=== PATIENT | male | born 1990 | race American Indian/Alaskan Native ===

== ENCOUNTER 2017-03-10 07:12 | Emergency (ER) | payer SELFPAY ==
[2017-03-10 08:11] LABS: Basophils % (Auto) 0.1 % (0.0-1.8); Eosinophils % (Auto) 0.8 % (0.0-4.3); Hematocrit 48.2 % (35.5-45.6); Mean Corpuscular HGB Conc 33 % (32-34); Mean Corpuscular Hemoglobin 30 pg (28-32); Mean Corpuscular Volume 89 fl (84-94); Platelet Count 253 K/mm3 (140-440); Red Cell Distribution Width 13.4 % (13.2-15.2); White Blood Count 12.9 K/mm3 (4.5-11.0)
[2017-03-10 08:24] LABS: Bacteria,Urine 1+ /HPF (Negative); Bilirubin,Urine NEG (Negative); Blood,Urine NEG (Negative); Ketones,Urine NEG (Negative); Leukocyte Esterase,Urine NEG (Negative); Mucus,Urine FEW /HPF; Nitrite,Urine NEG (Negative); Protein,Urine <15 mg/dL mg/dL (Negative); Urobilinogen,Urine < 2.0 mg/dL (<2.0); WBC,Urine < 1.0 /HPF (0.0-6.0)
[2017-03-10 08:24] LABS: Anion Gap 18 mmol/L; Blood Urea Nitrogen 11 mg/dL (9-20); Calcium 9.4 mg/dL (8.4-10.2); Carbon Dioxide 28 mmol/L (22-30); Chloride 99.5 mmol/L (98-107); Glucose 139 mg/dL (75-100); Potassium 4.2 mmol/L (3.6-5.0); Sodium 141 mmol/L (137-145)
[2017-03-10 15:07] VITALS: BP 125/97
--- NOTE | 2017-03-10 15:34 | Emergency Department Report ---
ED N/V/D HPI - General Chief complaint: Nausea/Vomiting/Diarrhea Stated complaint: VOMITING/STOMACH PAIN/HEADACHE/POSS FOOD POISON Time Seen by Provider: 03/10/17 15:03 Source: patient Mode of arrival: Ambulatory Limitations: No Limitations - History of Present Illness MD complaint: nausea, vomiting, diarrhea -: Gradual Description of Vomiting: watery Description of Diarrhea: water, mucous Location: diffuse Radiation: none Severity: mild Pain Scale: 1 Quality: cramping Consistency: intermittent Improves with: none Context: possible food poisoning Associated Symptoms: nausea/vomiting. denies: myalgias, chest pain, cough, headaches, loss of appetite, malaise, shortness of breath, syncope, weakness - Related Data Previous Rx's Medication Instructions Recorded Last Taken Type Ondansetron [Zofran Odt] 4 mg PO QID #12 tab.rapdis 03/10/17 Unknown Rx Allergies Allergy/AdvReac Type Severity Reaction Status Date / Time No Known Allergies Allergy Unverified 03/10/17 07:27 ED Review of Systems ROS: Stated complaint: VOMITING/STOMACH PAIN/HEADACHE/POSS FOOD POISON Other details as noted in HPI Comment: All other systems reviewed and negative ED Past Medical Hx - Past Medical History Previous Medical History?: No - Surgical History Past Surgical History?: No - Social History Smoking Status: Never Smoker Substance Use Type: None - Medications Home Medications: Home Medications Medication Instructions Recorded Confirmed Last Taken Type Ondansetron [Zofran Odt] 4 mg PO QID #12 tab.rapdis 03/10/17 Unknown Rx ED Physical Exam - General Limitations: No Limitations General appearance: alert, in no apparent distress - Head Head exam: Present: atraumatic, normocephalic - Eye Eye exam: Present: normal appearance, PERRL - ENT ENT exam: Present: normal exam, mucous membranes moist - Neck Neck exam: Present: normal inspection - Respiratory Respiratory exam: Present: normal lung sounds bilaterally. Absent: respiratory distress - Cardiovascular Cardiovascular Exam: Present: regular rate, normal rhythm. Absent: systolic murmur, diastolic murmur, rubs, gallop - GI/Abdominal GI/Abdominal exam: Present: soft, normal bowel sounds - Rectal Rectal exam: Present: deferred - Extremities Exam Extremities exam: Present: normal inspection - Back Exam Back exam: Present: normal inspection - Neurological Exam Neurological exam: Present: alert, oriented X3 - Psychiatric Psychiatric exam: Present: normal affect, normal mood - Skin Skin exam: Present: warm, dry, intact, normal color. Absent: rash ED Course Vital Signs 03/10/17 03/10/17 03/10/17 07:21 07:23 15:03 Temperature 98.3 F 98.3 F Pulse Rate 98 H 98 H 94 H Respiratory 16 16 16 Rate Blood Pressure 127/82 Blood Pressure 127/82 125/97 [Left] O2 Sat by Pulse 97 97 97 Oximetry ED Medical Decision Making - Lab Data Result diagrams: 03/10/17 07:55 03/10/17 07:55 - EKG Data When compared to previous EKG there are: no significant change Interpretation: no acute changes - Medical Decision Making patient doing well, tolerating po here in the ER, doing well. labs negative. Critical care attestation.: If time is entered above; I have spent that time in minutes in the direct care of this critically ill patient, excluding procedure time. ED Disposition Clinical Impression: Vomiting, Food poisoning Disposition: DC-01 TO HOME OR SELFCARE Is pt being admited?: No Does the pt Need Aspirin: No Condition: Good Instructions: Acute Nausea and Vomiting (ED) Prescriptions: Ondansetron [Zofran Odt] 4 mg PO QID #12 tab.rapdis Referrals: PRIMARY CARE, [Primary Care Provider] - 3-5 Days Time of Disposition: 15:58
[2017-03-10] MEDS ORDERED: ZOFRAN ONE (16:02)
[2017-03-10] MEDS ORDERED: NACL 0.9% 1000 ML 1,000 ML ONE (16:03)
[2017-03-10] MEDS ORDERED: NACL 0.9% 1000 ML 1,000 ML IV ONE (16:07)
[2017-03-10] MEDS ORDERED: ZOFRAN IV ONE (16:07)
== END 2017-03-10 17:47 | disposition home or self-care (01) ==
LOC: ED 07:12
DX: T62.8X1A Toxic effect of other specified noxious substances eaten as food, accidental (unintentional), initial encounter (principal); R11.2 Nausea with vomiting, unspecified; Y92.89 Other specified places as the place of occurrence of the external cause
CPT/HCPCS: 36415; 80048; 81001; 82962; 85025; 96361; 96374; 99283; J2405; J7030

== ENCOUNTER 2020-06-21 07:13 | Emergency (ER) | payer SELFPAY ==
[2020-06-21 07:41] VITALS: BP 130/89
[2020-06-21 09:11] LABS: Alanine Aminotransferase 29 units/L (7-56); Albumin 4.5 g/dL (3.9-5); BUN/Creatinine Ratio 15; Blood Urea Nitrogen 19 mg/dL (9-20); Calcium 9.5 mg/dL (8.4-10.2); Hemolysis Index 29
[2020-06-21 09:26] LABS: Basophils % (Auto) 0.6 % (0.0-1.8); Eosinophils # (Auto) 0.2 K/mm3 (0.0-0.4); Hemoglobin 17.1 gm/dl (11.8-15.2); Lymphocytes # (Auto) 2.2 K/mm3 (1.2-5.4); Mean Corpuscular HGB Conc 34 % (32-34); Mean Corpuscular Volume 88 fl (84-94); Monocytes # (Auto) 0.7 K/mm3 (0.0-0.8); Monocytes % (Auto) 9.7 % (0.0-7.3); Platelet Count 251 K/mm3 (140-440); Red Blood Count 5.81 M/mm3 (3.65-5.03); Red Cell Distribution Width 13.1 % (13.2-15.2)
[2020-06-21 09:28] LABS: Bacteria,Urine 1+ /HPF (Negative); Bilirubin,Urine NEG (Negative); Blood,Urine NEG (Negative); Color,Urine Colorless (Yellow); Mucus,Urine FEW /HPF; Protein,Urine <15 mg/dL mg/dL (Negative); Urobilinogen,Urine < 2.0 mg/dL (<2.0); WBC,Urine < 1.0 /HPF (0.0-6.0)
[2020-06-21 10:02] LABS: Bilirubin,Direct < 0.2 mg/dL (0-0.2)
[2020-06-21] MEDS ORDERED: INSULIN REGULAR, HUMAN 100 UNIT/ML 3ML VIAL IV ONE ×3 (10:16→12:47)
[2020-06-21] MEDS ORDERED: SODIUM CHLORIDE 0.9% 1000 ML 1,000 ML IV ONE ×2 (10:16→11:41)
--- NOTE | 2020-06-21 10:19 | Emergency Department Report ---
ED General Adult HPI - General Chief complaint: Medical Clearance Stated complaint: DEHYDRATION Time Seen by Provider: 06/21/20 07:45 Source: patient Mode of arrival: Ambulatory Limitations: No Limitations - History of Present Illness Initial comments: Patient is 30 years old male with no significant past medical history. Patient presented to the ER stating that he has frequent urination that bothering him. He stated that he woke up in the middle of the night several times to go to the bathroom. He also noticed that he has been very thirsty. He denied any loss of weight. Patient also denied any chest pain, shortness of breath, abdominal pain, nausea or vomiting. No fever or chills. - Related Data Previous Rx's Medication Instructions Recorded Last Taken Type Ondansetron [Zofran Odt] 4 mg PO QID #12 tab.rapdis 03/10/17 Unknown Rx Allergies Allergy/AdvReac Type Severity Reaction Status Date / Time No Known Allergies Allergy Unverified 03/10/17 07:27 ED Review of Systems ROS: Stated complaint: DEHYDRATION Other details as noted in HPI Comment: All other systems reviewed and negative Constitutional: denies: chills, fever Respiratory: denies: cough, shortness of breath, SOB with exertion Cardiovascular: denies: chest pain, palpitations Endocrine: increased hunger, increased thirst, increased urine Gastrointestinal: denies: abdominal pain, nausea, vomiting Genitourinary: urgency, frequency Neurological: denies: headache, weakness, numbness, paresthesias, confusion, abnormal gait ED Past Medical Hx - Past Medical History Previous Medical History?: No - Surgical History Past Surgical History?: No - Social History Smoking Status: Never Smoker Substance Use Type: None - Medications Home Medications: Home Medications Medication Instructions Recorded Confirmed Last Taken Type Ondansetron [Zofran Odt] 4 mg PO QID #12 tab.rapdis 03/10/17 Unknown Rx ED Physical Exam - General Limitations: No Limitations General appearance: alert, in no apparent distress - Head Head exam: Present: atraumatic, normocephalic, normal inspection - ENT ENT exam: Present: mucous membranes dry - Neck Neck exam: Present: normal inspection, full ROM. Absent: tenderness, meningismus - Respiratory Respiratory exam: Present: normal lung sounds bilaterally - Cardiovascular Cardiovascular Exam: Present: regular rate, normal rhythm, normal heart sounds - GI/Abdominal GI/Abdominal exam: Present: soft, normal bowel sounds. Absent: distended, tenderness, guarding, rebound, rigid, organomegaly, mass, bruit, pulsatile mass, hernia - Extremities Exam Extremities exam: Present: normal inspection, full ROM, normal capillary refill. Absent: tenderness, pedal edema, calf tenderness - Back Exam Back exam: Present: normal inspection, full ROM. Absent: CVA tenderness (R), CVA tenderness (L) - Neurological Exam Neurological exam: Present: alert, oriented X3, CN II-XII intact, normal gait, reflexes normal. Absent: motor sensory deficit - Psychiatric Psychiatric exam: Present: normal mood - Skin Skin exam: Present: warm, intact, normal color ED Course Vital Signs 06/21/20 07:32 Temperature 98.0 F Pulse Rate 86 Respiratory 20 Rate Blood Pressure 130/89 O2 Sat by Pulse 96 Oximetry ED Medical Decision Making - Lab Data Result diagrams: 06/21/20 08:08 06/21/20 08:08 - Radiology Data Radiology results: report reviewed - Medical Decision Making Patient is 30 years old male with no significant past medical history. Patient presented to the ER stating that he has frequent urination that bothering him. He stated that he woke up in the middle of the night several times to go to the bathroom. He also noticed that he has been very thirsty. He denied any loss of weight. Patient also denied any chest pain, shortness of breath, abdominal pain, nausea or vomiting. No fever or chills. Labs reviewed and showed elevated blood glucose. Patient received 2 L of normal saline and 15units of insulin IV. No evidence of DKA. Patient responded very well to insulin and fluids. Patient will be started on Glucophage and glipizide and given [facility] to follow-up in the next 2 to 3 days. Patient also advised to return to the ER if he develop any new symptoms. Critical care attestation.: If time is entered above; I have spent that time in minutes in the direct care of this critically ill patient, excluding procedure time. ED Disposition Clinical Impression: Acute hyperglycemia, New onset type 2 diabetes mellitus Disposition: -01 TO HOME OR SELFCARE Is pt being admited?: No Condition: Stable Instructions: Diabetes Mellitus Type 2 in Adults (ED) Referrals: [facility] [Provider Group] - 3-5 Days
== END 2020-06-21 14:38 | disposition home or self-care (01) ==
LOC: ED 07:13
DX: E11.65 Type 2 diabetes mellitus with hyperglycemia (principal)
CPT/HCPCS: 36415; 80048; 80076; 81001; 82962; 83036; 85025; 96361; 96374; 96376; 99283; J7030; J1815

== ENCOUNTER 2020-07-20 00:22 | Emergency (ER) | payer SELFPAY ==
[2020-07-20] MEDS ORDERED: SODIUM CHLORIDE 0.9% 1000 ML 1,000 ML ONE (01:08)
[2020-07-20] MEDS ORDERED: SODIUM CHLORIDE 0.9% 1000 ML 1,000 ML IV ONE ×3 (01:15→04:10)
--- NOTE | 2020-07-20 01:20 | Emergency Department Report ---
HPI - General Chief Complaint: Hyperglycemia Time Seen by Provider: 07/20/20 01:00 - [facility] HPI: Room 25 The patient is a 30-year-old male present with a chief complaint of blurred vision and urinary frequency. Patient states for the past 1.5 hours he has been urinating frequently. Patient denies dysuria or hematuria. Patient states he has been compliant with his Metformin. ED Past Medical Hx - Past Medical History Previous Medical History?: Yes Hx Diabetes: Yes (Type II) - Surgical History Past Surgical History?: No - Family History Family history: no significant - Social History Smoking Status: Current Every Day Smoker (1/5 pack/day) Substance Use Type: None (Denies illicit drug use) - Medications Home Medications: Home Medications Medication Instructions Recorded Confirmed Last Taken Type Ondansetron [Zofran Odt] 4 mg PO QID #12 tab.rapdis 03/10/17 Unknown Rx glipiZIDE [Glucotrol] 5 mg PO BID #60 tablet 06/21/20 Unknown Rx metFORMIN [Glucophage] 500 mg PO BID #60 tablet 06/21/20 Unknown Rx ED Review of Systems ROS: Stated complaint: BLURRED VISION Other details as noted in HPI Constitutional: no symptoms reported Eyes: vision change ENT: denies: throat pain Respiratory: no symptoms reported Cardiovascular: denies: chest pain Endocrine: increased urine Gastrointestinal: denies: abdominal pain Genitourinary: frequency. denies: dysuria Musculoskeletal: denies: back pain Neurological: denies: headache Physical Exam - Physical Exam Vital Signs: Vital Signs 07/20/20 00:28 Temperature 97.9 F Pulse Rate 81 Respiratory 18 Rate Blood Pressure 119/77 O2 Sat by Pulse 96 Oximetry Physical Exam: GENERAL: The patient is well-developed well-nourished male lying on stretcher not appearing to be in acute distress. [] HEENT: Normocephalic. Atraumatic. Extraocular motions are intact. Patient has moist mucous membranes. NECK: Supple. Trachea midline CHEST/LUNGS: Clear to auscultation. There is no respiratory distress noted. HEART/CARDIOVASCULAR: Regular. There is no tachycardia. There is no gallop rub or murmur. ABDOMEN: Abdomen is soft, nontender. Patient has normal bowel sounds. There is no abdominal distention. SKIN: There is no rash. There is no edema. There is no diaphoresis. NEURO: The patient is awake, alert, and oriented. The patient is cooperative. The patient has no focal neurologic deficits. The patient has normal speech. Cranial nerves II through XII grossly intact MUSCULOSKELETAL: There is no evidence of acute injury. ED Course Vital Signs 07/20/20 00:28 Temperature 97.9 F Pulse Rate 81 Respiratory 18 Rate Blood Pressure 119/77 O2 Sat by Pulse 96 Oximetry ED Medical Decision Making - Lab Data Result diagrams: 07/20/20 01:11 07/20/20 00:54 Laboratory Tests 07/20/20 07/20/20 07/20/20 00:54 00:59 01:11 WBC 8.4 RBC 5.53 H Hgb 16.3 H Hct 49.0 H MCV 89 MCH 29 MCHC 33 RDW 13.3 Plt Count 246 Lymph % (Auto) 35.4 H [place] % (Auto) 8.7 H Eos % (Auto) 1.1 Baso % (Auto) 0.4 Lymph # (Auto) 3.0 [place] # (Auto) 0.7 Eos # (Auto) 0.1 Baso # (Auto) 0.0 Seg Neutrophils % 54.4 Seg Neutrophils # 4.6 VBG pH Sodium 129 L Potassium 4.3 Chloride 92.9 L Carbon Dioxide 22 Anion Gap 18 BUN 15 Creatinine 1.2 Estimated GFR > 60 BUN/Creatinine Ratio 13 Glucose 597 H* POC Glucose Calcium 9.8 Total Bilirubin 0.70 AST 10 ALT 17 Alkaline Phosphatase 117 Total Protein 8.1 Albumin 4.7 Albumin/Globulin Ratio 1.4 Urine Color Colorless Urine Turbidity Clear Urine pH 6.0 Ur Specific [place] 1.027 Urine Protein <15 mg/dl Urine Glucose (UA) >=500 Urine Ketones Tr Urine Blood Neg Urine Nitrite Neg Urine Bilirubin Neg Urine Urobilinogen < 2.0 Ur Leukocyte Esterase Neg Urine WBC (Auto) < 1.0 Urine RBC (Auto) < 1.0 U Epithel Cells (Auto) < 1.0 07/20/20 07/20/20 01:11 02:16 WBC RBC Hgb Hct MCV MCH MCHC RDW Plt Count Lymph % (Auto) [place] % (Auto) Eos % (Auto) Baso % (Auto) Lymph # (Auto) [place] # (Auto) Eos # (Auto) Baso # (Auto) Seg Neutrophils % Seg Neutrophils # VBG pH 7.333 Sodium Potassium Chloride Carbon Dioxide Anion Gap BUN Creatinine Estimated GFR BUN/Creatinine Ratio Glucose POC Glucose > 500 H Calcium Total Bilirubin AST ALT Alkaline Phosphatase Total Protein Albumin Albumin/Globulin Ratio Urine Color Urine Turbidity Urine pH Ur Specific [place] Urine Protein Urine Glucose (UA) Urine Ketones Urine Blood Urine Nitrite Urine Bilirubin Urine Urobilinogen Ur Leukocyte Esterase Urine WBC (Auto) Urine RBC (Auto) U Epithel Cells (Auto) - Differential Diagnosis Hyperglycemia, DKA, UTI Critical care attestation.: If time is entered above; I have spent that time in minutes in the direct care of this critically ill patient, excluding procedure time. ED Disposition Clinical Impression: Hyperglycemia Disposition: DC-01 TO HOME OR SELFCARE Is pt being admited?: No Does the pt Need Aspirin: No Condition: Stable Instructions: Type 2 Diabetes Mellitus, Diagnosis, Adult, Living With Diabetes, Diabetes Basics, Carbohydrate Counting for Diabetes Mellitus, Adult, Diabetes Mellitus and Nutrition, Adult Additional Instructions: Return to the emergency department should you develop worsening symptoms, inability to tolerate food or liquids, high fever or any other concerns Referrals: LOYD ELISE MD [Primary Care Provider] - 3-5 Days Time of Disposition: 04:53
[2020-07-20 01:43] LABS: Alanine Aminotransferase 17 units/L (7-56); Albumin 4.7 g/dL (3.9-5); BUN/Creatinine Ratio 13; Blood Urea Nitrogen 15 mg/dL (9-20); Calcium 9.8 mg/dL (8.4-10.2); Hemolysis Index 6
[2020-07-20 01:46] LABS: Basophils % (Auto) 0.4 % (0.0-1.8); Eosinophils # (Auto) 0.1 K/mm3 (0.0-0.4); Eosinophils % (Auto) 1.1 % (0.0-4.3); Hemoglobin 16.3 gm/dl (11.8-15.2); Lymphocytes % (Auto) 35.4 % (13.4-35.0); Mean Corpuscular HGB Conc 33 % (32-34); Mean Corpuscular Volume 89 fl (84-94); Monocytes # (Auto) 0.7 K/mm3 (0.0-0.8); Monocytes % (Auto) 8.7 % (0.0-7.3); Platelet Count 246 K/mm3 (140-440); Red Blood Count 5.53 M/mm3 (3.65-5.03); Red Cell Distribution Width 13.3 % (13.2-15.2)
[2020-07-20] MEDS ORDERED: INSULIN REGULAR, HUMAN 100 UNIT/ML 3ML VIAL IV ONE ×3 (01:57→04:10)
[2020-07-20] MEDS ORDERED: INSULIN REGULAR, HUMAN 100 UNITS/1 ML ONE ×3 (02:00)
[2020-07-20 02:28] LABS: Bilirubin,Urine NEG (Negative); Blood,Urine NEG (Negative); Color,Urine Colorless (Yellow); Protein,Urine <15 mg/dL mg/dL (Negative); RBC,Urine < 1.0 /HPF (0.0-6.0); Urobilinogen,Urine < 2.0 mg/dL (<2.0); WBC,Urine < 1.0 /HPF (0.0-6.0)
[2020-07-20 05:09] VITALS: BP 118/54
== END 2020-07-20 05:12 | disposition home or self-care (01) ==
LOC: ED 00:22
DX: E11.65 Type 2 diabetes mellitus with hyperglycemia (principal); F17.200 Nicotine dependence, unspecified, uncomplicated; Z79.899 Other long term (current) drug therapy
CPT/HCPCS: 36415; 80053; 81001; 82805; 82962; 85025; 96361; 96374; 96375; 99283; J7030; J1815

== ENCOUNTER 2020-09-06 14:37 | Inpatient (IN) | payer SELFPAY ==
--- NOTE | 2020-09-06 15:41 | Event Note ---
ED Screening Note Date of service: 09/06/20 Time: 15:40 ED Screening Note: States fatigue, shortness of breath, and weakness x2 days History of diabetes POC glucose = 529 This initial assessment/diagnostic orders/clinical plan/treatment(s) is/are subject to change based on patients health status, clinical progression and re- assessment by fellow clinical providers in the ED. Further treatment and workup at subsequent clinical providers discretion. Patient/guardian urged not to elope from the ED as their condition may be serious if not clinically assessed and managed. Initial orders include: Labs
[2020-09-06] MEDS ORDERED: SODIUM CHLORIDE 0.9% 1000 ML 1,000 ML ONE (15:43)
[2020-09-06 16:15] LABS: Mean Corpuscular HGB Conc 31 % (32-34); Mean Corpuscular Volume 96 fl (84-94); Platelet Count 300 K/mm3 (140-440); Red Blood Count 5.49 M/mm3 (3.65-5.03)
[2020-09-06 16:16] LABS: Hematocrit 52.8 % (35.5-45.6); Hemoglobin 16.4 gm/dl (11.8-15.2)
[2020-09-06 16:28] LABS: Albumin 4.6 g/dL (3.9-5); Calcium 8.8 mg/dL (8.4-10.2)
--- NOTE | 2020-09-06 16:37 | Emergency Department Report ---
HPI - General Chief Complaint: Dyspnea/Respdistress Time Seen by Provider: 09/06/20 15:40 - HPI HPI: This is a 30-year-old -[place] male who presents to the emergency department with a 2-day history of generalized fatigue and weakness, shortness o f breath, nausea with vomiting. The patient has a history of [id number] diabetes that was diagnosed about 3 months ago. He says he has been compliant with his diabetes medications and presents through triage with an Accu-Chek of greater than 500. He denies any other past medical histor y. He has not taken anything for his symptoms prior to presentation. He denies any chest pain, fever, diarrhea, diaphoresis. No recent travel or sick contacts at home. No known exposure to anyone with COVID-19. ED Past Medical Hx - Past Medical History Previous Medical History?: Yes Hx Diabetes: Yes (Type II) - Social History Smoking Status: Current Every Day Smoker (1/5 pack/day) Substance Use Type: None (Denies illicit drug use) - Medications Home Medications: Home Medications Medication Instructions Recorded Confirmed Last Taken Type Ondansetron [Zofran Odt] 4 mg PO QID #12 tab.rapdis 03/10/17 Unknown Rx glipiZIDE [Glucotrol] 5 mg PO BID #60 tablet 07/20/20 Unknown Rx metFORMIN [Glucophage] 500 mg PO BID #60 tablet 07/20/20 Unknown Rx ED Review of Systems ROS: Stated complaint: DIFFICULTY BREATHING Other details as noted in HPI Comment: All other systems reviewed and negative Constitutional: weakness. denies: fever Eyes: denies: eye pain, vision change Respiratory: shortness of breath. denies: cough Cardiovascular: denies: chest pain, palpitations Gastrointestinal: nausea, vomiting Genitourinary: denies: dysuria, discharge Musculoskeletal: denies: back pain, arthralgia Skin: denies: rash, lesions Neurological: denies: headache, numbness Physical Exam - Physical Exam Vital Signs: Vital Signs 09/06/20 15:35 Temperature 97.5 F L Pulse Rate 116 H Respiratory 26 H Rate Blood Pressure 157/95 [Right] O2 Sat by Pulse 100 Oximetry Physical Exam: GENERAL: Patient is ill-appearing. HENT: Normocephalic. Atraumatic. Patient has moist mucous membranes. EYES: Extraocular motions are intact. NECK: Supple. Trachea is midline. CHEST/LUNGS: Clear to auscultation. There is some mild tachypnea. Kussmaul breathing. HEART/CARDIOVASCULAR: Regular. There is no tachycardia. There is no murmur. ABDOMEN: Abdomen is soft, nontender. Patient has normal bowel sounds. SKIN: Skin is warm and dry. NEURO: Patient is sleepy but otherwise is alert and oriented, AAO x3. The patient has no focal neurologic deficits. Normal speech. Cranial nerves II through XII grossly intact. MUSCULOSKELETAL: There is no tenderness or deformity. There is no limitation range of motion. ED Course Vital Signs 09/06/20 15:35 Temperature 97.5 F L Pulse Rate 116 H Respiratory 26 H Rate Blood Pressure 157/95 [Right] O2 Sat by Pulse 100 Oximetry ED Medical Decision Making - Lab Data Result diagrams: 09/06/20 15:52 09/06/20 18:28 Lab Results 09/06/20 09/06/20 09/06/20 Range/Units 15:39 15:52 15:52 WBC 21.9 H (4.5-11.0) K/mm3 RBC 5.49 H (3.65-5.03) M/mm3 Hgb 16.4 H (11.8-15.2) gm/dl Hct 52.8 H (35.5-45.6) % MCV 96 H (84-94) fl MCH 30 (28-32) pg MCHC 31 L (32-34) % RDW 15.0 (13.2-15.2) % Plt Count 300 (140-440) K/mm3 Add Manual Diff Complete Total Counted 100 Seg Neuts % (Manual) 96.0 H (40.0-70.0) % Lymphocytes % (Manual) 3.0 L (13.4-35.0) % Monocytes % (Manual) 1.0 (0.0-7.3) % Nucleated RBC % Not Reportable Seg Neutrophils # Man 21.0 H (1.8-7.7) K/mm3 Band Neutrophils # 0.0 K/mm3 Lymphocytes # (Manual) 0.7 L (1.2-5.4) K/mm3 Abs React Lymphs (Man) 0.0 K/mm3 Monocytes # (Manual) 0.2 (0.0-0.8) K/mm3 Eosinophils # (Manual) 0.0 (0.0-0.4) K/mm3 Basophils # (Manual) 0.0 (0.0-0.1) K/mm3 Metamyelocytes # 0.0 K/mm3 Myelocytes # 0.0 K/mm3 Promyelocytes # 0.0 K/mm3 Blast Cells # 0.0 K/mm3 WBC Morphology Not Reportable Hypersegmented Neuts Not Reportable Hyposegmented Neuts Not Reportable Hypogranular Neuts Not Reportable Smudge Cells Not Reportable Toxic Granulation Not Reportable Toxic Vacuolation Not Reportable Dohle Bodies Not Reportable Pelger-Huet Anomaly Not Reportable Janessa Rods Not Reportable Platelet Estimate Consistent w auto Clumped Platelets Not Reportable Plt Clumps, EDTA Not Reportable Large Platelets Few Giant Platelets Rare Platelet Satelliting Not Reportable Plt Morphology Comment Not Reportable RBC Morphology Normal Dimorphic RBCs Not Reportable Polychromasia Not Reportable Hypochromasia Not Reportable Poikilocytosis Not Reportable Anisocytosis Not Reportable Microcytosis Not Reportable Macrocytosis Not Reportable Spherocytes Not Reportable Pappenheimer Bodies Not Reportable Sickle Cells Not Reportable Target Cells Not Reportable Tear Drop Cells Not Reportable Ovalocytes Not Reportable Helmet Cells Not Reportable [place] Bodies Not Reportable [place] Rings Not Reportable Masha Cells Not Reportable Bite Cells Not Reportable Crenated Cell Not Reportable Elliptocytes Not Reportable Acanthocytes (Spur) Not Reportable Rouleaux Not Reportable Hemoglobin C Crystals Not Reportable Schistocytes Not Reportable Malaria parasites Not Reportable Sunil Bodies Not Reportable Hem Pathologist Commnt No VBG pH (7.320-7.420) Sodium 123 L (137-145) mmol/L Potassium 5.6 H (3.6-5.0) mmol/L Chloride 88.6 L (98-107) mmol/L Carbon Dioxide 6 L* (22-30) mmol/L Anion Gap 34 mmol/L BUN 18 (9-20) mg/dL Creatinine 1.8 H (0.8-1.3) mg/dL Estimated GFR 54 ml/min BUN/Creatinine Ratio 10 % Glucose 595 H* (75-100) mg/dL POC Glucose 524 H (70-105) mg/dL Calcium 8.8 (8.4-10.2) mg/dL Phosphorus (2.5-4.5) mg/dL Magnesium (1.7-2.3) mg/dL Total Bilirubin 0.60 (0.1-1.2) mg/dL AST 12 (5-40) units/L ALT 19 (7-56) units/L Alkaline Phosphatase 131 H (35-129) units/L Total Protein 9.6 H (6.3-8.2) g/dL Albumin 4.6 (3.9-5) g/dL Albumin/Globulin Ratio 0.9 % 09/06/20 09/06/20 09/06/20 Range/Units 15:52 16:44 16:44 WBC (4.5-11.0) K/mm3 RBC (3.65-5.03) M/mm3 Hgb (11.8-15.2) gm/dl Hct (35.5-45.6) % MCV (84-94) fl MCH (28-32) pg MCHC (32-34) % RDW (13.2-15.2) % Plt Count (140-440) K/mm3 Add Manual Diff Total Counted Seg Neuts % (Manual) (40.0-70.0) % Lymphocytes % (Manual) (13.4-35.0) % Monocytes % (Manual) (0.0-7.3) % Nucleated RBC % Seg Neutrophils # Man (1.8-7.7) K/mm3 Band Neutrophils # K/mm3 Lymphocytes # (Manual) (1.2-5.4) K/mm3 Abs React Lymphs (Man) K/mm3 Monocytes # (Manual) (0.0-0.8) K/mm3 Eosinophils # (Manual) (0.0-0.4) K/mm3 Basophils # (Manual) (0.0-0.1) K/mm3 Metamyelocytes # K/mm3 Myelocytes # K/mm3 Promyelocytes # K/mm3 Blast Cells # K/mm3 WBC Morphology Hypersegmented Neuts Hyposegmented Neuts Hypogranular Neuts Smudge Cells Toxic Granulation Toxic Vacuolation Dohle Bodies Pelger-Huet Anomaly Janessa Rods Platelet Estimate Clumped Platelets Plt Clumps, EDTA Large Platelets Giant Platelets Platelet Satelliting Plt Morphology Comment RBC Morphology Dimorphic RBCs Polychromasia Hypochromasia Poikilocytosis Anisocytosis Microcytosis Macrocytosis Spherocytes Pappenheimer Bodies Sickle Cells Target Cells Tear Drop Cells Ovalocytes Helmet Cells [place] Bodies [place] Rings Masha Cells Bite Cells Crenated Cell Elliptocytes Acanthocytes (Spur) Rouleaux Hemoglobin C Crystals Schistocytes Malaria parasites Sunil Bodies Hem Pathologist Commnt VBG pH 6.979 L* (7.320-7.420) Sodium 122 L (137-145) mmol/L Potassium 5.0 (3.6-5.0) mmol/L Chloride 90.1 L (98-107) mmol/L Carbon Dioxide 4 L* (22-30) mmol/L Anion Gap 33 mmol/L BUN 18 (9-20) mg/dL Creatinine 1.6 H (0.8-1.3) mg/dL Estimated GFR > 60 ml/min BUN/Creatinine Ratio 11 % Glucose 572 H* (75-100) mg/dL POC Glucose (70-105) mg/dL Calcium 8.5 (8.4-10.2) mg/dL Phosphorus 4.40 (2.5-4.5) mg/dL Magnesium 2.40 H (1.7-2.3) mg/dL Total Bilirubin (0.1-1.2) mg/dL AST (5-40) units/L ALT (7-56) units/L Alkaline Phosphatase (35-129) units/L Total Protein (6.3-8.2) g/dL Albumin (3.9-5) g/dL Albumin/Globulin Ratio % - Radiology Data Radiology results: image reviewed interpreted by me: Chest x-ray does not show any acute process. There are no pleural effusions, obvious pneumonia and there is no pneumothorax. No significant cardiomegaly. - Medical Decision Making This patient presents to the emergency department with a 2-day history of some generalized weakness and fatigue, shortness of breath. Patient appears to be in diabetic ketoacidosis with a serum blood sugar of almost 600, and anion gap of 34, and a venous acidosis of 6.9. The patient has been started on IV fluid and an insulin drip. Patient will be admitted to the ICU and has been accepted for admission by the hospitalist, Dr. Chew. Critical Care Time: Yes Critical care time in (mins) excluding proc time.: 35 Critical care attestation.: If time is entered above; I have spent that time in minutes in the direct care of this critically ill patient, excluding procedure time. Critical care time was spent on this patient in doing his initial evaluation, multiple re evaluations, ordering and interpretation of labs and imaging, IV fluid resuscitation and insulin drip for treatment of his diabetic ketoacidosis. Critical Care Time: 35 minutes ED Disposition Clinical Impression: Mild renal insufficiency, Hyperkalemia, High anion gap metabolic acidosis Diabetic ketoacidosis Qualifiers: Diabetes mellitus type: type 2 Diabetes mellitus complication detail: without coma Qualified Code(s): E11.10 - Type 2 diabetes mellitus with ketoacidosis without coma Disposition: DC-09 OP ADMIT IP TO THIS HOSP Is pt being admited?: Yes Condition: Serious Instructions: Diabetic Ketoacidosis (ED) Time of Disposition: 20:28
[2020-09-06] MEDS ORDERED: SODIUM CHLORIDE 0.9% 1000 ML 1,000 ML IV ONE (16:38)
[2020-09-06] MEDS ORDERED: INSULIN REGULAR, HUMAN 100 UNITS in SODIUM CHLORIDE 0.9% 99 ML IV SCH ×2 (17:00→23:00)
[2020-09-06 17:13] LABS: Giant Platelets Rare; Large Platelets Few; Platelet Estimate Consistent w Auto; RBC Morphology Normal; Total Cells Counted 100
[2020-09-06 17:13] LABS: BUN/Creatinine Ratio 11; Blood Urea Nitrogen 18 mg/dL (9-20); Calcium 8.5 mg/dL (8.4-10.2); Hemolysis Index 27
[2020-09-06 17:33] LABS: Bilirubin,Urine NEG (Negative); Blood,Urine SM (Negative); Color,Urine Straw (Yellow); Mucus,Urine FEW /HPF; Urobilinogen,Urine < 2.0 mg/dL (<2.0); WBC,Urine < 1.0 /HPF (0.0-6.0)
--- NOTE | 2020-09-06 18:12 | XRay Report ---
CHEST 1 VIEW INDICATION: SOB COMPARISON: None FINDINGS: Support devices: None Heart: Normal Lungs/Pleura: No acute pulmonary or pleural findings. IMPRESSION: 1. No acute disease. Signer Name: Yrn Pinzon MD Signed: 09/06/2020 6:08 PM Workstation Name: [id number]
[2020-09-06 19:07] LABS: BUN/Creatinine Ratio 11; Blood Urea Nitrogen 18 mg/dL (9-20); Calcium 8.2 mg/dL (8.4-10.2); Hemolysis Index 21
[2020-09-06 21:51] LABS: BUN/Creatinine Ratio 11; Blood Urea Nitrogen 17 mg/dL (9-20); Calcium 8.4 mg/dL (8.4-10.2); Hemolysis Index 28
[2020-09-06] MEDS ORDERED: DEXTROSE 50% IN WATER (25GM) 50 ML SYRINGE IV PRN (22:59)
[2020-09-06] MEDS ORDERED: D5W/0.45% NACL/KCL 20 MEQ 20 MEQ/1,000 ML BAG IV SCH (23:00)
--- NOTE | 2020-09-06 23:12 | History and Physical Report ---
History of Present Illness Date of examination: 09/06/20 Date of admission: 09/06/20 Chief complaint: Nausea vomiting for 2 days Generalized weakness for 2 days History of present illness: This is a 30-year-old -[place] male who presents to the emergency depart [facility] with a 2-day history of generalized fatigue and weakness, shortness of breath, nausea with vomiting. The patient has a history of ceo-sccmbdr-[id number] diabetes that was diagnosed about 3 months ago. He says he has been compliant with his diabetes medications and presents through triage with an Accu-Chek of greater than 500. He denies any other past medical history. He has not taken anything for his symptoms prior to presentation. He denies any chest pain, fever, diarrhea, diaphoresis. No recent travel or sick contacts at home. No known exposure to anyone with COVID-19. - Past Medical History Previous Medical History?: Yes Hx Diabetes: Yes (Type II) - Social History Smoking Status: Current Every Day Smoker (1/5 pack/day) Substance Use Type: None (Denies illicit drug use) - Medications Home Medications: Home Medications Medication Instructions Recorded Confirmed Last Taken Type Ondansetron [Zofran Odt] 4 mg PO QID #12 tab.rapdis 03/10/17 Unknown Rx glipiZIDE [Glucotrol] 5 mg PO BID #60 tablet 07/20/20 Unknown Rx metFORMIN [Glucophage] 500 mg PO BID #60 tablet 07/20/20 Unknown Rx Review of Systems ROS: Stated complaint: DIFFICULTY BREATHING Other details as noted in HPI Comment: All other systems reviewed and negative Constitutional: weakness. denies: fever Eyes: denies: eye pain, vision change Respiratory: shortness of breath. denies: cough Cardiovascular: denies: chest pain, palpitations Gastrointestinal: nausea, vomiting Genitourinary: denies: dysuria, discharge Musculoskeletal: denies: back pain, arthralgia Skin: denies: rash, lesions Neurological: denies: headache, numbness Medications and Allergies Allergies Allergy/AdvReac Type Severity Reaction Status Date / Time No Known Allergies Allergy Unverified 03/10/17 07:27 Home Medications Medication Instructions Recorded Confirmed Last Taken Type Ondansetron [Zofran Odt] 4 mg PO QID #12 tab.rapdis 03/10/17 Unknown Rx glipiZIDE [Glucotrol] 5 mg PO BID #60 tablet 07/20/20 Unknown Rx metFORMIN [Glucophage] 500 mg PO BID #60 tablet 07/20/20 Unknown Rx Active Meds: Active Medications Insulin Human Regular 100 (units/ Sodium Chloride) 100 mls @ 1 mls/hr IV TITR CESIA; Protocol Last Admin: 09/06/20 17:02 Dose: 8 units/hr, 8 mls/hr Documented by: Exam - Constitutional Vitals: Temp Pulse Resp BP Pulse Ox 97.4 F L 110 H 19 143/79 98 09/06/20 15:37 09/06/20 18:07 09/06/20 18:07 09/06/20 18:07 09/06/20 19:46 General appearance: Present: no acute distress, well-nourished - EENT Eyes: Present: PERRL ENT: hearing intact, clear oral mucosa - Neck Neck: Present: supple, normal ROM - Respiratory Respiratory effort: normal Respiratory: bilateral: CTA - Cardiovascular Heart Sounds: Present: S1 & S2. Absent: rub, click - Extremities Extremities: pulses symmetrical, No edema Peripheral Pulses: within normal limits - Abdominal General gastrointestinal: Present: soft, non-tender, non-distended, normal bowel sounds Male genitourinary: Present: normal - Integumentary Integumentary: Present: clear, warm, dry - Musculoskeletal Musculoskeletal: gait normal, strength equal bilaterally - Psychiatric Psychiatric: appropriate mood/affect, intact judgment & insight - Neurologic Neurologic: CNII-XII intact, moves all extremities Results - Labs CBC & Chem 7: 09/06/20 15:52 09/07/20 16:41 Labs: Laboratory Last Values WBC 21.9 K/mm3 (4.5-11.0) H 09/06/20 15:52 RBC 5.49 M/mm3 (3.65-5.03) H 09/06/20 15:52 Hgb 16.4 gm/dl (11.8-15.2) H 09/06/20 15:52 Hct 52.8 % (35.5-45.6) H 09/06/20 15:52 MCV 96 fl (84-94) H 09/06/20 15:52 MCH 30 pg (28-32) 09/06/20 15:52 MCHC 31 % (32-34) L 09/06/20 15:52 RDW 15.0 % (13.2-15.2) 09/06/20 15:52 Plt Count 300 K/mm3 (140-440) 09/06/20 15:52 Add Manual Diff Complete 09/06/20 15:52 Total Counted 100 09/06/20 15:52 Seg Neuts % (Manual) 96.0 % (40.0-70.0) H 09/06/20 15:52 Lymphocytes % (Manual) 3.0 % (13.4-35.0) L 09/06/20 15:52 Monocytes % (Manual) 1.0 % (0.0-7.3) 09/06/20 15:52 Nucleated RBC % Not Reportable 09/06/20 15:52 Seg Neutrophils # Man 21.0 K/mm3 (1.8-7.7) H 09/06/20 15:52 Band Neutrophils # 0.0 K/mm3 09/06/20 15:52 Lymphocytes # (Manual) 0.7 K/mm3 (1.2-5.4) L 09/06/20 15:52 Abs React Lymphs (Man) 0.0 K/mm3 09/06/20 15:52 Monocytes # (Manual) 0.2 K/mm3 (0.0-0.8) 09/06/20 15:52 Eosinophils # (Manual) 0.0 K/mm3 (0.0-0.4) 09/06/20 15:52 Basophils # (Manual) 0.0 K/mm3 (0.0-0.1) 09/06/20 15:52 Metamyelocytes # 0.0 K/mm3 09/06/20 15:52 Myelocytes # 0.0 K/mm3 09/06/20 15:52 Promyelocytes # 0.0 K/mm3 09/06/20 15:52 Blast Cells # 0.0 K/mm3 09/06/20 15:52 WBC Morphology Not Reportable 09/06/20 15:52 Hypersegmented Neuts Not Reportable 09/06/20 15:52 Hyposegmented Neuts Not Reportable 09/06/20 15:52 Hypogranular Neuts Not Reportable 09/06/20 15:52 Smudge Cells Not Reportable 09/06/20 15:52 Toxic Granulation Not Reportable 09/06/20 15:52 Toxic Vacuolation Not Reportable 09/06/20 15:52 Dohle Bodies Not Reportable 09/06/20 15:52 Pelger-Huet Anomaly Not Reportable 09/06/20 15:52 Janessa Rods Not Reportable 09/06/20 15:52 Platelet Estimate Consistent w auto 09/06/20 15:52 Clumped Platelets Not Reportable 09/06/20 15:52 Plt Clumps, EDTA Not Reportable 09/06/20 15:52 Large Platelets Few 09/06/20 15:52 Giant Platelets Rare 09/06/20 15:52 Platelet Satelliting Not Reportable 09/06/20 15:52 Plt Morphology Comment Not Reportable 09/06/20 15:52 RBC Morphology Normal 09/06/20 15:52 Dimorphic RBCs Not Reportable 09/06/20 15:52 Polychromasia Not Reportable 09/06/20 15:52 Hypochromasia Not Reportable 09/06/20 15:52 Poikilocytosis Not Reportable 09/06/20 15:52 Anisocytosis Not Reportable 09/06/20 15:52 Microcytosis Not Reportable 09/06/20 15:52 Macrocytosis Not Reportable 09/06/20 15:52 Spherocytes Not Reportable 09/06/20 15:52 Pappenheimer Bodies Not Reportable 09/06/20 15:52 Sickle Cells Not Reportable 09/06/20 15:52 Target Cells Not Reportable 09/06/20 15:52 Tear Drop Cells Not Reportable 09/06/20 15:52 Ovalocytes Not Reportable 09/06/20 15:52 Helmet Cells Not Reportable 09/06/20 15:52 Costello-[place] Bodies Not Reportable 09/06/20 15:52 [place] Rings Not Reportable 09/06/20 15:52 [place] Cells Not Reportable 09/06/20 15:52 Bite Cells Not Reportable 09/06/20 15:52 Crenated Cell Not Reportable 09/06/20 15:52 Elliptocytes Not Reportable 09/06/20 15:52 Acanthocytes (Spur) Not Reportable 09/06/20 15:52 Rouleaux Not Reportable 09/06/20 15:52 Hemoglobin C Crystals Not Reportable 09/06/20 15:52 Schistocytes Not Reportable 09/06/20 15:52 Malaria parasites Not Reportable 09/06/20 15:52 Sunil Bodies Not Reportable 09/06/20 15:52 Hem Pathologist Commnt No 09/06/20 15:52 VBG pH 6.979 (7.320-7.420) L* 09/06/20 15:52 Sodium 130 mmol/L (137-145) L 09/06/20 21:09 Potassium 4.3 mmol/L (3.6-5.0) 09/06/20 21:09 Chloride 100.0 mmol/L (98-107) 09/06/20 21:09 Carbon Dioxide 4 mmol/L (22-30) L* 09/06/20 21:09 Anion Gap 30 mmol/L 09/06/20 21:09 BUN 17 mg/dL (9-20) 09/06/20 21:09 Creatinine 1.5 mg/dL (0.8-1.3) H 09/06/20 21:09 Estimated GFR > 60 ml/min 09/06/20 21:09 BUN/Creatinine Ratio 11 % 09/06/20 21:09 Glucose 327 mg/dL (75-100) H 09/06/20 21:09 POC Glucose 452 mg/dL (70-105) H 09/06/20 19:17 Calcium 8.4 mg/dL (8.4-10.2) 09/06/20 21:09 Phosphorus 4.40 mg/dL (2.5-4.5) 09/06/20 16:44 Magnesium 2.40 mg/dL (1.7-2.3) H 09/06/20 16:44 Total Bilirubin 0.60 mg/dL (0.1-1.2) 09/06/20 15:52 AST 12 units/L (5-40) 09/06/20 15:52 ALT 19 units/L (7-56) 09/06/20 15:52 Alkaline Phosphatase 131 units/L (35-129) H 09/06/20 15:52 Total Protein 9.6 g/dL (6.3-8.2) H 09/06/20 15:52 Albumin 4.6 g/dL (3.9-5) 09/06/20 15:52 Albumin/Globulin Ratio 0.9 % 09/06/20 15:52 Urine Color Straw (Yellow) 09/06/20 17:09 Urine Turbidity Clear (Clear) 09/06/20 17:09 Urine pH 5.0 (5.0-7.0) 09/06/20 17:09 Ur Specific [place] 1.021 (1.003-1.030) 09/06/20 17:09 Urine Protein 100 mg/dl mg/dL (Negative) 09/06/20 17:09 Urine Glucose (UA) >=500 mg/dL (Negative) 09/06/20 17:09 Urine Ketones 80 mg/dL (Negative) 09/06/20 17:09 Urine Blood Sm (Negative) 09/06/20 17:09 Urine Nitrite Neg (Negative) 09/06/20 17:09 Urine Bilirubin Neg (Negative) 09/06/20 17:09 Urine Urobilinogen < 2.0 mg/dL (<2.0) 09/06/20 17:09 Ur Leukocyte Esterase Neg (Negative) 09/06/20 17:09 Urine WBC (Auto) < 1.0 /HPF (0.0-6.0) 09/06/20 17:09 Urine RBC (Auto) 1.0 /HPF (0.0-6.0) 09/06/20 17:09 U Epithel Cells (Auto) 1.0 /HPF (0-13.0) 09/06/20 17:09 Urine Mucus Few /HPF 09/06/20 17:09 Baer/IV: IV Catheter Type [Right INT / Saline Lock Antecubital] Assessment and Plan Assessment and plan: The high probability OF a clinically significant sudden or life-threatening deterioration of the cardiorespiratory system and endocrine system required my full and direct attention, intervention and postoperative management. The aggregate critical l care time was 40 minutes. The time is in addition to time spent performing reported procedures but includes the followin: Data review and interpretation 2: Patient assessment and monitoring of vital signs 3: Documentation 4:: Medication orders and management Advance Directives: Yes (Full code) VTE prophylaxis?: Chemical Plan of care discussed with patient/family: Yes - Patient Problems (1) Diabetic ketoacidosis Current Visit: Yes Status: Acute Qualifiers: Diabetes mellitus type: type 2 Diabetes mellitus complication detail: without coma Qualified Code(s): E11.10 - Type 2 diabetes mellitus with ketoacidosis without coma Plan to address problem: DKA protocol IV Insulin IV Fluids Check Elctroytes (2) High anion gap metabolic acidosis Current Visit: Yes Status: Acute Plan to address problem: Correct BG levrls (3) Hyperkalemia Current Visit: Yes Status: Acute Plan to address problem: IV Insulin for now (4) Hyponatremia Current Visit: Yes Status: Acute Plan to address problem: Correction of BG levels should correct Sodium levels (5) Leukocytosis (leucocytosis) Current Visit: Yes Status: Acute Qualifiers: Leukocytosis type: unspecified Qualified Code(s): D72.829 - Elevated white blood cell count, unspecified Plan to address problem: Probable demargination IV Rocephin for now (6) DVT prophylaxis Current Visit: Yes Status: Acute Plan to address problem: Heparin Sq
[2020-09-07 00:15] LABS: Calcium 8.4 mg/dL (8.4-10.2); Hemolysis Index 24
[2020-09-07] MEDS: POTASSIUM CHLORIDE 10 MEQ 10 MEQ/100 ML BAG IV SCH ×2 (00:21→17:25)
[2020-09-07 00:42] LABS: BUN/Creatinine Ratio 1; Blood Urea Nitrogen 1 mg/dL (9-20)
[2020-09-07 01:18] LABS: Calcium 8.7 mg/dL (8.4-10.2); Hemolysis Index 13
[2020-09-07 01:48] LABS: BUN/Creatinine Ratio 1; Blood Urea Nitrogen 1 mg/dL (9-20)
[2020-09-07] MEDS ORDERED: SODIUM CHLORIDE 0.9% 1000 ML 1,000 ML ONE ×3 (02:44→11:38)
[2020-09-07 04:05] LABS: Calcium 8.1 mg/dL (8.4-10.2); Hemolysis Index 8
[2020-09-07 04:16] LABS: BUN/Creatinine Ratio 1; Blood Urea Nitrogen 1 mg/dL (9-20)
[2020-09-07 06:44] LABS: Hemolysis Index 9
[2020-09-07 06:55] LABS: BUN/Creatinine Ratio 1; Blood Urea Nitrogen 1 mg/dL (9-20)
[2020-09-07 07:35] LABS: BUN/Creatinine Ratio 10; Blood Urea Nitrogen 14 mg/dL (9-20); Calcium 8.3 mg/dL (8.4-10.2); Hemolysis Index 33
--- NOTE | 2020-09-07 07:55 | Progress Note ---
Assessment and Plan Assessment and plan: --Diabetic ketoacidosis; DKA pathway, on insulin drip Blood sugars are reasonable level Anion gap closed Metabolic acidosis slightly improved We will start ADA diet If patient is tolerating transition to long-acting insulin --Severe metabolic acidosis; present on admission Mild improvement, continue current management Rigorous IV hydration --Hyponatremia/pseudohyponatremia due to hyperglycemia Gradually improved from 123-to 125-to 133 Closely monitor electrolytes IV hydration with normal saline --Acute kidney injury; vasomotor nephropathy Severe dehydration, rigorous IV hydration Monitor renal function, avoid nephrotoxins --History of type 1 diabetes mellitus; Patient on oral hypoglycemics, HbA1c is 10.8 [06/2020] Diabetic education, nutrition education Possible home health nurse for disease monitoring at discharge --Hyperkalemia; present on admission Corrected, normal potassium levels this morning Closely monitor electrolytes --Leukocytosis; Probably secondary to severe dehydration and hemoconcentration Patient is afebrile, no evidence of sepsis Chest x-ray no acute abnormality, urine analysis no evidence of infection We will closely monitor --Ongoing tobacco use; smoking cessation counseling done Nicotine patch as needed, counseled the risks and consequences of Tobacco use, verbalized understanding --DVT prophylaxis; Lovenox We will closely monitor the patient and adjust the management as needed Plan of care reviewed with the patient and his nurse The high probability of a clinically significant, sudden or life threatening deterioration of the [Endocrine, metabolic, renal and infectious diseases ] system(s) required my full and direct attention, intervention and personal management. The aggregate critical care time was [45] minutes without overlap. Time includes spent on [x] Data Review and interpretation [x] Patient assessment and monitoring of vital signs [x] Documentation [x] Medication orders and management Plan of care reviewed with the patient and his nurse History Interval history: I have seen and examined the patient at the bedside this morning Patient's chart and medications reviewed Patient was admitted with diabetic ketoacidosis on DKA pathway Was on insulin drip per protocol Patient's blood sugars reasonable level A gap closed, acidosis mild improvement Patient feels better no new complaints Vital signs noted Hospitalist Physical - Constitutional Vitals: Temp Pulse Resp BP Pulse Ox 97.4 F L 110 H 19 114/73 96 09/06/20 15:37 09/06/20 18:07 09/06/20 18:07 09/07/20 07:16 09/07/20 07:16 General appearance: Present: no acute distress, well-nourished - EENT Eyes: Present: PERRL, EOM intact - Neck Neck: Present: supple, normal ROM - Respiratory Respiratory effort: normal Respiratory: bilateral: diminished, negative: rales, rhonchi, wheezing - Cardiovascular Rhythm: regular Heart Sounds: Present: S1 & S2 - Extremities Extremities: no ischemia, pulses intact - Abdominal General gastrointestinal: soft, non-tender, non-distended, normal bowel sounds - Integumentary Integumentary: Present: clear, warm - Psychiatric Psychiatric: appropriate mood/affect, cooperative - Neurologic Neurologic: CNII-XII intact, moves all extremities Results - Labs CBC & Chem 7: 09/06/20 15:52 09/07/20 16:41 Labs: Laboratory Last Values WBC 21.9 K/mm3 (4.5-11.0) H 09/06/20 15:52 RBC 5.49 M/mm3 (3.65-5.03) H 09/06/20 15:52 Hgb 16.4 gm/dl (11.8-15.2) H 09/06/20 15:52 Hct 52.8 % (35.5-45.6) H 09/06/20 15:52 MCV 96 fl (84-94) H 09/06/20 15:52 MCH 30 pg (28-32) 09/06/20 15:52 MCHC 31 % (32-34) L 09/06/20 15:52 RDW 15.0 % (13.2-15.2) 09/06/20 15:52 Plt Count 300 K/mm3 (140-440) 09/06/20 15:52 Add Manual Diff Complete 09/06/20 15:52 Total Counted 100 09/06/20 15:52 Seg Neuts % (Manual) 96.0 % (40.0-70.0) H 09/06/20 15:52 Lymphocytes % (Manual) 3.0 % (13.4-35.0) L 09/06/20 15:52 Monocytes % (Manual) 1.0 % (0.0-7.3) 09/06/20 15:52 Nucleated RBC % Not Reportable 09/06/20 15:52 Seg Neutrophils # Man 21.0 K/mm3 (1.8-7.7) H 09/06/20 15:52 Band Neutrophils # 0.0 K/mm3 09/06/20 15:52 Lymphocytes # (Manual) 0.7 K/mm3 (1.2-5.4) L 09/06/20 15:52 Abs React Lymphs (Man) 0.0 K/mm3 09/06/20 15:52 Monocytes # (Manual) 0.2 K/mm3 (0.0-0.8) 09/06/20 15:52 Eosinophils # (Manual) 0.0 K/mm3 (0.0-0.4) 09/06/20 15:52 Basophils # (Manual) 0.0 K/mm3 (0.0-0.1) 09/06/20 15:52 Metamyelocytes # 0.0 K/mm3 09/06/20 15:52 Myelocytes # 0.0 K/mm3 09/06/20 15:52 Promyelocytes # 0.0 K/mm3 09/06/20 15:52 Blast Cells # 0.0 K/mm3 09/06/20 15:52 WBC Morphology Not Reportable 09/06/20 15:52 Hypersegmented Neuts Not Reportable 09/06/20 15:52 Hyposegmented Neuts Not Reportable 09/06/20 15:52 Hypogranular Neuts Not Reportable 09/06/20 15:52 Smudge Cells Not Reportable 09/06/20 15:52 Toxic Granulation Not Reportable 09/06/20 15:52 Toxic Vacuolation Not Reportable 09/06/20 15:52 Dohle Bodies Not Reportable 09/06/20 15:52 Pelger-Huet Anomaly Not Reportable 09/06/20 15:52 Janessa Rods Not Reportable 09/06/20 15:52 Platelet Estimate Consistent w auto 09/06/20 15:52 Clumped Platelets Not Reportable 09/06/20 15:52 Plt Clumps, EDTA Not Reportable 09/06/20 15:52 Large Platelets Few 09/06/20 15:52 Giant Platelets Rare 09/06/20 15:52 Platelet Satelliting Not Reportable 09/06/20 15:52 Plt Morphology Comment Not Reportable 09/06/20 15:52 RBC Morphology Normal 09/06/20 15:52 Dimorphic RBCs Not Reportable 09/06/20 15:52 Polychromasia Not Reportable 09/06/20 15:52 Hypochromasia Not Reportable 09/06/20 15:52 Poikilocytosis Not Reportable 09/06/20 15:52 Anisocytosis Not Reportable 09/06/20 15:52 Microcytosis Not Reportable 09/06/20 15:52 Macrocytosis Not Reportable 09/06/20 15:52 Spherocytes Not Reportable 09/06/20 15:52 Pappenheimer Bodies Not Reportable 09/06/20 15:52 Sickle Cells Not Reportable 09/06/20 15:52 Target Cells Not Reportable 09/06/20 15:52 Tear Drop Cells Not Reportable 09/06/20 15:52 Ovalocytes Not Reportable 09/06/20 15:52 Helmet Cells Not Reportable 09/06/20 15:52 [place] Bodies Not Reportable 09/06/20 15:52 [place] Rings Not Reportable 09/06/20 15:52 [place] Cells Not Reportable 09/06/20 15:52 Bite Cells Not Reportable 09/06/20 15:52 Crenated Cell Not Reportable 09/06/20 15:52 Elliptocytes Not Reportable 09/06/20 15:52 Acanthocytes (Spur) Not Reportable 09/06/20 15:52 Rouleaux Not Reportable 09/06/20 15:52 Hemoglobin C Crystals Not Reportable 09/06/20 15:52 Schistocytes Not Reportable 09/06/20 15:52 Malaria parasites Not Reportable 09/06/20 15:52 Sunil Bodies Not Reportable 09/06/20 15:52 Hem Pathologist Commnt No 09/06/20 15:52 VBG pH 6.979 (7.320-7.420) L* 09/06/20 15:52 Sodium 133 mmol/L (137-145) L 09/07/20 06:53 Potassium 3.9 mmol/L (3.6-5.0) 09/07/20 06:53 Chloride 105.6 mmol/L (98-107) 09/07/20 06:53 Carbon Dioxide 14 mmol/L (22-30) L 09/07/20 06:53 Anion Gap 17 mmol/L 09/07/20 06:53 BUN 14 mg/dL (9-20) 09/07/20 06:53 Creatinine 1.4 mg/dL (0.8-1.3) H 09/07/20 06:53 Estimated GFR > 60 ml/min 09/07/20 06:53 BUN/Creatinine Ratio 10 % 09/07/20 06:53 Glucose 218 mg/dL (75-100) H 09/07/20 06:53 POC Glucose 203 mg/dL (70-105) H 09/07/20 06:38 Calcium 8.3 mg/dL (8.4-10.2) L 09/07/20 06:53 Phosphorus 2.40 mg/dL (2.5-4.5) L D 09/06/20 23:16 Magnesium 2.20 mg/dL (1.7-2.3) 09/06/20 23:16 Total Bilirubin 0.60 mg/dL (0.1-1.2) 09/06/20 15:52 AST 12 units/L (5-40) 09/06/20 15:52 ALT 19 units/L (7-56) 09/06/20 15:52 Alkaline Phosphatase 131 units/L (35-129) H 09/06/20 15:52 Total Protein 9.6 g/dL (6.3-8.2) H 09/06/20 15:52 Albumin 4.6 g/dL (3.9-5) 09/06/20 15:52 Albumin/Globulin Ratio 0.9 % 09/06/20 15:52 Urine Color Straw (Yellow) 09/06/20 17:09 Urine Turbidity Clear (Clear) 09/06/20 17:09 Urine pH 5.0 (5.0-7.0) 09/06/20 17:09 Ur Specific [place] 1.021 (1.003-1.030) 09/06/20 17:09 Urine Protein 100 mg/dl mg/dL (Negative) 09/06/20 17:09 Urine Glucose (UA) >=500 mg/dL (Negative) 09/06/20 17:09 Urine Ketones 80 mg/dL (Negative) 09/06/20 17:09 Urine Blood Sm (Negative) 09/06/20 17:09 Urine Nitrite Neg (Negative) 09/06/20 17:09 Urine Bilirubin Neg (Negative) 09/06/20 17:09 Urine Urobilinogen < 2.0 mg/dL (<2.0) 09/06/20 17:09 Ur Leukocyte Esterase Neg (Negative) 09/06/20 17:09 Urine WBC (Auto) < 1.0 /HPF (0.0-6.0) 09/06/20 17:09 Urine RBC (Auto) 1.0 /HPF (0.0-6.0) 09/06/20 17:09 U Epithel Cells (Auto) 1.0 /HPF (0-13.0) 09/06/20 17:09 Urine Mucus Few /HPF 09/06/20 17:09 Baer/IV: IV Catheter Type [Right INT / Saline Lock Antecubital] Active Medications - Current Medications Current Medications: Generic Name Dose Route Start Last Admin Trade Name Freq PRN Reason Stop Dose Admin Dextrose 0 ml 09/06/20 22:59 Dextrose 50% In Water (25gm) 50 Ml Syringe IV Q30MIN PRN Hypoglycemia Protocol Insulin Human Regular 100 100 mls @ 1 mls/hr 09/06/20 23:00 09/07/20 05:37 units/ Sodium Chloride IV 4 units/hr TITR CESIA 4 mls/hr Titration Protocol 1 UNITS/HR Potassium Chloride/Dextrose/Sod Cl 20 meq in 1,000 mls @ 125 mls/hr 09/06/20 23:00 09/07/20 05:49 D5w/0.45% Nacl/Kcl 20 Meq IV 125 mls/hr DIRECT CESIA Administration Insulin Human Isoph/Insulin Regular 15 unit 09/07/20 08:00 Insulin Nph/Regular 70/30 Inj SUB-Q BIDDIAB CESIA
[2020-09-07] MEDS ORDERED: INSULIN NPH/REGULAR 70/30 INJ SUB-Q SCH ×2 (08:00→17:00)
[2020-09-07] MEDS ORDERED: SODIUM CHLORIDE 0.9% 1000 ML 1,000 ML IV ONE (08:30)
[2020-09-07] MEDS ORDERED: INSULIN NPH/REGULAR 70/30 INJ SUB-Q ONE ×2 (09:00→15:30)
[2020-09-07 09:07] LABS: BUN/Creatinine Ratio 9; Blood Urea Nitrogen 13 mg/dL (9-20); Calcium 8.3 mg/dL (8.4-10.2); Hemolysis Index 15
[2020-09-07] MEDS: glipiZIDE 5 MG TAB PO SCH ×2 (11:48→17:52)
[2020-09-07 14:08] LABS: BUN/Creatinine Ratio 11; Blood Urea Nitrogen 14 mg/dL (9-20); Calcium 7.8 mg/dL (8.4-10.2); Hemolysis Index 17
[2020-09-07 17:05] LABS: BUN/Creatinine Ratio 13; Blood Urea Nitrogen 14 mg/dL (9-20); Calcium 8.1 mg/dL (8.4-10.2); Hemolysis Index 23
[2020-09-07] MEDS ORDERED: SODIUM CHLORIDE 0.9% 1000 ML 1,000 ML IV SCH (17:30)
[2020-09-07] MEDS: INSULIN NPH/REGULAR 70/30 INJ SUB-Q SCH (17:52)
[2020-09-07] MEDS: INSULIN LISPRO 100 UNIT/ML VIAL 3 mL SUB-Q SCH (22:44)
[2020-09-08 06:25] LABS: BUN/Creatinine Ratio 11; Blood Urea Nitrogen 11 mg/dL (9-20); Calcium 8.6 mg/dL (8.4-10.2); Hemolysis Index 10
[2020-09-08 06:43] VITALS: BP 141/86
[2020-09-08] MEDS: INSULIN LISPRO 100 UNIT/ML VIAL 3 mL SUB-Q SCH (08:17)
[2020-09-08] MEDS ORDERED: METOCLOPRAMIDE 10 MG TAB PO PRN (09:00)
[2020-09-08] MEDS ORDERED: ACETAMINOPHEN 325 MG TAB PO PRN (09:00)
[2020-09-08] MEDS ORDERED: oxyCODONE /ACETAMINOPHEN 5-325MG TAB PO PRN (09:00)
[2020-09-08] MEDS ORDERED: DEXTROSE 50% IN WATER (25GM) 50 ML SYRINGE IV PRN (09:00)
[2020-09-08] MEDS ORDERED: MAGNESIUM HYDROXIDE (MOM) ORAL LIQD UDC PO PRN (09:00)
[2020-09-08] MEDS ORDERED: ALUM-MAG HYDROXIDE-SIMETHICONE 200-200-20MG/5ML ORAL LIQD 30 ML PO PRN (09:00)
[2020-09-08] MEDS: glipiZIDE 5 MG TAB PO SCH (09:14)
--- NOTE | 2020-09-08 09:19 | Progress Note ---
Assessment and Plan - Patient Problems (1) Diabetic ketoacidosis Current Visit: Yes Status: Acute Qualifiers: Diabetes mellitus type: type 2 Diabetes mellitus complication detail: without coma Qualified Code(s): E11.10 - Type 2 diabetes mellitus with ketoacidosis without coma Plan to address problem: -DKA pathway initiated -s/p insulin gtt -On subq insulin as well as home glipizide, titrate as needed -Presented with High anion gap metabolic acidosis which is now closed -CC diet -Accucheck ACHS -SSI (2) High anion gap metabolic acidosis Current Visit: Yes Status: Acute Plan to address problem: -Presented with AG of 33, CO2 2 -Acidosis has improved -AG has closed -on MIVF -s/p insulin gtt -Trend BMP (3) Hyponatremia Current Visit: Yes Status: Acute Plan to address problem: -Pseudohyponatremia in setting of hyperglycemia -Presented with a Na of 123 -Gradually improving -Trend BMP -IVF (4) Hypophosphatasia Current Visit: Yes Status: Acute Plan to address problem: -1/2 phosphorus 2.4, / phosphorus 1.3 -Replete with K-Phos -Trend phosphorus (5) Hypokalemia Current Visit: Yes Status: Acute Plan to address problem: -/ Potassium 3.2 -Repleted with K-Phos -Trend BMP -Replete as necessary (6) Leukocytosis (leucocytosis) Current Visit: Yes Status: Acute Qualifiers: Leukocytosis type: unspecified Qualified Code(s): D72.829 - Elevated white blood cell count, unspecified Plan to address problem: -1/2 WBC 21.9 -Trend CBC -Probably secondary to severe dehydration and hemoconcentration -1/2 CXR shows no acute process -/2 UA (-) -No evidence of sepsis (7) Acute kidney injury Current Visit: Yes Status: Acute Plan to address problem: -Presented witha BUN/Cr of 09/05.3 -Trend BMP -MIVF Consider renal consult if not improving Avoid nephrotoxic medications Strict urine output Daily weights -Secondary to vasomotor nephropathy in setting of severe dehydration (8) Diabetes mellitus Current Visit: Yes Status: Chronic Plan to address problem: -Patient on oral hypoglycemics, and subq insulin -06/2020 HbA1c is 10.8 -Nutrition consult for diet counseling -Possible home health orders for disease monitoring at discharge -Subcu insulin in addition to oral hypoglycemics -Accu-Cheks AC at bedtime -CC diet (9) Tobacco abuse Current Visit: Yes Status: Chronic Plan to address problem: -Nicotine patch as needed -Counseled the risks and consequences of Tobacco use, verbalized understanding -Continue NicoDerm transdermal outpatient for tobacco cessation (10) DVT prophylaxis Current Visit: Yes Status: Acute Plan to address problem: -SCDs to bilateral tremors while in bed -Subcu Lovenox History Interval history: This is a 30-year-old -[place] male with type 2 diabetes and current t obacco abuse (smokes half a pack per day) who presented to emergency department on 09/06 with a 2-day history of generalized fatigue and weakness, shortness of breath, nausea and vomiting. CCM was consulted and he was placed on insulin drip and DKA protocol was initiated. This morning patient has persistent but improving pseudohyponatremia, hypokalemia, improving metabolic acidosis, and hypophosphatemia. Patient states that he would like to discharge because he has "things to do" and "cannot miss many days of work or they will fire me". No acute events reported overnight. RN requesting a downgrade since improvement of symptoms. 09/07: Patient's blood sugars reasonable level, Anion gap closed, acidosis mild improvement, Patient feels better no new complaints, CC diet and subq insulin [facility] Hospitalist Physical - Constitutional Vitals: Temp Pulse Resp BP Pulse Ox 98.6 F 110 H 19 141/86 97 09/07/20 23:00 09/06/20 18:07 09/07/20 19:56 09/08/20 06:30 09/08/20 02:30 General appearance: Present: no acute distress, well-nourished - EENT Eyes: Present: PERRL, EOM intact ENT: hearing intact, clear oral mucosa, dentition normal - Neck Neck: Present: normal ROM - Respiratory Respiratory effort: normal Respiratory: bilateral: CTA - Cardiovascular Rhythm: regular Heart Sounds: Present: S1 & S2. Absent: systolic murmur, diastolic murmur - Extremities Extremities: no ischemia, pulses intact, pulses symmetrical, No edema, normal temperature, normal color, Full ROM Peripheral Pulses: within normal limits - Abdominal General gastrointestinal: soft, non-tender, non-distended, normal bowel sounds - Integumentary Integumentary: Present: clear, warm, dry - Psychiatric Psychiatric: cooperative - Neurologic Neurologic: CNII-XII intact, no focal deficits, moves all extremities Results - Labs CBC & Chem 7: 09/06/20 15:52 09/08/20 05:42 Labs: Laboratory Last Values WBC 21.9 K/mm3 (4.5-11.0) H 09/06/20 15:52 RBC 5.49 M/mm3 (3.65-5.03) H 09/06/20 15:52 Hgb 16.4 gm/dl (11.8-15.2) H 09/06/20 15:52 Hct 52.8 % (35.5-45.6) H 09/06/20 15:52 MCV 96 fl (84-94) H 09/06/20 15:52 MCH 30 pg (28-32) 09/06/20 15:52 MCHC 31 % (32-34) L 09/06/20 15:52 RDW 15.0 % (13.2-15.2) 09/06/20 15:52 Plt Count 300 K/mm3 (140-440) 09/06/20 15:52 Add Manual Diff Complete 09/06/20 15:52 Total Counted 100 09/06/20 15:52 Seg Neuts % (Manual) 96.0 % (40.0-70.0) H 09/06/20 15:52 Lymphocytes % (Manual) 3.0 % (13.4-35.0) L 09/06/20 15:52 Monocytes % (Manual) 1.0 % (0.0-7.3) 09/06/20 15:52 Nucleated RBC % Not Reportable 09/06/20 15:52 Seg Neutrophils # Man 21.0 K/mm3 (1.8-7.7) H 09/06/20 15:52 Band Neutrophils # 0.0 K/mm3 09/06/20 15:52 Lymphocytes # (Manual) 0.7 K/mm3 (1.2-5.4) L 09/06/20 15:52 Abs React Lymphs (Man) 0.0 K/mm3 09/06/20 15:52 Monocytes # (Manual) 0.2 K/mm3 (0.0-0.8) 09/06/20 15:52 Eosinophils # (Manual) 0.0 K/mm3 (0.0-0.4) 09/06/20 15:52 Basophils # (Manual) 0.0 K/mm3 (0.0-0.1) 09/06/20 15:52 Metamyelocytes # 0.0 K/mm3 09/06/20 15:52 Myelocytes # 0.0 K/mm3 09/06/20 15:52 Promyelocytes # 0.0 K/mm3 09/06/20 15:52 Blast Cells # 0.0 K/mm3 09/06/20 15:52 WBC Morphology Not Reportable 09/06/20 15:52 Hypersegmented Neuts Not Reportable 09/06/20 15:52 Hyposegmented Neuts Not Reportable 09/06/20 15:52 Hypogranular Neuts Not Reportable 09/06/20 15:52 Smudge Cells Not Reportable 09/06/20 15:52 Toxic Granulation Not Reportable 09/06/20 15:52 Toxic Vacuolation Not Reportable 09/06/20 15:52 Dohle Bodies Not Reportable 09/06/20 15:52 Pelger-Huet Anomaly Not Reportable 09/06/20 15:52 Janessa Rods Not Reportable 09/06/20 15:52 Platelet Estimate Consistent w auto 09/06/20 15:52 Clumped Platelets Not Reportable 09/06/20 15:52 Plt Clumps, EDTA Not Reportable 09/06/20 15:52 Large Platelets Few 09/06/20 15:52 Giant Platelets Rare 09/06/20 15:52 Platelet Satelliting Not Reportable 09/06/20 15:52 Plt Morphology Comment Not Reportable 09/06/20 15:52 RBC Morphology Normal 09/06/20 15:52 Dimorphic RBCs Not Reportable 09/06/20 15:52 Polychromasia Not Reportable 09/06/20 15:52 Hypochromasia Not Reportable 09/06/20 15:52 Poikilocytosis Not Reportable 09/06/20 15:52 Anisocytosis Not Reportable 09/06/20 15:52 Microcytosis Not Reportable 09/06/20 15:52 Macrocytosis Not Reportable 09/06/20 15:52 Spherocytes Not Reportable 09/06/20 15:52 Pappenheimer Bodies Not Reportable 09/06/20 15:52 Sickle Cells Not Reportable 09/06/20 15:52 Target Cells Not Reportable 09/06/20 15:52 Tear Drop Cells Not Reportable 09/06/20 15:52 Ovalocytes Not Reportable 09/06/20 15:52 Helmet Cells Not Reportable 09/06/20 15:52 [place] Bodies Not Reportable 09/06/20 15:52 Peel Rings Not Reportable 09/06/20 15:52 Masha Cells Not Reportable 09/06/20 15:52 Bite Cells Not Reportable 09/06/20 15:52 Crenated Cell Not Reportable 09/06/20 15:52 Elliptocytes Not Reportable 09/06/20 15:52 Acanthocytes (Spur) Not Reportable 09/06/20 15:52 Rouleaux Not Reportable 09/06/20 15:52 Hemoglobin C Crystals Not Reportable 09/06/20 15:52 Schistocytes Not Reportable 09/06/20 15:52 Malaria parasites Not Reportable 09/06/20 15:52 Sunil Bodies Not Reportable 09/06/20 15:52 Hem Pathologist Commnt No 09/06/20 15:52 VBG pH 6.979 (7.320-7.420) L* 09/06/20 15:52 Sodium 130 mmol/L (137-145) L 09/08/20 05:42 Potassium 3.2 mmol/L (3.6-5.0) L 09/08/20 05:42 Chloride 100.5 mmol/L (98-107) 09/08/20 05:42 Carbon Dioxide 16 mmol/L (22-30) L 09/08/20 05:42 Anion Gap 17 mmol/L 09/08/20 05:42 BUN 11 mg/dL (9-20) 09/08/20 05:42 Creatinine 1.0 mg/dL (0.8-1.3) 09/08/20 05:42 Estimated GFR > 60 ml/min 09/08/20 05:42 BUN/Creatinine Ratio 11 % 09/08/20 05:42 Glucose 249 mg/dL (75-100) H 09/08/20 05:42 POC Glucose 256 mg/dL (70-105) H 09/08/20 07:42 Calcium 8.6 mg/dL (8.4-10.2) 09/08/20 05:42 Phosphorus 1.30 mg/dL (2.5-4.5) L D 09/08/20 05:42 Magnesium 2.10 mg/dL (1.7-2.3) 09/08/20 05:42 Total Bilirubin 0.60 mg/dL (0.1-1.2) 09/06/20 15:52 AST 12 units/L (5-40) 09/06/20 15:52 ALT 19 units/L (7-56) 09/06/20 15:52 Alkaline Phosphatase 131 units/L (35-129) H 09/06/20 15:52 Total Protein 9.6 g/dL (6.3-8.2) H 09/06/20 15:52 Albumin 4.6 g/dL (3.9-5) 09/06/20 15:52 Albumin/Globulin Ratio 0.9 % 09/06/20 15:52 Urine Color Straw (Yellow) 09/06/20 17:09 Urine Turbidity Clear (Clear) 09/06/20 17:09 Urine pH 5.0 (5.0-7.0) 09/06/20 17:09 Ur Specific [place] 1.021 (1.003-1.030) 09/06/20 17:09 Urine Protein 100 mg/dl mg/dL (Negative) 09/06/20 17:09 Urine Glucose (UA) >=500 mg/dL (Negative) 09/06/20 17:09 Urine Ketones 80 mg/dL (Negative) 09/06/20 17:09 Urine Blood Sm (Negative) 09/06/20 17:09 Urine Nitrite Neg (Negative) 09/06/20 17:09 Urine Bilirubin Neg (Negative) 09/06/20 17:09 Urine Urobilinogen < 2.0 mg/dL (<2.0) 09/06/20 17:09 Ur Leukocyte Esterase Neg (Negative) 09/06/20 17:09 Urine WBC (Auto) < 1.0 /HPF (0.0-6.0) 09/06/20 17:09 Urine RBC (Auto) 1.0 /HPF (0.0-6.0) 09/06/20 17:09 U Epithel Cells (Auto) 1.0 /HPF (0-13.0) 09/06/20 17:09 Urine Mucus Few /HPF 09/06/20 17:09 Baer/IV: IV Catheter Type [Right INT / Saline Lock Antecubital] Active Medications - Current Medications Current Medications: Generic Name Dose Route Start Last Admin Trade Name Freq PRN Reason Stop Dose Admin Acetaminophen 650 mg 09/08/20 09:00 Acetaminophen 325 Mg Tab PO Q6H PRN Pain MILD(1-3)/Fever >100.5/BECKWITH Al Hydrox/Mg Hydrox/Simethicone 30 ml 09/08/20 09:00 Alum-Mag Hydroxide-Simethicone [id number]/5ml Oral Liqd 30 Ml PO Q4H PRN Indigestion Dextrose 0 ml 09/06/20 22:59 Dextrose 50% In Water (25gm) 50 Ml Syringe IV Q30MIN PRN Hypoglycemia Protocol Dextrose 50 ml 09/08/20 09:00 Dextrose 50% In Water (25gm) 50 Ml Syringe IV Q30MIN PRN Hypoglycemia Protocol Glipizide 5 mg 09/07/20 10:00 09/08/20 09:14 Glipizide 5 Mg Tab PO 5 mg BIDDIAB CESIA Administration Sodium Chloride 1,000 mls @ 125 mls/hr 09/07/20 17:30 Nacl 0.9% 1000 Ml IV DIRECT CESIA Potassium Phosphate 30 mmol/ 510 mls @ 83 mls/hr 09/08/20 09:30 Sodium Chloride IV 09/08/20 15:38 ONCE ONE Insulin Human Isoph/Insulin Regular 22 unit 09/07/20 18:00 09/07/20 17:52 Insulin Nph/Regular 70/30 Inj SUB-Q 22 unit BIDDIAB CESIA Administration Insulin Human Lispro 0 unit 09/07/20 22:00 09/08/20 08:17 Insulin Lispro 100 Unit/Ml Vial 3 Ml SUB-Q 6 unit ACHS CESIA Administration Protocol Magnesium Hydroxide 30 ml 09/08/20 09:00 Magnesium Hydroxide (Mom) Oral Liqd Udc PO Q4H PRN Constipation Metoclopramide HCl 10 mg 09/08/20 09:00 Metoclopramide 10 Mg Tab PO Q6H PRN Nausea And Vomiting Oxycodone/Acetaminophen 1 tab 09/08/20 09:00 Oxycodone /Acetaminophen 5-325mg Tab PO Q6H PRN Pain, Moderate (4-6) Senna 8.6 mg 09/08/20 10:00 Sennosides 8.6 Mg Tab PO BID CESIA Sodium Chloride 10 ml 09/08/20 10:00 Sodium Chloride 0.9% 10 Ml Flush Syringe IV BID CESIA Sodium Chloride 10 ml 09/08/20 09:00 Sodium Chloride 0.9% 10 Ml Flush Syringe IV PRN PRN LINE FLUSH Nutrition/Malnutrition Assess - Dietary Evaluation Nutrition/Malnutrition Findings: Nutrition Notes Start: 09/07/20 08:41 Freq: Status: Active Protocol: Document 09/07/20 08:41 LM (Rec: 09/07/20 08:42 LM [id number]) Nutrition Notes Need for Assessment generated from: MD Order Initial or Follow up Brief Note Subjective/Other Information MD consult for diet education. Pt is in the ED. Nutrition Intervention Follow-Up By: 09/09/20 Additional Comments F/U for diet education
[2020-09-08] MEDS ORDERED: POTASSIUM PHOSPHATE 30 MMOL in SODIUM CHLORIDE 0.9% 500 ML 500 ML IV ONE (09:30)
[2020-09-08] MEDS: INSULIN NPH/REGULAR 70/30 INJ SUB-Q SCH (09:36)
[2020-09-08] MEDS ORDERED: SENNOSIDES 8.6 MG TAB PO SCH (10:00)
[2020-09-08] MEDS ORDERED: SODIUM CHLORIDE 0.9% 1000 ML 1,000 ML IV SCH (10:00)
--- NOTE | 2020-09-08 10:15 | Discharge Summary ---
Providers - Providers Date of Admission: 09/07/20 08:05 Attending physician: CHELSEY JIMÉNEZ 09/06/20 17:23 Consult to Physician [CONS] Routine Comment: Consulting Provider: RAMILA CHAUHAN Physician Instructions: Reason For Exam: DKA, ICU Management 09/06/20 22:59 Consult to Dietitian/Nutrition [CONS] Routine Physician Instructions: Reason For Exam: DKA Reason for Consult: Nutrition Recommendations Reason for Consult: Diet education Primary care physician: GRAINER MACHINE Hospitalization Condition: Stable Hospital course: This is a 30-year-old -[place] male with type 2 diabetes and current tobacco abuse (smokes half a pack per day) who presented to emergency department on 09/06 with a 2-day history of generalized fatigue and weakness, shortness of breath, nausea and vomiting. CCM was consulted and he was placed on insulin drip and DKA protocol was initiated. This morning patient has persistent but improving pseudohyponatremia, hypokalemia, improving metabolic acidosis, and hypophosphatemia. On 09/07 the patients blood blood sugars were reasonable level, anion gap closed, acidosis with mild improvement, CC diet and subq insulin star xiomara. At the time of my examination, the patient stated that he would like to discharge because he has "things to do" and "cannot miss many days of work or they will fire me". He was downgaded to med/surg. The patient ultimately left AMA. - Patient Problems (1) Diabetic ketoacidosis Current Visit: Yes Status: Acute Qualifiers: Diabetes mellitus type: type 2 Diabetes mellitus complication detail: without coma Qualified Code(s): E11.10 - Type 2 diabetes mellitus with ketoacidosis without coma Plan to address problem: -DKA pathway initiated -s/p insulin gtt -On subq insulin as well as home glipizide, titrate as needed -Presented with High anion gap metabolic acidosis which is now closed -CC diet -Accucheck ACHS -SSI (2) High anion gap metabolic acidosis Current Visit: Yes Status: Acute Plan to address problem: -Presented with AG of 33, CO2 2 -Acidosis has improved -AG has closed -on MIVF -s/p insulin gtt -Trend BMP (3) Hyponatremia Current Visit: Yes Status: Acute Plan to address problem: -Pseudohyponatremia in setting of hyperglycemia -Presented with a Na of 123 -Gradually improving -Trend BMP -IVF (4) Hypophosphatasia Current Visit: Yes Status: Acute Plan to address problem: -1/2 phosphorus 2.4, 1/4 phosphorus 1.3 -Replete with K-Phos -Trend phosphorus (5) Hypokalemia Current Visit: Yes Status: Acute Plan to address problem: -1/4 Potassium 3.2 -Repleted with K-Phos -Trend BMP -Replete as necessary (6) Leukocytosis (leucocytosis) Current Visit: Yes Status: Acute Qualifiers: Leukocytosis type: unspecified Qualified Code(s): D72.829 - Elevated white blood cell count, unspecified Plan to address problem: -/ WBC 21.9 -Trend CBC -Probably secondary to severe dehydration and hemoconcentration -09/06 CXR shows no acute process -09/06 UA (-) -No evidence of sepsis (7) Acute kidney injury Current Visit: Yes Status: Acute Plan to address problem: -Presented witha BUN/Cr of 09/05.3 -Trend BMP -MIVF Consider renal consult if not improving Avoid nephrotoxic medications Strict urine output Daily weights -Secondary to vasomotor nephropathy in setting of severe dehydration (8) Diabetes mellitus Current Visit: Yes Status: Chronic Plan to address problem: -Patient on oral hypoglycemics, and subq insulin -06/2020 HbA1c is 10.8 -Nutrition consult for diet counseling -Possible home health orders for disease monitoring at discharge -Subcu insulin in addition to oral hypoglycemics -Accu-Cheks AC at bedtime -CC diet (9) Tobacco abuse Current Visit: Yes Status: Chronic Plan to address problem: -Nicotine patch as needed -Counseled the risks and consequences of Tobacco use, verbalized understanding -Continue NicoDerm transdermal outpatient for tobacco cessation (10) DVT prophylaxis Current Visit: Yes Status: Acute Plan to address problem: -SCDs to bilateral tremors while in bed -Subcu Lovenox Disposition: DC-07 LEFT AGAINST MED ADVICE Time spent for discharge: 35 Core Measure Documentation - Palliative Care Palliative Care/ Comfort Measures: Not Applicable - Core Measures Any of the following diagnoses?: none Exam - Constitutional Vitals: Temp Pulse Resp BP Pulse Ox 98.6 F 110 H 19 141/86 97 09/07/20 23:00 09/06/20 18:07 09/07/20 19:56 09/08/20 06:30 09/08/20 02:30 General appearance: Present: no acute distress - EENT Eyes: Present: PERRL, EOM intact ENT: hearing intact, clear oral mucosa, dentition normal - Neck Neck: Present: normal ROM - Respiratory Respiratory effort: normal Respiratory: bilateral: CTA - Cardiovascular Rhythm: regular Heart Sounds: Present: S1 & S2. Absent: systolic murmur, diastolic murmur - Extremities Extremities: no ischemia, pulses intact, pulses symmetrical, No edema, normal temperature, normal color, Full ROM Peripheral Pulses: within normal limits - Abdominal General gastrointestinal: Present: soft, non-tender, non-distended, normal bowel sounds - Integumentary Integumentary: Present: clear, warm, dry - Musculoskeletal Musculoskeletal: strength equal bilaterally - Psychiatric Psychiatric: appropriate mood/affect, cooperative - Neurologic Neurologic: CNII-XII intact, no focal deficits, moves all extremities Plan Activity: advance as tolerated Diet: diabetic, per dietitian instruction Special Instructions: record daily BP diary, record blood sugar diary, smoking cessation Additional Instructions: Report to nearest emergency department or contact primary care physician for experience worsening symptoms. Follow up with: PRIMARY CAREMD [Primary Care Provider] - 7 Days Forms: AMA Form
== END 2020-09-08 11:12 | disposition left against medical advice (07) | DRG 637 ==
LOC: ED 14:37 → CC1 09-07 08:05 → 3A 09-08 10:16
PROVIDERS: ADMIT Internal Medicine; ATTEND Internal Medicine
DX: E11.10 Type 2 diabetes mellitus with ketoacidosis without coma (principal); N17.0 Acute kidney failure with tubular necrosis; E87.1 Hypo-osmolality and hyponatremia; E87.6 Hypokalemia; E87.5 Hyperkalemia; E83.39 Other disorders of phosphorus metabolism; E86.0 Dehydration; Z53.29 Procedure and treatment not carried out because of patient's decision for other reasons; Z71.6 Tobacco abuse counseling; Z79.899 Other long term (current) drug therapy
CPT/HCPCS: 36415; 71045; 80048; 80053; 81001; 82805; 82962; 83735; 84100; 85007; 85025; G0378; J1815; J7030

== ENCOUNTER 2020-12-05 05:58 | Inpatient (IN) | payer OTHER ==
[2020-12-05] MEDS ORDERED: SODIUM CHLORIDE 0.9% 1000 ML 1,000 ML IV ONE ×3 (07:16→08:03)
[2020-12-05 07:18] LABS: Mean Corpuscular HGB Conc 30 % (32-34); Mean Corpuscular Volume 105 fl (84-94); Platelet Count 309 K/mm3 (140-440); Red Blood Count 5.53 M/mm3 (3.65-5.03); Red Cell Distribution Width 14.8 % (13.2-15.2)
[2020-12-05] MEDS ORDERED: ONDANSETRON 4 MG/2 ML INJ IV ONE (07:22)
--- NOTE | 2020-12-05 07:22 | Emergency Department Report ---
ED General Adult HPI - General Chief complaint: Weakness Stated complaint: SOB Time Seen by Provider: 12/05/20 07:16 Source: patient Mode of arrival: Wheelchair Limitations: No Limitations - History of Present Illness Initial comments: The patient presents to the emergency department the chief complaint of not feeling well for the last 3 days. Patient has had complaints of shortness of breath with nausea and vomiting as well. Patient states he has a history of insulin-dependent diabetes and believes he is in DKA. Patient denies chest pain, abdominal pain, or headache. -: Gradual, days(s) (3) Severity scale (0 -10): 0 Consistency: constant Improves with: none Worsens with: none Associated Symptoms: denies other symptoms Treatments Prior to Arrival: none - Related Data Previous Rx's Medication Instructions Recorded Last Taken Type Ondansetron [Zofran Odt] 4 mg PO QID #12 tab.rapdis 03/10/17 Unknown Rx glipiZIDE [Glucotrol] 5 mg PO BID #60 tablet 07/20/20 Unknown Rx metFORMIN [Glucophage] 500 mg PO BID #60 tablet 07/20/20 Unknown Rx Allergies Allergy/AdvReac Type Severity Reaction Status Date / Time No Known Allergies Allergy Unverified 03/10/17 07:27 ED Review of Systems ROS: Stated complaint: SOB Other details as noted in HPI Constitutional: denies: chills, fever Eyes: denies: eye pain, eye discharge, vision change ENT: denies: ear pain, throat pain Respiratory: denies: cough, shortness of breath, wheezing Cardiovascular: denies: chest pain, palpitations Endocrine: no symptoms reported Gastrointestinal: nausea, vomiting. denies: abdominal pain, diarrhea Genitourinary: denies: urgency, dysuria Musculoskeletal: denies: back pain, joint swelling, arthralgia Skin: denies: rash, lesions Neurological: denies: headache, weakness, paresthesias Psychiatric: denies: anxiety, depression Hematological/Lymphatic: denies: easy bleeding, easy bruising ED Past Medical Hx - Past Medical History Previous Medical History?: Yes Hx Diabetes: Yes (Type II) - Surgical History Past Surgical History?: No - Social History Smoking Status: Never Smoker Substance Use Type: Marijuana - Medications Home Medications: Home Medications Medication Instructions Recorded Confirmed Last Taken Type Ondansetron [Zofran Odt] 4 mg PO QID #12 tab.rapdis 03/10/17 Unknown Rx glipiZIDE [Glucotrol] 5 mg PO BID #60 tablet 07/20/20 Unknown Rx metFORMIN [Glucophage] 500 mg PO BID #60 tablet 07/20/20 Unknown Rx ED Physical Exam - General Limitations: No Limitations General appearance: alert, other (appears ill) - Head Head exam: Present: atraumatic, normocephalic - Eye Eye exam: Present: normal appearance - ENT ENT exam: Present: mucous membranes dry - Neck Neck exam: Present: normal inspection - Respiratory Respiratory exam: Present: normal lung sounds bilaterally, other (Kussmaul respiration) - Cardiovascular Cardiovascular Exam: Present: normal rhythm, tachycardia. Absent: systolic murmur, diastolic murmur, rubs, gallop - GI/Abdominal GI/Abdominal exam: Present: soft, normal bowel sounds. Absent: distended, tenderness - Rectal Rectal exam: Present: deferred - Extremities Exam Extremities exam: Present: normal inspection - Back Exam Back exam: Present: normal inspection - Neurological Exam Neurological exam: Present: alert, oriented X3, CN II-XII intact. Absent: motor sensory deficit - Psychiatric Psychiatric exam: Present: normal affect, normal mood - Skin Skin exam: Present: warm, dry, intact, normal color. Absent: rash ED Course Vital Signs 12/05/20 12/05/20 06:08 06:13 Pulse Rate 90 Respiratory 20 40 H Rate Blood Pressure 171/98 O2 Sat by Pulse 99 99 Oximetry ED Medical Decision Making - Lab Data Result diagrams: 12/05/20 06:46 12/05/20 06:46 Lab Results 12/05/20 12/05/20 12/05/20 Range/Units 06:30 06:46 06:46 WBC 19.2 H (4.5-11.0) K/mm3 RBC 5.53 H (3.65-5.03) M/mm3 Hgb 17.2 H (11.8-15.2) gm/dl Hct 57.8 H (35.5-45.6) % MCV 105 H (84-94) fl MCH 31 (28-32) pg MCHC 30 L (32-34) % RDW 14.8 (13.2-15.2) % Plt Count 309 (140-440) K/mm3 PT (12.2-14.9) Sec. INR (0.87-1.13) APTT (24.2-36.6) Sec. VBG pH (7.320-7.420) Sodium 124 L (137-145) mmol/L Potassium 5.7 H (3.6-5.0) mmol/L Chloride 83.0 L (98-107) mmol/L Carbon Dioxide 5 L* (22-30) mmol/L Anion Gap 42 mmol/L BUN 25 H (9-20) mg/dL Creatinine 2.1 H (0.8-1.3) mg/dL Estimated GFR 45 ml/min BUN/Creatinine Ratio 12 % Glucose 677 H* (75-100) mg/dL POC Glucose > 600 H (70-105) mg/dL Lactic Acid (0.7-2.0) mmol/L Calcium 9.0 (8.4-10.2) mg/dL Phosphorus (2.5-4.5) mg/dL Magnesium (1.7-2.3) mg/dL Total Bilirubin 0.40 (0.1-1.2) mg/dL AST 51 H (5-40) units/L ALT 33 (7-56) units/L Alkaline Phosphatase 250 H (35-129) units/L Ammonia (25-60) umol/L Total Protein 8.9 H (6.3-8.2) g/dL Albumin 4.5 (3.9-5) g/dL Albumin/Globulin Ratio 1.0 % Urine Bilirubin (Negative) Urine RBC (Auto) (0.0-6.0) /HPF Urine Opiates Screen Ur Barbiturates Screen Ur Phencyclidine Scrn Ur Amphetamines Screen U Benzodiazepines Scrn Urine Cocaine Screen Plasma/Serum Alcohol (0-0.07) % 12/05/20 12/05/20 12/05/20 Range/Units 06:46 06:46 06:46 WBC (4.5-11.0) K/mm3 RBC (3.65-5.03) M/mm3 Hgb (11.8-15.2) gm/dl Hct (35.5-45.6) % MCV (84-94) fl MCH (28-32) pg MCHC (32-34) % RDW (13.2-15.2) % Plt Count (140-440) K/mm3 PT 15.6 H (12.2-14.9) Sec. INR 1.24 H (0.87-1.13) APTT 30.7 (24.2-36.6) Sec. VBG pH 6.814 L* (7.320-7.420) Sodium (137-145) mmol/L Potassium (3.6-5.0) mmol/L Chloride (98-107) mmol/L Carbon Dioxide (22-30) mmol/L Anion Gap mmol/L BUN (9-20) mg/dL Creatinine (0.8-1.3) mg/dL Estimated GFR ml/min BUN/Creatinine Ratio % Glucose (75-100) mg/dL POC Glucose (70-105) mg/dL Lactic Acid (0.7-2.0) mmol/L Calcium (8.4-10.2) mg/dL Phosphorus 7.10 H (2.5-4.5) mg/dL Magnesium 2.70 H (1.7-2.3) mg/dL Total Bilirubin (0.1-1.2) mg/dL AST (5-40) units/L ALT (7-56) units/L Alkaline Phosphatase (35-129) units/L Ammonia (25-60) umol/L Total Protein (6.3-8.2) g/dL Albumin (3.9-5) g/dL Albumin/Globulin Ratio % Urine Bilirubin (Negative) Urine RBC (Auto) (0.0-6.0) /HPF Urine Opiates Screen Ur Barbiturates Screen Ur Phencyclidine Scrn Ur Amphetamines Screen U Benzodiazepines Scrn Urine Cocaine Screen Plasma/Serum Alcohol (0-0.07) % 12/05/20 12/05/20 12/05/20 Range/Units 06:46 06:46 06:46 WBC (4.5-11.0) K/mm3 RBC (3.65-5.03) M/mm3 Hgb (11.8-15.2) gm/dl Hct (35.5-45.6) % MCV (84-94) fl MCH (28-32) pg MCHC (32-34) % RDW (13.2-15.2) % Plt Count (140-440) K/mm3 PT (12.2-14.9) Sec. INR (0.87-1.13) APTT (24.2-36.6) Sec. VBG pH (7.320-7.420) Sodium (137-145) mmol/L Potassium (3.6-5.0) mmol/L Chloride (98-107) mmol/L Carbon Dioxide (22-30) mmol/L Anion Gap mmol/L BUN (9-20) mg/dL Creatinine (0.8-1.3) mg/dL Estimated GFR ml/min BUN/Creatinine Ratio % Glucose 690 H* (75-100) mg/dL POC Glucose (70-105) mg/dL Lactic Acid (0.7-2.0) mmol/L Calcium (8.4-10.2) mg/dL Phosphorus (2.5-4.5) mg/dL Magnesium (1.7-2.3) mg/dL Total Bilirubin (0.1-1.2) mg/dL AST (5-40) units/L ALT (7-56) units/L Alkaline Phosphatase (35-129) units/L Ammonia 94.0 H (25-60) umol/L Total Protein (6.3-8.2) g/dL Albumin (3.9-5) g/dL Albumin/Globulin Ratio % Urine Bilirubin (Negative) Urine RBC (Auto) (0.0-6.0) /HPF Urine Opiates Screen Ur Barbiturates Screen Ur Phencyclidine Scrn Ur Amphetamines Screen U Benzodiazepines Scrn Urine Cocaine Screen Plasma/Serum Alcohol < 0.01 (0-0.07) % 12/05/20 12/05/20 12/05/20 Range/Units 07:53 Unknown Unknown WBC (4.5-11.0) K/mm3 RBC (3.65-5.03) M/mm3 Hgb (11.8-15.2) gm/dl Hct (35.5-45.6) % MCV (84-94) fl MCH (28-32) pg MCHC (32-34) % RDW (13.2-15.2) % Plt Count (140-440) K/mm3 PT (12.2-14.9) Sec. INR (0.87-1.13) APTT (24.2-36.6) Sec. VBG pH (7.320-7.420) Sodium (137-145) mmol/L Potassium (3.6-5.0) mmol/L Chloride (98-107) mmol/L Carbon Dioxide (22-30) mmol/L Anion Gap mmol/L BUN (9-20) mg/dL Creatinine (0.8-1.3) mg/dL Estimated GFR ml/min BUN/Creatinine Ratio % Glucose (75-100) mg/dL POC Glucose (70-105) mg/dL Lactic Acid 4.80 H* (0.7-2.0) mmol/L Calcium (8.4-10.2) mg/dL Phosphorus (2.5-4.5) mg/dL Magnesium (1.7-2.3) mg/dL Total Bilirubin (0.1-1.2) mg/dL AST (5-40) units/L ALT (7-56) units/L Alkaline Phosphatase (35-129) units/L Ammonia (25-60) umol/L Total Protein (6.3-8.2) g/dL Albumin (3.9-5) g/dL Albumin/Globulin Ratio % Urine Bilirubin Neg (Negative) Urine RBC (Auto) 1.0 (0.0-6.0) /HPF Urine Opiates Screen Negative Ur Barbiturates Screen Negative Ur Phencyclidine Scrn Negative Ur Amphetamines Screen Negative U Benzodiazepines Scrn Negative Urine Cocaine Screen Negative Plasma/Serum Alcohol (0-0.07) % - EKG Data -: EKG Interpreted by Me EKG shows normal: sinus rhythm Rate: normal - EKG Data Interpretation: other (Nonspecific ST wave abnormality) - Radiology Data Radiology results: pending - Medical Decision Making Patient given IV fluids Insulin drip initiated Critical Care Time: Yes Critical care time in (mins) excluding proc time.: 35 Critical care attestation.: If time is entered above; I have spent that time in minutes in the direct care of this critically ill patient, excluding procedure time. ED Disposition Clinical Impression: Diabetic ketoacidosis Disposition: OP ADMIT IP TO THIS HOSP Is pt being admited?: Yes Does the pt Need Aspirin: No Condition: Fair Instructions: Diabetic Ketoacidosis (ED) Referrals: PRIMARY CARE, [Primary Care Provider] - 3-5 Days
[2020-12-05 07:25] LABS: Hematocrit 57.8 % (35.5-45.6); Hemoglobin 17.2 gm/dl (11.8-15.2)
[2020-12-05] MEDS ORDERED: CEFEPIME/NS 1 GM/100 ML 1 GM/100 ML BAG IV ONE (07:26)
[2020-12-05 07:30] LABS: INR 1.24 (0.87-1.13)
[2020-12-05 07:31] LABS: Partial Thromboplastin Time 30.7 Sec. (24.2-36.6)
[2020-12-05 07:35] LABS: Albumin 4.5 g/dL (3.9-5)
[2020-12-05] MEDS ORDERED: DEXTROSE 50% IN WATER (25GM) 50 ML SYRINGE IV PRN (08:03)
[2020-12-05 08:24] LABS: Amphetamine Screen,Urine Negative; Benzodiazepines Screen,Urine Negative; Cocaine Screen,Urine Negative; Opiate Screen,Urine Negative
[2020-12-05 08:40] LABS: Bacteria,Urine 1+ /HPF (Negative); Bilirubin,Urine NEG (Negative); Blood,Urine SM (Negative); Color,Urine Straw (Yellow); Mucus,Urine FEW /HPF; Urobilinogen,Urine < 2.0 mg/dL (<2.0); WBC,Urine < 1.0 /HPF (0.0-6.0)
[2020-12-05] MEDS ORDERED: POTASSIUM CHLORIDE 10 MEQ 10 MEQ/100 ML BAG IV SCH ×2 (09:00→10:00)
[2020-12-05] MEDS ORDERED: POTASSIUM CHLORIDE 20 MEQ 20 MEQ/100 ML BAG IV SCH (09:00)
[2020-12-05] MEDS ORDERED: INSULIN REGULAR, HUMAN 100 UNITS in SODIUM CHLORIDE 0.9% 99 ML IV SCH ×2 (09:00→10:00)
[2020-12-05 09:34] LABS: Cannabinoid Screen,Urine PRESUMPTIVE NEGATIVE; Methadone Screen,Urine PRESUMPTIVE NEGATIVE
[2020-12-05] MEDS: INSULIN REGULAR, HUMAN 100 UNITS in SODIUM CHLORIDE 0.9% 99 ML IV SCH ×2 (09:40→21:12)
--- NOTE | 2020-12-05 09:53 | History and Physical Report ---
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 Initial work-up in the emergency department revealed leukocytosis, hyponatremia, hyperkalemia, hypochloremia, high anion gap metabolic acidosis, acute kidney injury, transaminitis, hyperphosphatemia, hypermagnesemia, hyperammonemia, lactic acidosis hyperglycemia with a blood glucose of 690. The emergency department patient received 1 dose of cefepime and 3 L of normal saline bolus and was started on a insulin drip. Patient will be admitted to the hospital service and [facility] was consulted for DKA. SIRs COVID 19 PUI DKA Severe Metabolic Acidosis High anion gap metabolic acidosis Leukocytosis Acute kidney injury Leukocytosis Hyponatremia Hyperkalemia Hypochloremia Transaminitis Hyperphosphatemia Hypermagnesemia Hyperammonemia Lactic acidosis Hyperglycemia DM Past History Past Medical History: diabetes. denies: hypertension, hyperlipidemia, pulmonary embolism Past Surgical History: No surgical history Social history: single, Lives alone, full code. denies: smoking, alcohol abuse, prescription drug abuse, IV drug use Family history: no significant family history Medications and Allergies Allergies Allergy/AdvReac Type Severity Reaction Status Date / Time No Known Allergies Allergy Unverified 03/10/17 07:27 Home Medications Medication Instructions Recorded Confirmed Last Taken Type Ondansetron [Zofran Odt] 4 mg PO QID #12 tab.rapdis 03/10/17 Unknown Rx glipiZIDE [Glucotrol] 5 mg PO BID #60 tablet 07/20/20 Unknown Rx metFORMIN [Glucophage] 500 mg PO BID #60 tablet 07/20/20 Unknown Rx Active Meds: Active Medications Acetaminophen (Acetaminophen 325 Mg Tab) 650 mg PO Q6H PRN PRN Reason: Pain MILD(1-3)/Fever >100.5/BECKWITH Dextrose (Dextrose 50% In Water (25gm) 50 Ml Syringe) 0 ml IV Q30MIN PRN; Protocol PRN Reason: Hypoglycemia Famotidine (Famotidine 20 Mg/2 Ml Inj) 20 mg IV BID [facility] Hydromorphone HCl (Hydromorphone 1 Mg/1 Ml Inj) 0.5 mg IV Q6HR PRN PRN Reason: Pain , Severe (7-10) Insulin Human Regular 100 (units/ Sodium Chloride) 100 mls @ 1 mls/hr IV TITR [facility]; Protocol Last Admin: 12/05/20 09:40 Dose: 8 units/hr, 8 mls/hr Documented by: Morphine Sulfate (Morphine 2 Mg/1 Ml Inj) 2 mg IV Q4H PRN PRN Reason: Pain, Moderate (4-6) Naloxone HCl (Naloxone 0.4 Mg/1 Ml Inj) 0.1 mg IV Q2MIN PRN PRN Reason: Res Rate </= 8 or 02 SAT < 92% Ondansetron HCl (Ondansetron 4 Mg/2 Ml Inj) 4 mg IV Q8H PRN PRN Reason: Nausea And Vomiting Sodium Chloride (Sodium Chloride 0.9% 10 Ml Flush Syringe) 10 ml IV BID [facility] Sodium Chloride (Sodium Chloride 0.9% 10 Ml Flush Syringe) 10 ml IV PRN PRN PRN Reason: LINE FLUSH Review of Systems Constitutional: fever, weakness, no weight loss, no weight gain, no chills, no sweats, no night sweats, no anorexia, no fatigue, no malaise, no chronic headaches, no poor appetite Ears, nose, mouth and throat: no ear pain, no ear discharge, no tinnitis, no decreased hearing, no nose pain, no nasal congestion, no nasal discharge, no sinus pressure, no sinus pain, no epistaxis, no post-nasal drip Cardiovascular: shortness of breath, no chest pain, no orthopnea, no palpitations, no rapid/irregular heart beat, no edema, no syncope, no lightheadedness, no dyspnea on exertion, no paroxysmal nocturnal dyspnea, no high blood pressure, no leg edema Respiratory: shortness of breath, no cough, no cough with sputum, no excessive sputum, no hemoptysis, no dyspnea on exertion, no pain on inspiration, no sleep apnea Gastrointestinal: nausea, vomiting, no abdominal pain, no diarrhea, no constipation, no BRBPR, no melena, no hematochezia, no loss of appetite, no heartburn, no indigestion Genitourinary Male: urinary frequency, no dysuria, no hematuria, no flank pain, no discharge, no urinary hesitancy, no nocturia Rectal: no pain, no incontinence, no bleeding Musculoskeletal: muscle weakness, no neck stiffness, no neck pain, no shooting arm pain, no arm numbness/tingling, no low back pain, no shooting leg pain, no leg numbness/tingling, no frequent falls Integumentary: no rash, no pruritis, no redness, no dryness, no color changes Neurological: weakness, no head injury, no transient paralysis, no paralysis, no parathesias, no numbness, no tingling, no seizures, no syncope, no tremors, no headaches, no convulsions, no change in speech, no changes in smell/taste, no sensory deficit Psychiatric: no anxiety, no memory loss, no change in sleep habits, no sleep disturbances, no insomnia, no hypersomnia, no change in appetite Endocrine: polyphagia, excessive thirst, polydipsia, polyuria, no cold intolerance, no heat intolerance, no nocturia, no excessive sweating, no weight change, no increase in ring/shoe/hat size, no high blood sugars Hematologic/Lymphatic: no easy bruising, no easy bleeding, no lymphadenopathy Allergic/Immunologic: no urticaria, no allergic rhinitis Exam - Constitutional Vitals: Temp Pulse Resp BP Pulse Ox 90 40 H 171/98 99 12/05/20 06:08 12/05/20 06:13 12/05/20 06:08 12/05/20 06:13 General appearance: Present: no acute distress - EENT Eyes: Present: PERRL ENT: hearing intact, clear oral mucosa - Neck Neck: Present: normal ROM - Respiratory Respiratory effort: normal Respiratory: bilateral: CTA - Extremities Extremities: no ischemia, pulses intact, pulses symmetrical, No edema, normal temperature, normal color, Full ROM Peripheral Pulses: within normal limits - Abdominal General gastrointestinal: Present: soft, non-tender, non-distended, normal bowel sounds - Integumentary Integumentary: Present: warm, dry - Musculoskeletal Musculoskeletal: strength equal bilaterally - Psychiatric Psychiatric: appropriate mood/affect, cooperative - Neurologic Neurologic: CNII-XII intact, no focal deficits, moves all extremities - Allied Health Allied health notes reviewed: nursing Results - Labs CBC & Chem 7: 12/05/20 06:46 12/05/20 10:24 Labs: Abnormal lab results 12/05/20 12/05/20 12/05/20 Range/Units 06:30 06:46 06:46 WBC 19.2 H (4.5-11.0) K/mm3 RBC 5.53 H (3.65-5.03) M/mm3 Hgb 17.2 H (11.8-15.2) gm/dl Hct 57.8 H (35.5-45.6) % MCV 105 H (84-94) fl MCHC 30 L (32-34) % PT (12.2-14.9) Sec. INR (0.87-1.13) VBG pH (7.320-7.420) Sodium 124 L (137-145) mmol/L Potassium 5.7 H (3.6-5.0) mmol/L Chloride 83.0 L (98-107) mmol/L Carbon Dioxide 5 L* (22-30) mmol/L BUN 25 H (9-20) mg/dL Creatinine 2.1 H (0.8-1.3) mg/dL Glucose 677 H* (75-100) mg/dL POC Glucose > 600 H (70-105) mg/dL Lactic Acid (0.7-2.0) mmol/L Phosphorus (2.5-4.5) mg/dL Magnesium (1.7-2.3) mg/dL AST 51 H (5-40) units/L Alkaline Phosphatase 250 H (35-129) units/L Ammonia (25-60) umol/L Total Protein 8.9 H (6.3-8.2) g/dL 12/05/20 12/05/20 12/05/20 Range/Units 06:46 06:46 06:46 WBC (4.5-11.0) K/mm3 RBC (3.65-5.03) M/mm3 Hgb (11.8-15.2) gm/dl Hct (35.5-45.6) % MCV (84-94) fl MCHC (32-34) % PT 15.6 H (12.2-14.9) Sec. INR 1.24 H (0.87-1.13) VBG pH 6.814 L* (7.320-7.420) Sodium (137-145) mmol/L Potassium (3.6-5.0) mmol/L Chloride (98-107) mmol/L Carbon Dioxide (22-30) mmol/L BUN (9-20) mg/dL Creatinine (0.8-1.3) mg/dL Glucose (75-100) mg/dL POC Glucose (70-105) mg/dL Lactic Acid (0.7-2.0) mmol/L Phosphorus 7.10 H (2.5-4.5) mg/dL Magnesium 2.70 H (1.7-2.3) mg/dL AST (5-40) units/L Alkaline Phosphatase (35-129) units/L Ammonia (25-60) umol/L Total Protein (6.3-8.2) g/dL 12/05/20 12/05/20 12/05/20 Range/Units 06:46 06:46 07:53 WBC (4.5-11.0) K/mm3 RBC (3.65-5.03) M/mm3 Hgb (11.8-15.2) gm/dl Hct (35.5-45.6) % MCV (84-94) fl MCHC (32-34) % PT (12.2-14.9) Sec. INR (0.87-1.13) VBG pH (7.320-7.420) Sodium (137-145) mmol/L Potassium (3.6-5.0) mmol/L Chloride (98-107) mmol/L Carbon Dioxide (22-30) mmol/L BUN (9-20) mg/dL Creatinine (0.8-1.3) mg/dL Glucose 690 H* (75-100) mg/dL POC Glucose (70-105) mg/dL Lactic Acid 4.80 H* (0.7-2.0) mmol/L Phosphorus (2.5-4.5) mg/dL Magnesium (1.7-2.3) mg/dL AST (5-40) units/L Alkaline Phosphatase (35-129) units/L Ammonia 94.0 H (25-60) umol/L Total Protein (6.3-8.2) g/dL Assessment and Plan -Presented with leukocytosis and tachypnea, KENDRA -CCM consulted, appreciate recommendations -DKA protocol -Insulin gtt -BCx2 -UA, CXR re SOB -COVID 19 PCR pending -Daily weights -Trend BMP, Mg, Phos, CBC -Strict I&O -Droplet/Contact isolation -Consider nephrology consult if Cr/BUN is not improving -Urine lytes pending -IVF -NaHCO3 gtt -LR bolus DVT/GI prophylaxis: PPI, SCDs to BLE while in bed, heparin subq Dispo: ICU The high probability of a clinically significant, sudden or life threatening deterioration of the [endo] system(s) required my full and direct attention, intervention and personal management. The aggregate critical care time was [40] minutes. This time is in addition to time spent performing reported procedures but includes the following: [x] Data Review and interpretation [x] Patient assessment and monitoring of vital signs [x] Documentation [x] Medication orders and management <JAMILA MALLOY - Last Filed: 12/05/20 18:21> History of Present Illness Date of admission: 12/05/20 08:52 Medications and Allergies Active Meds: Active Medications Acetaminophen (Acetaminophen 325 Mg Tab) 650 mg PO Q6H PRN PRN Reason: Pain MILD(1-3)/Fever >100.5/BECKWITH Dextrose (Dextrose 50% In Water (25gm) 50 Ml Syringe) 0 ml IV Q30MIN PRN; Protocol PRN Reason: Hypoglycemia Famotidine (Famotidine 20 Mg/2 Ml Inj) 10 mg IV BID [facility] Heparin Sodium (Porcine) (Heparin 5,000 Unit/1 Ml Vial) 5,000 unit SUB-Q Q12HR [facility] Hydromorphone HCl (Hydromorphone 1 Mg/1 Ml Inj) 0.5 mg IV Q6H PRN PRN Reason: Pain , Severe (7-10) Insulin Human Regular 100 (units/ Sodium Chloride) 100 mls @ 1 mls/hr IV TITR [facility]; Protocol Last Titration: 12/05/20 17:49 Dose: 8 units/hr, 8 mls/hr Documented by: Sodium Bicarbonate 150 meq/ (Sterile Water) 1,150 mls @ 150 mls/hr IV ONCE ONE Stop: 12/05/20 21:39 Last Admin: 12/05/20 15:13 Dose: 150 mls/hr Documented by: Ceftriaxone Sodium (Rocephin/Ns 2 Gm/100 Ml) 2 gm in 100 mls @ 200 mls/hr IV Q24H [facility]; Protocol Azithromycin (Zithromax/Ns) 500 mg in 250 mls @ 250 mls/hr IV Q24H [facility] Morphine Sulfate (Morphine 2 Mg/1 Ml Inj) 2 mg IV Q4H PRN PRN Reason: Pain, Moderate (4-6) Naloxone HCl (Naloxone 0.4 Mg/1 Ml Inj) 0.1 mg IV Q2MIN PRN PRN Reason: Res Rate </= 8 or 02 SAT < 92% Ondansetron HCl (Ondansetron 4 Mg/2 Ml Inj) 4 mg IV Q8H PRN PRN Reason: Nausea And Vomiting Sodium Chloride (Sodium Chloride 0.9% 10 Ml Flush Syringe) 10 ml IV BID [facility] Last Admin: 12/05/20 11:54 Dose: 10 ml Documented by: Sodium Chloride (Sodium Chloride 0.9% 10 Ml Flush Syringe) 10 ml IV PRN PRN PRN Reason: LINE FLUSH Exam - Constitutional Vitals: Temp Pulse Resp BP Pulse Ox 91 H 29 H 138/89 97 12/05/20 14:15 12/05/20 14:15 12/05/20 14:15 12/05/20 14:15 Results - Labs CBC & Chem 7: 12/05/20 06:46 12/05/20 16:03 Labs: Abnormal lab results 12/05/20 12/05/20 12/05/20 Range/Units 06:30 06:46 06:46 WBC 19.2 H (4.5-11.0) K/mm3 RBC 5.53 H (3.65-5.03) M/mm3 Hgb 17.2 H (11.8-15.2) gm/dl Hct 57.8 H (35.5-45.6) % MCV 105 H (84-94) fl MCHC 30 L (32-34) % PT (12.2-14.9) Sec. INR (0.87-1.13) D-Dimer (0-234) ng/mlDDU VBG pH (7.320-7.420) Sodium 124 L (137-145) mmol/L Potassium 5.7 H (3.6-5.0) mmol/L Chloride 83.0 L (98-107) mmol/L Carbon Dioxide 5 L* (22-30) mmol/L BUN 25 H (9-20) mg/dL Creatinine 2.1 H (0.8-1.3) mg/dL Glucose 677 H* (75-100) mg/dL POC Glucose > 600 H (70-105) mg/dL Hemoglobin A1c (4-6) % Lactic Acid (0.7-2.0) mmol/L Phosphorus (2.5-4.5) mg/dL Magnesium (1.7-2.3) mg/dL AST 51 H (5-40) units/L Alkaline Phosphatase 250 H (35-129) units/L Ammonia (25-60) umol/L Lactate Dehydrogenase (91-180) units/L C-Reactive Protein (0.00-1.30) mg/dL Total Protein 8.9 H (6.3-8.2) g/dL Triglycerides (2-149) mg/dL Coronavirus (PCR) (Negative) 12/05/20 12/05/20 12/05/20 Range/Units 06:46 06:46 06:46 WBC (4.5-11.0) K/mm3 RBC (3.65-5.03) M/mm3 Hgb (11.8-15.2) gm/dl Hct (35.5-45.6) % MCV (84-94) fl MCHC (32-34) % PT 15.6 H (12.2-14.9) Sec. INR 1.24 H (0.87-1.13) D-Dimer (0-234) ng/mlDDU VBG pH 6.814 L* (7.320-7.420) Sodium (137-145) mmol/L Potassium (3.6-5.0) mmol/L Chloride (98-107) mmol/L Carbon Dioxide (22-30) mmol/L BUN (9-20) mg/dL Creatinine (0.8-1.3) mg/dL Glucose (75-100) mg/dL POC Glucose (70-105) mg/dL Hemoglobin A1c (4-6) % Lactic Acid (0.7-2.0) mmol/L Phosphorus 7.10 H (2.5-4.5) mg/dL Magnesium 2.70 H (1.7-2.3) mg/dL AST (5-40) units/L Alkaline Phosphatase (35-129) units/L Ammonia (25-60) umol/L Lactate Dehydrogenase (91-180) units/L C-Reactive Protein (0.00-1.30) mg/dL Total Protein (6.3-8.2) g/dL Triglycerides (2-149) mg/dL Coronavirus (PCR) (Negative) 12/05/20 12/05/20 12/05/20 Range/Units 06:46 06:46 07:53 WBC (4.5-11.0) K/mm3 RBC (3.65-5.03) M/mm3 Hgb (11.8-15.2) gm/dl Hct (35.5-45.6) % MCV (84-94) fl MCHC (32-34) % PT (12.2-14.9) Sec. INR (0.87-1.13) D-Dimer (0-234) ng/mlDDU VBG pH (7.320-7.420) Sodium (137-145) mmol/L Potassium (3.6-5.0) mmol/L Chloride (98-107) mmol/L Carbon Dioxide (22-30) mmol/L BUN (9-20) mg/dL Creatinine (0.8-1.3) mg/dL Glucose 690 H* (75-100) mg/dL POC Glucose (70-105) mg/dL Hemoglobin A1c (4-6) % Lactic Acid 4.80 H* (0.7-2.0) mmol/L Phosphorus (2.5-4.5) mg/dL Magnesium (1.7-2.3) mg/dL AST (5-40) units/L Alkaline Phosphatase (35-129) units/L Ammonia 94.0 H (25-60) umol/L Lactate Dehydrogenase (91-180) units/L C-Reactive Protein (0.00-1.30) mg/dL Total Protein (6.3-8.2) g/dL Triglycerides (2-149) mg/dL Coronavirus (PCR) (Negative) 12/05/20 12/05/20 12/05/20 Range/Units 10:24 10:24 10:24 WBC (4.5-11.0) K/mm3 RBC (3.65-5.03) M/mm3 Hgb (11.8-15.2) gm/dl Hct (35.5-45.6) % MCV (84-94) fl MCHC (32-34) % PT (12.2-14.9) Sec. INR (0.87-1.13) D-Dimer (0-234) ng/mlDDU VBG pH (7.320-7.420) Sodium 122 L (137-145) mmol/L Potassium 5.6 H (3.6-5.0) mmol/L Chloride 90.5 L (98-107) mmol/L Carbon Dioxide 2 L* (22-30) mmol/L BUN 28 H (9-20) mg/dL Creatinine 1.7 H (0.8-1.3) mg/dL Glucose 602 H* (75-100) mg/dL POC Glucose (70-105) mg/dL Hemoglobin A1c 17.8 H (4-6) % Lactic Acid (0.7-2.0) mmol/L Phosphorus 7.60 H (2.5-4.5) mg/dL Magnesium 2.70 H (1.7-2.3) mg/dL AST (5-40) units/L Alkaline Phosphatase (35-129) units/L Ammonia (25-60) umol/L Lactate Dehydrogenase (91-180) units/L C-Reactive Protein (0.00-1.30) mg/dL Total Protein (6.3-8.2) g/dL Triglycerides 368 H (2-149) mg/dL Coronavirus (PCR) (Negative) 12/05/20 12/05/20 12/05/20 Range/Units 10:28 12:36 16:03 WBC (4.5-11.0) K/mm3 RBC (3.65-5.03) M/mm3 Hgb (11.8-15.2) gm/dl Hct (35.5-45.6) % MCV (84-94) fl MCHC (32-34) % PT (12.2-14.9) Sec. INR (0.87-1.13) D-Dimer (0-234) ng/mlDDU VBG pH (7.320-7.420) Sodium 130 L D (137-145) mmol/L Potassium 6.6 H* (3.6-5.0) mmol/L Chloride 95.5 L (98-107) mmol/L Carbon Dioxide 5 L* (22-30) mmol/L BUN 28 H (9-20) mg/dL Creatinine 1.9 H (0.8-1.3) mg/dL Glucose 437 H (75-100) mg/dL POC Glucose 584 H (70-105) mg/dL Hemoglobin A1c (4-6) % Lactic Acid (0.7-2.0) mmol/L Phosphorus (2.5-4.5) mg/dL Magnesium (1.7-2.3) mg/dL AST (5-40) units/L Alkaline Phosphatase (35-129) units/L Ammonia (25-60) umol/L Lactate Dehydrogenase (91-180) units/L C-Reactive Protein (0.00-1.30) mg/dL Total Protein (6.3-8.2) g/dL Triglycerides (2-149) mg/dL Coronavirus (PCR) Positive A (Negative) 12/05/20 12/05/20 12/05/20 Range/Units 16:03 16:03 16:03 WBC (4.5-11.0) K/mm3 RBC (3.65-5.03) M/mm3 Hgb (11.8-15.2) gm/dl Hct (35.5-45.6) % MCV (84-94) fl MCHC (32-34) % PT (12.2-14.9) Sec. INR (0.87-1.13) D-Dimer 4712.93 H (0-234) ng/mlDDU VBG pH (7.320-7.420) Sodium (137-145) mmol/L Potassium (3.6-5.0) mmol/L Chloride (98-107) mmol/L Carbon Dioxide (22-30) mmol/L BUN (9-20) mg/dL Creatinine (0.8-1.3) mg/dL Glucose 449 H (75-100) mg/dL POC Glucose (70-105) mg/dL Hemoglobin A1c (4-6) % Lactic Acid 4.80 H* (0.7-2.0) mmol/L Phosphorus (2.5-4.5) mg/dL Magnesium (1.7-2.3) mg/dL AST (5-40) units/L Alkaline Phosphatase (35-129) units/L Ammonia (25-60) umol/L Lactate Dehydrogenase 576 H (91-180) units/L C-Reactive Protein 7.10 H (0.00-1.30) mg/dL Total Protein (6.3-8.2) g/dL Triglycerides (2-149) mg/dL Coronavirus (PCR) (Negative) Assessment and Plan I saw and evaluated the patient. I agree with the findings and the plan of care as documented in the Nurse Practitioner's~note,
[2020-12-05] MEDS ORDERED: NALOXONE 0.4 MG/1 ML INJ IV PRN (10:00)
[2020-12-05] MEDS ORDERED: ONDANSETRON 4 MG/2 ML INJ IV PRN (10:00)
[2020-12-05] MEDS ORDERED: ACETAMINOPHEN 325 MG TAB PO PRN (10:00)
[2020-12-05] MEDS ORDERED: HYDROmorphone 1 MG/1 ML INJ IV PRN (10:00)
[2020-12-05] MEDS ORDERED: FAMOTIDINE 20 MG/2 ML INJ IV SCH (10:00)
[2020-12-05] MEDS ORDERED: SODIUM CHLORIDE 0.9% 1000 ML 1,000 ML IV SCH (10:45)
[2020-12-05 10:53] LABS: Calcium 8.4 mg/dL (8.4-10.2)
--- NOTE | 2020-12-05 12:16 | XRay Report ---
XR chest 1V ap INDICATION / CLINICAL INFORMATION: SOB. COMPARISON: 09/06/2020 FINDINGS: SUPPORT DEVICES: None. HEART /PULMONARY VASCULATURE: No significant abnormality. LUNGS / PLEURA: Is focal airspace consolidations are present within both lung bases. No pleural effus ion or pneumothorax. ADDITIONAL FINDINGS: No significant additional findings. IMPRESSION: Bibasilar airspace opacities, concerning for pneumonia. Signer Name: Danny Chao MD Signed: 12/05/2020 12:11 PM Workstation Name: [email or web address]
[2020-12-05] MEDS ORDERED: LACTATED RINGERS 1,000 ML IV ONE (13:22)
[2020-12-05] MEDS ORDERED: SODIUM BICARB 8.4% 50 MEQ/50 ML SYRINGE IV ONE (13:27)
[2020-12-05] MEDS ORDERED: SODIUM BICARBONATE 150 MEQ in WATER FOR INJECTION (PF) 1,000 ML IV ONE (14:00)
--- NOTE | 2020-12-05 14:46 | Electrocardiograph Report ---
[facility] Test Date: 2020-12-05 Test Time: 06:28:21 Pat Name: СЕРГЕЙ RUDOLPH Department: Room: A251 Gender: M Geriatric Nurse Assistant: IAN : 1990 Requested By: GEORGE MARTINEZ Order Number: [id number] Reading MD: Delia Velez Measurements Intervals [place] Rate: 81 P: 77 VA: 145 QRS: 73 QRSD: 96 T: 28 QT: 416 QTc: 484 Interpretive Statements Sinus rhythm Probable left atrial enlargement No previous ECG available for comparison Electronically Signed On 12-05-2020 14:45:47 EDT by Delia Velez
[2020-12-05 15:06] LABS: Chol/HDL Ratio 3.12 %
[2020-12-05 16:42] LABS: Calcium 8.6 mg/dL (8.4-10.2)
[2020-12-05 16:44] LABS: C-Reactive Protein 7.1 mg/dL (0.00-1.30)
[2020-12-05] MEDS: cefTRIAXone/NS 2 GM/100 ML 2 GM/100 ML BAG IV SCH (19:06)
[2020-12-05] MEDS: AZITHROMYCIN/NS 500 MG/250 ML 500 MG/250 ML BAG IV SCH (19:06)
[2020-12-05 19:47] LABS: Calcium 8.8 mg/dL (8.4-10.2)
[2020-12-05] MEDS: HEPARIN 5,000 UNIT/1 ML VIAL SUB-Q SCH (21:13)
[2020-12-05] MEDS: FAMOTIDINE 20 MG/2 ML INJ IV SCH (21:13)
[2020-12-06 00:59] LABS: BUN/Creatinine Ratio 22; Blood Urea Nitrogen 29 mg/dL (9-20); Calcium 8.6 mg/dL (8.4-10.2); Hemolysis Index 41
[2020-12-06] MEDS ORDERED: SODIUM BICARBONATE 100 MEQ in WATER FOR INJECTION (PF) 1,000 ML IV SCH (02:00)
[2020-12-06] MEDS: HEPARIN 5,000 UNIT/1 ML VIAL SUB-Q SCH ×2 (09:26→21:44)
[2020-12-06] MEDS: FAMOTIDINE 20 MG/2 ML INJ IV SCH ×2 (09:43→21:45)
[2020-12-06 10:21] LABS: BUN/Creatinine Ratio 19; Blood Urea Nitrogen 23 mg/dL (9-20); Calcium 9.3 mg/dL (8.4-10.2); Hemolysis Index 161
--- NOTE | 2020-12-06 12:09 | Progress Note ---
Assessment and Plan This is a 30-year-old male who was recently diagnosed with diabetes mellitus type 2 on oral hypoglycemics presented to the hospital with DKA/severe metabolic acidosis, bilateral pneumonia, positive COVID-19, KENDRA and electrolyte imbalance. Severe sepsis, POA -Likely due to underlying pneumonia and COVID-19 -Continue IV antibiotics, follow culture Positive COVID-19, patient is not hypoxic -Continue to follow, consulted ID -We will follow inflammatory markers -Anticoagulation with heparin for now Bilateral pneumonia -Likely due to COVID-19 infection with possible bacterial pneumonia -Patient has elevated procalcitonin, Rocephin and Zithromax for now -Wait for culture and ID consult DKA Severe Metabolic Acidosis - We'll continue insulin drip and monitor blood glucose every hour - We will continue IV fluid hydration with normal saline - Will change to D5 normal saline once blood glucose reaches below 250 - We'll repeat BMP every 6 hours till anion gap closes - We will replace potassium and magnesium as needed - We'll keep the patient nothing by mouth for now, will place on ADA diet when anion gap closes Acute kidney injury, likely vasomotor nephropathy -Continue aggressive IV fluid, follow BMP -Nephrology consult if creatinine continues to worsen -Currently creatinine responding to the fluid Hyponatremia, likely due to hyperglycemia, continue IV fluid for now follow BMP Hyperkalemia -Likely due to severe DKA and KENDRA -Patient started on bicarbonate drip, follow BMP. Transaminitis, monitor LFTs Hyperammonemia, will repeat level, follow with supportive care leukocytosis. Elevated D-dimer, likely due to COVID-19 fraction, anticoagulation per protocol Diabetes mellitus type 2, uncontrolled with hyperglycemia and DKA -A1c 17.8, continue insulin drip now will transition to subcu insulin once DKA resolves - We'll provide GI and DVT prophylaxis The high probability of a clinically significant, sudden or life threatening deterioration of the [metabolic, respiratory, CVS, neuro sepsis] system(s) required my full and direct attention, intervention and personal management. The aggregate critical care time was [34] minutes. This time is in addition to time spent performing reported procedures but includes the following: [x] Data Review and interpretation [x] Patient assessment and monitoring of vital signs [x] Documentation [x] Medication orders and management Daily clinical course: 12/06: Continue bicarbonate drip for now patient still with metabolic acidosis with high anion gap. Patient is not symptomatic with Covid. We will continue to monitor. Will follow ID recommendation. Critical care has been consulted/will follow recommendation Subjective Date of service: 12/06/20 Interval history: Patient seen and examined He states that he is feeling much better today No nausea or vomiting Wants to drink water Remains on bicarbonate drip, serum CO2 this morning was still 8 Remains on insulin drip Vitals stable On COVID-19 protocol Objective - Exam Narrative Exam: Limited physical exam due to COVID-19 pandemic to minimize transmission of the disease and to preserve PPE. Vital reviewed and stable. GENERAL: well-developed well-nourished -[place] male lying on bed appeared to be in no discomfort. HEENT: Normocephalic. Atraumatic. NECK: Supple. CHEST/LUNGS: breathing nonlabored. HEART/CARDIOVASCULAR: Heart rate stable on telemetry ABDOMEN: Visibly not distended SKIN: There is no rash NEURO: No focal motor deficit. Follows command. MUSCULOSKELETAL: No joint effusion EXTRIMITY: No swelling, no cyanosis or clubbing. PSYCH: Cooperative. - Constitutional Vitals: Vital Signs - 12hr 12/06/20 12/06/20 12/06/20 00:30 01:00 01:30 Temperature Pulse Rate 104 H 110 H 108 H Pulse Rate [ From Monitor] Respiratory 32 H 29 H 33 H Rate Blood Pressure 100/59 123/78 122/74 O2 Sat by Pulse 96 95 95 Oximetry 12/06/20 12/06/20 12/06/20 02:00 02:31 03:00 Temperature Pulse Rate 111 H 107 H Pulse Rate [ From Monitor] Respiratory 22 27 H Rate Blood Pressure 109/77 98/62 105/63 O2 Sat by Pulse 95 96 97 Oximetry 12/06/20 12/06/20 12/06/20 03:30 04:00 04:30 Temperature 97.2 F L Pulse Rate 107 H 116 H 105 H Pulse Rate [ 116 H From Monitor] Respiratory 30 H 25 H 28 H Rate Blood Pressure 116/77 101/71 92/63 O2 Sat by Pulse 95 94 95 Oximetry 12/06/20 12/06/20 12/06/20 05:01 05:30 06:00 Temperature Pulse Rate 107 H 108 H Pulse Rate [ From Monitor] Respiratory 22 20 Rate Blood Pressure 103/70 101/65 111/73 O2 Sat by Pulse 96 97 Oximetry 12/06/20 12/06/20 12/06/20 06:30 07:00 07:30 Temperature Pulse Rate 113 H 109 H 104 H Pulse Rate [ From Monitor] Respiratory 18 26 H 26 H Rate Blood Pressure 116/82 102/71 102/68 O2 Sat by Pulse 94 96 98 Oximetry 12/06/20 12/06/20 12/06/20 08:00 08:30 09:00 Temperature 97.9 F Pulse Rate 108 H 120 H 110 H Pulse Rate [ From Monitor] Respiratory 28 H 20 22 Rate Blood Pressure 98/61 113/80 113/77 O2 Sat by Pulse 87 97 Oximetry 12/06/20 12/06/20 12/06/20 09:30 10:00 10:30 Temperature Pulse Rate 118 H 116 H 114 H Pulse Rate [ From Monitor] Respiratory 20 28 H 27 H Rate Blood Pressure 120/80 114/76 107/74 O2 Sat by Pulse 93 97 Oximetry 12/06/20 11:00 Temperature 98.0 F Pulse Rate 120 H Pulse Rate [ From Monitor] Respiratory 20 Rate Blood Pressure 104/74 O2 Sat by Pulse 97 Oximetry - Labs CBC & Chem 7: 12/07/20 03:25 12/07/20 03:25 Labs: Abnormal lab results 12/05/20 12/05/20 12/05/20 Range/Units 10:24 10:24 10:28 D-Dimer (0-234) ng/mlDDU Sodium (137-145) mmol/L Potassium (3.6-5.0) mmol/L Chloride (98-107) mmol/L Carbon Dioxide (22-30) mmol/L BUN (9-20) mg/dL Creatinine (0.8-1.3) mg/dL Glucose (75-100) mg/dL POC Glucose (70-105) mg/dL Hemoglobin A1c 17.8 H (4-6) % Lactic Acid (0.7-2.0) mmol/L Phosphorus 7.60 H (2.5-4.5) mg/dL Magnesium 2.70 H (1.7-2.3) mg/dL Ferritin (30.0-300.0) ng/mL Lactate Dehydrogenase (91-180) units/L C-Reactive Protein (0.00-1.30) mg/dL Triglycerides 368 H (2-149) mg/dL Coronavirus (PCR) Positive A (Negative) 12/05/20 12/05/20 12/05/20 Range/Units 12:36 14:55 16:03 D-Dimer (0-234) ng/mlDDU Sodium 130 L D (137-145) mmol/L Potassium 6.6 H* (3.6-5.0) mmol/L Chloride 95.5 L (98-107) mmol/L Carbon Dioxide 5 L* (22-30) mmol/L BUN 28 H (9-20) mg/dL Creatinine 1.9 H (0.8-1.3) mg/dL Glucose 437 H (75-100) mg/dL POC Glucose 584 H 449 H (70-105) mg/dL Hemoglobin A1c (4-6) % Lactic Acid (0.7-2.0) mmol/L Phosphorus (2.5-4.5) mg/dL Magnesium (1.7-2.3) mg/dL Ferritin (30.0-300.0) ng/mL Lactate Dehydrogenase (91-180) units/L C-Reactive Protein (0.00-1.30) mg/dL Triglycerides (2-149) mg/dL Coronavirus (PCR) (Negative) 12/05/20 12/05/20 12/05/20 Range/Units 16:03 16:03 16:03 D-Dimer 4712.93 H (0-234) ng/mlDDU Sodium (137-145) mmol/L Potassium (3.6-5.0) mmol/L Chloride (98-107) mmol/L Carbon Dioxide (22-30) mmol/L BUN (9-20) mg/dL Creatinine (0.8-1.3) mg/dL Glucose 449 H (75-100) mg/dL POC Glucose (70-105) mg/dL Hemoglobin A1c (4-6) % Lactic Acid 4.80 H* (0.7-2.0) mmol/L Phosphorus (2.5-4.5) mg/dL Magnesium (1.7-2.3) mg/dL Ferritin (30.0-300.0) ng/mL Lactate Dehydrogenase 576 H (91-180) units/L C-Reactive Protein 7.10 H (0.00-1.30) mg/dL Triglycerides (2-149) mg/dL Coronavirus (PCR) (Negative) 12/05/20 12/05/20 12/05/20 Range/Units 16:03 16:57 17:47 D-Dimer (0-234) ng/mlDDU Sodium (137-145) mmol/L Potassium (3.6-5.0) mmol/L Chloride (98-107) mmol/L Carbon Dioxide (22-30) mmol/L BUN (9-20) mg/dL Creatinine (0.8-1.3) mg/dL Glucose (75-100) mg/dL POC Glucose 446 H 425 H (70-105) mg/dL Hemoglobin A1c (4-6) % Lactic Acid (0.7-2.0) mmol/L Phosphorus (2.5-4.5) mg/dL Magnesium (1.7-2.3) mg/dL Ferritin > 2000.0 H (30.0-300.0) ng/mL Lactate Dehydrogenase (91-180) units/L C-Reactive Protein (0.00-1.30) mg/dL Triglycerides (2-149) mg/dL Coronavirus (PCR) (Negative) 12/05/20 12/05/20 12/05/20 Range/Units 18:46 19:11 19:11 D-Dimer (0-234) ng/mlDDU Sodium 136 L (137-145) mmol/L Potassium 5.1 H D (3.6-5.0) mmol/L Chloride 97.2 L (98-107) mmol/L Carbon Dioxide 10 L (22-30) mmol/L BUN 31 H (9-20) mg/dL Creatinine 1.7 H (0.8-1.3) mg/dL Glucose 341 H (75-100) mg/dL POC Glucose 343 H (70-105) mg/dL Hemoglobin A1c (4-6) % Lactic Acid 4.30 H* (0.7-2.0) mmol/L Phosphorus (2.5-4.5) mg/dL Magnesium (1.7-2.3) mg/dL Ferritin (30.0-300.0) ng/mL Lactate Dehydrogenase (91-180) units/L C-Reactive Protein (0.00-1.30) mg/dL Triglycerides (2-149) mg/dL Coronavirus (PCR) (Negative) 12/05/20 12/05/20 12/05/20 Range/Units 20:09 20:59 21:57 D-Dimer (0-234) ng/mlDDU Sodium (137-145) mmol/L Potassium (3.6-5.0) mmol/L Chloride (98-107) mmol/L Carbon Dioxide (22-30) mmol/L BUN (9-20) mg/dL Creatinine (0.8-1.3) mg/dL Glucose (75-100) mg/dL POC Glucose 345 H 304 H 259 H (70-105) mg/dL Hemoglobin A1c (4-6) % Lactic Acid (0.7-2.0) mmol/L Phosphorus (2.5-4.5) mg/dL Magnesium (1.7-2.3) mg/dL Ferritin (30.0-300.0) ng/mL Lactate Dehydrogenase (91-180) units/L C-Reactive Protein (0.00-1.30) mg/dL Triglycerides (2-149) mg/dL Coronavirus (PCR) (Negative) 12/05/20 12/06/20 12/06/20 Range/Units 23:01 00:01 00:24 D-Dimer (0-234) ng/mlDDU Sodium 134 L (137-145) mmol/L Potassium (3.6-5.0) mmol/L Chloride (98-107) mmol/L Carbon Dioxide 8 L* (22-30) mmol/L BUN 29 H (9-20) mg/dL Creatinine (0.8-1.3) mg/dL Glucose 298 H (75-100) mg/dL POC Glucose 325 H 297 H (70-105) mg/dL Hemoglobin A1c (4-6) % Lactic Acid (0.7-2.0) mmol/L Phosphorus (2.5-4.5) mg/dL Magnesium (1.7-2.3) mg/dL Ferritin (30.0-300.0) ng/mL Lactate Dehydrogenase (91-180) units/L C-Reactive Protein (0.00-1.30) mg/dL Triglycerides (2-149) mg/dL Coronavirus (PCR) (Negative) 12/06/20 12/06/20 12/06/20 Range/Units 01:01 01:56 03:01 D-Dimer (0-234) ng/mlDDU Sodium (137-145) mmol/L Potassium (3.6-5.0) mmol/L Chloride (98-107) mmol/L Carbon Dioxide (22-30) mmol/L BUN (9-20) mg/dL Creatinine (0.8-1.3) mg/dL Glucose (75-100) mg/dL POC Glucose 270 H 225 H 231 H (70-105) mg/dL Hemoglobin A1c (4-6) % Lactic Acid (0.7-2.0) mmol/L Phosphorus (2.5-4.5) mg/dL Magnesium (1.7-2.3) mg/dL Ferritin (30.0-300.0) ng/mL Lactate Dehydrogenase (91-180) units/L C-Reactive Protein (0.00-1.30) mg/dL Triglycerides (2-149) mg/dL Coronavirus (PCR) (Negative) 12/06/20 12/06/20 12/06/20 Range/Units 03:59 04:55 05:58 D-Dimer (0-234) ng/mlDDU Sodium (137-145) mmol/L Potassium (3.6-5.0) mmol/L Chloride (98-107) mmol/L Carbon Dioxide (22-30) mmol/L BUN (9-20) mg/dL Creatinine (0.8-1.3) mg/dL Glucose (75-100) mg/dL POC Glucose 168 H 137 H 149 H (70-105) mg/dL Hemoglobin A1c (4-6) % Lactic Acid (0.7-2.0) mmol/L Phosphorus (2.5-4.5) mg/dL Magnesium (1.7-2.3) mg/dL Ferritin (30.0-300.0) ng/mL Lactate Dehydrogenase (91-180) units/L C-Reactive Protein (0.00-1.30) mg/dL Triglycerides (2-149) mg/dL Coronavirus (PCR) (Negative) 12/06/20 12/06/20 12/06/20 Range/Units 06:56 07:44 08:16 D-Dimer (0-234) ng/mlDDU Sodium (137-145) mmol/L Potassium (3.6-5.0) mmol/L Chloride (98-107) mmol/L Carbon Dioxide 14 L (22-30) mmol/L BUN 23 H (9-20) mg/dL Creatinine (0.8-1.3) mg/dL Glucose 136 H (75-100) mg/dL POC Glucose 205 H 150 H (70-105) mg/dL Hemoglobin A1c (4-6) % Lactic Acid (0.7-2.0) mmol/L Phosphorus (2.5-4.5) mg/dL Magnesium (1.7-2.3) mg/dL Ferritin (30.0-300.0) ng/mL Lactate Dehydrogenase (91-180) units/L C-Reactive Protein (0.00-1.30) mg/dL Triglycerides (2-149) mg/dL Coronavirus (PCR) (Negative) 12/06/20 12/06/20 12/06/20 Range/Units 09:03 10:11 11:14 D-Dimer (0-234) ng/mlDDU Sodium (137-145) mmol/L Potassium (3.6-5.0) mmol/L Chloride (98-107) mmol/L Carbon Dioxide (22-30) mmol/L BUN (9-20) mg/dL Creatinine (0.8-1.3) mg/dL Glucose (75-100) mg/dL POC Glucose 132 H 137 H 127 H (70-105) mg/dL Hemoglobin A1c (4-6) % Lactic Acid (0.7-2.0) mmol/L Phosphorus (2.5-4.5) mg/dL Magnesium (1.7-2.3) mg/dL Ferritin (30.0-300.0) ng/mL Lactate Dehydrogenase (91-180) units/L C-Reactive Protein (0.00-1.30) mg/dL Triglycerides (2-149) mg/dL Coronavirus (PCR) (Negative)
[2020-12-06] MEDS: SODIUM BICARBONATE 100 MEQ in DEXTROSE 5% IN WATER 1,000 ML IV SCH (12:53)
[2020-12-06 14:18] LABS: Creatinine,Urine 101.5 mg/dL (0.1-20.0)
[2020-12-06 14:23] LABS: Microalbumin/Creatinine Ratio 365.3 ug/mg
--- NOTE | 2020-12-06 14:33 | Consultation ---
History of Present Illness Consult date: 12/06/20 Requesting physician: GEORGE MARTINEZ Reason for consult: other (DKA) History of present illness: PULMONARY/CCM CONSULT NOTE (Full note dictated) Please see dictated notes for full details Past History Past Medical History: diabetes. denies: hypertension, hyperlipidemia, pulmonary embolism Past Surgical History: No surgical history Social history: single, Lives alone, full code. denies: smoking, alcohol abuse, prescription drug abuse, IV drug use Family history: no significant family history Medications and Allergies Allergies Allergy/AdvReac Type Severity Reaction Status Date / Time No Known Allergies Allergy Unverified 03/10/17 07:27 Home Medications Medication Instructions Recorded Confirmed Last Taken Type Ondansetron [Zofran Odt] 4 mg PO QID #12 tab.rapdis 03/10/17 12/06/20 Unknown Rx glipiZIDE [Glucotrol] 5 mg PO BID #60 tablet 07/20/20 12/06/20 12/04/20 17:00 Rx metFORMIN [Glucophage] 500 mg PO BID #60 tablet 07/20/20 12/06/20 12/04/20 17:00 Rx Active Meds: Active Medications Acetaminophen (Acetaminophen 325 Mg Tab) 650 mg PO Q6H PRN PRN Reason: Pain MILD(1-3)/Fever >100.5/BECKWITH Dextrose (Dextrose 50% In Water (25gm) 50 Ml Syringe) 0 ml IV Q30MIN PRN; Protocol PRN Reason: Hypoglycemia Famotidine (Famotidine 20 Mg/2 Ml Inj) 10 mg IV BID [facility] Last Admin: 12/06/20 09:43 Dose: 10 mg Documented by: Heparin Sodium (Porcine) (Heparin 5,000 Unit/1 Ml Vial) 5,000 unit SUB-Q Q12HR [facility] Last Admin: 12/06/20 09:26 Dose: 5,000 unit Documented by: Hydromorphone HCl (Hydromorphone 1 Mg/1 Ml Inj) 0.5 mg IV Q6H PRN PRN Reason: Pain , Severe (7-10) Insulin Human Regular 100 (units/ Sodium Chloride) 100 mls @ 1 mls/hr IV TITR [facility]; Protocol Last Titration: 12/06/20 12:07 Dose: 7 units/hr, 7 mls/hr Documented by: Ceftriaxone Sodium (Rocephin/Ns 2 Gm/100 Ml) 2 gm in 100 mls @ 200 mls/hr IV Q24H [facility]; Protocol Last Admin: 12/05/20 19:06 Dose: Not Given Documented by: Azithromycin (Zithromax/Ns) 500 mg in 250 mls @ 250 mls/hr IV Q24H [facility] Last Admin: 12/05/20 19:06 Dose: Not Given Documented by: Sodium Bicarbonate 100 meq/ (Dextrose) 1,100 mls @ 100 mls/hr IV DIRECT [facility] Last Admin: 12/06/20 12:53 Dose: 100 mls/hr Documented by: Morphine Sulfate (Morphine 2 Mg/1 Ml Inj) 2 mg IV Q4H PRN PRN Reason: Pain, Moderate (4-6) Naloxone HCl (Naloxone 0.4 Mg/1 Ml Inj) 0.1 mg IV Q2MIN PRN PRN Reason: Res Rate </= 8 or 02 SAT < 92% Ondansetron HCl (Ondansetron 4 Mg/2 Ml Inj) 4 mg IV Q8H PRN PRN Reason: Nausea And Vomiting Sodium Chloride (Sodium Chloride 0.9% 10 Ml Flush Syringe) 10 ml IV BID [facility] Last Admin: 12/06/20 09:43 Dose: 10 ml Documented by: Sodium Chloride (Sodium Chloride 0.9% 10 Ml Flush Syringe) 10 ml IV PRN PRN PRN Reason: LINE FLUSH Physical Examination Vital signs: Vital Signs Pulse Resp BP Pulse Ox 90 20 171/98 99 12/05/20 06:08 12/05/20 06:08 12/05/20 06:08 12/05/20 06:08 Results - Laboratory Findings CBC and BMP: 12/05/20 06:46 12/06/20 08:16 PT/INR, D-dimer PT 15.6 Sec. (12.2-14.9) H 12/05/20 06:46 INR 1.24 (0.87-1.13) H 12/05/20 06:46 D-Dimer 4712.93 ng/mlDDU (0-234) H 12/05/20 16:03 Abnormal lab findings: Abnormal Labs 12/05/20 12/05/20 12/05/20 06:30 06:46 06:46 WBC 19.2 H RBC 5.53 H Hgb 17.2 H Hct 57.8 H MCV 105 H MCHC 30 L PT INR D-Dimer VBG pH Sodium 124 L Potassium 5.7 H Chloride 83.0 L Carbon Dioxide 5 L* BUN 25 H Creatinine 2.1 H Glucose 677 H* POC Glucose > 600 H Hemoglobin A1c Lactic Acid Phosphorus Magnesium Ferritin AST 51 H Alkaline Phosphatase 250 H Ammonia Lactate Dehydrogenase C-Reactive Protein Total Protein 8.9 H Triglycerides Urine Creatinine Urine Microalbumin Coronavirus (PCR) 12/05/20 12/05/20 12/05/20 06:46 06:46 06:46 WBC RBC Hgb Hct MCV MCHC PT 15.6 H INR 1.24 H D-Dimer VBG pH 6.814 L* Sodium Potassium Chloride Carbon Dioxide BUN Creatinine Glucose POC Glucose Hemoglobin A1c Lactic Acid Phosphorus 7.10 H Magnesium 2.70 H Ferritin AST Alkaline Phosphatase Ammonia Lactate Dehydrogenase C-Reactive Protein Total Protein Triglycerides Urine Creatinine Urine Microalbumin Coronavirus (PCR) 12/05/20 12/05/20 12/05/20 06:46 06:46 07:53 WBC RBC Hgb Hct MCV MCHC PT INR D-Dimer VBG pH Sodium Potassium Chloride Carbon Dioxide BUN Creatinine Glucose 690 H* POC Glucose Hemoglobin A1c Lactic Acid 4.80 H* Phosphorus Magnesium Ferritin AST Alkaline Phosphatase Ammonia 94.0 H Lactate Dehydrogenase C-Reactive Protein Total Protein Triglycerides Urine Creatinine Urine Microalbumin Coronavirus (PCR) 12/05/20 12/05/20 12/05/20 10:24 10:24 10:24 WBC RBC Hgb Hct MCV MCHC PT INR D-Dimer VBG pH Sodium 122 L Potassium 5.6 H Chloride 90.5 L Carbon Dioxide 2 L* BUN 28 H Creatinine 1.7 H Glucose 602 H* POC Glucose Hemoglobin A1c 17.8 H Lactic Acid Phosphorus 7.60 H Magnesium 2.70 H Ferritin AST Alkaline Phosphatase Ammonia Lactate Dehydrogenase C-Reactive Protein Total Protein Triglycerides 368 H Urine Creatinine Urine Microalbumin Coronavirus (PCR) 12/05/20 12/05/20 12/05/20 10:28 12:36 14:55 WBC RBC Hgb Hct MCV MCHC PT INR D-Dimer VBG pH Sodium Potassium Chloride Carbon Dioxide BUN Creatinine Glucose POC Glucose 584 H 449 H Hemoglobin A1c Lactic Acid Phosphorus Magnesium Ferritin AST Alkaline Phosphatase Ammonia Lactate Dehydrogenase C-Reactive Protein Total Protein Triglycerides Urine Creatinine Urine Microalbumin Coronavirus (PCR) Positive A 12/05/20 12/05/20 12/05/20 16:03 16:03 16:03 WBC RBC Hgb Hct MCV MCHC PT INR D-Dimer 4712.93 H VBG pH Sodium 130 L D Potassium 6.6 H* Chloride 95.5 L Carbon Dioxide 5 L* BUN 28 H Creatinine 1.9 H Glucose 437 H POC Glucose Hemoglobin A1c Lactic Acid 4.80 H* Phosphorus Magnesium Ferritin AST Alkaline Phosphatase Ammonia Lactate Dehydrogenase C-Reactive Protein Total Protein Triglycerides Urine Creatinine Urine Microalbumin Coronavirus (PCR) 12/05/20 12/05/20 12/05/20 16:03 16:03 16:57 WBC RBC Hgb Hct MCV MCHC PT INR D-Dimer VBG pH Sodium Potassium Chloride Carbon Dioxide BUN Creatinine Glucose 449 H POC Glucose 446 H Hemoglobin A1c Lactic Acid Phosphorus Magnesium Ferritin > 2000.0 H AST Alkaline Phosphatase Ammonia Lactate Dehydrogenase 576 H C-Reactive Protein 7.10 H Total Protein Triglycerides Urine Creatinine Urine Microalbumin Coronavirus (PCR) 12/05/20 12/05/20 12/05/20 17:47 18:46 19:11 WBC RBC Hgb Hct MCV MCHC PT INR D-Dimer VBG pH Sodium 136 L Potassium 5.1 H D Chloride 97.2 L Carbon Dioxide 10 L BUN 31 H Creatinine 1.7 H Glucose 341 H POC Glucose 425 H 343 H Hemoglobin A1c Lactic Acid Phosphorus Magnesium Ferritin AST Alkaline Phosphatase Ammonia Lactate Dehydrogenase C-Reactive Protein Total Protein Triglycerides Urine Creatinine Urine Microalbumin Coronavirus (PCR) 12/05/20 12/05/20 12/05/20 19:11 20:09 20:59 WBC RBC Hgb Hct MCV MCHC PT INR D-Dimer VBG pH Sodium Potassium Chloride Carbon Dioxide BUN Creatinine Glucose POC Glucose 345 H 304 H Hemoglobin A1c Lactic Acid 4.30 H* Phosphorus Magnesium Ferritin AST Alkaline Phosphatase Ammonia Lactate Dehydrogenase C-Reactive Protein Total Protein Triglycerides Urine Creatinine Urine Microalbumin Coronavirus (PCR) 12/05/20 12/05/20 12/06/20 21:57 23:01 00:01 WBC RBC Hgb Hct MCV MCHC PT INR D-Dimer VBG pH Sodium Potassium Chloride Carbon Dioxide BUN Creatinine Glucose POC Glucose 259 H 325 H 297 H Hemoglobin A1c Lactic Acid Phosphorus Magnesium Ferritin AST Alkaline Phosphatase Ammonia Lactate Dehydrogenase C-Reactive Protein Total Protein Triglycerides Urine Creatinine Urine Microalbumin Coronavirus (PCR) 12/06/20 12/06/20 12/06/20 00:24 01:01 01:56 WBC RBC Hgb Hct MCV MCHC PT INR D-Dimer VBG pH Sodium 134 L Potassium Chloride Carbon Dioxide 8 L* BUN 29 H Creatinine Glucose 298 H POC Glucose 270 H 225 H Hemoglobin A1c Lactic Acid Phosphorus Magnesium Ferritin AST Alkaline Phosphatase Ammonia Lactate Dehydrogenase C-Reactive Protein Total Protein Triglycerides Urine Creatinine Urine Microalbumin Coronavirus (PCR) 12/06/20 12/06/20 12/06/20 03:01 03:59 04:55 WBC RBC Hgb Hct MCV MCHC PT INR D-Dimer VBG pH Sodium Potassium Chloride Carbon Dioxide BUN Creatinine Glucose POC Glucose 231 H 168 H 137 H Hemoglobin A1c Lactic Acid Phosphorus Magnesium Ferritin AST Alkaline Phosphatase Ammonia Lactate Dehydrogenase C-Reactive Protein Total Protein Triglycerides Urine Creatinine Urine Microalbumin Coronavirus (PCR) 12/06/20 12/06/20 12/06/20 05:58 06:56 07:44 WBC RBC Hgb Hct MCV MCHC PT INR D-Dimer VBG pH Sodium Potassium Chloride Carbon Dioxide BUN Creatinine Glucose POC Glucose 149 H 205 H 150 H Hemoglobin A1c Lactic Acid Phosphorus Magnesium Ferritin AST Alkaline Phosphatase Ammonia Lactate Dehydrogenase C-Reactive Protein Total Protein Triglycerides Urine Creatinine Urine Microalbumin Coronavirus (PCR) 12/06/20 12/06/20 12/06/20 08:16 09:03 09:53 WBC RBC Hgb Hct MCV MCHC PT INR D-Dimer VBG pH Sodium Potassium Chloride Carbon Dioxide 14 L BUN 23 H Creatinine Glucose 136 H POC Glucose 132 H Hemoglobin A1c Lactic Acid Phosphorus Magnesium Ferritin AST Alkaline Phosphatase Ammonia Lactate Dehydrogenase C-Reactive Protein Total Protein Triglycerides Urine Creatinine 101.5 H Urine Microalbumin Coronavirus (PCR) 12/06/20 12/06/20 12/06/20 10:11 10:36 11:14 WBC RBC Hgb Hct MCV MCHC PT INR D-Dimer VBG pH Sodium Potassium Chloride Carbon Dioxide BUN Creatinine Glucose POC Glucose 137 H 127 H Hemoglobin A1c Lactic Acid Phosphorus Magnesium Ferritin AST Alkaline Phosphatase Ammonia Lactate Dehydrogenase C-Reactive Protein Total Protein Triglycerides Urine Creatinine 101.0 H Urine Microalbumin 36.9 H Coronavirus (PCR) 12/06/20 12/06/20 12:01 13:12 WBC RBC Hgb Hct MCV MCHC PT INR D-Dimer VBG pH Sodium Potassium Chloride Carbon Dioxide BUN Creatinine Glucose POC Glucose 136 H 139 H Hemoglobin A1c Lactic Acid Phosphorus Magnesium Ferritin AST Alkaline Phosphatase Ammonia Lactate Dehydrogenase C-Reactive Protein Total Protein Triglycerides Urine Creatinine Urine Microalbumin Coronavirus (PCR)
[2020-12-06] MEDS: INSULIN REGULAR, HUMAN 100 UNITS in SODIUM CHLORIDE 0.9% 99 ML IV SCH (15:45)
[2020-12-06] MEDS: AZITHROMYCIN/NS 500 MG/250 ML 500 MG/250 ML BAG IV SCH (15:54)
[2020-12-06] MEDS: cefTRIAXone/NS 2 GM/100 ML 2 GM/100 ML BAG IV SCH (15:54)
--- NOTE | 2020-12-06 20:01 | Consultation ---
PULMONARY CRITICAL CARE CONSULT NOTE CONSULTING PHYSICIANS: Dr. Barnes and Dr. Cain. REASON FOR CONSULTATION: Diabetic ketoacidosis, COVID-19 infection. CHIEF COMPLAINT AND HISTORY OF PRESENT ILLNESS: The patient is a 30-year-old male with a past medical history significant for insulin-dependent diabetes, who presented to the Emergency Room complaining of not feeling well, generalized malaise going on for about 3 days. He also mentioned shortness of breath and dyspnea on exertion. He denied fevers. He denied nausea or vomiting. He denied chest pain. He denied cough or hemoptysis. He denied palpitations. In the Emergency Room, he was found to essentially be with diabetic ketoacidosis. He also had an acute kidney injury. He was found with transaminitis and hyperalbuminemia and lactic acidosis. He was admitted on IV insulin drip and we are asked to assist with management of diabetic ketoacidosis. Of note, further testing revealed that he was coronavirus-19 positive. When I stopped by to see him, he was resting in bed. He had been a little bit confused most of the day. He had been pulling off his leads. He is stressed according to his nurse. He denied a history of tobacco use or abuse when I was in the room. Of note, he also denied new onset leg pain or swelling either unilaterally or bilaterally or any suggestion of deep venous thrombosis. When asked about tobacco use or abuse, he denies tobacco use or abuse. This is as much of the history of presentation as I have. PAST MEDICAL HISTORY: Diabetes. PAST SURGICAL HISTORY: Denies. MEDICATIONS: He was on at the time I stopped by to see him, according to medication administration record included the following: Tylenol 650 mg p.o. q. 6 hours p.r.n. mild pain or fevers, azithromycin 500 mg IV daily, Rocephin 2 g IV daily, Pepcid 10 mg IV b.i.d., heparin 5000 units subQ q. 12 hours, Dilaudid 0.5 mg IV q. 6 hours p.r.n. severe pain, insulin drip I believe at 2 units per hour, morphine 2 mg IV q. 4 hours p.r.n. moderate pain, Zofran 4 mg IV q. 8 hours p.r.n. nausea and vomiting. A bicarbonate drip had been started, sodium bicarbonate 100 mEq per liter of dextrose at 100 mL per hour. ALLERGIES: No known drug allergies. DIET: Well-built gentleman. Denies acute weight loss or gain preceding few weeks to months. FAMILY AND SOCIAL HISTORY: Lives in the community. Denies alcohol, tobacco, or illicit drug use or abuse. Family history is otherwise nonsignificant. He is single, lives alone. REVIEW OF SYSTEMS: No loss of consciousness. No new onset seizures. He has been dizzy. Denies gross hematochezia or melena. Denies gross hematuria or dysuria. Denies polydipsia or polyuria. Denies heat or cold intolerance. Complete 13-system review of systems obtained. Pertinent positives and/or negatives as in body of history above, otherwise is noncontributory. PHYSICAL EXAMINATION: VITAL SIGNS: On examination at presentation and since he has been afebrile, first temperature I have is 97.6 degrees Fahrenheit. His pulse was 90, respiratory rate was as high as 40 in the Emergency Room. Blood pressure 171/92, O2 sats were 99%, inspired oxygen concentration at that time was not recorded. When I stopped by to see him, O2 sats were 96% on room air. Again, 95% on room air. GENERAL: He is a young male, normocephalic, atraumatic, talking to me in mostly full sentences with mildly increased respiratory effort at rest. HEAD, EYES, EARS, NOSE AND THROAT: Anicteric. No conjunctival erythema. Oropharynx was dry. No gross jugular venous distention, no thyromegaly. NECK: Grossly, there were no palpable lymph nodes in supraclavicular or submandibular lymph node chains. LUNGS: Auscultation of both lung rodriguez unremarkable. Lungs are clear with good bilateral air movement. HEART: Heart sounds 1 and 2 are heard. Regular tachycardia at the time of my evaluation without overt rubs or murmurs. ABDOMEN: Soft, flat. Bowel sounds are positive, nontender, no palpable hepatosplenomegaly. EXTREMITIES: Without overt digital clubbing, no cyanosis, no pedal edema. Pedal pulses are 2+ bilaterally. NEUROLOGIC: Pupils are equal, round, about 4 mm, reactive to light. Extraocular muscle movements are intact. He moves all 4 extremities spontaneously. SKIN: Normal turgor without overt cellulitis or rash. Please see the wound care nurse's notes for full description of his skin. PSYCHIATRIC: Mood was normal. Affect was appropriate. He had somewhat fleeting judgment and insight perhaps mild delirium. LABORATORY DATA: From my review are as follows: Admission white cell count 19,200 with a hemoglobin of 17.2, hematocrit of 57.8 and platelet count of 309. D-dimer was 4712. Venous blood gas at presentation showed a pH of 6.8. Serum sodium was 124, potassium 5.7, chloride 83, bicarbonate 5, BUN 25, creatinine 2.1, glucose was 690. Lactic acid level was 4.8, now within normal limits. Phosphorus was 7.1, magnesium 2.7, AST was up at 51. Ammonia level was 94. LDH was up at 576. CRP was up at 7.1. Procalcitonin was up at 7.18. Urinalysis was negative for nitrites and leukocyte esterase. He was spilling glucose. Urine drug screen was negative. Coronavirus PCR was positive. Blood alcohol level was nondetectable at presentation. Two sets of blood cultures are no growth to date. Chest x-ray has been revealed essentially faint infiltrate, particularly in the right lower lobe mid to lateral zones and really in the left lower lobe that with hydration, probably will be more prominent, otherwise cardiovascular silhouette within normal limits. No gross pneumothorax, no gross bony fracture. ASSESSMENT: 1. Severe sepsis. 2. Diabetic ketoacidosis. 3. COVID-19 infection. 4. Bilateral pneumonia. 5. Severe metabolic acidosis. 6. Acute kidney injury. 7. Leukocytosis at presentation. 8. Hyperalbuminemia. 9. Hemoconcentration. 10. Elevated serum D-dimer. 11. Pseudohyponatremia. 12. Hyperkalemia at presentation. 13. Lactic acidosis. 14. Elevated serum inflammatory markers to include ferritin greater than 2000 and D-dimers as well as elevated lactate dehydrogenase. 15. Acute toxic metabolic encephalopathy. PLAN: He will be continued on the DKA protocol. Electrolytes will be followed and corrected as necessary. His most recent serum bicarbonate is up to 14 and we should soon be stopping the IV bicarbonate drip. His BUN and creatinine is much improved right now 23 BUN, creatinine 1.2. He is on room air. Again, we will keep a close eye on his oxygenation as he is rehydrated. There is very possible chance that his pneumonia may become more evident and he may initially become more short of breath. Ammonia level is back down within normal limits. Continued tobacco abstinence has been counseled, especially with a positive COVID-19 infection and the current x-ray picture. He will be continued on community-acquired pneumonia therapy empirically for a target of 5 days of therapy. I will go ahead and place him in airborne and contact isolation. I will begin zinc and vitamin C supplementation. I will defer to Infectious Disease physician in this particular case with regards to institution of remdesivir therapy. He is appropriately on deep venous thrombosis prophylaxis as well as gastrointestinal prophylaxis. Flu and pneumonia vaccination will be addressed per protocol. Thank you very much for the consult. We will follow along and make further recommendations as picture progresses/becomes clearer. He is critically ill on life-sustaining interventions including the IV insulin therapy and at high risk of from cardiopulmonary and endocrine system decompensation. At this time, I spent about 35 minutes of critical care time without overlap and excluding any procedural time that may be necessary. JOB# [id number] GIULIANA/SHAUN ALEMAN
[2020-12-06] MEDS: ASCORBIC ACID 500 MG TAB PO SCH (21:45)
[2020-12-06] MEDS: ZINC SULFATE 220 MG CAP PO SCH (21:45)
[2020-12-07] MEDS: SODIUM BICARBONATE 100 MEQ in DEXTROSE 5% IN WATER 1,000 ML IV SCH (01:22)
[2020-12-07 04:01] LABS: Basophils % (Auto) 0.2 % (0.0-1.8); Hematocrit 47.9 % (35.5-45.6); Hemoglobin 16.2 gm/dl (11.8-15.2); Lymphocytes % (Auto) 6.1 % (13.4-35.0); Mean Corpuscular HGB Conc 34 % (32-34); Mean Corpuscular Volume 92 fl (84-94); Monocytes # (Auto) 0.8 K/mm3 (0.0-0.8); Monocytes % (Auto) 5.2 % (0.0-7.3); Platelet Count 214 K/mm3 (140-440); Red Blood Count 5.21 M/mm3 (3.65-5.03)
[2020-12-07 04:20] LABS: Alanine Aminotransferase 24 units/L (7-56); Albumin 3.6 g/dL (3.9-5); BUN/Creatinine Ratio 13; Bilirubin,Direct 0.5 mg/dL (0-0.2); Blood Urea Nitrogen 13 mg/dL (9-20); Calcium 8.9 mg/dL (8.4-10.2); Hemolysis Index 20
--- NOTE | 2020-12-07 08:50 | Progress Note ---
Assessment and Plan This is a 30-year-old male who was recently diagnosed with diabetes mellitus type 2 on oral hypoglycemics presented to the hospital with DKA/severe metabolic acidosis, bilateral pneumonia, positive COVID-19, KENDRA and electrolyte imbalance. Severe sepsis, POA -Likely due to underlying pneumonia and COVID-19 -Continue IV antibiotics, follow culture Positive COVID-19, patient is becoming hypoxic now -We will follow inflammatory markers -Anticoagulation with Eliquis twice daily for now -We will start on remdesivir, will hold onto dexamethasone as patient with uncontrolled hyperglycemia -Continue to follow, consulted ID- pending consult- Bilateral pneumonia -Likely due to COVID-19 infection with possible bacterial pneumonia -Patient has elevated procalcitonin, Rocephin and Zithromax for now -Wait for culture and ID consult Acute hypoxic respiratory failure -Developed from last night, likely due to underlying pneumonia -Continue scheduled breathing treatment and supplemental O2 as needed DKA Severe Metabolic Acidosis -Patient admitted with DKA protocol: Insulin drip, aggressive IV fluid with sodium bicarbonate drip for severe acidosis -Anion gap has closed now, will discontinue insulin drip and bicarbonate drip -Placed on consistent carb diet, NPH 7030 and sliding scale -Monitor blood glucose QACHS, adjust insulin dose for better glycemic control Acute kidney injury, likely vasomotor nephropathy -Continue aggressive IV fluid, follow BMP -Nephrology consult if creatinine continues to worsen -Currently creatinine responding to the fluid Hypokalemia and hypophosphatemia: Will replete and monitor Hyponatremia, likely due to hyperglycemia, continue IV fluid for now follow BMP Hyperkalemia, resolved -Likely due to severe DKA and KENDRA -Status post bicarbonate drip Transaminitis, likely due to acute hepatic failure from severe sepsis, monitor LFTs Hyperammonemia, likely due to severe dehydration and severe sepsis causing transient hepatic failure, continue to monitor Elevated D-dimer, likely due to COVID-19 fraction, anticoagulation per protocol Diabetes mellitus type 2, uncontrolled with hyperglycemia and DKA -A1c 17.8, start on long-acting and sliding scale insulin, consistent carb diet, Accu-Chek QA CHS, hypoglycemia protocol - We'll provide GI and DVT prophylaxis -Full CODE STATUS -If clinically stable will transfer to IMCU/tele unit Daily clinical course: 12/06: Continue bicarbonate drip for now patient still with metabolic acidosis with high anion gap. Patient is not symptomatic with Covid. We will continue to monitor. Will follow ID recommendation. Critical care has been consulted/will follow recommendation 12/07: Anion gap has resolved, CO2 level 26 today. Blood glucose has been stabilized. Vitals stable. Will start on consistent carb diet NPH 7030 and s liding scale insulin. Accu-Chek QA CHS. If clinically stable transfer out from ICU-today. Continue Covid protocol, continue empiric antibiotics for pneumonia. Patient became hypoxic overnight, now on 3 L nasal cannula. Will repeat chest x-ray, start on remdesivir. Will hold onto dexamethasone as because patient has uncontrolled hyperglycemia. Subjective Date of service: 12/07/20 Interval history: Patient seen and examined Patient placed on 3 L nasal cannula overnight No nausea or vomiting And unresolved, will stop insulin drip and bicarbonate. Vitals stable On COVID-19 protocol Objective - Exam Narrative Exam: Limited physical exam due to COVID-19 pandemic to minimize transmission of the disease and to preserve PPE. Vital reviewed and stable. GENERAL: well-developed well-nourished -[place] male lying on bed appeared to be in no discomfort. HEENT: Normocephalic. Atraumatic. NECK: Supple. CHEST/LUNGS: Patient on 3L N/c HEART/CARDIOVASCULAR: Heart rate stable on telemetry ABDOMEN: Visibly not distended SKIN: There is no rash NEURO: No focal motor deficit. Follows command. MUSCULOSKELETAL: No joint effusion EXTRIMITY: No swelling, no cyanosis or clubbing. PSYCH: Cooperative. - Constitutional Vitals: Vital Signs - 12hr 12/06/20 12/06/20 12/06/20 21:00 21:30 22:00 Pulse Rate 134 H 133 H 130 H Respiratory 30 H 25 H 24 Rate Blood Pressure 123/75 125/73 136/76 O2 Sat by Pulse 86 90 93 Oximetry 12/06/20 12/06/20 12/06/20 22:30 23:00 23:30 Pulse Rate 130 H 128 H 130 H Respiratory 21 30 H 22 Rate Blood Pressure 129/85 122/76 118/81 O2 Sat by Pulse 90 91 91 Oximetry 12/07/20 12/07/20 12/07/20 00:00 00:30 01:00 Pulse Rate 127 H 123 H 129 H Respiratory 25 H 35 H 27 H Rate Blood Pressure 109/76 104/63 108/70 O2 Sat by Pulse 92 91 90 Oximetry 12/07/20 12/07/20 12/07/20 01:30 02:00 02:30 Pulse Rate 126 H 129 H 127 H Respiratory 32 H 23 14 Rate Blood Pressure 106/65 103/73 125/80 O2 Sat by Pulse 90 93 91 Oximetry 12/07/20 12/07/20 12/07/20 03:00 03:30 03:42 Pulse Rate 117 H 129 H 121 H Respiratory 39 H 18 Rate Blood Pressure 116/78 113/70 O2 Sat by Pulse 92 90 Oximetry 12/07/20 12/07/20 12/07/20 04:00 04:30 05:00 Pulse Rate 121 H 122 H 126 H Respiratory 39 H 25 H 31 H Rate Blood Pressure 102/67 109/67 120/66 O2 Sat by Pulse 93 91 89 Oximetry 12/07/20 12/07/20 12/07/20 05:30 06:00 06:30 Pulse Rate 126 H 123 H 117 H Respiratory 32 H 38 H 38 H Rate Blood Pressure 120/72 117/67 102/72 O2 Sat by Pulse 89 89 Oximetry 12/07/20 12/07/20 07:00 07:30 Pulse Rate 121 H 118 H Respiratory 39 H 28 H Rate Blood Pressure 101/67 101/67 O2 Sat by Pulse 87 92 Oximetry - Labs CBC & Chem 7: 12/08/20 09:06 12/08/20 09:06 Labs: Abnormal lab results 12/06/20 12/06/20 12/06/20 Range/Units 07:44 08:16 09:03 WBC (4.5-11.0) K/mm3 RBC (3.65-5.03) M/mm3 Hgb (11.8-15.2) gm/dl Hct (35.5-45.6) % Lymph % (Auto) (13.4-35.0) % Lymph # (Auto) (1.2-5.4) K/mm3 Seg Neutrophils % (40.0-70.0) % Seg Neutrophils # (1.8-7.7) K/mm3 D-Dimer (0-234) ng/mlDDU Potassium (3.6-5.0) mmol/L Carbon Dioxide 14 L (22-30) mmol/L BUN 23 H (9-20) mg/dL Glucose 136 H (75-100) mg/dL POC Glucose 150 H 132 H (70-105) mg/dL Phosphorus (2.5-4.5) mg/dL Ferritin (30.0-300.0) ng/mL Total Bilirubin (0.1-1.2) mg/dL Direct Bilirubin (0-0.2) mg/dL AST (5-40) units/L Alkaline Phosphatase (35-129) units/L Lactate Dehydrogenase (91-180) units/L C-Reactive Protein (0.00-1.30) mg/dL Albumin (3.9-5) g/dL Urine Creatinine (0.1-20.0) mg/dL Urine Microalbumin (0.1-34.0) mg/dL 12/06/20 12/06/20 12/06/20 Range/Units 09:53 10:11 10:36 WBC (4.5-11.0) K/mm3 RBC (3.65-5.03) M/mm3 Hgb (11.8-15.2) gm/dl Hct (35.5-45.6) % Lymph % (Auto) (13.4-35.0) % Lymph # (Auto) (1.2-5.4) K/mm3 Seg Neutrophils % (40.0-70.0) % Seg Neutrophils # (1.8-7.7) K/mm3 D-Dimer (0-234) ng/mlDDU Potassium (3.6-5.0) mmol/L Carbon Dioxide (22-30) mmol/L BUN (9-20) mg/dL Glucose (75-100) mg/dL POC Glucose 137 H (70-105) mg/dL Phosphorus (2.5-4.5) mg/dL Ferritin (30.0-300.0) ng/mL Total Bilirubin (0.1-1.2) mg/dL Direct Bilirubin (0-0.2) mg/dL AST (5-40) units/L Alkaline Phosphatase (35-129) units/L Lactate Dehydrogenase (91-180) units/L C-Reactive Protein (0.00-1.30) mg/dL Albumin (3.9-5) g/dL Urine Creatinine 101.5 H 101.0 H (0.1-20.0) mg/dL Urine Microalbumin 36.9 H (0.1-34.0) mg/dL 12/06/20 12/06/20 12/06/20 Range/Units 11:14 12:01 13:12 WBC (4.5-11.0) K/mm3 RBC (3.65-5.03) M/mm3 Hgb (11.8-15.2) gm/dl Hct (35.5-45.6) % Lymph % (Auto) (13.4-35.0) % Lymph # (Auto) (1.2-5.4) K/mm3 Seg Neutrophils % (40.0-70.0) % Seg Neutrophils # (1.8-7.7) K/mm3 D-Dimer (0-234) ng/mlDDU Potassium (3.6-5.0) mmol/L Carbon Dioxide (22-30) mmol/L BUN (9-20) mg/dL Glucose (75-100) mg/dL POC Glucose 127 H 136 H 139 H (70-105) mg/dL Phosphorus (2.5-4.5) mg/dL Ferritin (30.0-300.0) ng/mL Total Bilirubin (0.1-1.2) mg/dL Direct Bilirubin (0-0.2) mg/dL AST (5-40) units/L Alkaline Phosphatase (35-129) units/L Lactate Dehydrogenase (91-180) units/L C-Reactive Protein (0.00-1.30) mg/dL Albumin (3.9-5) g/dL Urine Creatinine (0.1-20.0) mg/dL Urine Microalbumin (0.1-34.0) mg/dL 12/06/20 12/06/20 12/06/20 Range/Units 14:02 15:50 17:12 WBC (4.5-11.0) K/mm3 RBC (3.65-5.03) M/mm3 Hgb (11.8-15.2) gm/dl Hct (35.5-45.6) % Lymph % (Auto) (13.4-35.0) % Lymph # (Auto) (1.2-5.4) K/mm3 Seg Neutrophils % (40.0-70.0) % Seg Neutrophils # (1.8-7.7) K/mm3 D-Dimer (0-234) ng/mlDDU Potassium (3.6-5.0) mmol/L Carbon Dioxide (22-30) mmol/L BUN (9-20) mg/dL Glucose (75-100) mg/dL POC Glucose 132 H 133 H 130 H (70-105) mg/dL Phosphorus (2.5-4.5) mg/dL Ferritin (30.0-300.0) ng/mL Total Bilirubin (0.1-1.2) mg/dL Direct Bilirubin (0-0.2) mg/dL AST (5-40) units/L Alkaline Phosphatase (35-129) units/L Lactate Dehydrogenase (91-180) units/L C-Reactive Protein (0.00-1.30) mg/dL Albumin (3.9-5) g/dL Urine Creatinine (0.1-20.0) mg/dL Urine Microalbumin (0.1-34.0) mg/dL 12/06/20 12/06/20 12/06/20 Range/Units 18:10 21:08 22:06 WBC (4.5-11.0) K/mm3 RBC (3.65-5.03) M/mm3 Hgb (11.8-15.2) gm/dl Hct (35.5-45.6) % Lymph % (Auto) (13.4-35.0) % Lymph # (Auto) (1.2-5.4) K/mm3 Seg Neutrophils % (40.0-70.0) % Seg Neutrophils # (1.8-7.7) K/mm3 D-Dimer (0-234) ng/mlDDU Potassium (3.6-5.0) mmol/L Carbon Dioxide (22-30) mmol/L BUN (9-20) mg/dL Glucose (75-100) mg/dL POC Glucose 114 H 127 H 148 H (70-105) mg/dL Phosphorus (2.5-4.5) mg/dL Ferritin (30.0-300.0) ng/mL Total Bilirubin (0.1-1.2) mg/dL Direct Bilirubin (0-0.2) mg/dL AST (5-40) units/L Alkaline Phosphatase (35-129) units/L Lactate Dehydrogenase (91-180) units/L C-Reactive Protein (0.00-1.30) mg/dL Albumin (3.9-5) g/dL Urine Creatinine (0.1-20.0) mg/dL Urine Microalbumin (0.1-34.0) mg/dL 12/06/20 12/07/20 12/07/20 Range/Units 23:19 00:08 01:04 WBC (4.5-11.0) K/mm3 RBC (3.65-5.03) M/mm3 Hgb (11.8-15.2) gm/dl Hct (35.5-45.6) % Lymph % (Auto) (13.4-35.0) % Lymph # (Auto) (1.2-5.4) K/mm3 Seg Neutrophils % (40.0-70.0) % Seg Neutrophils # (1.8-7.7) K/mm3 D-Dimer (0-234) ng/mlDDU Potassium (3.6-5.0) mmol/L Carbon Dioxide (22-30) mmol/L BUN (9-20) mg/dL Glucose (75-100) mg/dL POC Glucose 144 H 157 H 118 H (70-105) mg/dL Phosphorus (2.5-4.5) mg/dL Ferritin (30.0-300.0) ng/mL Total Bilirubin (0.1-1.2) mg/dL Direct Bilirubin (0-0.2) mg/dL AST (5-40) units/L Alkaline Phosphatase (35-129) units/L Lactate Dehydrogenase (91-180) units/L C-Reactive Protein (0.00-1.30) mg/dL Albumin (3.9-5) g/dL Urine Creatinine (0.1-20.0) mg/dL Urine Microalbumin (0.1-34.0) mg/dL 12/07/20 12/07/20 12/07/20 Range/Units 02:05 03:03 03:25 WBC (4.5-11.0) K/mm3 RBC (3.65-5.03) M/mm3 Hgb (11.8-15.2) gm/dl Hct (35.5-45.6) % Lymph % (Auto) (13.4-35.0) % Lymph # (Auto) (1.2-5.4) K/mm3 Seg Neutrophils % (40.0-70.0) % Seg Neutrophils # (1.8-7.7) K/mm3 D-Dimer 1950.73 H (0-234) ng/mlDDU Potassium (3.6-5.0) mmol/L Carbon Dioxide (22-30) mmol/L BUN (9-20) mg/dL Glucose (75-100) mg/dL POC Glucose 143 H 119 H (70-105) mg/dL Phosphorus (2.5-4.5) mg/dL Ferritin (30.0-300.0) ng/mL Total Bilirubin (0.1-1.2) mg/dL Direct Bilirubin (0-0.2) mg/dL AST (5-40) units/L Alkaline Phosphatase (35-129) units/L Lactate Dehydrogenase (91-180) units/L C-Reactive Protein (0.00-1.30) mg/dL Albumin (3.9-5) g/dL Urine Creatinine (0.1-20.0) mg/dL Urine Microalbumin (0.1-34.0) mg/dL 12/07/20 12/07/20 12/07/20 Range/Units 03:25 03:25 03:25 WBC 15.8 H (4.5-11.0) K/mm3 RBC 5.21 H (3.65-5.03) M/mm3 Hgb 16.2 H (11.8-15.2) gm/dl Hct 47.9 H D (35.5-45.6) % Lymph % (Auto) 6.1 L (13.4-35.0) % Lymph # (Auto) 1.0 L (1.2-5.4) K/mm3 Seg Neutrophils % 88.5 H (40.0-70.0) % Seg Neutrophils # 14.0 H (1.8-7.7) K/mm3 D-Dimer (0-234) ng/mlDDU Potassium 3.0 L D (3.6-5.0) mmol/L Carbon Dioxide (22-30) mmol/L BUN (9-20) mg/dL Glucose 108 H (75-100) mg/dL POC Glucose (70-105) mg/dL Phosphorus 0.70 L* D (2.5-4.5) mg/dL Ferritin 7009.0 H (30.0-300.0) ng/mL Total Bilirubin 1.70 H (0.1-1.2) mg/dL Direct Bilirubin 0.5 H (0-0.2) mg/dL AST 52 H (5-40) units/L Alkaline Phosphatase 131 H (35-129) units/L Lactate Dehydrogenase 821 H (91-180) units/L C-Reactive Protein 13.80 H (0.00-1.30) mg/dL Albumin 3.6 L (3.9-5) g/dL Urine Creatinine (0.1-20.0) mg/dL Urine Microalbumin (0.1-34.0) mg/dL 12/07/20 Range/Units 04:09 WBC (4.5-11.0) K/mm3 RBC (3.65-5.03) M/mm3 Hgb (11.8-15.2) gm/dl Hct (35.5-45.6) % Lymph % (Auto) (13.4-35.0) % Lymph # (Auto) (1.2-5.4) K/mm3 Seg Neutrophils % (40.0-70.0) % Seg Neutrophils # (1.8-7.7) K/mm3 D-Dimer (0-234) ng/mlDDU Potassium (3.6-5.0) mmol/L Carbon Dioxide (22-30) mmol/L BUN (9-20) mg/dL Glucose (75-100) mg/dL POC Glucose 155 H (70-105) mg/dL Phosphorus (2.5-4.5) mg/dL Ferritin (30.0-300.0) ng/mL Total Bilirubin (0.1-1.2) mg/dL Direct Bilirubin (0-0.2) mg/dL AST (5-40) units/L Alkaline Phosphatase (35-129) units/L Lactate Dehydrogenase (91-180) units/L C-Reactive Protein (0.00-1.30) mg/dL Albumin (3.9-5) g/dL Urine Creatinine (0.1-20.0) mg/dL Urine Microalbumin (0.1-34.0) mg/dL
[2020-12-07] MEDS ORDERED: POTASSIUM PHOSPHATE 30 MMOL in SODIUM CHLORIDE 0.9% 500 ML 500 ML IV ONE (09:00)
[2020-12-07] MEDS: APIXABAN 2.5 MG TAB PO SCH ×2 (10:32→22:00)
[2020-12-07] MEDS: ASCORBIC ACID 500 MG TAB PO SCH ×2 (10:33→22:00)
[2020-12-07] MEDS: INSULIN NPH, HUMAN 100 UNIT/1 ML SUB-Q SCH (10:33)
[2020-12-07] MEDS: CHOLECALCIFEROL (VIT D3) 5,000 UNIT TAB PO SCH (10:33)
[2020-12-07] MEDS: FAMOTIDINE 20 MG/2 ML INJ IV SCH ×2 (10:33→22:00)
[2020-12-07] MEDS: POTASSIUM CHLORIDE ER 20 MEQ TAB PO SCH (10:33)
[2020-12-07] MEDS: ZINC SULFATE 220 MG CAP PO SCH ×2 (10:34→21:59)
[2020-12-07] MEDS ORDERED: REMDESIVIR 200 MG in SODIUM CHLORIDE 0.9% 250ML 250 ML IV ONE (11:48)
--- NOTE | 2020-12-07 12:47 | XRay Report ---
CHEST 1 VIEW 12/07/2020 11:32 AM INDICATION / CLINICAL INFORMATION: sob. COMPARISON: 12/05/2020 FINDINGS: SUPPORT DEVICES: None. HEART / MEDIASTINUM: No significant abnormality. LUNGS / PLEURA: Bilateral pulmonary parenchymal opacities in the lung bases appear slightly increased . Signer Name: Ethan Hines MD Signed: 12/07/2020 12:42 PM Workstation Name: [id number]
[2020-12-07] MEDS: INSULIN REGULAR, HUMAN 100 UNITS/1 ML SUB-Q SCH (13:02)
--- NOTE | 2020-12-07 14:37 | Progress Note ---
Assessment and Plan Severe sepsis. Diabetic ketoacidosis. COVID-19 infection. Bilateral pneumonia. Severe metabolic acidosis. Acute kidney injury. Leukocytosis at presentation. Hyperalbuminemia. Hemoconcentration. Elevated serum D-dimer. Pseudohyponatremia. Hyperkalemia at presentation. Lactic acidosis. Elevated serum inflammatory markers to include ferritin greater than 2000 and D- dimers as well as elevated lactate dehydrogenase. Acute toxic metabolic encephalopathy. - weasn off IV insulin per protocol - prn supplemental oxygen for target O2 sat's > 90% acutely - aspiration precautions - prn bronchodilators with pulmonary hygiene per RT - avoid nephrotoxins, renally dose all medications - AB's per ID rec's - prn analgesia per pain score - Maintenance of sleep-wake cycle, avoid delirium - G.I. & VTE prophylaxis - PT/OT/ROM exercises - mobility protocols for pressure ulcer prophylaxis - Monitor hemodynamics closely - continue other care per attending / other consultants - discharge planning ongoing concurrently .... Re-evaluate in am & prn I have spent ( >35 ) minutes with the patient w/ >50% of the time spent counseling and/or coordinating care for this patient. Counseling topics and/or how time was spent coordinating patient's care is outlined in the impression and plan above. Subjective Date of service: 12/07/20 Interval history: Patient is seen today for: Severe sepsis; DKA; COVID-19 infection; Bilateral pne umonia; KENDRA; Acute toxic metabolic encephalopathy. Seen and examined at bedside; 24hour events reviewed; nursing and respiratory care staff consulted; no adverse overnight events reported to me; resting peacefully in bed; feels better; denies acute chest pains or SOB; weaning o0ff IV insulin per protocol Objective Vital Signs - 12hr 12/07/20 12/07/20 12/07/20 03:00 03:30 03:42 Temperature Pulse Rate 117 H 129 H 121 H Respiratory 39 H 18 Rate Blood Pressure 116/78 113/70 O2 Sat by Pulse 92 90 Oximetry 12/07/20 12/07/20 12/07/20 04:00 04:30 05:00 Temperature Pulse Rate 121 H 122 H 126 H Respiratory 39 H 25 H 31 H Rate Blood Pressure 102/67 109/67 120/66 O2 Sat by Pulse 93 91 89 Oximetry 12/07/20 12/07/20 12/07/20 05:30 06:00 06:30 Temperature Pulse Rate 126 H 123 H 117 H Respiratory 32 H 38 H 38 H Rate Blood Pressure 120/72 117/67 102/72 O2 Sat by Pulse 89 89 Oximetry 12/07/20 12/07/20 12/07/20 07:00 07:30 08:00 Temperature 98.2 F Pulse Rate 121 H 118 H 120 H Respiratory 39 H 28 H 34 H Rate Blood Pressure 101/67 101/67 103/70 O2 Sat by Pulse 87 92 88 Oximetry 12/07/20 12/07/20 12/07/20 08:30 09:00 09:30 Temperature Pulse Rate 123 H 120 H 121 H Respiratory 21 35 H 35 H Rate Blood Pressure 108/72 121/76 117/77 O2 Sat by Pulse 91 85 88 Oximetry 12/07/20 12/07/20 12/07/20 10:00 10:30 11:00 Temperature Pulse Rate 124 H 114 H 111 H Respiratory 42 H 35 H 34 H Rate Blood Pressure 117/67 125/71 116/76 O2 Sat by Pulse 90 90 Oximetry 12/07/20 12/07/20 12/07/20 11:30 12:00 12:30 Temperature 99 F Pulse Rate 114 H 104 H 115 H Respiratory 33 H 38 H 27 H Rate Blood Pressure 124/75 120/81 130/82 O2 Sat by Pulse 91 Oximetry 12/07/20 12/07/20 12/07/20 13:00 13:30 14:00 Temperature Pulse Rate 101 H 109 H 110 H Respiratory 38 H 31 H 22 Rate Blood Pressure 118/71 113/70 114/72 O2 Sat by Pulse 93 93 87 Oximetry Constitutional: no acute distress Eyes: non-icteric ENT: oropharynx moist Neck: supple, no lymphadenopathy, no JVD Effort: normal Ascultation: Bilateral: clear Percussion: Bilateral: not dull Cardiovascular: regular rate and rhythm Gastrointestinal: normoactive bowel sounds, soft, non-tender, non-distended Integumentary: normal Extremities: no cyanosis, no edema, pulses normal, no ischemia or petechiae Neurologic: normal mental status, non-focal exam, pupils equal and round, other (weak) Psychiatric: mood appropriate, affect normal CBC and BMP: 12/11/20 03:59 12/11/20 03:59 ABG, PT/INR, D-dimer: PT/INR, D-dimer PT 15.6 Sec. (12.2-14.9) H 12/05/20 06:46 INR 1.24 (0.87-1.13) H 12/05/20 06:46 D-Dimer 1950.73 ng/mlDDU (0-234) H 12/07/20 03:25 Abnormal lab findings: Abnormal Labs 12/05/20 12/05/20 12/05/20 06:30 06:46 06:46 WBC 19.2 H RBC 5.53 H Hgb 17.2 H Hct 57.8 H MCV 105 H MCHC 30 L Lymph % (Auto) Lymph # (Auto) Seg Neutrophils % Seg Neutrophils # PT INR D-Dimer VBG pH Sodium 124 L Potassium 5.7 H Chloride 83.0 L Carbon Dioxide 5 L* BUN 25 H Creatinine 2.1 H Glucose 677 H* POC Glucose > 600 H Hemoglobin A1c Lactic Acid Phosphorus Magnesium Ferritin Total Bilirubin Direct Bilirubin AST 51 H Alkaline Phosphatase 250 H Ammonia Lactate Dehydrogenase C-Reactive Protein Total Protein 8.9 H Albumin Triglycerides Urine Creatinine Urine Microalbumin Coronavirus (PCR) 12/05/20 12/05/20 12/05/20 06:46 06:46 06:46 WBC RBC Hgb Hct MCV MCHC Lymph % (Auto) Lymph # (Auto) Seg Neutrophils % Seg Neutrophils # PT 15.6 H INR 1.24 H D-Dimer VBG pH 6.814 L* Sodium Potassium Chloride Carbon Dioxide BUN Creatinine Glucose POC Glucose Hemoglobin A1c Lactic Acid Phosphorus 7.10 H Magnesium 2.70 H Ferritin Total Bilirubin Direct Bilirubin AST Alkaline Phosphatase Ammonia Lactate Dehydrogenase C-Reactive Protein Total Protein Albumin Triglycerides Urine Creatinine Urine Microalbumin Coronavirus (PCR) 12/05/20 12/05/20 12/05/20 06:46 06:46 07:53 WBC RBC Hgb Hct MCV MCHC Lymph % (Auto) Lymph # (Auto) Seg Neutrophils % Seg Neutrophils # PT INR D-Dimer VBG pH Sodium Potassium Chloride Carbon Dioxide BUN Creatinine Glucose 690 H* POC Glucose Hemoglobin A1c Lactic Acid 4.80 H* Phosphorus Magnesium Ferritin Total Bilirubin Direct Bilirubin AST Alkaline Phosphatase Ammonia 94.0 H Lactate Dehydrogenase C-Reactive Protein Total Protein Albumin Triglycerides Urine Creatinine Urine Microalbumin Coronavirus (PCR) 12/05/20 12/05/20 12/05/20 10:24 10:24 10:24 WBC RBC Hgb Hct MCV MCHC Lymph % (Auto) Lymph # (Auto) Seg Neutrophils % Seg Neutrophils # PT INR D-Dimer VBG pH Sodium 122 L Potassium 5.6 H Chloride 90.5 L Carbon Dioxide 2 L* BUN 28 H Creatinine 1.7 H Glucose 602 H* POC Glucose Hemoglobin A1c 17.8 H Lactic Acid Phosphorus 7.60 H Magnesium 2.70 H Ferritin Total Bilirubin Direct Bilirubin AST Alkaline Phosphatase Ammonia Lactate Dehydrogenase C-Reactive Protein Total Protein Albumin Triglycerides 368 H Urine Creatinine Urine Microalbumin Coronavirus (PCR) 12/05/20 12/05/20 12/05/20 10:28 12:36 14:55 WBC RBC Hgb Hct MCV MCHC Lymph % (Auto) Lymph # (Auto) Seg Neutrophils % Seg Neutrophils # PT INR D-Dimer VBG pH Sodium Potassium Chloride Carbon Dioxide BUN Creatinine Glucose POC Glucose 584 H 449 H Hemoglobin A1c Lactic Acid Phosphorus Magnesium Ferritin Total Bilirubin Direct Bilirubin AST Alkaline Phosphatase Ammonia Lactate Dehydrogenase C-Reactive Protein Total Protein Albumin Triglycerides Urine Creatinine Urine Microalbumin Coronavirus (PCR) Positive A 12/05/20 12/05/20 12/05/20 16:03 16:03 16:03 WBC RBC Hgb Hct MCV MCHC Lymph % (Auto) Lymph # (Auto) Seg Neutrophils % Seg Neutrophils # PT INR D-Dimer 4712.93 H VBG pH Sodium 130 L D Potassium 6.6 H* Chloride 95.5 L Carbon Dioxide 5 L* BUN 28 H Creatinine 1.9 H Glucose 437 H POC Glucose Hemoglobin A1c Lactic Acid 4.80 H* Phosphorus Magnesium Ferritin Total Bilirubin Direct Bilirubin AST Alkaline Phosphatase Ammonia Lactate Dehydrogenase C-Reactive Protein Total Protein Albumin Triglycerides Urine Creatinine Urine Microalbumin Coronavirus (PCR) 12/05/20 12/05/20 12/05/20 16:03 16:03 16:57 WBC RBC Hgb Hct MCV MCHC Lymph % (Auto) Lymph # (Auto) Seg Neutrophils % Seg Neutrophils # PT INR D-Dimer VBG pH Sodium Potassium Chloride Carbon Dioxide BUN Creatinine Glucose 449 H POC Glucose 446 H Hemoglobin A1c Lactic Acid Phosphorus Magnesium Ferritin > 2000.0 H Total Bilirubin Direct Bilirubin AST Alkaline Phosphatase Ammonia Lactate Dehydrogenase 576 H C-Reactive Protein 7.10 H Total Protein Albumin Triglycerides Urine Creatinine Urine Microalbumin Coronavirus (PCR) 12/05/20 12/05/20 12/05/20 17:47 18:46 19:11 WBC RBC Hgb Hct MCV MCHC Lymph % (Auto) Lymph # (Auto) Seg Neutrophils % Seg Neutrophils # PT INR D-Dimer VBG pH Sodium 136 L Potassium 5.1 H D Chloride 97.2 L Carbon Dioxide 10 L BUN 31 H Creatinine 1.7 H Glucose 341 H POC Glucose 425 H 343 H Hemoglobin A1c Lactic Acid Phosphorus Magnesium Ferritin Total Bilirubin Direct Bilirubin AST Alkaline Phosphatase Ammonia Lactate Dehydrogenase C-Reactive Protein Total Protein Albumin Triglycerides Urine Creatinine Urine Microalbumin Coronavirus (PCR) 12/05/20 12/05/20 12/05/20 19:11 20:09 20:59 WBC RBC Hgb Hct MCV MCHC Lymph % (Auto) Lymph # (Auto) Seg Neutrophils % Seg Neutrophils # PT INR D-Dimer VBG pH Sodium Potassium Chloride Carbon Dioxide BUN Creatinine Glucose POC Glucose 345 H 304 H Hemoglobin A1c Lactic Acid 4.30 H* Phosphorus Magnesium Ferritin Total Bilirubin Direct Bilirubin AST Alkaline Phosphatase Ammonia Lactate Dehydrogenase C-Reactive Protein Total Protein Albumin Triglycerides Urine Creatinine Urine Microalbumin Coronavirus (PCR) 12/05/20 12/05/20 12/06/20 21:57 23:01 00:01 WBC RBC Hgb Hct MCV MCHC Lymph % (Auto) Lymph # (Auto) Seg Neutrophils % Seg Neutrophils # PT INR D-Dimer VBG pH Sodium Potassium Chloride Carbon Dioxide BUN Creatinine Glucose POC Glucose 259 H 325 H 297 H Hemoglobin A1c Lactic Acid Phosphorus Magnesium Ferritin Total Bilirubin Direct Bilirubin AST Alkaline Phosphatase Ammonia Lactate Dehydrogenase C-Reactive Protein Total Protein Albumin Triglycerides Urine Creatinine Urine Microalbumin Coronavirus (PCR) 12/06/20 12/06/20 12/06/20 00:24 01:01 01:56 WBC RBC Hgb Hct MCV MCHC Lymph % (Auto) Lymph # (Auto) Seg Neutrophils % Seg Neutrophils # PT INR D-Dimer VBG pH Sodium 134 L Potassium Chloride Carbon Dioxide 8 L* BUN 29 H Creatinine Glucose 298 H POC Glucose 270 H 225 H Hemoglobin A1c Lactic Acid Phosphorus Magnesium Ferritin Total Bilirubin Direct Bilirubin AST Alkaline Phosphatase Ammonia Lactate Dehydrogenase C-Reactive Protein Total Protein Albumin Triglycerides Urine Creatinine Urine Microalbumin Coronavirus (PCR) 12/06/20 12/06/20 12/06/20 03:01 03:59 04:55 WBC RBC Hgb Hct MCV MCHC Lymph % (Auto) Lymph # (Auto) Seg Neutrophils % Seg Neutrophils # PT INR D-Dimer VBG pH Sodium Potassium Chloride Carbon Dioxide BUN Creatinine Glucose POC Glucose 231 H 168 H 137 H Hemoglobin A1c Lactic Acid Phosphorus Magnesium Ferritin Total Bilirubin Direct Bilirubin AST Alkaline Phosphatase Ammonia Lactate Dehydrogenase C-Reactive Protein Total Protein Albumin Triglycerides Urine Creatinine Urine Microalbumin Coronavirus (PCR) 12/06/20 12/06/20 12/06/20 05:58 06:56 07:44 WBC RBC Hgb Hct MCV MCHC Lymph % (Auto) Lymph # (Auto) Seg Neutrophils % Seg Neutrophils # PT INR D-Dimer VBG pH Sodium Potassium Chloride Carbon Dioxide BUN Creatinine Glucose POC Glucose 149 H 205 H 150 H Hemoglobin A1c Lactic Acid Phosphorus Magnesium Ferritin Total Bilirubin Direct Bilirubin AST Alkaline Phosphatase Ammonia Lactate Dehydrogenase C-Reactive Protein Total Protein Albumin Triglycerides Urine Creatinine Urine Microalbumin Coronavirus (PCR) 12/06/20 12/06/20 12/06/20 08:16 09:03 09:53 WBC RBC Hgb Hct MCV MCHC Lymph % (Auto) Lymph # (Auto) Seg Neutrophils % Seg Neutrophils # PT INR D-Dimer VBG pH Sodium Potassium Chloride Carbon Dioxide 14 L BUN 23 H Creatinine Glucose 136 H POC Glucose 132 H Hemoglobin A1c Lactic Acid Phosphorus Magnesium Ferritin Total Bilirubin Direct Bilirubin AST Alkaline Phosphatase Ammonia Lactate Dehydrogenase C-Reactive Protein Total Protein Albumin Triglycerides Urine Creatinine 101.5 H Urine Microalbumin Coronavirus (PCR) 12/06/20 12/06/20 12/06/20 10:11 10:36 11:14 WBC RBC Hgb Hct MCV MCHC Lymph % (Auto) Lymph # (Auto) Seg Neutrophils % Seg Neutrophils # PT INR D-Dimer VBG pH Sodium Potassium Chloride Carbon Dioxide BUN Creatinine Glucose POC Glucose 137 H 127 H Hemoglobin A1c Lactic Acid Phosphorus Magnesium Ferritin Total Bilirubin Direct Bilirubin AST Alkaline Phosphatase Ammonia Lactate Dehydrogenase C-Reactive Protein Total Protein Albumin Triglycerides Urine Creatinine 101.0 H Urine Microalbumin 36.9 H Coronavirus (PCR) 12/06/20 12/06/20 12/06/20 12:01 13:12 14:02 WBC RBC Hgb Hct MCV MCHC Lymph % (Auto) Lymph # (Auto) Seg Neutrophils % Seg Neutrophils # PT INR D-Dimer VBG pH Sodium Potassium Chloride Carbon Dioxide BUN Creatinine Glucose POC Glucose 136 H 139 H 132 H Hemoglobin A1c Lactic Acid Phosphorus Magnesium Ferritin Total Bilirubin Direct Bilirubin AST Alkaline Phosphatase Ammonia Lactate Dehydrogenase C-Reactive Protein Total Protein Albumin Triglycerides Urine Creatinine Urine Microalbumin Coronavirus (PCR) 12/06/20 12/06/20 12/06/20 15:50 17:12 18:10 WBC RBC Hgb Hct MCV MCHC Lymph % (Auto) Lymph # (Auto) Seg Neutrophils % Seg Neutrophils # PT INR D-Dimer VBG pH Sodium Potassium Chloride Carbon Dioxide BUN Creatinine Glucose POC Glucose 133 H 130 H 114 H Hemoglobin A1c Lactic Acid Phosphorus Magnesium Ferritin Total Bilirubin Direct Bilirubin AST Alkaline Phosphatase Ammonia Lactate Dehydrogenase C-Reactive Protein Total Protein Albumin Triglycerides Urine Creatinine Urine Microalbumin Coronavirus (PCR) 12/06/20 12/06/20 12/06/20 21:08 22:06 23:19 WBC RBC Hgb Hct MCV MCHC Lymph % (Auto) Lymph # (Auto) Seg Neutrophils % Seg Neutrophils # PT INR D-Dimer VBG pH Sodium Potassium Chloride Carbon Dioxide BUN Creatinine Glucose POC Glucose 127 H 148 H 144 H Hemoglobin A1c Lactic Acid Phosphorus Magnesium Ferritin Total Bilirubin Direct Bilirubin AST Alkaline Phosphatase Ammonia Lactate Dehydrogenase C-Reactive Protein Total Protein Albumin Triglycerides Urine Creatinine Urine Microalbumin Coronavirus (PCR) 12/07/20 12/07/20 12/07/20 00:08 01:04 02:05 WBC RBC Hgb Hct MCV MCHC Lymph % (Auto) Lymph # (Auto) Seg Neutrophils % Seg Neutrophils # PT INR D-Dimer VBG pH Sodium Potassium Chloride Carbon Dioxide BUN Creatinine Glucose POC Glucose 157 H 118 H 143 H Hemoglobin A1c Lactic Acid Phosphorus Magnesium Ferritin Total Bilirubin Direct Bilirubin AST Alkaline Phosphatase Ammonia Lactate Dehydrogenase C-Reactive Protein Total Protein Albumin Triglycerides Urine Creatinine Urine Microalbumin Coronavirus (PCR) 12/07/20 12/07/20 12/07/20 03:03 03:25 03:25 WBC RBC Hgb Hct MCV MCHC Lymph % (Auto) Lymph # (Auto) Seg Neutrophils % Seg Neutrophils # PT INR D-Dimer 1950.73 H VBG pH Sodium Potassium Chloride Carbon Dioxide BUN Creatinine Glucose POC Glucose 119 H Hemoglobin A1c Lactic Acid Phosphorus Magnesium Ferritin 7009.0 H Total Bilirubin Direct Bilirubin AST Alkaline Phosphatase Ammonia Lactate Dehydrogenase C-Reactive Protein Total Protein Albumin Triglycerides Urine Creatinine Urine Microalbumin Coronavirus (PCR) 12/07/20 12/07/20 12/07/20 03:25 03:25 04:09 WBC 15.8 H RBC 5.21 H Hgb 16.2 H Hct 47.9 H D MCV MCHC Lymph % (Auto) 6.1 L Lymph # (Auto) 1.0 L Seg Neutrophils % 88.5 H Seg Neutrophils # 14.0 H PT INR D-Dimer VBG pH Sodium Potassium 3.0 L D Chloride Carbon Dioxide BUN Creatinine Glucose 108 H POC Glucose 155 H Hemoglobin A1c Lactic Acid Phosphorus 0.70 L* D Magnesium Ferritin Total Bilirubin 1.70 H Direct Bilirubin 0.5 H AST 52 H Alkaline Phosphatase 131 H Ammonia Lactate Dehydrogenase 821 H C-Reactive Protein 13.80 H Total Protein Albumin 3.6 L Triglycerides Urine Creatinine Urine Microalbumin Coronavirus (PCR) Allied health notes reviewed: nursing
[2020-12-07] MEDS: SODIUM CHLORIDE 0.9% 1000 ML 1,000 ML IV SCH (15:41)
[2020-12-07 16:58] LABS: Alanine Aminotransferase 24 units/L (7-56); BUN/Creatinine Ratio 13; Blood Urea Nitrogen 12 mg/dL (9-20); Calcium 8.8 mg/dL (8.4-10.2); Hemolysis Index 45
[2020-12-07] MEDS: AZITHROMYCIN/NS 500 MG/250 ML 500 MG/250 ML BAG IV SCH (16:59)
[2020-12-07 17:32] LABS: Hepatitis B Surface Antigen Non-Reactive (Negative); Hepatitis C Virus Antibody Non-Reactive (NonReactive)
--- NOTE | 2020-12-07 18:34 | Consultation ---
History of Present Illness - Reason for Consult Consult date: 12/07/20 - History of Present Illness 30-year-old male past medical history insulin-dependent diabetes presented to hospital complaining of 3 days of malaise, shortness of breath, fevers, nausea, vomiting. He was admitted for DKA as well as Covid. He is not hypoxic at present time. Afebrile since admission with a white count of 15.8. Renal function has improved to normal. Procalcitonin was 7.18 during KENDRA. Blood cultures no growth so far. Covid positive. Currently on ceftriaxone azithromycin. Not hypoxic, currently on room air. Imaging personally reviewed: Chest x-ray: Bilateral pulmonary opacities Review of systems: Deferred due to PPE conservation strategy. Past History Past Medical History: diabetes. denies: hypertension, hyperlipidemia, pulmonary embolism Past Surgical History: No surgical history Social history: single, Lives alone, full code. denies: smoking, alcohol abuse, prescription drug abuse, IV drug use Family history: no significant family history Medications and Allergies Allergies Allergy/AdvReac Type Severity Reaction Status Date / Time No Known Allergies Allergy Unverified 03/10/17 07:27 Home Medications Medication Instructions Recorded Confirmed Last Taken Type Ondansetron [Zofran Odt] 4 mg PO QID #12 tab.rapdis 03/10/17 12/06/20 Unknown Rx glipiZIDE [Glucotrol] 5 mg PO BID #60 tablet 07/20/20 12/06/20 12/04/20 17:00 Rx metFORMIN [Glucophage] 500 mg PO BID #60 tablet 07/20/20 12/06/20 12/04/20 17:00 Rx Active Meds: Active Medications Acetaminophen (Acetaminophen 325 Mg Tab) 650 mg PO Q6H PRN PRN Reason: Pain MILD(1-3)/Fever >100.5/BECKWITH Apixaban (Apixaban 2.5 Mg Tab) 2.5 mg PO Q12HR [facility]; Protocol Last Admin: 12/07/20 10:32 Dose: 2.5 mg Documented by: Ascorbic Acid (Ascorbic Acid 500 Mg Tab) 500 mg PO BID [facility] Last Admin: 12/07/20 10:33 Dose: 500 mg Documented by: Cholecalciferol (Cholecalciferol (Vit D3) 5,000 Unit Tab) 5,000 unit PO DAILY [facility] Last Admin: 12/07/20 10:33 Dose: 5,000 unit Documented by: Dextrose (Dextrose 50% In Water (25gm) 50 Ml Syringe) 0 ml IV Q30MIN PRN; Protocol PRN Reason: Hypoglycemia Famotidine (Famotidine 20 Mg/2 Ml Inj) 10 mg IV BID [facility] Last Admin: 12/07/20 10:33 Dose: 10 mg Documented by: Ceftriaxone Sodium (Rocephin/Ns 2 Gm/100 Ml) 2 gm in 100 mls @ 200 mls/hr IV Q24H [facility]; Protocol Last Admin: 12/06/20 15:54 Dose: 200 mls/hr Documented by: Azithromycin (Zithromax/Ns) 500 mg in 250 mls @ 250 mls/hr IV Q24H [facility] Last Admin: 12/07/20 16:59 Dose: 250 mls/hr Documented by: Sodium Chloride (Nacl 0.9% 1000 Ml) 1,000 mls @ 75 mls/hr IV DIRECT [facility] Last Admin: 12/07/20 15:41 Dose: 75 mls/hr Documented by: REMDESIVIR 200 mg/ Sodium (Chloride) 250 mls @ 500 mls/hr IV ONCE ONE Stop: 12/07/20 12:17 REMDESIVIR 100 mg/ Sodium (Chloride) 250 mls @ 500 mls/hr IV Q24HR@2100 [facility] Stop: 12/11/20 21:29 Insulin Human NPH (Insulin Nph, Human 100 Unit/1 Ml) 25 unit SUB-Q BIDDIAB [facility] Last Admin: 12/07/20 10:33 Dose: 25 unit Documented by: Insulin Human Regular (Insulin Regular, Human 100 Units/1 Ml) 0 units SUB-Q ACHS [facility]; Protocol Last Admin: 12/07/20 13:02 Dose: 4 units Documented by: Morphine Sulfate (Morphine 2 Mg/1 Ml Inj) 2 mg IV Q4H PRN PRN Reason: Pain, Moderate (4-6) Naloxone HCl (Naloxone 0.4 Mg/1 Ml Inj) 0.1 mg IV Q2MIN PRN PRN Reason: Res Rate </= 8 or 02 SAT < 92% Ondansetron HCl (Ondansetron 4 Mg/2 Ml Inj) 4 mg IV Q8H PRN PRN Reason: Nausea And Vomiting Potassium Chloride (Potassium Chloride Er 20 Meq Tab) 20 meq PO QDAY [facility] Last Admin: 12/07/20 10:33 Dose: 20 meq Documented by: Sodium Chloride (Sodium Chloride 0.9% 10 Ml Flush Syringe) 10 ml IV BID [facility] Last Admin: 12/07/20 10:33 Dose: 10 ml Documented by: Sodium Chloride (Sodium Chloride 0.9% 10 Ml Flush Syringe) 10 ml IV PRN PRN PRN Reason: LINE FLUSH Sodium Chloride (Sodium Chloride 0.9% 50 Ml Ivpb) 50 ml IV Q24HR@2100 [facility] Stop: 12/11/20 21:01 Zinc Sulfate (Zinc Sulfate 220 Mg Cap) 220 mg PO BID [facility] Last Admin: 12/07/20 10:34 Dose: 220 mg Documented by: Physical Examination - Physical Exam Narrative exam: Physical exam deferred due to PPE conservation strategy. Please refer to primary team's note. - Constitutional Vitals: Vital Signs Temp Pulse Resp BP Pulse Ox 98.8 F 118 H 23 120/81 90 12/07/20 16:00 12/07/20 16:00 12/07/20 16:00 12/07/20 16:00 12/07/20 16:00 Temperature -Last 24 Hours Temperature 98.8 F Temperature 99 F Temperature 98.2 F Temperature 99.2 F Results - Labs CBC & Chem 7: 12/07/20 03:25 12/07/20 16:07 Labs: Abnormal lab results 12/06/20 12/06/20 12/06/20 Range/Units 18:10 21:08 22:06 WBC (4.5-11.0) K/mm3 RBC (3.65-5.03) M/mm3 Hgb (11.8-15.2) gm/dl Hct (35.5-45.6) % Lymph % (Auto) (13.4-35.0) % Lymph # (Auto) (1.2-5.4) K/mm3 Seg Neutrophils % (40.0-70.0) % Seg Neutrophils # (1.8-7.7) K/mm3 D-Dimer (0-234) ng/mlDDU Sodium (137-145) mmol/L Potassium (3.6-5.0) mmol/L Glucose (75-100) mg/dL POC Glucose 114 H 127 H 148 H (70-105) mg/dL Phosphorus (2.5-4.5) mg/dL Ferritin (30.0-300.0) ng/mL Total Bilirubin (0.1-1.2) mg/dL Direct Bilirubin (0-0.2) mg/dL AST (5-40) units/L Alkaline Phosphatase (35-129) units/L Lactate Dehydrogenase (91-180) units/L C-Reactive Protein (0.00-1.30) mg/dL Albumin (3.9-5) g/dL 12/06/20 12/07/20 12/07/20 Range/Units 23:19 00:08 01:04 WBC (4.5-11.0) K/mm3 RBC (3.65-5.03) M/mm3 Hgb (11.8-15.2) gm/dl Hct (35.5-45.6) % Lymph % (Auto) (13.4-35.0) % Lymph # (Auto) (1.2-5.4) K/mm3 Seg Neutrophils % (40.0-70.0) % Seg Neutrophils # (1.8-7.7) K/mm3 D-Dimer (0-234) ng/mlDDU Sodium (137-145) mmol/L Potassium (3.6-5.0) mmol/L Glucose (75-100) mg/dL POC Glucose 144 H 157 H 118 H (70-105) mg/dL Phosphorus (2.5-4.5) mg/dL Ferritin (30.0-300.0) ng/mL Total Bilirubin (0.1-1.2) mg/dL Direct Bilirubin (0-0.2) mg/dL AST (5-40) units/L Alkaline Phosphatase (35-129) units/L Lactate Dehydrogenase (91-180) units/L C-Reactive Protein (0.00-1.30) mg/dL Albumin (3.9-5) g/dL 12/07/20 12/07/20 12/07/20 Range/Units 02:05 03:03 03:25 WBC (4.5-11.0) K/mm3 RBC (3.65-5.03) M/mm3 Hgb (11.8-15.2) gm/dl Hct (35.5-45.6) % Lymph % (Auto) (13.4-35.0) % Lymph # (Auto) (1.2-5.4) K/mm3 Seg Neutrophils % (40.0-70.0) % Seg Neutrophils # (1.8-7.7) K/mm3 D-Dimer 1950.73 H (0-234) ng/mlDDU Sodium (137-145) mmol/L Potassium (3.6-5.0) mmol/L Glucose (75-100) mg/dL POC Glucose 143 H 119 H (70-105) mg/dL Phosphorus (2.5-4.5) mg/dL Ferritin (30.0-300.0) ng/mL Total Bilirubin (0.1-1.2) mg/dL Direct Bilirubin (0-0.2) mg/dL AST (5-40) units/L Alkaline Phosphatase (35-129) units/L Lactate Dehydrogenase (91-180) units/L C-Reactive Protein (0.00-1.30) mg/dL Albumin (3.9-5) g/dL 12/07/20 12/07/20 12/07/20 Range/Units 03:25 03:25 03:25 WBC 15.8 H (4.5-11.0) K/mm3 RBC 5.21 H (3.65-5.03) M/mm3 Hgb 16.2 H (11.8-15.2) gm/dl Hct 47.9 H D (35.5-45.6) % Lymph % (Auto) 6.1 L (13.4-35.0) % Lymph # (Auto) 1.0 L (1.2-5.4) K/mm3 Seg Neutrophils % 88.5 H (40.0-70.0) % Seg Neutrophils # 14.0 H (1.8-7.7) K/mm3 D-Dimer (0-234) ng/mlDDU Sodium (137-145) mmol/L Potassium 3.0 L D (3.6-5.0) mmol/L Glucose 108 H (75-100) mg/dL POC Glucose (70-105) mg/dL Phosphorus 0.70 L* D (2.5-4.5) mg/dL Ferritin 7009.0 H (30.0-300.0) ng/mL Total Bilirubin 1.70 H (0.1-1.2) mg/dL Direct Bilirubin 0.5 H (0-0.2) mg/dL AST 52 H (5-40) units/L Alkaline Phosphatase 131 H (35-129) units/L Lactate Dehydrogenase 821 H (91-180) units/L C-Reactive Protein 13.80 H (0.00-1.30) mg/dL Albumin 3.6 L (3.9-5) g/dL 12/07/20 12/07/20 12/07/20 Range/Units 04:09 06:09 08:34 WBC (4.5-11.0) K/mm3 RBC (3.65-5.03) M/mm3 Hgb (11.8-15.2) gm/dl Hct (35.5-45.6) % Lymph % (Auto) (13.4-35.0) % Lymph # (Auto) (1.2-5.4) K/mm3 Seg Neutrophils % (40.0-70.0) % Seg Neutrophils # (1.8-7.7) K/mm3 D-Dimer (0-234) ng/mlDDU Sodium (137-145) mmol/L Potassium (3.6-5.0) mmol/L Glucose (75-100) mg/dL POC Glucose 155 H 127 H 178 H (70-105) mg/dL Phosphorus (2.5-4.5) mg/dL Ferritin (30.0-300.0) ng/mL Total Bilirubin (0.1-1.2) mg/dL Direct Bilirubin (0-0.2) mg/dL AST (5-40) units/L Alkaline Phosphatase (35-129) units/L Lactate Dehydrogenase (91-180) units/L C-Reactive Protein (0.00-1.30) mg/dL Albumin (3.9-5) g/dL 12/07/20 12/07/20 12/07/20 Range/Units 12:19 16:07 16:07 WBC (4.5-11.0) K/mm3 RBC (3.65-5.03) M/mm3 Hgb (11.8-15.2) gm/dl Hct (35.5-45.6) % Lymph % (Auto) (13.4-35.0) % Lymph # (Auto) (1.2-5.4) K/mm3 Seg Neutrophils % (40.0-70.0) % Seg Neutrophils # (1.8-7.7) K/mm3 D-Dimer (0-234) ng/mlDDU Sodium 136 L (137-145) mmol/L Potassium 3.2 L (3.6-5.0) mmol/L Glucose 158 H 160 H (75-100) mg/dL POC Glucose 239 H (70-105) mg/dL Phosphorus (2.5-4.5) mg/dL Ferritin (30.0-300.0) ng/mL Total Bilirubin 2.10 H (0.1-1.2) mg/dL Direct Bilirubin (0-0.2) mg/dL AST 73 H (5-40) units/L Alkaline Phosphatase 139 H (35-129) units/L Lactate Dehydrogenase (91-180) units/L C-Reactive Protein (0.00-1.30) mg/dL Albumin 3.0 L (3.9-5) g/dL Assessment and Plan Cultures: Blood culture 12/05/2020: No growth so far A/P: 30-year-old man past medical history insulin-dependent diabetes admitted with DKA, Covid #COVID-19: Not presently hypoxic, no need for acute treatment. #DKA: May be at least partially secondary to COVID-19 infection. Management per primary. #Bilateral pneumonia: Elevated procalcitonin, though that was at the time of KENDRA. Given his acidosis will treat with antibiotics for now. Repeat procalcitonin. #KENDRA: Resolved Recs: -Continue empiric ceftriaxone for 5 days and azithromycin for 3 days. -Repeat procalcitonin in morning -No need for steroids or remdesivir as patient is not hypoxic at the present time. -Anticoagulation per hospital protocol -DKA management per primary. Thank you for the consult, we will continue to follow. Dr. Hallman taking over rachel tavares. Leon Tse MD [facility] O: [phone] F: [phone]
[2020-12-07] MEDS ORDERED: SODIUM CHLORIDE 0.9% 50 ML IVPB IV SCH (21:00)
--- NOTE | 2020-12-07 21:12 | Vascular Lab Report ---
DUPLEX DOPPLER LOWER EXTREMITY VEINS, BILATERAL INDICATION / CLINICAL INFORMATION: Elevated d-dimer. TECHNIQUE: Duplex doppler imaging was performed through the veins of both lower extremities using igor ous compression and other maneuvers. COMPARISON: None. FINDINGS: Right Common Femoral vein: Negative. Right Femoral vein: Negative. Right Popliteal vein: Negative. Right Calf veins: Negative. Left Common Femoral vein: Negative. Left Femoral vein: Negative. Left Popliteal vein: Negative. Left Calf veins: Negative. Additional findings: None. IMPRESSION: 1. No sonographic evidence for DVT in either lower extremity. Signer Name: Ksenia Peñaloza MD Signed: 12/07/2020 9:07 PM Workstation Name: [id number]
[2020-12-08] MEDS: INSULIN REGULAR, HUMAN 100 UNITS/1 ML SUB-Q SCH ×6 (00:57→22:41)
[2020-12-08] MEDS: guaiFENesin DM 200/20 MG ORAL LIQD 10 ML PO PRN ×3 (02:05→23:05)
[2020-12-08] MEDS: SODIUM CHLORIDE 0.9% 1000 ML 1,000 ML IV SCH ×2 (08:40→23:11)
[2020-12-08] MEDS: INSULIN NPH, HUMAN 100 UNIT/1 ML SUB-Q SCH ×2 (08:42→16:50)
[2020-12-08] MEDS: CHOLECALCIFEROL (VIT D3) 5,000 UNIT TAB PO SCH (09:05)
[2020-12-08] MEDS: POTASSIUM CHLORIDE ER 20 MEQ TAB PO SCH (09:05)
[2020-12-08] MEDS: ZINC SULFATE 220 MG CAP PO SCH ×2 (09:05→22:40)
[2020-12-08] MEDS: ASCORBIC ACID 500 MG TAB PO SCH ×2 (09:05→22:40)
[2020-12-08] MEDS: APIXABAN 2.5 MG TAB PO SCH (09:05)
[2020-12-08] MEDS: FAMOTIDINE 20 MG TAB PO SCH ×2 (09:07→22:40)
[2020-12-08] MEDS ORDERED: INSULIN NPH, HUMAN 100 UNIT/1 ML SUB-Q NR (09:30)
[2020-12-08 10:13] LABS: Basophils % (Auto) 0.2 % (0.0-1.8); Hematocrit 39.7 % (35.5-45.6); Hemoglobin 13.1 gm/dl (11.8-15.2); Lymphocytes # (Auto) 1.2 K/mm3 (1.2-5.4); Lymphocytes % (Auto) 8.1 % (13.4-35.0); Mean Corpuscular HGB Conc 33 % (32-34); Mean Corpuscular Volume 95 fl (84-94); Monocytes % (Auto) 6.9 % (0.0-7.3); Platelet Count 190 K/mm3 (140-440); Red Blood Count 4.19 M/mm3 (3.65-5.03); Red Cell Distribution Width 14.4 % (13.2-15.2)
[2020-12-08 11:20] LABS: Alanine Aminotransferase 26 units/L (7-56); Albumin 2.8 g/dL (3.9-5); BUN/Creatinine Ratio 16; Blood Urea Nitrogen 13 mg/dL (9-20); Calcium 8.6 mg/dL (8.4-10.2); Hemolysis Index 48
--- NOTE | 2020-12-08 13:17 | Progress Note ---
Assessment and Plan Patient alert, awake.Patient is on 5 litres O2. O2 saturation 94%. Complaining cough and chest pain. Patient denies smoking, alcohol or drug abuse. Works as salesperson driver. No Known drug allergies. Patient pierce virus PCR is Positive. Patient admitted for DKA Patient afebrile and has leukocytosis. Chest xray done 12/07/20 reported Bilateral pulmonary parenchymal opacities in the lung bases appear slightly increased. Inflammatory markings pending. Patient is on REMDESIVIR, Ceftriaxone and Famotidine. - Patient Problems (1) Coronavirus infection Current Visit: Yes Status: Acute Plan to address problem: Patient is on REMDESIVIR, Ceftriaxone and Famotidine. Management as per infectious diseases. (2) Pneumonia due to COVID-19 virus Current Visit: Yes Status: Acute Plan to address problem: Patient is on ceftriaxone. Antibiotics as per infectious diseases. (3) Diabetic ketoacidosis Current Visit: Yes Status: Acute Plan to address problem: Patients anion gap 15 Management as per primary care. (4) High anion gap metabolic acidosis Current Visit: No Status: Acute Plan to address problem: Improving. Todays anion gap is 15. (5) Hyponatremia Current Visit: No Status: Acute Plan to address problem: Patients to days Na+ 133 (6) Hypokalemia Current Visit: No Status: Acute Plan to address problem: K+ 3.3. recommend K+ supplementation. (7) Tobacco abuse Current Visit: No Status: Chronic Plan to address problem: Counseled to stop smoking. Subjective Date of service: 12/08/20 Interval history: Patient alert, awake.Patient is on 5 litres O2. O2 saturation 94%. Complaining cough and chest pain. Patient denies smoking, alcohol or drug abuse. Works as salesperson driver. No Known drug allergies. Patient pierce virus PCR is Positive.Patient admitted for DKA. Patient afebrile and has leukocytosis. Chest xray done 12/07/20 reported Bilateral pulmonary parenchymal opacities in the lung bases appear slightly increased. Patients inflammatory markings pending. Patient is on REMDESIVIR, Ceftriaxone and Famotidine. Objective Vital Signs - 12hr 12/08/20 12/08/20 12/08/20 04:00 06:05 10:00 Temperature 97.9 F Pulse Rate 102 H 100 H Pulse Rate [ 100 H Apical] Pulse Rate [ 100 H Left Dorsalis Pedis] Pulse Rate [ 100 H Left Radial] Pulse Rate [ 100 H Right Dorsalis Pedis] Pulse Rate [ 100 H Right Radial] Respiratory 22 23 Rate Blood Pressure 116/77 O2 Sat by Pulse 92 Oximetry 12/08/20 12/08/20 11:03 11:15 Temperature 98.4 F Pulse Rate 106 H Pulse Rate [ Apical] Pulse Rate [ Left Dorsalis Pedis] Pulse Rate [ Left Radial] Pulse Rate [ Right Dorsalis Pedis] Pulse Rate [ Right Radial] Respiratory 20 Rate Blood Pressure 110/75 O2 Sat by Pulse 95 Oximetry Constitutional: no acute distress, alert Eyes: non-icteric ENT: oropharynx moist Neck: supple, no lymphadenopathy Effort: mildly labored Ascultation: Bilateral: rhonchi Cardiovascular: regular rate and rhythm Gastrointestinal: normoactive bowel sounds, soft, non-tender Integumentary: normal Extremities: no cyanosis, no edema Neurologic: normal mental status, pupils equal and round Psychiatric: anxious CBC and BMP: 12/09/20 09:39 12/09/20 05:00 ABG, PT/INR, D-dimer: PT/INR, D-dimer PT 15.6 Sec. (12.2-14.9) H 12/05/20 06:46 INR 1.24 (0.87-1.13) H 12/05/20 06:46 D-Dimer 1950.73 ng/mlDDU (0-234) H 12/07/20 03:25 Abnormal lab findings: Abnormal Labs 12/05/20 12/05/20 12/05/20 06:30 06:46 06:46 WBC 19.2 H RBC 5.53 H Hgb 17.2 H Hct 57.8 H MCV 105 H MCHC 30 L Lymph % (Auto) Lymph # (Auto) [place] # (Auto) Seg Neutrophils % Seg Neutrophils # PT INR D-Dimer VBG pH Sodium 124 L Potassium 5.7 H Chloride 83.0 L Carbon Dioxide 5 L* BUN 25 H Creatinine 2.1 H Glucose 677 H* POC Glucose > 600 H Hemoglobin A1c Lactic Acid Phosphorus Magnesium Ferritin Total Bilirubin Direct Bilirubin AST 51 H Alkaline Phosphatase 250 H Ammonia Lactate Dehydrogenase C-Reactive Protein Total Protein 8.9 H Albumin Triglycerides Urine Creatinine Urine Microalbumin Coronavirus (PCR) 12/05/20 12/05/20 12/05/20 06:46 06:46 06:46 WBC RBC Hgb Hct MCV MCHC Lymph % (Auto) Lymph # (Auto) [place] # (Auto) Seg Neutrophils % Seg Neutrophils # PT 15.6 H INR 1.24 H D-Dimer VBG pH 6.814 L* Sodium Potassium Chloride Carbon Dioxide BUN Creatinine Glucose POC Glucose Hemoglobin A1c Lactic Acid Phosphorus 7.10 H Magnesium 2.70 H Ferritin Total Bilirubin Direct Bilirubin AST Alkaline Phosphatase Ammonia Lactate Dehydrogenase C-Reactive Protein Total Protein Albumin Triglycerides Urine Creatinine Urine Microalbumin Coronavirus (PCR) 12/05/20 12/05/20 12/05/20 06:46 06:46 07:53 WBC RBC Hgb Hct MCV MCHC Lymph % (Auto) Lymph # (Auto) [place] # (Auto) Seg Neutrophils % Seg Neutrophils # PT INR D-Dimer VBG pH Sodium Potassium Chloride Carbon Dioxide BUN Creatinine Glucose 690 H* POC Glucose Hemoglobin A1c Lactic Acid 4.80 H* Phosphorus Magnesium Ferritin Total Bilirubin Direct Bilirubin AST Alkaline Phosphatase Ammonia 94.0 H Lactate Dehydrogenase C-Reactive Protein Total Protein Albumin Triglycerides Urine Creatinine Urine Microalbumin Coronavirus (PCR) 12/05/20 12/05/20 12/05/20 10:24 10:24 10:24 WBC RBC Hgb Hct MCV MCHC Lymph % (Auto) Lymph # (Auto) [place] # (Auto) Seg Neutrophils % Seg Neutrophils # PT INR D-Dimer VBG pH Sodium 122 L Potassium 5.6 H Chloride 90.5 L Carbon Dioxide 2 L* BUN 28 H Creatinine 1.7 H Glucose 602 H* POC Glucose Hemoglobin A1c 17.8 H Lactic Acid Phosphorus 7.60 H Magnesium 2.70 H Ferritin Total Bilirubin Direct Bilirubin AST Alkaline Phosphatase Ammonia Lactate Dehydrogenase C-Reactive Protein Total Protein Albumin Triglycerides 368 H Urine Creatinine Urine Microalbumin Coronavirus (PCR) 12/05/20 12/05/20 12/05/20 10:28 12:36 14:55 WBC RBC Hgb Hct MCV MCHC Lymph % (Auto) Lymph # (Auto) [place] # (Auto) Seg Neutrophils % Seg Neutrophils # PT INR D-Dimer VBG pH Sodium Potassium Chloride Carbon Dioxide BUN Creatinine Glucose POC Glucose 584 H 449 H Hemoglobin A1c Lactic Acid Phosphorus Magnesium Ferritin Total Bilirubin Direct Bilirubin AST Alkaline Phosphatase Ammonia Lactate Dehydrogenase C-Reactive Protein Total Protein Albumin Triglycerides Urine Creatinine Urine Microalbumin Coronavirus (PCR) Positive A 12/05/20 12/05/20 12/05/20 16:03 16:03 16:03 WBC RBC Hgb Hct MCV MCHC Lymph % (Auto) Lymph # (Auto) [place] # (Auto) Seg Neutrophils % Seg Neutrophils # PT INR D-Dimer 4712.93 H VBG pH Sodium 130 L D Potassium 6.6 H* Chloride 95.5 L Carbon Dioxide 5 L* BUN 28 H Creatinine 1.9 H Glucose 437 H POC Glucose Hemoglobin A1c Lactic Acid 4.80 H* Phosphorus Magnesium Ferritin Total Bilirubin Direct Bilirubin AST Alkaline Phosphatase Ammonia Lactate Dehydrogenase C-Reactive Protein Total Protein Albumin Triglycerides Urine Creatinine Urine Microalbumin Coronavirus (PCR) 12/05/20 12/05/20 12/05/20 16:03 16:03 16:57 WBC RBC Hgb Hct MCV MCHC Lymph % (Auto) Lymph # (Auto) [place] # (Auto) Seg Neutrophils % Seg Neutrophils # PT INR D-Dimer VBG pH Sodium Potassium Chloride Carbon Dioxide BUN Creatinine Glucose 449 H POC Glucose 446 H Hemoglobin A1c Lactic Acid Phosphorus Magnesium Ferritin > 2000.0 H Total Bilirubin Direct Bilirubin AST Alkaline Phosphatase Ammonia Lactate Dehydrogenase 576 H C-Reactive Protein 7.10 H Total Protein Albumin Triglycerides Urine Creatinine Urine Microalbumin Coronavirus (PCR) 12/05/20 12/05/20 12/05/20 17:47 18:46 19:11 WBC RBC Hgb Hct MCV MCHC Lymph % (Auto) Lymph # (Auto) [place] # (Auto) Seg Neutrophils % Seg Neutrophils # PT INR D-Dimer VBG pH Sodium 136 L Potassium 5.1 H D Chloride 97.2 L Carbon Dioxide 10 L BUN 31 H Creatinine 1.7 H Glucose 341 H POC Glucose 425 H 343 H Hemoglobin A1c Lactic Acid Phosphorus Magnesium Ferritin Total Bilirubin Direct Bilirubin AST Alkaline Phosphatase Ammonia Lactate Dehydrogenase C-Reactive Protein Total Protein Albumin Triglycerides Urine Creatinine Urine Microalbumin Coronavirus (PCR) 12/05/20 12/05/20 12/05/20 19:11 20:09 20:59 WBC RBC Hgb Hct MCV MCHC Lymph % (Auto) Lymph # (Auto) [place] # (Auto) Seg Neutrophils % Seg Neutrophils # PT INR D-Dimer VBG pH Sodium Potassium Chloride Carbon Dioxide BUN Creatinine Glucose POC Glucose 345 H 304 H Hemoglobin A1c Lactic Acid 4.30 H* Phosphorus Magnesium Ferritin Total Bilirubin Direct Bilirubin AST Alkaline Phosphatase Ammonia Lactate Dehydrogenase C-Reactive Protein Total Protein Albumin Triglycerides Urine Creatinine Urine Microalbumin Coronavirus (PCR) 12/05/20 12/05/20 12/06/20 21:57 23:01 00:01 WBC RBC Hgb Hct MCV MCHC Lymph % (Auto) Lymph # (Auto) [place] # (Auto) Seg Neutrophils % Seg Neutrophils # PT INR D-Dimer VBG pH Sodium Potassium Chloride Carbon Dioxide BUN Creatinine Glucose POC Glucose 259 H 325 H 297 H Hemoglobin A1c Lactic Acid Phosphorus Magnesium Ferritin Total Bilirubin Direct Bilirubin AST Alkaline Phosphatase Ammonia Lactate Dehydrogenase C-Reactive Protein Total Protein Albumin Triglycerides Urine Creatinine Urine Microalbumin Coronavirus (PCR) 12/06/20 12/06/20 12/06/20 00:24 01:01 01:56 WBC RBC Hgb Hct MCV MCHC Lymph % (Auto) Lymph # (Auto) [place] # (Auto) Seg Neutrophils % Seg Neutrophils # PT INR D-Dimer VBG pH Sodium 134 L Potassium Chloride Carbon Dioxide 8 L* BUN 29 H Creatinine Glucose 298 H POC Glucose 270 H 225 H Hemoglobin A1c Lactic Acid Phosphorus Magnesium Ferritin Total Bilirubin Direct Bilirubin AST Alkaline Phosphatase Ammonia Lactate Dehydrogenase C-Reactive Protein Total Protein Albumin Triglycerides Urine Creatinine Urine Microalbumin Coronavirus (PCR) 12/06/20 12/06/20 12/06/20 03:01 03:59 04:55 WBC RBC Hgb Hct MCV MCHC Lymph % (Auto) Lymph # (Auto) [place] # (Auto) Seg Neutrophils % Seg Neutrophils # PT INR D-Dimer VBG pH Sodium Potassium Chloride Carbon Dioxide BUN Creatinine Glucose POC Glucose 231 H 168 H 137 H Hemoglobin A1c Lactic Acid Phosphorus Magnesium Ferritin Total Bilirubin Direct Bilirubin AST Alkaline Phosphatase Ammonia Lactate Dehydrogenase C-Reactive Protein Total Protein Albumin Triglycerides Urine Creatinine Urine Microalbumin Coronavirus (PCR) 12/06/20 12/06/20 12/06/20 05:58 06:56 07:44 WBC RBC Hgb Hct MCV MCHC Lymph % (Auto) Lymph # (Auto) [place] # (Auto) Seg Neutrophils % Seg Neutrophils # PT INR D-Dimer VBG pH Sodium Potassium Chloride Carbon Dioxide BUN Creatinine Glucose POC Glucose 149 H 205 H 150 H Hemoglobin A1c Lactic Acid Phosphorus Magnesium Ferritin Total Bilirubin Direct Bilirubin AST Alkaline Phosphatase Ammonia Lactate Dehydrogenase C-Reactive Protein Total Protein Albumin Triglycerides Urine Creatinine Urine Microalbumin Coronavirus (PCR) 12/06/20 12/06/20 12/06/20 08:16 09:03 09:53 WBC RBC Hgb Hct MCV MCHC Lymph % (Auto) Lymph # (Auto) [place] # (Auto) Seg Neutrophils % Seg Neutrophils # PT INR D-Dimer VBG pH Sodium Potassium Chloride Carbon Dioxide 14 L BUN 23 H Creatinine Glucose 136 H POC Glucose 132 H Hemoglobin A1c Lactic Acid Phosphorus Magnesium Ferritin Total Bilirubin Direct Bilirubin AST Alkaline Phosphatase Ammonia Lactate Dehydrogenase C-Reactive Protein Total Protein Albumin Triglycerides Urine Creatinine 101.5 H Urine Microalbumin Coronavirus (PCR) 12/06/20 12/06/20 12/06/20 10:11 10:36 11:14 WBC RBC Hgb Hct MCV MCHC Lymph % (Auto) Lymph # (Auto) [place] # (Auto) Seg Neutrophils % Seg Neutrophils # PT INR D-Dimer VBG pH Sodium Potassium Chloride Carbon Dioxide BUN Creatinine Glucose POC Glucose 137 H 127 H Hemoglobin A1c Lactic Acid Phosphorus Magnesium Ferritin Total Bilirubin Direct Bilirubin AST Alkaline Phosphatase Ammonia Lactate Dehydrogenase C-Reactive Protein Total Protein Albumin Triglycerides Urine Creatinine 101.0 H Urine Microalbumin 36.9 H Coronavirus (PCR) 12/06/20 12/06/20 12/06/20 12:01 13:12 14:02 WBC RBC Hgb Hct MCV MCHC Lymph % (Auto) Lymph # (Auto) [place] # (Auto) Seg Neutrophils % Seg Neutrophils # PT INR D-Dimer VBG pH Sodium Potassium Chloride Carbon Dioxide BUN Creatinine Glucose POC Glucose 136 H 139 H 132 H Hemoglobin A1c Lactic Acid Phosphorus Magnesium Ferritin Total Bilirubin Direct Bilirubin AST Alkaline Phosphatase Ammonia Lactate Dehydrogenase C-Reactive Protein Total Protein Albumin Triglycerides Urine Creatinine Urine Microalbumin Coronavirus (PCR) 12/06/20 12/06/20 12/06/20 15:50 17:12 18:10 WBC RBC Hgb Hct MCV MCHC Lymph % (Auto) Lymph # (Auto) [place] # (Auto) Seg Neutrophils % Seg Neutrophils # PT INR D-Dimer VBG pH Sodium Potassium Chloride Carbon Dioxide BUN Creatinine Glucose POC Glucose 133 H 130 H 114 H Hemoglobin A1c Lactic Acid Phosphorus Magnesium Ferritin Total Bilirubin Direct Bilirubin AST Alkaline Phosphatase Ammonia Lactate Dehydrogenase C-Reactive Protein Total Protein Albumin Triglycerides Urine Creatinine Urine Microalbumin Coronavirus (PCR) 12/06/20 12/06/20 12/06/20 21:08 22:06 23:19 WBC RBC Hgb Hct MCV MCHC Lymph % (Auto) Lymph # (Auto) [place] # (Auto) Seg Neutrophils % Seg Neutrophils # PT INR D-Dimer VBG pH Sodium Potassium Chloride Carbon Dioxide BUN Creatinine Glucose POC Glucose 127 H 148 H 144 H Hemoglobin A1c Lactic Acid Phosphorus Magnesium Ferritin Total Bilirubin Direct Bilirubin AST Alkaline Phosphatase Ammonia Lactate Dehydrogenase C-Reactive Protein Total Protein Albumin Triglycerides Urine Creatinine Urine Microalbumin Coronavirus (PCR) 12/07/20 12/07/20 12/07/20 00:08 01:04 02:05 WBC RBC Hgb Hct MCV MCHC Lymph % (Auto) Lymph # (Auto) [place] # (Auto) Seg Neutrophils % Seg Neutrophils # PT INR D-Dimer VBG pH Sodium Potassium Chloride Carbon Dioxide BUN Creatinine Glucose POC Glucose 157 H 118 H 143 H Hemoglobin A1c Lactic Acid Phosphorus Magnesium Ferritin Total Bilirubin Direct Bilirubin AST Alkaline Phosphatase Ammonia Lactate Dehydrogenase C-Reactive Protein Total Protein Albumin Triglycerides Urine Creatinine Urine Microalbumin Coronavirus (PCR) 12/07/20 12/07/20 12/07/20 03:03 03:25 03:25 WBC RBC Hgb Hct MCV MCHC Lymph % (Auto) Lymph # (Auto) [place] # (Auto) Seg Neutrophils % Seg Neutrophils # PT INR D-Dimer 1950.73 H VBG pH Sodium Potassium Chloride Carbon Dioxide BUN Creatinine Glucose POC Glucose 119 H Hemoglobin A1c Lactic Acid Phosphorus Magnesium Ferritin 7009.0 H Total Bilirubin Direct Bilirubin AST Alkaline Phosphatase Ammonia Lactate Dehydrogenase C-Reactive Protein Total Protein Albumin Triglycerides Urine Creatinine Urine Microalbumin Coronavirus (PCR) 12/07/20 12/07/20 12/07/20 03:25 03:25 04:09 WBC 15.8 H RBC 5.21 H Hgb 16.2 H Hct 47.9 H D MCV MCHC Lymph % (Auto) 6.1 L Lymph # (Auto) 1.0 L [place] # (Auto) Seg Neutrophils % 88.5 H Seg Neutrophils # 14.0 H PT INR D-Dimer VBG pH Sodium Potassium 3.0 L D Chloride Carbon Dioxide BUN Creatinine Glucose 108 H POC Glucose 155 H Hemoglobin A1c Lactic Acid Phosphorus 0.70 L* D Magnesium Ferritin Total Bilirubin 1.70 H Direct Bilirubin 0.5 H AST 52 H Alkaline Phosphatase 131 H Ammonia Lactate Dehydrogenase 821 H C-Reactive Protein 13.80 H Total Protein Albumin 3.6 L Triglycerides Urine Creatinine Urine Microalbumin Coronavirus (PCR) 12/07/20 12/07/20 12/07/20 06:09 08:34 12:19 WBC RBC Hgb Hct MCV MCHC Lymph % (Auto) Lymph # (Auto) [place] # (Auto) Seg Neutrophils % Seg Neutrophils # PT INR D-Dimer VBG pH Sodium Potassium Chloride Carbon Dioxide BUN Creatinine Glucose POC Glucose 127 H 178 H 239 H Hemoglobin A1c Lactic Acid Phosphorus Magnesium Ferritin Total Bilirubin Direct Bilirubin AST Alkaline Phosphatase Ammonia Lactate Dehydrogenase C-Reactive Protein Total Protein Albumin Triglycerides Urine Creatinine Urine Microalbumin Coronavirus (PCR) 12/07/20 12/07/20 12/07/20 16:07 16:07 23:15 WBC RBC Hgb Hct MCV MCHC Lymph % (Auto) Lymph # (Auto) [place] # (Auto) Seg Neutrophils % Seg Neutrophils # PT INR D-Dimer VBG pH Sodium 136 L Potassium 3.2 L Chloride Carbon Dioxide BUN Creatinine Glucose 158 H 160 H POC Glucose 308 H Hemoglobin A1c Lactic Acid Phosphorus Magnesium Ferritin Total Bilirubin 2.10 H Direct Bilirubin AST 73 H Alkaline Phosphatase 139 H Ammonia Lactate Dehydrogenase C-Reactive Protein Total Protein Albumin 3.0 L Triglycerides Urine Creatinine Urine Microalbumin Coronavirus (PCR) 12/08/20 12/08/20 12/08/20 07:42 09:06 09:06 WBC 14.3 H RBC Hgb Hct MCV 95 H MCHC Lymph % (Auto) 8.1 L Lymph # (Auto) [place] # (Auto) 1.0 H Seg Neutrophils % 84.8 H Seg Neutrophils # 12.1 H PT INR D-Dimer VBG pH Sodium 133 L Potassium 3.3 L Chloride 96.6 L Carbon Dioxide BUN Creatinine Glucose 330 H POC Glucose 301 H Hemoglobin A1c Lactic Acid Phosphorus Magnesium Ferritin Total Bilirubin 1.90 H Direct Bilirubin AST 92 H Alkaline Phosphatase 142 H Ammonia Lactate Dehydrogenase C-Reactive Protein Total Protein Albumin 2.8 L Triglycerides Urine Creatinine Urine Microalbumin Coronavirus (PCR) 12/08/20 11:03 WBC RBC Hgb Hct MCV MCHC Lymph % (Auto) Lymph # (Auto) [place] # (Auto) Seg Neutrophils % Seg Neutrophils # PT INR D-Dimer VBG pH Sodium Potassium Chloride Carbon Dioxide BUN Creatinine Glucose POC Glucose 287 H Hemoglobin A1c Lactic Acid Phosphorus Magnesium Ferritin Total Bilirubin Direct Bilirubin AST Alkaline Phosphatase Ammonia Lactate Dehydrogenase C-Reactive Protein Total Protein Albumin Triglycerides Urine Creatinine Urine Microalbumin Coronavirus (PCR) Chest x-ray: report reviewed, image reviewed Additional Studies: CHEST 1 VIEW 12/07/2020 11:32 AM INDICATION / CLINICAL INFORMATION: sob. COMPARISON: 12/05/2020 FINDINGS: SUPPORT DEVICES: None. HEART / MEDIASTINUM: No significant abnormality. LUNGS / PLEURA: Bilateral pulmonary parenchymal opacities in the lung bases appear slightly increased. DUPLEX DOPPLER LOWER EXTREMITY VEINS, BILATERAL 4/2/21 INDICATION / CLINICAL INFORMATION: Elevated d-dimer. TECHNIQUE: Duplex doppler imaging was performed through the veins of both lower extremities using venous compression and other maneuvers. COMPARISON: None. FINDINGS: Right Common Femoral vein: Negative. Right Femoral vein: Negative. Right Popliteal vein: Negative. Right Calf veins: Negative. Left Common Femoral vein: Negative. Left Femoral vein: Negative. Left Popliteal vein: Negative. Left Calf veins: Negative. Additional findings: None. IMPRESSION: 1. No sonographic evidence for DVT in either lower extremity.
--- NOTE | 2020-12-08 13:49 | Progress Note ---
Assessment and Plan This is a 30-year-old male who was recently diagnosed with diabetes mellitus type 2 on oral hypoglycemics presented to the hospital with DKA/severe metabolic acidosis, bilateral pneumonia, positive COVID-19, KENDRA and electrolyte imbalance. Severe sepsis, POA -Likely due to underlying pneumonia and COVID-19 -Continue IV antibiotics, follow culture Positive COVID-19, patient is becoming hypoxic now -We will follow inflammatory markers -Anticoagulation with Eliquis twice daily for now -We will start on remdesivir, will hold onto dexamethasone as patient with uncontrolled hyperglycemia -Continue to follow, consulted ID- pending consult- Bilateral pneumonia -Likely due to COVID-19 infection with possible bacterial pneumonia -Patient has elevated procalcitonin, Rocephin and Zithromax for now -Wait for culture and ID consult Acute hypoxic respiratory failure -Developed from last night, likely due to underlying pneumonia -Continue scheduled breathing treatment and supplemental O2 as needed DKA Severe Metabolic Acidosis -Patient admitted with DKA protocol: s/p insulin drip, aggressive IV fluid with sodium bicarbonate drip for severe acidosis -Placed on consistent carb diet, NPH 7030 and sliding scale -Monitor blood glucose QACHS, adjust insulin dose for better glycemic control Acute kidney injury, likely vasomotor nephropathy -Continue aggressive IV fluid, follow BMP -Nephrology consult if creatinine continues to worsen -Currently creatinine responding to the fluid Hypokalemia and hypophosphatemia: Will replete and monitor Hyponatremia, likely due to hyperglycemia, continue IV fluid for now follow BMP Hyperkalemia, resolved -Likely due to severe DKA and KENDRA -Status post bicarbonate drip Transaminitis, likely due to acute hepatic failure from severe sepsis, monitor LFTs Hyperammonemia, likely due to severe dehydration and severe sepsis causing transient hepatic failure, continue to monitor Elevated D-dimer, likely due to COVID-19 infection, off anticoagulation now as developed hematuria Diabetes mellitus type 2, uncontrolled with hyperglycemia and DKA -A1c 17.8, start on long-acting and sliding scale insulin, consistent carb diet, Accu-Chek QA CHS, hypoglycemia protocol Hematuria, likely developed due to anticoagulation. Will hold on heparin product and Eliquis -Continue to monitor H&H, obtain UA - We'll provide GI and DVT prophylaxis -Full CODE STATUS -If clinically stable will transfer to IMCU/tele unit Daily clinical course: 4/3: Continue bicarbonate drip for now patient still with metabolic acidosis with high anion gap. Patient is not symptomatic with Covid. We will continue to monitor. Will follow ID recommendation. Critical care has been consulted/w ill follow recommendation 12/07: Anion gap has resolved, CO2 level 26 today. Blood glucose has been stabilized. Vitals stable. Will start on consistent carb diet NPH 7030 and sliding scale insulin. Accu-Chek QA CHS. If clinically stable transfer out from ICU-today. Continue Covid protocol, continue empiric antibiotics for pneumonia. Patient became hypoxic overnight, now on 3 L nasal cannula. Will repeat chest x-ray, start on remdesivir. Will hold onto dexamethasone as because patient has uncontrolled hyperglycemia. 12/08: Blood glucose improving slowly, will increase insulin to 35 units twice daily along with sliding scale. Noted ID recommendation appreciated. Patient getting hypoxic on ambulation, treated with remdesivir for now due to patient's high risk factor associated with deterioration of COVID-19 infection. Developed hematuria this morning which likely due to anticoagulation. Will hold anticoagulation. monitor H&H Subjective Date of service: 12/08/20 Interval history: Patient seen and examined Patient on nasal cannula O2 No nausea or vomiting Vitals stable, developed hematuria this morning On COVID-19 protocol Objective - Exam Narrative Exam: Limited physical exam due to COVID-19 pandemic to minimize transmission of the disease and to preserve PPE. Vital reviewed and stable. GENERAL: well-developed well-nourished -[place] male lying on bed appeared to be in no discomfort. HEENT: Normocephalic. Atraumatic. NECK: Supple. CHEST/LUNGS: Patient on 3L N/c HEART/CARDIOVASCULAR: Heart rate stable on telemetry ABDOMEN: Visibly not distended SKIN: There is no rash NEURO: No focal motor deficit. Follows command. MUSCULOSKELETAL: No joint effusion EXTRIMITY: No swelling, no cyanosis or clubbing. PSYCH: Cooperative. - Constitutional Vitals: Vital Signs - 12hr 12/08/20 12/08/20 12/08/20 04:00 06:05 10:00 Temperature 97.9 F Pulse Rate 102 H 100 H Pulse Rate [ 100 H Apical] Pulse Rate [ 100 H Left Dorsalis Pedis] Pulse Rate [ 100 H Left Radial] Pulse Rate [ 100 H Right Dorsalis Pedis] Pulse Rate [ 100 H Right Radial] Respiratory 22 23 Rate Blood Pressure 116/77 O2 Sat by Pulse 92 Oximetry 12/08/20 12/08/20 11:03 11:15 Temperature 98.4 F Pulse Rate 106 H Pulse Rate [ Apical] Pulse Rate [ Left Dorsalis Pedis] Pulse Rate [ Left Radial] Pulse Rate [ Right Dorsalis Pedis] Pulse Rate [ Right Radial] Respiratory 20 Rate Blood Pressure 110/75 O2 Sat by Pulse 95 Oximetry - Labs CBC & Chem 7: 12/09/20 09:39 12/09/20 05:00 Labs: Abnormal lab results 12/07/20 12/07/20 12/07/20 Range/Units 06:09 08:34 12:19 WBC (4.5-11.0) K/mm3 MCV (84-94) fl Lymph % (Auto) (13.4-35.0) % [place] # (Auto) (0.0-0.8) K/mm3 Seg Neutrophils % (40.0-70.0) % Seg Neutrophils # (1.8-7.7) K/mm3 Sodium (137-145) mmol/L Potassium (3.6-5.0) mmol/L Chloride (98-107) mmol/L Glucose (75-100) mg/dL POC Glucose 127 H 178 H 239 H (70-105) mg/dL Total Bilirubin (0.1-1.2) mg/dL AST (5-40) units/L Alkaline Phosphatase (35-129) units/L Albumin (3.9-5) g/dL 12/07/20 12/07/20 12/07/20 Range/Units 16:07 16:07 23:15 WBC (4.5-11.0) K/mm3 MCV (84-94) fl Lymph % (Auto) (13.4-35.0) % [place] # (Auto) (0.0-0.8) K/mm3 Seg Neutrophils % (40.0-70.0) % Seg Neutrophils # (1.8-7.7) K/mm3 Sodium 136 L (137-145) mmol/L Potassium 3.2 L (3.6-5.0) mmol/L Chloride (98-107) mmol/L Glucose 158 H 160 H (75-100) mg/dL POC Glucose 308 H (70-105) mg/dL Total Bilirubin 2.10 H (0.1-1.2) mg/dL AST 73 H (5-40) units/L Alkaline Phosphatase 139 H (35-129) units/L Albumin 3.0 L (3.9-5) g/dL 12/08/20 12/08/20 12/08/20 Range/Units 07:42 09:06 09:06 WBC 14.3 H (4.5-11.0) K/mm3 MCV 95 H (84-94) fl Lymph % (Auto) 8.1 L (13.4-35.0) % [place] # (Auto) 1.0 H (0.0-0.8) K/mm3 Seg Neutrophils % 84.8 H (40.0-70.0) % Seg Neutrophils # 12.1 H (1.8-7.7) K/mm3 Sodium 133 L (137-145) mmol/L Potassium 3.3 L (3.6-5.0) mmol/L Chloride 96.6 L (98-107) mmol/L Glucose 330 H (75-100) mg/dL POC Glucose 301 H (70-105) mg/dL Total Bilirubin 1.90 H (0.1-1.2) mg/dL AST 92 H (5-40) units/L Alkaline Phosphatase 142 H (35-129) units/L Albumin 2.8 L (3.9-5) g/dL 12/08/20 Range/Units 11:03 WBC (4.5-11.0) K/mm3 MCV (84-94) fl Lymph % (Auto) (13.4-35.0) % [place] # (Auto) (0.0-0.8) K/mm3 Seg Neutrophils % (40.0-70.0) % Seg Neutrophils # (1.8-7.7) K/mm3 Sodium (137-145) mmol/L Potassium (3.6-5.0) mmol/L Chloride (98-107) mmol/L Glucose (75-100) mg/dL POC Glucose 287 H (70-105) mg/dL Total Bilirubin (0.1-1.2) mg/dL AST (5-40) units/L Alkaline Phosphatase (35-129) units/L Albumin (3.9-5) g/dL
[2020-12-08] MEDS ORDERED: POTASSIUM CHLORIDE ER 20 MEQ TAB PO SCH (14:00)
[2020-12-08] MEDS: MORPHINE 2 MG/1 ML INJ IV PRN ×2 (15:39→23:05)
[2020-12-08] MEDS ORDERED: REMDESIVIR 200 MG in SODIUM CHLORIDE 0.9% 250ML 250 ML IV ONE (16:00)
[2020-12-08] MEDS ORDERED: REMDESIVIR 100 MG VIAL IV ONE (16:00)
[2020-12-08] MEDS: SODIUM CHLORIDE 0.9% 50 ML IVPB IV SCH (16:49)
[2020-12-08] MEDS: cefTRIAXone/NS 2 GM/100 ML 2 GM/100 ML BAG IV SCH ×2 (17:31→17:32)
[2020-12-08] MEDS ORDERED: REMDESIVIR 100 MG in SODIUM CHLORIDE 0.9% 250ML 250 ML IV SCH (21:00)
[2020-12-09 05:38] LABS: Alanine Aminotransferase 27 units/L (7-56); Albumin 2.8 g/dL (3.9-5); Blood Urea Nitrogen 14 mg/dL (9-20); Calcium 8.6 mg/dL (8.4-10.2); Hemolysis Index 91
[2020-12-09 06:01] LABS: BUN/Creatinine Ratio 20
[2020-12-09 06:27] LABS: C-Reactive Protein 22.3 mg/dL (0.00-1.30)
[2020-12-09] MEDS: INSULIN REGULAR, HUMAN 100 UNITS/1 ML SUB-Q SCH ×4 (08:51→22:34)
[2020-12-09] MEDS: FAMOTIDINE 20 MG TAB PO SCH ×2 (09:04→21:43)
[2020-12-09] MEDS: POTASSIUM CHLORIDE ER 20 MEQ TAB PO SCH (09:04)
[2020-12-09] MEDS: INSULIN NPH, HUMAN 100 UNIT/1 ML SUB-Q SCH ×2 (09:05→17:42)
[2020-12-09] MEDS: CHOLECALCIFEROL (VIT D3) 5,000 UNIT TAB PO SCH (09:05)
[2020-12-09] MEDS: ASCORBIC ACID 500 MG TAB PO SCH ×2 (09:05→21:43)
[2020-12-09] MEDS: ZINC SULFATE 220 MG CAP PO SCH ×2 (09:05→21:43)
[2020-12-09 10:09] LABS: Hematocrit 34.3 % (35.5-45.6); Hemoglobin 11.5 gm/dl (11.8-15.2)
--- NOTE | 2020-12-09 10:49 | Progress Note ---
Assessment and Plan Patient alert, awake.Patient is on 3 litres O2. O2 saturation 94%. Complaining non productive cough . No complaint of chest pain or shortness of breath at rest to day.. Patient denies smoking, alcohol . Says smokes marijuana. Works as service delivery management consultant. No Known drug allergies. Patient not and has two children. Patient pierce virus PCR is Positive.Patient admitted for DKA. Patient afebrile and has leukocytosis. Chest xray done 12/07/20 reported Bilateral pulmonary parenchymal opacities in the lung bases appear slightly increased. Patients inflammatory markers: Serum ferritin 65460 D Dimer 2527.04 LDH 22 85 CRP 22.3 Rest of the markers pending. Recommend CPK and Troponin levels. Patient is on REMDESIVIR, Ceftriaxone and Famotidine. - Patient Problems (1) Coronavirus infection Current Visit: Yes Status: Acute Plan to address problem: Patient is on REMDESIVIR. Recommend I/V dexamethasone. Management as per infectious diseases. (2) Pneumonia due to COVID-19 virus Current Visit: Yes Status: Acute Plan to address problem: Patient is on ceftriaxone. Antibiotics as per infectious diseases. ABGs on O2. (3) Diabetic ketoacidosis Current Visit: Yes Status: Acute Plan to address problem: Patients anion gap 15 Management as per primary care. (4) High anion gap metabolic acidosis Current Visit: No Status: Acute Plan to address problem: Improving. Todays anion gap is 15. (5) Hyponatremia Current Visit: No Status: Acute Plan to address problem: Patients to days Na+ 133 (6) Hypokalemia Current Visit: No Status: Acute Plan to address problem: K+ 3.3. recommend K+ supplementation. (7) Tobacco abuse Current Visit: No Status: Chronic Plan to address problem: Patient denies smoking. He smokes Marijuana. Counseled to stop smoking marijuana. Subjective Date of service: 12/09/20 Interval history: Patient alert, awake.Patient is on 3 litres O2. O2 saturation 94%. Complaining non productive cough . No complaint of chest pain or shortness of breath at rest to day.. Patient denies smoking, alcohol . Says smokes marijuana. Works as service delivery management consultant. No Known drug allergies. Patient not and has two children. Patient pierce virus PCR is Positive.Patient admitted for DKA. Patient afebrile and has leukocytosis. Chest xray done 12/07/20 reported Bilateral pulmonary parenchymal opacities in the lung bases appear slightly increased. Patients inflammatory markers: Serum ferritin 93283 D Dimer 2527.04 LDH 22 85 CRP 22.3 Rest of the markers pending. Recommend CPK and Troponin levels. Patient is on REMDESIVIR, Ceftriaxone and Famotidine. Objective Vital Signs - 12hr 12/08/20 12/08/20 12/09/20 23:05 23:35 00:09 Temperature Pulse Rate Respiratory 21 20 Rate Blood Pressure O2 Sat by Pulse 88 Oximetry 12/09/20 12/09/20 12/09/20 04:29 04:55 05:55 Temperature Pulse Rate Respiratory 20 18 Rate Blood Pressure O2 Sat by Pulse 99 Oximetry 12/09/20 12/09/20 06:18 07:58 Temperature 97.4 F L Pulse Rate 88 Respiratory 20 Rate Blood Pressure 122/86 O2 Sat by Pulse 95 94 Oximetry Constitutional: no acute distress, alert Eyes: non-icteric ENT: oropharynx moist Neck: supple, no lymphadenopathy Effort: mildly labored Ascultation: Bilateral: rhonchi Cardiovascular: regular rate and rhythm Gastrointestinal: normoactive bowel sounds, soft, non-tender Integumentary: normal Extremities: no cyanosis, no edema Neurologic: normal mental status, pupils equal and round Psychiatric: anxious CBC and BMP: 12/09/20 09:39 12/09/20 05:00 ABG, PT/INR, D-dimer: PT/INR, D-dimer PT 15.6 Sec. (12.2-14.9) H 12/05/20 06:46 INR 1.24 (0.87-1.13) H 12/05/20 06:46 D-Dimer 2527.04 ng/mlDDU (0-234) H 12/09/20 05:00 Abnormal lab findings: Abnormal Labs 12/05/20 12/05/20 12/05/20 06:30 06:46 06:46 WBC 19.2 H RBC 5.53 H Hgb 17.2 H Hct 57.8 H MCV 105 H MCHC 30 L Lymph % (Auto) Lymph # (Auto) [place] # (Auto) Seg Neutrophils % Seg Neutrophils # PT INR D-Dimer VBG pH Sodium 124 L Potassium 5.7 H Chloride 83.0 L Carbon Dioxide 5 L* BUN 25 H Creatinine 2.1 H Glucose 677 H* POC Glucose > 600 H Hemoglobin A1c Lactic Acid Phosphorus Magnesium Ferritin Total Bilirubin Direct Bilirubin AST 51 H Alkaline Phosphatase 250 H Ammonia Lactate Dehydrogenase C-Reactive Protein Total Protein 8.9 H Albumin Triglycerides Urine Creatinine Urine Microalbumin Coronavirus (PCR) 12/05/20 12/05/20 12/05/20 06:46 06:46 06:46 WBC RBC Hgb Hct MCV MCHC Lymph % (Auto) Lymph # (Auto) [place] # (Auto) Seg Neutrophils % Seg Neutrophils # PT 15.6 H INR 1.24 H D-Dimer VBG pH 6.814 L* Sodium Potassium Chloride Carbon Dioxide BUN Creatinine Glucose POC Glucose Hemoglobin A1c Lactic Acid Phosphorus 7.10 H Magnesium 2.70 H Ferritin Total Bilirubin Direct Bilirubin AST Alkaline Phosphatase Ammonia Lactate Dehydrogenase C-Reactive Protein Total Protein Albumin Triglycerides Urine Creatinine Urine Microalbumin Coronavirus (PCR) 12/05/20 12/05/20 12/05/20 06:46 06:46 07:53 WBC RBC Hgb Hct MCV MCHC Lymph % (Auto) Lymph # (Auto) [place] # (Auto) Seg Neutrophils % Seg Neutrophils # PT INR D-Dimer VBG pH Sodium Potassium Chloride Carbon Dioxide BUN Creatinine Glucose 690 H* POC Glucose Hemoglobin A1c Lactic Acid 4.80 H* Phosphorus Magnesium Ferritin Total Bilirubin Direct Bilirubin AST Alkaline Phosphatase Ammonia 94.0 H Lactate Dehydrogenase C-Reactive Protein Total Protein Albumin Triglycerides Urine Creatinine Urine Microalbumin Coronavirus (PCR) 12/05/20 12/05/20 12/05/20 10:24 10:24 10:24 WBC RBC Hgb Hct MCV MCHC Lymph % (Auto) Lymph # (Auto) [place] # (Auto) Seg Neutrophils % Seg Neutrophils # PT INR D-Dimer VBG pH Sodium 122 L Potassium 5.6 H Chloride 90.5 L Carbon Dioxide 2 L* BUN 28 H Creatinine 1.7 H Glucose 602 H* POC Glucose Hemoglobin A1c 17.8 H Lactic Acid Phosphorus 7.60 H Magnesium 2.70 H Ferritin Total Bilirubin Direct Bilirubin AST Alkaline Phosphatase Ammonia Lactate Dehydrogenase C-Reactive Protein Total Protein Albumin Triglycerides 368 H Urine Creatinine Urine Microalbumin Coronavirus (PCR) 12/05/20 12/05/20 12/05/20 10:28 12:36 14:55 WBC RBC Hgb Hct MCV MCHC Lymph % (Auto) Lymph # (Auto) [place] # (Auto) Seg Neutrophils % Seg Neutrophils # PT INR D-Dimer VBG pH Sodium Potassium Chloride Carbon Dioxide BUN Creatinine Glucose POC Glucose 584 H 449 H Hemoglobin A1c Lactic Acid Phosphorus Magnesium Ferritin Total Bilirubin Direct Bilirubin AST Alkaline Phosphatase Ammonia Lactate Dehydrogenase C-Reactive Protein Total Protein Albumin Triglycerides Urine Creatinine Urine Microalbumin Coronavirus (PCR) Positive A 12/05/20 12/05/20 12/05/20 16:03 16:03 16:03 WBC RBC Hgb Hct MCV MCHC Lymph % (Auto) Lymph # (Auto) [place] # (Auto) Seg Neutrophils % Seg Neutrophils # PT INR D-Dimer 4712.93 H VBG pH Sodium 130 L D Potassium 6.6 H* Chloride 95.5 L Carbon Dioxide 5 L* BUN 28 H Creatinine 1.9 H Glucose 437 H POC Glucose Hemoglobin A1c Lactic Acid 4.80 H* Phosphorus Magnesium Ferritin Total Bilirubin Direct Bilirubin AST Alkaline Phosphatase Ammonia Lactate Dehydrogenase C-Reactive Protein Total Protein Albumin Triglycerides Urine Creatinine Urine Microalbumin Coronavirus (PCR) 12/05/20 12/05/20 12/05/20 16:03 16:03 16:57 WBC RBC Hgb Hct MCV MCHC Lymph % (Auto) Lymph # (Auto) [place] # (Auto) Seg Neutrophils % Seg Neutrophils # PT INR D-Dimer VBG pH Sodium Potassium Chloride Carbon Dioxide BUN Creatinine Glucose 449 H POC Glucose 446 H Hemoglobin A1c Lactic Acid Phosphorus Magnesium Ferritin > 2000.0 H Total Bilirubin Direct Bilirubin AST Alkaline Phosphatase Ammonia Lactate Dehydrogenase 576 H C-Reactive Protein 7.10 H Total Protein Albumin Triglycerides Urine Creatinine Urine Microalbumin Coronavirus (PCR) 12/05/20 12/05/20 12/05/20 17:47 18:46 19:11 WBC RBC Hgb Hct MCV MCHC Lymph % (Auto) Lymph # (Auto) [place] # (Auto) Seg Neutrophils % Seg Neutrophils # PT INR D-Dimer VBG pH Sodium 136 L Potassium 5.1 H D Chloride 97.2 L Carbon Dioxide 10 L BUN 31 H Creatinine 1.7 H Glucose 341 H POC Glucose 425 H 343 H Hemoglobin A1c Lactic Acid Phosphorus Magnesium Ferritin Total Bilirubin Direct Bilirubin AST Alkaline Phosphatase Ammonia Lactate Dehydrogenase C-Reactive Protein Total Protein Albumin Triglycerides Urine Creatinine Urine Microalbumin Coronavirus (PCR) 12/05/20 12/05/20 12/05/20 19:11 20:09 20:59 WBC RBC Hgb Hct MCV MCHC Lymph % (Auto) Lymph # (Auto) [place] # (Auto) Seg Neutrophils % Seg Neutrophils # PT INR D-Dimer VBG pH Sodium Potassium Chloride Carbon Dioxide BUN Creatinine Glucose POC Glucose 345 H 304 H Hemoglobin A1c Lactic Acid 4.30 H* Phosphorus Magnesium Ferritin Total Bilirubin Direct Bilirubin AST Alkaline Phosphatase Ammonia Lactate Dehydrogenase C-Reactive Protein Total Protein Albumin Triglycerides Urine Creatinine Urine Microalbumin Coronavirus (PCR) 12/05/20 12/05/20 12/06/20 21:57 23:01 00:01 WBC RBC Hgb Hct MCV MCHC Lymph % (Auto) Lymph # (Auto) [place] # (Auto) Seg Neutrophils % Seg Neutrophils # PT INR D-Dimer VBG pH Sodium Potassium Chloride Carbon Dioxide BUN Creatinine Glucose POC Glucose 259 H 325 H 297 H Hemoglobin A1c Lactic Acid Phosphorus Magnesium Ferritin Total Bilirubin Direct Bilirubin AST Alkaline Phosphatase Ammonia Lactate Dehydrogenase C-Reactive Protein Total Protein Albumin Triglycerides Urine Creatinine Urine Microalbumin Coronavirus (PCR) 12/06/20 12/06/20 12/06/20 00:24 01:01 01:56 WBC RBC Hgb Hct MCV MCHC Lymph % (Auto) Lymph # (Auto) [place] # (Auto) Seg Neutrophils % Seg Neutrophils # PT INR D-Dimer VBG pH Sodium 134 L Potassium Chloride Carbon Dioxide 8 L* BUN 29 H Creatinine Glucose 298 H POC Glucose 270 H 225 H Hemoglobin A1c Lactic Acid Phosphorus Magnesium Ferritin Total Bilirubin Direct Bilirubin AST Alkaline Phosphatase Ammonia Lactate Dehydrogenase C-Reactive Protein Total Protein Albumin Triglycerides Urine Creatinine Urine Microalbumin Coronavirus (PCR) 12/06/20 12/06/20 12/06/20 03:01 03:59 04:55 WBC RBC Hgb Hct MCV MCHC Lymph % (Auto) Lymph # (Auto) [place] # (Auto) Seg Neutrophils % Seg Neutrophils # PT INR D-Dimer VBG pH Sodium Potassium Chloride Carbon Dioxide BUN Creatinine Glucose POC Glucose 231 H 168 H 137 H Hemoglobin A1c Lactic Acid Phosphorus Magnesium Ferritin Total Bilirubin Direct Bilirubin AST Alkaline Phosphatase Ammonia Lactate Dehydrogenase C-Reactive Protein Total Protein Albumin Triglycerides Urine Creatinine Urine Microalbumin Coronavirus (PCR) 12/06/20 12/06/20 12/06/20 05:58 06:56 07:44 WBC RBC Hgb Hct MCV MCHC Lymph % (Auto) Lymph # (Auto) [place] # (Auto) Seg Neutrophils % Seg Neutrophils # PT INR D-Dimer VBG pH Sodium Potassium Chloride Carbon Dioxide BUN Creatinine Glucose POC Glucose 149 H 205 H 150 H Hemoglobin A1c Lactic Acid Phosphorus Magnesium Ferritin Total Bilirubin Direct Bilirubin AST Alkaline Phosphatase Ammonia Lactate Dehydrogenase C-Reactive Protein Total Protein Albumin Triglycerides Urine Creatinine Urine Microalbumin Coronavirus (PCR) 12/06/20 12/06/20 12/06/20 08:16 09:03 09:53 WBC RBC Hgb Hct MCV MCHC Lymph % (Auto) Lymph # (Auto) [place] # (Auto) Seg Neutrophils % Seg Neutrophils # PT INR D-Dimer VBG pH Sodium Potassium Chloride Carbon Dioxide 14 L BUN 23 H Creatinine Glucose 136 H POC Glucose 132 H Hemoglobin A1c Lactic Acid Phosphorus Magnesium Ferritin Total Bilirubin Direct Bilirubin AST Alkaline Phosphatase Ammonia Lactate Dehydrogenase C-Reactive Protein Total Protein Albumin Triglycerides Urine Creatinine 101.5 H Urine Microalbumin Coronavirus (PCR) 12/06/20 12/06/20 12/06/20 10:11 10:36 11:14 WBC RBC Hgb Hct MCV MCHC Lymph % (Auto) Lymph # (Auto) [place] # (Auto) Seg Neutrophils % Seg Neutrophils # PT INR D-Dimer VBG pH Sodium Potassium Chloride Carbon Dioxide BUN Creatinine Glucose POC Glucose 137 H 127 H Hemoglobin A1c Lactic Acid Phosphorus Magnesium Ferritin Total Bilirubin Direct Bilirubin AST Alkaline Phosphatase Ammonia Lactate Dehydrogenase C-Reactive Protein Total Protein Albumin Triglycerides Urine Creatinine 101.0 H Urine Microalbumin 36.9 H Coronavirus (PCR) 12/06/20 12/06/20 12/06/20 12:01 13:12 14:02 WBC RBC Hgb Hct MCV MCHC Lymph % (Auto) Lymph # (Auto) [place] # (Auto) Seg Neutrophils % Seg Neutrophils # PT INR D-Dimer VBG pH Sodium Potassium Chloride Carbon Dioxide BUN Creatinine Glucose POC Glucose 136 H 139 H 132 H Hemoglobin A1c Lactic Acid Phosphorus Magnesium Ferritin Total Bilirubin Direct Bilirubin AST Alkaline Phosphatase Ammonia Lactate Dehydrogenase C-Reactive Protein Total Protein Albumin Triglycerides Urine Creatinine Urine Microalbumin Coronavirus (PCR) 12/06/20 12/06/20 12/06/20 15:50 17:12 18:10 WBC RBC Hgb Hct MCV MCHC Lymph % (Auto) Lymph # (Auto) [place] # (Auto) Seg Neutrophils % Seg Neutrophils # PT INR D-Dimer VBG pH Sodium Potassium Chloride Carbon Dioxide BUN Creatinine Glucose POC Glucose 133 H 130 H 114 H Hemoglobin A1c Lactic Acid Phosphorus Magnesium Ferritin Total Bilirubin Direct Bilirubin AST Alkaline Phosphatase Ammonia Lactate Dehydrogenase C-Reactive Protein Total Protein Albumin Triglycerides Urine Creatinine Urine Microalbumin Coronavirus (PCR) 12/06/20 12/06/20 12/06/20 21:08 22:06 23:19 WBC RBC Hgb Hct MCV MCHC Lymph % (Auto) Lymph # (Auto) [place] # (Auto) Seg Neutrophils % Seg Neutrophils # PT INR D-Dimer VBG pH Sodium Potassium Chloride Carbon Dioxide BUN Creatinine Glucose POC Glucose 127 H 148 H 144 H Hemoglobin A1c Lactic Acid Phosphorus Magnesium Ferritin Total Bilirubin Direct Bilirubin AST Alkaline Phosphatase Ammonia Lactate Dehydrogenase C-Reactive Protein Total Protein Albumin Triglycerides Urine Creatinine Urine Microalbumin Coronavirus (PCR) 12/07/20 12/07/20 12/07/20 00:08 01:04 02:05 WBC RBC Hgb Hct MCV MCHC Lymph % (Auto) Lymph # (Auto) [place] # (Auto) Seg Neutrophils % Seg Neutrophils # PT INR D-Dimer VBG pH Sodium Potassium Chloride Carbon Dioxide BUN Creatinine Glucose POC Glucose 157 H 118 H 143 H Hemoglobin A1c Lactic Acid Phosphorus Magnesium Ferritin Total Bilirubin Direct Bilirubin AST Alkaline Phosphatase Ammonia Lactate Dehydrogenase C-Reactive Protein Total Protein Albumin Triglycerides Urine Creatinine Urine Microalbumin Coronavirus (PCR) 12/07/20 12/07/20 12/07/20 03:03 03:25 03:25 WBC RBC Hgb Hct MCV MCHC Lymph % (Auto) Lymph # (Auto) [place] # (Auto) Seg Neutrophils % Seg Neutrophils # PT INR D-Dimer 1950.73 H VBG pH Sodium Potassium Chloride Carbon Dioxide BUN Creatinine Glucose POC Glucose 119 H Hemoglobin A1c Lactic Acid Phosphorus Magnesium Ferritin 7009.0 H Total Bilirubin Direct Bilirubin AST Alkaline Phosphatase Ammonia Lactate Dehydrogenase C-Reactive Protein Total Protein Albumin Triglycerides Urine Creatinine Urine Microalbumin Coronavirus (PCR) 12/07/20 12/07/20 12/07/20 03:25 03:25 04:09 WBC 15.8 H RBC 5.21 H Hgb 16.2 H Hct 47.9 H D MCV MCHC Lymph % (Auto) 6.1 L Lymph # (Auto) 1.0 L [place] # (Auto) Seg Neutrophils % 88.5 H Seg Neutrophils # 14.0 H PT INR D-Dimer VBG pH Sodium Potassium 3.0 L D Chloride Carbon Dioxide BUN Creatinine Glucose 108 H POC Glucose 155 H Hemoglobin A1c Lactic Acid Phosphorus 0.70 L* D Magnesium Ferritin Total Bilirubin 1.70 H Direct Bilirubin 0.5 H AST 52 H Alkaline Phosphatase 131 H Ammonia Lactate Dehydrogenase 821 H C-Reactive Protein 13.80 H Total Protein Albumin 3.6 L Triglycerides Urine Creatinine Urine Microalbumin Coronavirus (PCR) 12/07/20 12/07/20 12/07/20 06:09 08:34 12:19 WBC RBC Hgb Hct MCV MCHC Lymph % (Auto) Lymph # (Auto) [place] # (Auto) Seg Neutrophils % Seg Neutrophils # PT INR D-Dimer VBG pH Sodium Potassium Chloride Carbon Dioxide BUN Creatinine Glucose POC Glucose 127 H 178 H 239 H Hemoglobin A1c Lactic Acid Phosphorus Magnesium Ferritin Total Bilirubin Direct Bilirubin AST Alkaline Phosphatase Ammonia Lactate Dehydrogenase C-Reactive Protein Total Protein Albumin Triglycerides Urine Creatinine Urine Microalbumin Coronavirus (PCR) 12/07/20 12/07/20 12/07/20 16:07 16:07 23:15 WBC RBC Hgb Hct MCV MCHC Lymph % (Auto) Lymph # (Auto) [place] # (Auto) Seg Neutrophils % Seg Neutrophils # PT INR D-Dimer VBG pH Sodium 136 L Potassium 3.2 L Chloride Carbon Dioxide BUN Creatinine Glucose 158 H 160 H POC Glucose 308 H Hemoglobin A1c Lactic Acid Phosphorus Magnesium Ferritin Total Bilirubin 2.10 H Direct Bilirubin AST 73 H Alkaline Phosphatase 139 H Ammonia Lactate Dehydrogenase C-Reactive Protein Total Protein Albumin 3.0 L Triglycerides Urine Creatinine Urine Microalbumin Coronavirus (PCR) 12/08/20 12/08/20 12/08/20 07:42 09:06 09:06 WBC 14.3 H RBC Hgb Hct MCV 95 H MCHC Lymph % (Auto) 8.1 L Lymph # (Auto) [place] # (Auto) 1.0 H Seg Neutrophils % 84.8 H Seg Neutrophils # 12.1 H PT INR D-Dimer VBG pH Sodium 133 L Potassium 3.3 L Chloride 96.6 L Carbon Dioxide BUN Creatinine Glucose 330 H POC Glucose 301 H Hemoglobin A1c Lactic Acid Phosphorus Magnesium Ferritin Total Bilirubin 1.90 H Direct Bilirubin AST 92 H Alkaline Phosphatase 142 H Ammonia Lactate Dehydrogenase C-Reactive Protein Total Protein Albumin 2.8 L Triglycerides Urine Creatinine Urine Microalbumin Coronavirus (PCR) 12/08/20 12/08/20 12/08/20 11:03 16:28 22:19 WBC RBC Hgb Hct MCV MCHC Lymph % (Auto) Lymph # (Auto) [place] # (Auto) Seg Neutrophils % Seg Neutrophils # PT INR D-Dimer VBG pH Sodium Potassium Chloride Carbon Dioxide BUN Creatinine Glucose POC Glucose 287 H 125 H 130 H Hemoglobin A1c Lactic Acid Phosphorus Magnesium Ferritin Total Bilirubin Direct Bilirubin AST Alkaline Phosphatase Ammonia Lactate Dehydrogenase C-Reactive Protein Total Protein Albumin Triglycerides Urine Creatinine Urine Microalbumin Coronavirus (PCR) 12/09/20 12/09/20 12/09/20 05:00 05:00 05:00 WBC RBC Hgb Hct MCV MCHC Lymph % (Auto) Lymph # (Auto) [place] # (Auto) Seg Neutrophils % Seg Neutrophils # PT INR D-Dimer 2527.04 H VBG pH Sodium Potassium Chloride Carbon Dioxide BUN Creatinine Glucose POC Glucose Hemoglobin A1c Lactic Acid Phosphorus Magnesium Ferritin 18130.0 H Total Bilirubin Direct Bilirubin AST Alkaline Phosphatase Ammonia Lactate Dehydrogenase 2285 H C-Reactive Protein 22.30 H Total Protein Albumin Triglycerides Urine Creatinine Urine Microalbumin Coronavirus (PCR) 12/09/20 12/09/20 12/09/20 05:00 08:03 09:39 WBC RBC Hgb 11.5 L Hct 34.3 L MCV MCHC Lymph % (Auto) Lymph # (Auto) [place] # (Auto) Seg Neutrophils % Seg Neutrophils # PT INR D-Dimer VBG pH Sodium Potassium 3.2 L Chloride Carbon Dioxide BUN Creatinine 0.7 L Glucose 151 H POC Glucose 139 H Hemoglobin A1c Lactic Acid Phosphorus Magnesium Ferritin Total Bilirubin 2.30 H Direct Bilirubin AST 98 H Alkaline Phosphatase 134 H Ammonia Lactate Dehydrogenase C-Reactive Protein Total Protein Albumin 2.8 L Triglycerides Urine Creatinine Urine Microalbumin Coronavirus (PCR)
--- NOTE | 2020-12-09 14:40 | Progress Note ---
Assessment and Plan This is a 30-year-old male who was recently diagnosed with diabetes mellitus type 2 on oral hypoglycemics presented to the hospital with DKA/severe metabolic acidosis, bilateral pneumonia, positive COVID-19, KENDRA and electrolyte imbalance. Severe sepsis, POA -Likely due to underlying pneumonia and COVID-19 -Continue IV antibiotics, follow culture Positive COVID-19, patient is becoming hypoxic now -We will follow inflammatory markers -Anticoagulation with Eliquis twice daily for now -We will start on remdesivir, will hold onto dexamethasone as patient with uncontrolled hyperglycemia -Continue to follow, consulted ID- pending consult- Bilateral pneumonia -Likely due to COVID-19 infection with possible bacterial pneumonia -Patient has elevated procalcitonin, Rocephin and Zithromax for now -Wait for culture and ID consult Acute hypoxic respiratory failure -Developed from last night, likely due to underlying pneumonia -Continue scheduled breathing treatment and supplemental O2 as needed DKA Severe Metabolic Acidosis -Patient admitted with DKA protocol: s/p insulin drip, aggressive IV fluid with sodium bicarbonate drip for severe acidosis -Placed on consistent carb diet, NPH 7030 and sliding scale -Monitor blood glucose QACHS, adjust insulin dose for better glycemic control Acute kidney injury, likely vasomotor nephropathy -Continue aggressive IV fluid, follow BMP -Nephrology consult if creatinine continues to worsen -Currently creatinine responding to the fluid Hypokalemia and hypophosphatemia: Will replete and monitor Hyponatremia, likely due to hyperglycemia, continue IV fluid for now follow BMP Hyperkalemia, resolved -Likely due to severe DKA and KENDRA -Status post bicarbonate drip Transaminitis, likely due to acute hepatic failure from severe sepsis, monitor LFTs Hyperammonemia, likely due to severe dehydration and severe sepsis causing transient hepatic failure, continue to monitor Elevated D-dimer, likely due to COVID-19 infection, off anticoagulation now as developed hematuria Diabetes mellitus type 2, uncontrolled with hyperglycemia and DKA -A1c 17.8, start on long-acting and sliding scale insulin, consistent carb diet, Accu-Chek QA CHS, hypoglycemia protocol Hematuria, likely developed due to anticoagulation. Will hold on heparin product and Eliquis -Continue to monitor H&H, obtain UA - We'll provide GI and DVT prophylaxis -Full CODE STATUS -If clinically stable will transfer to IMCU/tele unit Daily clinical course: 4/3: Continue bicarbonate drip for now patient still with metabolic acidosis with high anion gap. Patient is not symptomatic with Covid. We will continue to monitor. Will follow ID recommendation. Critical care has been consulted/w ill follow recommendation 12/07: Anion gap has resolved, CO2 level 26 today. Blood glucose has been stabilized. Vitals stable. Will start on consistent carb diet NPH 7030 and sliding scale insulin. Accu-Chek QA CHS. If clinically stable transfer out from ICU-today. Continue Covid protocol, continue empiric antibiotics for pneumonia. Patient became hypoxic overnight, now on 3 L nasal cannula. Will repeat chest x-ray, start on remdesivir. Will hold onto dexamethasone as because patient has uncontrolled hyperglycemia. 12/08: Blood glucose improving slowly, will increase insulin to 35 units twice daily along with sliding scale. Noted ID recommendation appreciated. Patient getting hypoxic on ambulation, treated with remdesivir for now due to patient's high risk factor associated with deterioration of COVID-19 infection. Developed hematuria this morning which likely due to anticoagulation. Will hold anticoagulation. monitor H&H 12/09: Patient remains on 3 to 5 L nasal cannula, inflammatory markers trending up. Day 2 of remdesivir today. Continue to follow clinically, replete el ectrolytes. Blood glucose much stable, follow ID recommendation. DC IV fluid today, get repeat chest x-ray. Monitor for fluid overload and pulmonary edema. Lasix IV as needed. Patients inflammatory markers today: Serum ferritin 17633, D Dimer 2527.04, LDH 22 85, CRP 22.3 Subjective Date of service: 12/09/20 Interval history: Patient seen and examined Patient on nasal cannula O2 No nausea or vomiting Vitals stable, continue to have hematuriaH&H stable so far On COVID-19 protocol Objective - Exam Narrative Exam: Limited physical exam due to COVID-19 pandemic to minimize transmission of the disease and to preserve PPE. Vital reviewed and stable. GENERAL: well-developed well-nourished -[place] male lying on bed appeared to be in no discomfort. HEENT: Normocephalic. Atraumatic. NECK: Supple. CHEST/LUNGS: Patient on 3L N/c HEART/CARDIOVASCULAR: Heart rate stable on telemetry ABDOMEN: Visibly not distended, klever colored urine in the Baer bag SKIN: There is no rash NEURO: No focal motor deficit. Follows command. MUSCULOSKELETAL: No joint effusion EXTRIMITY: No swelling, no cyanosis or clubbing. PSYCH: Cooperative. - Constitutional Vitals: Vital Signs - 12hr 12/09/20 12/09/20 12/09/20 04:29 04:55 05:55 Temperature Pulse Rate Respiratory 20 18 Rate Blood Pressure O2 Sat by Pulse 99 Oximetry 12/09/20 12/09/20 12/09/20 06:18 07:58 10:00 Temperature 97.4 F L Pulse Rate 88 Respiratory 20 20 Rate Blood Pressure 122/86 O2 Sat by Pulse 95 94 Oximetry 12/09/20 12:30 Temperature 98.6 F Pulse Rate 82 Respiratory 18 Rate Blood Pressure 115/84 O2 Sat by Pulse 93 Oximetry - Labs CBC & Chem 7: 12/09/20 09:39 12/09/20 15:36 Labs: Abnormal lab results 12/08/20 12/08/20 12/09/20 Range/Units 16:28 22:19 05:00 Hgb (11.8-15.2) gm/dl Hct (35.5-45.6) % D-Dimer 2527.04 H (0-234) ng/mlDDU Potassium (3.6-5.0) mmol/L Creatinine (0.8-1.3) mg/dL Glucose (75-100) mg/dL POC Glucose 125 H 130 H (70-105) mg/dL Ferritin (30.0-300.0) ng/mL Total Bilirubin (0.1-1.2) mg/dL AST (5-40) units/L Alkaline Phosphatase (35-129) units/L Lactate Dehydrogenase (91-180) units/L C-Reactive Protein (0.00-1.30) mg/dL Albumin (3.9-5) g/dL 12/09/20 12/09/20 12/09/20 Range/Units 05:00 05:00 05:00 Hgb (11.8-15.2) gm/dl Hct (35.5-45.6) % D-Dimer (0-234) ng/mlDDU Potassium 3.2 L (3.6-5.0) mmol/L Creatinine 0.7 L (0.8-1.3) mg/dL Glucose 151 H (75-100) mg/dL POC Glucose (70-105) mg/dL Ferritin 15062.0 H (30.0-300.0) ng/mL Total Bilirubin 2.30 H (0.1-1.2) mg/dL AST 98 H (5-40) units/L Alkaline Phosphatase 134 H (35-129) units/L Lactate Dehydrogenase 2285 H (91-180) units/L C-Reactive Protein 22.30 H (0.00-1.30) mg/dL Albumin 2.8 L (3.9-5) g/dL 12/09/20 12/09/20 12/09/20 Range/Units 08:03 09:39 10:57 Hgb 11.5 L (11.8-15.2) gm/dl Hct 34.3 L (35.5-45.6) % D-Dimer (0-234) ng/mlDDU Potassium (3.6-5.0) mmol/L Creatinine (0.8-1.3) mg/dL Glucose (75-100) mg/dL POC Glucose 139 H 221 H (70-105) mg/dL Ferritin (30.0-300.0) ng/mL Total Bilirubin (0.1-1.2) mg/dL AST (5-40) units/L Alkaline Phosphatase (35-129) units/L Lactate Dehydrogenase (91-180) units/L C-Reactive Protein (0.00-1.30) mg/dL Albumin (3.9-5) g/dL
--- NOTE | 2020-12-09 15:04 | Progress Note ---
Assessment and Plan Cultures: Blood culture 12/05/2020: No growth so far A/P: 30-year-old man past medical history insulin-dependent diabetes admitted with DKA, Covid #Severe sepsis: Present on admission, likely secondary to pneumonia. #Severe COVID-19 pneumonia: Markers elevated. Worsening ferritin 37K, Ddimer and CRP. Possible component of bacterial pneumonia elevated procalcitonin 7.1-->1.6, however patient was an KENDRA. US no DVT. #Acute hypoxemic respiratory failure #DKA: May be at least partially secondary to COVID-19 infection. Management per primary. #KENDRA: Resolved #Transaminitis: worsening Recs: -Consider CTA eval for PE -Continue empiric ceftriaxone for 5 days and azithromycin for 3 days. -Continue remdesivir -Start dexamenthasone -Consider tociluzimab if hypoxia worsens -Anticoagulation per hospital protocol -DKA management per primary. close monitoring Tika Hallman MD [facility] ([facility]) Office [phone] Subjective Date of service: 12/09/20 Principal diagnosis: COVID Interval history: Remains on 3L NC, no fever Objective - Exam Narrative Exam: Physical exam deferred to minimize COVID-19 transmission during pandemic. - Constitutional Vitals: Vital Signs Temp Pulse Resp BP Pulse Ox 98.6 F 82 18 115/84 93 12/09/20 12:30 12/09/20 12:30 12/09/20 12:30 12/09/20 12:30 12/09/20 12:30 Temperature -Last 24 Hours Temperature 98.6 F Temperature 97.4 F Temperature 97.4 F Temperature 97.3 F - Labs CBC & Chem 7: 12/09/20 09:39 12/09/20 05:00 Labs: Abnormal lab results 12/08/20 12/08/20 12/09/20 Range/Units 16:28 22:19 05:00 Hgb (11.8-15.2) gm/dl Hct (35.5-45.6) % D-Dimer 2527.04 H (0-234) ng/mlDDU Potassium (3.6-5.0) mmol/L Creatinine (0.8-1.3) mg/dL Glucose (75-100) mg/dL POC Glucose 125 H 130 H (70-105) mg/dL Ferritin (30.0-300.0) ng/mL Total Bilirubin (0.1-1.2) mg/dL AST (5-40) units/L Alkaline Phosphatase (35-129) units/L Lactate Dehydrogenase (91-180) units/L C-Reactive Protein (0.00-1.30) mg/dL Albumin (3.9-5) g/dL 12/09/20 12/09/20 12/09/20 Range/Units 05:00 05:00 05:00 Hgb (11.8-15.2) gm/dl Hct (35.5-45.6) % D-Dimer (0-234) ng/mlDDU Potassium 3.2 L (3.6-5.0) mmol/L Creatinine 0.7 L (0.8-1.3) mg/dL Glucose 151 H (75-100) mg/dL POC Glucose (70-105) mg/dL Ferritin 30923.0 H (30.0-300.0) ng/mL Total Bilirubin 2.30 H (0.1-1.2) mg/dL AST 98 H (5-40) units/L Alkaline Phosphatase 134 H (35-129) units/L Lactate Dehydrogenase 2285 H (91-180) units/L C-Reactive Protein 22.30 H (0.00-1.30) mg/dL Albumin 2.8 L (3.9-5) g/dL 12/09/20 12/09/20 12/09/20 Range/Units 08:03 09:39 10:57 Hgb 11.5 L (11.8-15.2) gm/dl Hct 34.3 L (35.5-45.6) % D-Dimer (0-234) ng/mlDDU Potassium (3.6-5.0) mmol/L Creatinine (0.8-1.3) mg/dL Glucose (75-100) mg/dL POC Glucose 139 H 221 H (70-105) mg/dL Ferritin (30.0-300.0) ng/mL Total Bilirubin (0.1-1.2) mg/dL AST (5-40) units/L Alkaline Phosphatase (35-129) units/L Lactate Dehydrogenase (91-180) units/L C-Reactive Protein (0.00-1.30) mg/dL Albumin (3.9-5) g/dL
--- NOTE | 2020-12-09 15:19 | XRay Report ---
Chest single view INDICATION: Dyspnea IMPRESSION: Severe bilateral lower lobe airspace pneumonia. The upper lungs are clear. Signer Name: Best Rojo MD Signed: 12/09/2020 3:15 PM Workstation Name: [id number]
[2020-12-09] MEDS: dexAMETHasone 4 MG/ML VIAL IV SCH (17:39)
[2020-12-09] MEDS: cefTRIAXone/NS 2 GM/100 ML 2 GM/100 ML BAG IV SCH (17:39)
[2020-12-09] MEDS: guaiFENesin DM 200/20 MG ORAL LIQD 10 ML PO PRN ×2 (18:09→23:37)
[2020-12-09] MEDS ORDERED: diphenhydrAMINE/ZINC ACET 2% CREAM 28.4 GM TP PRN (18:19)
[2020-12-09] MEDS: REMDESIVIR 100 MG in SODIUM CHLORIDE 0.9% 250ML 250 ML IV SCH (21:43)
[2020-12-09] MEDS: SODIUM CHLORIDE 0.9% 50 ML IVPB IV SCH (21:43)
[2020-12-09 23:02] LABS: ABG Base Excess 0.2 mmol/L (-2.0-3.0); ABG HCO3 25.3 mmol/L (20.0-26.0); ABG Methemoglobin 1.9 % (0.0-1.5); ABG Oxygen Saturation 99.1 % (95.0-99.0); ABG PCO2 42.4 mm Hg; ABG PH 7.394 pH Units (7.350-7.450)
[2020-12-10] MEDS: INSULIN NPH, HUMAN 100 UNIT/1 ML SUB-Q SCH ×2 (08:31→17:31)
[2020-12-10 08:51] LABS: Hematocrit 30.8 % (35.5-45.6); Hemoglobin 10.2 gm/dl (11.8-15.2); Mean Corpuscular HGB Conc 33 % (32-34); Mean Corpuscular Volume 97 fl (84-94); Platelet Count 279 K/mm3 (140-440); Red Blood Count 3.18 M/mm3 (3.65-5.03); Red Cell Distribution Width 14.2 % (13.2-15.2)
--- NOTE | 2020-12-10 08:52 | Progress Note ---
Assessment and Plan This is a 30-year-old male who was recently diagnosed with diabetes mellitus type 2 on oral hypoglycemics presented to the hospital with DKA/severe metabolic acidosis, bilateral pneumonia, positive COVID-19, KENDRA and electrolyte imbalance. Severe sepsis, POA -Likely due to underlying pneumonia and COVID-19 -Continue IV antibiotics, follow culture Positive COVID-19, patient is becoming hypoxic now -We will follow inflammatory markers -Anticoagulation with Eliquis twice daily for now -We will start on remdesivir, will hold onto dexamethasone as patient with uncontrolled hyperglycemia -Continue to follow, consulted ID- pending consult- Bilateral pneumonia -Likely due to COVID-19 infection with possible bacterial pneumonia -Patient has elevated procalcitonin, Rocephin and Zithromax for now -Wait for culture and ID consult Acute hypoxic respiratory failure -Developed from last night, likely due to underlying pneumonia -Continue scheduled breathing treatment and supplemental O2 as needed DKA Severe Metabolic Acidosis -Patient admitted with DKA protocol: s/p insulin drip, aggressive IV fluid with sodium bicarbonate drip for severe acidosis -Placed on consistent carb diet, NPH 7030 and sliding scale -Monitor blood glucose QACHS, adjust insulin dose for better glycemic control Acute kidney injury, likely vasomotor nephropathy -Continue aggressive IV fluid, follow BMP -Nephrology consult if creatinine continues to worsen -Currently creatinine responding to the fluid Hypokalemia and hypophosphatemia: Will replete and monitor Hyponatremia, likely due to hyperglycemia, continue IV fluid for now follow BMP Hyperkalemia, resolved -Likely due to severe DKA and KENDRA -Status post bicarbonate drip Transaminitis, likely due to acute hepatic failure from severe sepsis, monitor LFTs Hyperammonemia, likely due to severe dehydration and severe sepsis causing transient hepatic failure, continue to monitor Elevated D-dimer, likely due to COVID-19 infection, off anticoagulation now as developed hematuria Diabetes mellitus type 2, uncontrolled with hyperglycemia and DKA -A1c 17.8, start on long-acting and sliding scale insulin, consistent carb diet, Accu-Chek QA CHS, hypoglycemia protocol Hematuria, likely developed due to anticoagulation. Will hold on heparin product and Eliquis -Continue to monitor H&H, obtain UA - We'll provide GI and DVT prophylaxis -Full CODE STATUS -If clinically stable will transfer to IMCU/tele unit Daily clinical course: 4/3: Continue bicarbonate drip for now patient still with metabolic acidosis with high anion gap. Patient is not symptomatic with Covid. We will continue to monitor. Will follow ID recommendation. Critical care has been consulted/w ill follow recommendation 12/07: Anion gap has resolved, CO2 level 26 today. Blood glucose has been stabilized. Vitals stable. Will start on consistent carb diet NPH 7030 and sliding scale insulin. Accu-Chek QA CHS. If clinically stable transfer out from ICU-today. Continue Covid protocol, continue empiric antibiotics for pneumonia. Patient became hypoxic overnight, now on 3 L nasal cannula. Will repeat chest x-ray, start on remdesivir. Will hold onto dexamethasone as because patient has uncontrolled hyperglycemia. 12/08: Blood glucose improving slowly, will increase insulin to 35 units twice daily along with sliding scale. Noted ID recommendation appreciated. Patient getting hypoxic on ambulation, treated with remdesivir for now due to patient's high risk factor associated with deterioration of COVID-19 infection. Developed hematuria this morning which likely due to anticoagulation. Will hold anticoagulation. monitor H&H 12/09: Patient remains on 3 to 5 L nasal cannula, inflammatory markers trending up. Day 2 of remdesivir today. Continue to follow clinically, replete el ectrolytes. Blood glucose much stable, follow ID recommendation. DC IV fluid today, get repeat chest x-ray. Monitor for fluid overload and pulmonary edema. Lasix IV as needed. Patients inflammatory markers today: Serum ferritin 97468, D Dimer 2527.04, LDH 22 85, CRP 22.3 12/10: Blood glucose level above 400 today, started on dexamethasone by ID as patient having pending lab and inflammatory markers. Will increase NPH dose, continue sliding scale of insulin, day 3 of remdesivir today. Follow inflammatory markers, follow H&H. Continue to have hematochezia. Ordered CT abdomen pelvis for persistent hematuria and pulmonary VQ scan for possible pulmonary embolism. Subjective Date of service: 12/10/20 Principal diagnosis: COVID Interval history: Patient seen and examined Patient on nasal cannula O2 No nausea or vomiting Vitals stable, continue to have hematuriaH&H slightly trending down On COVID-19 protocol Objective - Exam Narrative Exam: Limited physical exam due to COVID-19 pandemic to minimize transmission of the disease and to preserve PPE. Vital reviewed and stable. GENERAL: well-developed well-nourished -[place] male lying on bed appeared to be in no discomfort. HEENT: Normocephalic. Atraumatic. NECK: Supple. CHEST/LUNGS: Patient on 3L N/c HEART/CARDIOVASCULAR: Heart rate stable on telemetry ABDOMEN: Visibly not distended, klever colored urine in the Baer bag SKIN: There is no rash NEURO: No focal motor deficit. Follows command. MUSCULOSKELETAL: No joint effusion EXTRIMITY: No swelling, no cyanosis or clubbing. PSYCH: Cooperative. - Constitutional Vitals: Vital Signs - 12hr 12/09/20 12/09/20 12/09/20 22:00 22:08 23:57 Temperature 98.4 F Pulse Rate 83 Respiratory 22 20 Rate Blood Pressure 115/71 O2 Sat by Pulse 97 96 94 Oximetry 12/10/20 06:14 Temperature 99.0 F Pulse Rate 85 Respiratory 20 Rate Blood Pressure 118/79 O2 Sat by Pulse 92 Oximetry - Labs CBC & Chem 7: 12/11/20 03:59 12/11/20 03:59 Labs: Abnormal lab results 12/09/20 12/09/20 12/09/20 Range/Units 09:39 10:57 15:36 Hgb 11.5 L (11.8-15.2) gm/dl Hct 34.3 L (35.5-45.6) % ABG pO2 (80.0-90.0) mm Hg ABG O2 Saturation (95.0-99.0) % ABG Methemoglobin (0.0-1.5) % Oxyhemoglobin (95.0-99.0) % Glucose 204 H (75-100) mg/dL POC Glucose 221 H (70-105) mg/dL Total Creatine Kinase (55-170) units/L 12/09/20 12/09/20 12/09/20 Range/Units 15:36 16:13 22:06 Hgb (11.8-15.2) gm/dl Hct (35.5-45.6) % ABG pO2 (80.0-90.0) mm Hg ABG O2 Saturation (95.0-99.0) % ABG Methemoglobin (0.0-1.5) % Oxyhemoglobin (95.0-99.0) % Glucose (75-100) mg/dL POC Glucose 193 H 232 H (70-105) mg/dL Total Creatine Kinase 420 H (55-170) units/L 12/09/20 12/10/20 Range/Units 22:33 08:09 Hgb (11.8-15.2) gm/dl Hct (35.5-45.6) % ABG pO2 182.0 H (80.0-90.0) mm Hg ABG O2 Saturation 99.1 H (95.0-99.0) % ABG Methemoglobin 1.9 H (0.0-1.5) % Oxyhemoglobin 93.3 L (95.0-99.0) % Glucose (75-100) mg/dL POC Glucose 406 H (70-105) mg/dL Total Creatine Kinase (55-170) units/L
[2020-12-10 09:14] LABS: Alanine Aminotransferase 23 units/L (7-56); Albumin 2.6 g/dL (3.9-5); Blood Urea Nitrogen 18 mg/dL (9-20); Calcium 8.6 mg/dL (8.4-10.2); Hemolysis Index 37
[2020-12-10] MEDS ORDERED: INSULIN NPH, HUMAN 100 UNIT/1 ML SUB-Q SCH (09:15)
[2020-12-10 09:43] LABS: BUN/Creatinine Ratio 30
[2020-12-10] MEDS: INSULIN REGULAR, HUMAN 100 UNITS/1 ML SUB-Q SCH ×4 (11:06→23:07)
[2020-12-10 11:36] LABS: Total Cells Counted 100
[2020-12-10 11:37] LABS: Platelet Estimate Consistent w Auto; RBC Morphology Normal
[2020-12-10] MEDS: POTASSIUM CHLORIDE ER 20 MEQ TAB PO SCH (11:44)
[2020-12-10] MEDS: ZINC SULFATE 220 MG CAP PO SCH ×2 (11:44→21:19)
[2020-12-10] MEDS: dexAMETHasone 4 MG/ML VIAL IV SCH (11:44)
[2020-12-10] MEDS: ASCORBIC ACID 500 MG TAB PO SCH ×2 (11:44→21:18)
[2020-12-10] MEDS: FAMOTIDINE 20 MG TAB PO SCH ×2 (11:44→21:18)
[2020-12-10] MEDS: CHOLECALCIFEROL (VIT D3) 5,000 UNIT TAB PO SCH (11:44)
--- NOTE | 2020-12-10 13:19 | Progress Note ---
Assessment and Plan Patient alert, awake. Not using his O2. Suppose to be on 1 litre O2. O2 saturation 95%. ABG on 3 litres O2. ABG pH 7.394 pH Units (7.350-7.450) 12/09/20 22:33 ABG pCO2 42.4 mm Hg 12/09/20 22:33 ABG pO2 182.0 mm Hg (80.0-90.0) H 12/09/20 22:33 ABG O2 Saturation 99.1 % (95.0-99.0) H 12/09/20 22:33 Patient says cough is getting better. No complaint of chest pain or shortness of breath at rest to day. Patient denies smoking, alcohol . Says smokes marijuana. Works as delivery crew member. No Known drug allergies. Patient not and has two children. Patient pierce virus PCR is Positive.Patient admitted for DKA. Patient afebrile and has leukocytosis. Chest xray done 12/07/20 reported Bilateral pulmonary parenchymal opacities in the lung bases appear slightly increased. Chest xray done 12/09/20 reported Severe bilateral lower lobe airspace pneumonia. The upper lungs are clear. Patients inflammatory markers: Serum ferritin 99936 D Dimer 2527.04 LDH 22 85 CRP 22.3 CPK 420 Patient is on REMDESIVIR, Ceftriaxone and Famotidine. - Patient Problems (1) Coronavirus infection Current Visit: Yes Status: Acute Plan to address problem: Patient is on REMDESIVIR. Recommend I/V dexamethasone. Management as per infectious diseases. (2) Pneumonia due to COVID-19 virus Current Visit: Yes Status: Acute Plan to address problem: Patient is on ceftriaxone. Antibiotics as per infectious diseases. (3) Diabetic ketoacidosis Current Visit: Yes Status: Acute Plan to address problem: Patients anion gap 13 Management as per primary care. (4) High anion gap metabolic acidosis Current Visit: No Status: Acute Plan to address problem: Improving. Todays anion gap is 13. (5) Hyponatremia Current Visit: No Status: Acute Plan to address problem: Patients to days Na+ 132 (6) Hypokalemia Current Visit: No Status: Acute Plan to address problem: K+ 3.6. (7) Tobacco abuse Current Visit: No Status: Chronic Plan to address problem: Patient denies smoking. He smokes Marijuana. Counseled to stop smoking marijuana. Subjective Date of service: 12/10/20 Principal diagnosis: COVID Interval history: Patient alert, awake. Not using his O2. Suppose to be on 1 litre O2. O2 saturation 95%. ABG on 3 litres O2. ABG pH 7.394 pH Units (7.350-7.450) 12/09/20 22:33 ABG pCO2 42.4 mm Hg 12/09/20 22:33 ABG pO2 182.0 mm Hg (80.0-90.0) H 12/09/20 22:33 ABG O2 Saturation 99.1 % (95.0-99.0) H 12/09/20 22:33 Patient says cough is getting better. No complaint of chest pain or shortness of breath at rest to day. Patient denies smoking, alcohol . Says smokes marijuana. Works as delivery crew member. No Known drug allergies. Patient not and has two children. Patient pierce virus PCR is Positive.Patient admitted for DKA. Patient afebrile and has leukocytosis. Chest xray done 12/07/20 reported Bilateral pulmonary parenchymal opacities in the lung bases appear slightly increased. Chest xray done 12/09/20 reported Severe bilateral lower lobe airspace pneumonia. The upper lungs are clear. Patients inflammatory markers: Serum ferritin 36818 D Dimer 2527.04 LDH 22 85 CRP 22.3 CPK 420 Patient is on REMDESIVIR, Ceftriaxone and Famotidine. Objective Vital Signs - 12hr 12/10/20 12/10/20 06:14 10:18 Temperature 99.0 F Pulse Rate 85 Respiratory 20 Rate Blood Pressure 118/79 O2 Sat by Pulse 92 95 Oximetry Constitutional: no acute distress, alert Eyes: non-icteric ENT: oropharynx moist Neck: supple, no lymphadenopathy Effort: mildly labored Ascultation: Bilateral: rhonchi Cardiovascular: regular rate and rhythm Gastrointestinal: normoactive bowel sounds, soft, non-tender Integumentary: normal Extremities: no cyanosis, no edema Neurologic: normal mental status, pupils equal and round Psychiatric: anxious CBC and BMP: 12/10/20 07:42 12/10/20 07:42 ABG, PT/INR, D-dimer: ABG ABG pH 7.394 pH Units (7.350-7.450) 12/09/20 22:33 ABG pCO2 42.4 mm Hg 12/09/20 22:33 ABG pO2 182.0 mm Hg (80.0-90.0) H 12/09/20 22:33 ABG O2 Saturation 99.1 % (95.0-99.0) H 12/09/20 22:33 PT/INR, D-dimer PT 15.6 Sec. (12.2-14.9) H 12/05/20 06:46 INR 1.24 (0.87-1.13) H 12/05/20 06:46 D-Dimer 2527.04 ng/mlDDU (0-234) H 12/09/20 05:00 Abnormal lab findings: Abnormal Labs 12/05/20 12/05/20 12/05/20 06:30 06:46 06:46 WBC 19.2 H RBC 5.53 H Hgb 17.2 H Hct 57.8 H MCV 105 H MCHC 30 L Lymph % (Auto) Lymph # (Auto) Cole # (Auto) Seg Neutrophils % Seg Neuts % (Manual) Lymphocytes % (Manual) Monocytes % (Manual) Nucleated RBC % Seg Neutrophils # Lymphocytes # (Manual) Monocytes # (Manual) PT INR D-Dimer ABG pO2 ABG O2 Saturation ABG Methemoglobin VBG pH Oxyhemoglobin Sodium 124 L Potassium 5.7 H Chloride 83.0 L Carbon Dioxide 5 L* BUN 25 H Creatinine 2.1 H Glucose 677 H* POC Glucose > 600 H Hemoglobin A1c Lactic Acid Phosphorus Magnesium Ferritin Total Bilirubin Direct Bilirubin AST 51 H Alkaline Phosphatase 250 H Ammonia Lactate Dehydrogenase Total Creatine Kinase C-Reactive Protein Total Protein 8.9 H Albumin Triglycerides Urine Creatinine Urine Microalbumin Coronavirus (PCR) 12/05/20 12/05/20 12/05/20 06:46 06:46 06:46 WBC RBC Hgb Hct MCV MCHC Lymph % (Auto) Lymph # (Auto) Cole # (Auto) Seg Neutrophils % Seg Neuts % (Manual) Lymphocytes % (Manual) Monocytes % (Manual) Nucleated RBC % Seg Neutrophils # Lymphocytes # (Manual) Monocytes # (Manual) PT 15.6 H INR 1.24 H D-Dimer ABG pO2 ABG O2 Saturation ABG Methemoglobin VBG pH 6.814 L* Oxyhemoglobin Sodium Potassium Chloride Carbon Dioxide BUN Creatinine Glucose POC Glucose Hemoglobin A1c Lactic Acid Phosphorus 7.10 H Magnesium 2.70 H Ferritin Total Bilirubin Direct Bilirubin AST Alkaline Phosphatase Ammonia Lactate Dehydrogenase Total Creatine Kinase C-Reactive Protein Total Protein Albumin Triglycerides Urine Creatinine Urine Microalbumin Coronavirus (PCR) 12/05/20 12/05/20 12/05/20 06:46 06:46 07:53 WBC RBC Hgb Hct MCV MCHC Lymph % (Auto) Lymph # (Auto) Cole # (Auto) Seg Neutrophils % Seg Neuts % (Manual) Lymphocytes % (Manual) Monocytes % (Manual) Nucleated RBC % Seg Neutrophils # Lymphocytes # (Manual) Monocytes # (Manual) PT INR D-Dimer ABG pO2 ABG O2 Saturation ABG Methemoglobin VBG pH Oxyhemoglobin Sodium Potassium Chloride Carbon Dioxide BUN Creatinine Glucose 690 H* POC Glucose Hemoglobin A1c Lactic Acid 4.80 H* Phosphorus Magnesium Ferritin Total Bilirubin Direct Bilirubin AST Alkaline Phosphatase Ammonia 94.0 H Lactate Dehydrogenase Total Creatine Kinase C-Reactive Protein Total Protein Albumin Triglycerides Urine Creatinine Urine Microalbumin Coronavirus (PCR) 12/05/20 12/05/20 12/05/20 10:24 10:24 10:24 WBC RBC Hgb Hct MCV MCHC Lymph % (Auto) Lymph # (Auto) Cole # (Auto) Seg Neutrophils % Seg Neuts % (Manual) Lymphocytes % (Manual) Monocytes % (Manual) Nucleated RBC % Seg Neutrophils # Lymphocytes # (Manual) Monocytes # (Manual) PT INR D-Dimer ABG pO2 ABG O2 Saturation ABG Methemoglobin VBG pH Oxyhemoglobin Sodium 122 L Potassium 5.6 H Chloride 90.5 L Carbon Dioxide 2 L* BUN 28 H Creatinine 1.7 H Glucose 602 H* POC Glucose Hemoglobin A1c 17.8 H Lactic Acid Phosphorus 7.60 H Magnesium 2.70 H Ferritin Total Bilirubin Direct Bilirubin AST Alkaline Phosphatase Ammonia Lactate Dehydrogenase Total Creatine Kinase C-Reactive Protein Total Protein Albumin Triglycerides 368 H Urine Creatinine Urine Microalbumin Coronavirus (PCR) 12/05/20 12/05/20 12/05/20 10:28 12:36 14:55 WBC RBC Hgb Hct MCV MCHC Lymph % (Auto) Lymph # (Auto) Cole # (Auto) Seg Neutrophils % Seg Neuts % (Manual) Lymphocytes % (Manual) Monocytes % (Manual) Nucleated RBC % Seg Neutrophils # Lymphocytes # (Manual) Monocytes # (Manual) PT INR D-Dimer ABG pO2 ABG O2 Saturation ABG Methemoglobin VBG pH Oxyhemoglobin Sodium Potassium Chloride Carbon Dioxide BUN Creatinine Glucose POC Glucose 584 H 449 H Hemoglobin A1c Lactic Acid Phosphorus Magnesium Ferritin Total Bilirubin Direct Bilirubin AST Alkaline Phosphatase Ammonia Lactate Dehydrogenase Total Creatine Kinase C-Reactive Protein Total Protein Albumin Triglycerides Urine Creatinine Urine Microalbumin Coronavirus (PCR) Positive A 12/05/20 12/05/20 12/05/20 16:03 16:03 16:03 WBC RBC Hgb Hct MCV MCHC Lymph % (Auto) Lymph # (Auto) Cole # (Auto) Seg Neutrophils % Seg Neuts % (Manual) Lymphocytes % (Manual) Monocytes % (Manual) Nucleated RBC % Seg Neutrophils # Lymphocytes # (Manual) Monocytes # (Manual) PT INR D-Dimer 4712.93 H ABG pO2 ABG O2 Saturation ABG Methemoglobin VBG pH Oxyhemoglobin Sodium 130 L D Potassium 6.6 H* Chloride 95.5 L Carbon Dioxide 5 L* BUN 28 H Creatinine 1.9 H Glucose 437 H POC Glucose Hemoglobin A1c Lactic Acid 4.80 H* Phosphorus Magnesium Ferritin Total Bilirubin Direct Bilirubin AST Alkaline Phosphatase Ammonia Lactate Dehydrogenase Total Creatine Kinase C-Reactive Protein Total Protein Albumin Triglycerides Urine Creatinine Urine Microalbumin Coronavirus (PCR) 12/05/20 12/05/20 12/05/20 16:03 16:03 16:57 WBC RBC Hgb Hct MCV MCHC Lymph % (Auto) Lymph # (Auto) Cole # (Auto) Seg Neutrophils % Seg Neuts % (Manual) Lymphocytes % (Manual) Monocytes % (Manual) Nucleated RBC % Seg Neutrophils # Lymphocytes # (Manual) Monocytes # (Manual) PT INR D-Dimer ABG pO2 ABG O2 Saturation ABG Methemoglobin VBG pH Oxyhemoglobin Sodium Potassium Chloride Carbon Dioxide BUN Creatinine Glucose 449 H POC Glucose 446 H Hemoglobin A1c Lactic Acid Phosphorus Magnesium Ferritin > 2000.0 H Total Bilirubin Direct Bilirubin AST Alkaline Phosphatase Ammonia Lactate Dehydrogenase 576 H Total Creatine Kinase C-Reactive Protein 7.10 H Total Protein Albumin Triglycerides Urine Creatinine Urine Microalbumin Coronavirus (PCR) 12/05/20 12/05/20 12/05/20 17:47 18:46 19:11 WBC RBC Hgb Hct MCV MCHC Lymph % (Auto) Lymph # (Auto) Cole # (Auto) Seg Neutrophils % Seg Neuts % (Manual) Lymphocytes % (Manual) Monocytes % (Manual) Nucleated RBC % Seg Neutrophils # Lymphocytes # (Manual) Monocytes # (Manual) PT INR D-Dimer ABG pO2 ABG O2 Saturation ABG Methemoglobin VBG pH Oxyhemoglobin Sodium 136 L Potassium 5.1 H D Chloride 97.2 L Carbon Dioxide 10 L BUN 31 H Creatinine 1.7 H Glucose 341 H POC Glucose 425 H 343 H Hemoglobin A1c Lactic Acid Phosphorus Magnesium Ferritin Total Bilirubin Direct Bilirubin AST Alkaline Phosphatase Ammonia Lactate Dehydrogenase Total Creatine Kinase C-Reactive Protein Total Protein Albumin Triglycerides Urine Creatinine Urine Microalbumin Coronavirus (PCR) 12/05/20 12/05/20 12/05/20 19:11 20:09 20:59 WBC RBC Hgb Hct MCV MCHC Lymph % (Auto) Lymph # (Auto) Cole # (Auto) Seg Neutrophils % Seg Neuts % (Manual) Lymphocytes % (Manual) Monocytes % (Manual) Nucleated RBC % Seg Neutrophils # Lymphocytes # (Manual) Monocytes # (Manual) PT INR D-Dimer ABG pO2 ABG O2 Saturation ABG Methemoglobin VBG pH Oxyhemoglobin Sodium Potassium Chloride Carbon Dioxide BUN Creatinine Glucose POC Glucose 345 H 304 H Hemoglobin A1c Lactic Acid 4.30 H* Phosphorus Magnesium Ferritin Total Bilirubin Direct Bilirubin AST Alkaline Phosphatase Ammonia Lactate Dehydrogenase Total Creatine Kinase C-Reactive Protein Total Protein Albumin Triglycerides Urine Creatinine Urine Microalbumin Coronavirus (PCR) 12/05/20 12/05/20 12/06/20 21:57 23:01 00:01 WBC RBC Hgb Hct MCV MCHC Lymph % (Auto) Lymph # (Auto) Cole # (Auto) Seg Neutrophils % Seg Neuts % (Manual) Lymphocytes % (Manual) Monocytes % (Manual) Nucleated RBC % Seg Neutrophils # Lymphocytes # (Manual) Monocytes # (Manual) PT INR D-Dimer ABG pO2 ABG O2 Saturation ABG Methemoglobin VBG pH Oxyhemoglobin Sodium Potassium Chloride Carbon Dioxide BUN Creatinine Glucose POC Glucose 259 H 325 H 297 H Hemoglobin A1c Lactic Acid Phosphorus Magnesium Ferritin Total Bilirubin Direct Bilirubin AST Alkaline Phosphatase Ammonia Lactate Dehydrogenase Total Creatine Kinase C-Reactive Protein Total Protein Albumin Triglycerides Urine Creatinine Urine Microalbumin Coronavirus (PCR) 12/06/20 12/06/20 12/06/20 00:24 01:01 01:56 WBC RBC Hgb Hct MCV MCHC Lymph % (Auto) Lymph # (Auto) Cole # (Auto) Seg Neutrophils % Seg Neuts % (Manual) Lymphocytes % (Manual) Monocytes % (Manual) Nucleated RBC % Seg Neutrophils # Lymphocytes # (Manual) Monocytes # (Manual) PT INR D-Dimer ABG pO2 ABG O2 Saturation ABG Methemoglobin VBG pH Oxyhemoglobin Sodium 134 L Potassium Chloride Carbon Dioxide 8 L* BUN 29 H Creatinine Glucose 298 H POC Glucose 270 H 225 H Hemoglobin A1c Lactic Acid Phosphorus Magnesium Ferritin Total Bilirubin Direct Bilirubin AST Alkaline Phosphatase Ammonia Lactate Dehydrogenase Total Creatine Kinase C-Reactive Protein Total Protein Albumin Triglycerides Urine Creatinine Urine Microalbumin Coronavirus (PCR) 12/06/20 12/06/20 12/06/20 03:01 03:59 04:55 WBC RBC Hgb Hct MCV MCHC Lymph % (Auto) Lymph # (Auto) Cole # (Auto) Seg Neutrophils % Seg Neuts % (Manual) Lymphocytes % (Manual) Monocytes % (Manual) Nucleated RBC % Seg Neutrophils # Lymphocytes # (Manual) Monocytes # (Manual) PT INR D-Dimer ABG pO2 ABG O2 Saturation ABG Methemoglobin VBG pH Oxyhemoglobin Sodium Potassium Chloride Carbon Dioxide BUN Creatinine Glucose POC Glucose 231 H 168 H 137 H Hemoglobin A1c Lactic Acid Phosphorus Magnesium Ferritin Total Bilirubin Direct Bilirubin AST Alkaline Phosphatase Ammonia Lactate Dehydrogenase Total Creatine Kinase C-Reactive Protein Total Protein Albumin Triglycerides Urine Creatinine Urine Microalbumin Coronavirus (PCR) 12/06/20 12/06/20 12/06/20 05:58 06:56 07:44 WBC RBC Hgb Hct MCV MCHC Lymph % (Auto) Lymph # (Auto) Cole # (Auto) Seg Neutrophils % Seg Neuts % (Manual) Lymphocytes % (Manual) Monocytes % (Manual) Nucleated RBC % Seg Neutrophils # Lymphocytes # (Manual) Monocytes # (Manual) PT INR D-Dimer ABG pO2 ABG O2 Saturation ABG Methemoglobin VBG pH Oxyhemoglobin Sodium Potassium Chloride Carbon Dioxide BUN Creatinine Glucose POC Glucose 149 H 205 H 150 H Hemoglobin A1c Lactic Acid Phosphorus Magnesium Ferritin Total Bilirubin Direct Bilirubin AST Alkaline Phosphatase Ammonia Lactate Dehydrogenase Total Creatine Kinase C-Reactive Protein Total Protein Albumin Triglycerides Urine Creatinine Urine Microalbumin Coronavirus (PCR) 12/06/20 12/06/20 12/06/20 08:16 09:03 09:53 WBC RBC Hgb Hct MCV MCHC Lymph % (Auto) Lymph # (Auto) Cole # (Auto) Seg Neutrophils % Seg Neuts % (Manual) Lymphocytes % (Manual) Monocytes % (Manual) Nucleated RBC % Seg Neutrophils # Lymphocytes # (Manual) Monocytes # (Manual) PT INR D-Dimer ABG pO2 ABG O2 Saturation ABG Methemoglobin VBG pH Oxyhemoglobin Sodium Potassium Chloride Carbon Dioxide 14 L BUN 23 H Creatinine Glucose 136 H POC Glucose 132 H Hemoglobin A1c Lactic Acid Phosphorus Magnesium Ferritin Total Bilirubin Direct Bilirubin AST Alkaline Phosphatase Ammonia Lactate Dehydrogenase Total Creatine Kinase C-Reactive Protein Total Protein Albumin Triglycerides Urine Creatinine 101.5 H Urine Microalbumin Coronavirus (PCR) 12/06/20 12/06/20 12/06/20 10:11 10:36 11:14 WBC RBC Hgb Hct MCV MCHC Lymph % (Auto) Lymph # (Auto) Cole # (Auto) Seg Neutrophils % Seg Neuts % (Manual) Lymphocytes % (Manual) Monocytes % (Manual) Nucleated RBC % Seg Neutrophils # Lymphocytes # (Manual) Monocytes # (Manual) PT INR D-Dimer ABG pO2 ABG O2 Saturation ABG Methemoglobin VBG pH Oxyhemoglobin Sodium Potassium Chloride Carbon Dioxide BUN Creatinine Glucose POC Glucose 137 H 127 H Hemoglobin A1c Lactic Acid Phosphorus Magnesium Ferritin Total Bilirubin Direct Bilirubin AST Alkaline Phosphatase Ammonia Lactate Dehydrogenase Total Creatine Kinase C-Reactive Protein Total Protein Albumin Triglycerides Urine Creatinine 101.0 H Urine Microalbumin 36.9 H Coronavirus (PCR) 12/06/20 12/06/20 12/06/20 12:01 13:12 14:02 WBC RBC Hgb Hct MCV MCHC Lymph % (Auto) Lymph # (Auto) Cole # (Auto) Seg Neutrophils % Seg Neuts % (Manual) Lymphocytes % (Manual) Monocytes % (Manual) Nucleated RBC % Seg Neutrophils # Lymphocytes # (Manual) Monocytes # (Manual) PT INR D-Dimer ABG pO2 ABG O2 Saturation ABG Methemoglobin VBG pH Oxyhemoglobin Sodium Potassium Chloride Carbon Dioxide BUN Creatinine Glucose POC Glucose 136 H 139 H 132 H Hemoglobin A1c Lactic Acid Phosphorus Magnesium Ferritin Total Bilirubin Direct Bilirubin AST Alkaline Phosphatase Ammonia Lactate Dehydrogenase Total Creatine Kinase C-Reactive Protein Total Protein Albumin Triglycerides Urine Creatinine Urine Microalbumin Coronavirus (PCR) 12/06/20 12/06/20 12/06/20 15:50 17:12 18:10 WBC RBC Hgb Hct MCV MCHC Lymph % (Auto) Lymph # (Auto) Cole # (Auto) Seg Neutrophils % Seg Neuts % (Manual) Lymphocytes % (Manual) Monocytes % (Manual) Nucleated RBC % Seg Neutrophils # Lymphocytes # (Manual) Monocytes # (Manual) PT INR D-Dimer ABG pO2 ABG O2 Saturation ABG Methemoglobin VBG pH Oxyhemoglobin Sodium Potassium Chloride Carbon Dioxide BUN Creatinine Glucose POC Glucose 133 H 130 H 114 H Hemoglobin A1c Lactic Acid Phosphorus Magnesium Ferritin Total Bilirubin Direct Bilirubin AST Alkaline Phosphatase Ammonia Lactate Dehydrogenase Total Creatine Kinase C-Reactive Protein Total Protein Albumin Triglycerides Urine Creatinine Urine Microalbumin Coronavirus (PCR) 12/06/20 12/06/20 12/06/20 21:08 22:06 23:19 WBC RBC Hgb Hct MCV MCHC Lymph % (Auto) Lymph # (Auto) Cole # (Auto) Seg Neutrophils % Seg Neuts % (Manual) Lymphocytes % (Manual) Monocytes % (Manual) Nucleated RBC % Seg Neutrophils # Lymphocytes # (Manual) Monocytes # (Manual) PT INR D-Dimer ABG pO2 ABG O2 Saturation ABG Methemoglobin VBG pH Oxyhemoglobin Sodium Potassium Chloride Carbon Dioxide BUN Creatinine Glucose POC Glucose 127 H 148 H 144 H Hemoglobin A1c Lactic Acid Phosphorus Magnesium Ferritin Total Bilirubin Direct Bilirubin AST Alkaline Phosphatase Ammonia Lactate Dehydrogenase Total Creatine Kinase C-Reactive Protein Total Protein Albumin Triglycerides Urine Creatinine Urine Microalbumin Coronavirus (PCR) 12/07/20 12/07/20 12/07/20 00:08 01:04 02:05 WBC RBC Hgb Hct MCV MCHC Lymph % (Auto) Lymph # (Auto) Cole # (Auto) Seg Neutrophils % Seg Neuts % (Manual) Lymphocytes % (Manual) Monocytes % (Manual) Nucleated RBC % Seg Neutrophils # Lymphocytes # (Manual) Monocytes # (Manual) PT INR D-Dimer ABG pO2 ABG O2 Saturation ABG Methemoglobin VBG pH Oxyhemoglobin Sodium Potassium Chloride Carbon Dioxide BUN Creatinine Glucose POC Glucose 157 H 118 H 143 H Hemoglobin A1c Lactic Acid Phosphorus Magnesium Ferritin Total Bilirubin Direct Bilirubin AST Alkaline Phosphatase Ammonia Lactate Dehydrogenase Total Creatine Kinase C-Reactive Protein Total Protein Albumin Triglycerides Urine Creatinine Urine Microalbumin Coronavirus (PCR) 12/07/20 12/07/20 12/07/20 03:03 03:25 03:25 WBC RBC Hgb Hct MCV MCHC Lymph % (Auto) Lymph # (Auto) Cole # (Auto) Seg Neutrophils % Seg Neuts % (Manual) Lymphocytes % (Manual) Monocytes % (Manual) Nucleated RBC % Seg Neutrophils # Lymphocytes # (Manual) Monocytes # (Manual) PT INR D-Dimer 1950.73 H ABG pO2 ABG O2 Saturation ABG Methemoglobin VBG pH Oxyhemoglobin Sodium Potassium Chloride Carbon Dioxide BUN Creatinine Glucose POC Glucose 119 H Hemoglobin A1c Lactic Acid Phosphorus Magnesium Ferritin 7009.0 H Total Bilirubin Direct Bilirubin AST Alkaline Phosphatase Ammonia Lactate Dehydrogenase Total Creatine Kinase C-Reactive Protein Total Protein Albumin Triglycerides Urine Creatinine Urine Microalbumin Coronavirus (PCR) 12/07/20 12/07/20 12/07/20 03:25 03:25 04:09 WBC 15.8 H RBC 5.21 H Hgb 16.2 H Hct 47.9 H D MCV MCHC Lymph % (Auto) 6.1 L Lymph # (Auto) 1.0 L Cole # (Auto) Seg Neutrophils % 88.5 H Seg Neuts % (Manual) Lymphocytes % (Manual) Monocytes % (Manual) Nucleated RBC % Seg Neutrophils # 14.0 H Lymphocytes # (Manual) Monocytes # (Manual) PT INR D-Dimer ABG pO2 ABG O2 Saturation ABG Methemoglobin VBG pH Oxyhemoglobin Sodium Potassium 3.0 L D Chloride Carbon Dioxide BUN Creatinine Glucose 108 H POC Glucose 155 H Hemoglobin A1c Lactic Acid Phosphorus 0.70 L* D Magnesium Ferritin Total Bilirubin 1.70 H Direct Bilirubin 0.5 H AST 52 H Alkaline Phosphatase 131 H Ammonia Lactate Dehydrogenase 821 H Total Creatine Kinase C-Reactive Protein 13.80 H Total Protein Albumin 3.6 L Triglycerides Urine Creatinine Urine Microalbumin Coronavirus (PCR) 12/07/20 12/07/20 12/07/20 06:09 08:34 12:19 WBC RBC Hgb Hct MCV MCHC Lymph % (Auto) Lymph # (Auto) Cole # (Auto) Seg Neutrophils % Seg Neuts % (Manual) Lymphocytes % (Manual) Monocytes % (Manual) Nucleated RBC % Seg Neutrophils # Lymphocytes # (Manual) Monocytes # (Manual) PT INR D-Dimer ABG pO2 ABG O2 Saturation ABG Methemoglobin VBG pH Oxyhemoglobin Sodium Potassium Chloride Carbon Dioxide BUN Creatinine Glucose POC Glucose 127 H 178 H 239 H Hemoglobin A1c Lactic Acid Phosphorus Magnesium Ferritin Total Bilirubin Direct Bilirubin AST Alkaline Phosphatase Ammonia Lactate Dehydrogenase Total Creatine Kinase C-Reactive Protein Total Protein Albumin Triglycerides Urine Creatinine Urine Microalbumin Coronavirus (PCR) 12/07/20 12/07/20 12/07/20 16:07 16:07 23:15 WBC RBC Hgb Hct MCV MCHC Lymph % (Auto) Lymph # (Auto) Cole # (Auto) Seg Neutrophils % Seg Neuts % (Manual) Lymphocytes % (Manual) Monocytes % (Manual) Nucleated RBC % Seg Neutrophils # Lymphocytes # (Manual) Monocytes # (Manual) PT INR D-Dimer ABG pO2 ABG O2 Saturation ABG Methemoglobin VBG pH Oxyhemoglobin Sodium 136 L Potassium 3.2 L Chloride Carbon Dioxide BUN Creatinine Glucose 158 H 160 H POC Glucose 308 H Hemoglobin A1c Lactic Acid Phosphorus Magnesium Ferritin Total Bilirubin 2.10 H Direct Bilirubin AST 73 H Alkaline Phosphatase 139 H Ammonia Lactate Dehydrogenase Total Creatine Kinase C-Reactive Protein Total Protein Albumin 3.0 L Triglycerides Urine Creatinine Urine Microalbumin Coronavirus (PCR) 12/08/20 12/08/20 12/08/20 07:42 09:06 09:06 WBC 14.3 H RBC Hgb Hct MCV 95 H MCHC Lymph % (Auto) 8.1 L Lymph # (Auto) Cole # (Auto) 1.0 H Seg Neutrophils % 84.8 H Seg Neuts % (Manual) Lymphocytes % (Manual) Monocytes % (Manual) Nucleated RBC % Seg Neutrophils # 12.1 H Lymphocytes # (Manual) Monocytes # (Manual) PT INR D-Dimer ABG pO2 ABG O2 Saturation ABG Methemoglobin VBG pH Oxyhemoglobin Sodium 133 L Potassium 3.3 L Chloride 96.6 L Carbon Dioxide BUN Creatinine Glucose 330 H POC Glucose 301 H Hemoglobin A1c Lactic Acid Phosphorus Magnesium Ferritin Total Bilirubin 1.90 H Direct Bilirubin AST 92 H Alkaline Phosphatase 142 H Ammonia Lactate Dehydrogenase Total Creatine Kinase C-Reactive Protein Total Protein Albumin 2.8 L Triglycerides Urine Creatinine Urine Microalbumin Coronavirus (PCR) 12/08/20 12/08/20 12/08/20 11:03 16:28 22:19 WBC RBC Hgb Hct MCV MCHC Lymph % (Auto) Lymph # (Auto) Cole # (Auto) Seg Neutrophils % Seg Neuts % (Manual) Lymphocytes % (Manual) Monocytes % (Manual) Nucleated RBC % Seg Neutrophils # Lymphocytes # (Manual) Monocytes # (Manual) PT INR D-Dimer ABG pO2 ABG O2 Saturation ABG Methemoglobin VBG pH Oxyhemoglobin Sodium Potassium Chloride Carbon Dioxide BUN Creatinine Glucose POC Glucose 287 H 125 H 130 H Hemoglobin A1c Lactic Acid Phosphorus Magnesium Ferritin Total Bilirubin Direct Bilirubin AST Alkaline Phosphatase Ammonia Lactate Dehydrogenase Total Creatine Kinase C-Reactive Protein Total Protein Albumin Triglycerides Urine Creatinine Urine Microalbumin Coronavirus (PCR) 12/09/20 12/09/20 12/09/20 05:00 05:00 05:00 WBC RBC Hgb Hct MCV MCHC Lymph % (Auto) Lymph # (Auto) Cole # (Auto) Seg Neutrophils % Seg Neuts % (Manual) Lymphocytes % (Manual) Monocytes % (Manual) Nucleated RBC % Seg Neutrophils # Lymphocytes # (Manual) Monocytes # (Manual) PT INR D-Dimer 2527.04 H ABG pO2 ABG O2 Saturation ABG Methemoglobin VBG pH Oxyhemoglobin Sodium Potassium Chloride Carbon Dioxide BUN Creatinine Glucose POC Glucose Hemoglobin A1c Lactic Acid Phosphorus Magnesium Ferritin 17507.0 H Total Bilirubin Direct Bilirubin AST Alkaline Phosphatase Ammonia Lactate Dehydrogenase 2285 H Total Creatine Kinase C-Reactive Protein 22.30 H Total Protein Albumin Triglycerides Urine Creatinine Urine Microalbumin Coronavirus (PCR) 12/09/20 12/09/20 12/09/20 05:00 08:03 09:39 WBC RBC Hgb 11.5 L Hct 34.3 L MCV MCHC Lymph % (Auto) Lymph # (Auto) Cole # (Auto) Seg Neutrophils % Seg Neuts % (Manual) Lymphocytes % (Manual) Monocytes % (Manual) Nucleated RBC % Seg Neutrophils # Lymphocytes # (Manual) Monocytes # (Manual) PT INR D-Dimer ABG pO2 ABG O2 Saturation ABG Methemoglobin VBG pH Oxyhemoglobin Sodium Potassium 3.2 L Chloride Carbon Dioxide BUN Creatinine 0.7 L Glucose 151 H POC Glucose 139 H Hemoglobin A1c Lactic Acid Phosphorus Magnesium Ferritin Total Bilirubin 2.30 H Direct Bilirubin AST 98 H Alkaline Phosphatase 134 H Ammonia Lactate Dehydrogenase Total Creatine Kinase C-Reactive Protein Total Protein Albumin 2.8 L Triglycerides Urine Creatinine Urine Microalbumin Coronavirus (PCR) 12/09/20 12/09/20 12/09/20 10:57 15:36 15:36 WBC RBC Hgb Hct MCV MCHC Lymph % (Auto) Lymph # (Auto) Cole # (Auto) Seg Neutrophils % Seg Neuts % (Manual) Lymphocytes % (Manual) Monocytes % (Manual) Nucleated RBC % Seg Neutrophils # Lymphocytes # (Manual) Monocytes # (Manual) PT INR D-Dimer ABG pO2 ABG O2 Saturation ABG Methemoglobin VBG pH Oxyhemoglobin Sodium Potassium Chloride Carbon Dioxide BUN Creatinine Glucose 204 H POC Glucose 221 H Hemoglobin A1c Lactic Acid Phosphorus Magnesium Ferritin Total Bilirubin Direct Bilirubin AST Alkaline Phosphatase Ammonia Lactate Dehydrogenase Total Creatine Kinase 420 H C-Reactive Protein Total Protein Albumin Triglycerides Urine Creatinine Urine Microalbumin Coronavirus (PCR) 12/09/20 12/09/20 12/09/20 16:13 22:06 22:33 WBC RBC Hgb Hct MCV MCHC Lymph % (Auto) Lymph # (Auto) Cole # (Auto) Seg Neutrophils % Seg Neuts % (Manual) Lymphocytes % (Manual) Monocytes % (Manual) Nucleated RBC % Seg Neutrophils # Lymphocytes # (Manual) Monocytes # (Manual) PT INR D-Dimer ABG pO2 182.0 H ABG O2 Saturation 99.1 H ABG Methemoglobin 1.9 H VBG pH Oxyhemoglobin 93.3 L Sodium Potassium Chloride Carbon Dioxide BUN Creatinine Glucose POC Glucose 193 H 232 H Hemoglobin A1c Lactic Acid Phosphorus Magnesium Ferritin Total Bilirubin Direct Bilirubin AST Alkaline Phosphatase Ammonia Lactate Dehydrogenase Total Creatine Kinase C-Reactive Protein Total Protein Albumin Triglycerides Urine Creatinine Urine Microalbumin Coronavirus (PCR) 12/10/20 12/10/20 12/10/20 07:42 07:42 08:09 WBC RBC 3.18 L Hgb 10.2 L Hct 30.8 L MCV 97 H MCHC Lymph % (Auto) Lymph # (Auto) Cole # (Auto) Seg Neutrophils % Seg Neuts % (Manual) 78.0 H Lymphocytes % (Manual) 11.0 L Monocytes % (Manual) 11.0 H Nucleated RBC % 1.0 H Seg Neutrophils # Lymphocytes # (Manual) 1.1 L Monocytes # (Manual) 1.1 H PT INR D-Dimer ABG pO2 ABG O2 Saturation ABG Methemoglobin VBG pH Oxyhemoglobin Sodium 132 L D Potassium Chloride 93.8 L Carbon Dioxide BUN Creatinine 0.6 L Glucose 385 H POC Glucose 406 H Hemoglobin A1c Lactic Acid Phosphorus Magnesium Ferritin Total Bilirubin 3.00 H Direct Bilirubin AST 70 H Alkaline Phosphatase Ammonia Lactate Dehydrogenase Total Creatine Kinase C-Reactive Protein Total Protein Albumin 2.6 L Triglycerides Urine Creatinine Urine Microalbumin Coronavirus (PCR) 12/10/20 11:37 WBC RBC Hgb Hct MCV MCHC Lymph % (Auto) Lymph # (Auto) Cole # (Auto) Seg Neutrophils % Seg Neuts % (Manual) Lymphocytes % (Manual) Monocytes % (Manual) Nucleated RBC % Seg Neutrophils # Lymphocytes # (Manual) Monocytes # (Manual) PT INR D-Dimer ABG pO2 ABG O2 Saturation ABG Methemoglobin VBG pH Oxyhemoglobin Sodium Potassium Chloride Carbon Dioxide BUN Creatinine Glucose POC Glucose 420 H Hemoglobin A1c Lactic Acid Phosphorus Magnesium Ferritin Total Bilirubin Direct Bilirubin AST Alkaline Phosphatase Ammonia Lactate Dehydrogenase Total Creatine Kinase C-Reactive Protein Total Protein Albumin Triglycerides Urine Creatinine Urine Microalbumin Coronavirus (PCR)
--- NOTE | 2020-12-10 13:43 | Progress Note ---
Assessment and Plan Cultures: Blood culture 12/05/2020: No growth so far A/P: 30-year-old man past medical history insulin-dependent diabetes admitted with DKA, Covid #Severe sepsis: Present on admission, likely secondary to pneumonia. #Severe COVID-19 pneumonia: Markers elevated. Worsening ferritin 37K, Ddimer and CRP. Possible component of bacterial pneumonia elevated procalcitonin 7.1-->1.6, however patient was an KENDRA. US no DVT. #Acute hypoxemic respiratory failure: now on room air #DKA: hyperglycemia due to steroids now #KENDRA: Resolved #Transaminitis: worsening #Hematuria: unclear etiology Recs: -6min walking test in the AM, close monitoring -Consider VQ scan -Agree with abdominal CT -Continue empiric ceftriaxone for 5 days and azithromycin for 3 days. -Continue remdesivir total 5 days -Continue dexamenthasone total 10 days -No indication for tociluzimab - hypoxia better -Anticoagulation per hospital protocol -DKA management per primary -repeat markers today Discussed with attending, d/w patient over the phone close monitoring MD [facility] ([facility]) Office [phone] Subjective Date of service: 12/10/20 Principal diagnosis: COVID Interval history: Feels better now on RA since 11 am no fever Objective - Exam Narrative Exam: Physical exam deferred to minimize COVID-19 transmission during pandemic. - Constitutional Vitals: Vital Signs Temp Pulse Resp BP Pulse Ox 99.0 F 85 20 118/79 95 12/10/20 06:14 12/10/20 06:14 12/10/20 06:14 12/10/20 06:14 12/10/20 10:18 Temperature -Last 24 Hours Temperature 99.0 F Temperature 98.4 F Temperature 98.7 F - Labs CBC & Chem 7: 12/10/20 07:42 12/10/20 07:42 Labs: Abnormal lab results 12/09/20 12/09/20 12/09/20 Range/Units 15:36 15:36 16:13 RBC (3.65-5.03) M/mm3 Hgb (11.8-15.2) gm/dl Hct (35.5-45.6) % MCV (84-94) fl Seg Neuts % (Manual) (40.0-70.0) % Lymphocytes % (Manual) (13.4-35.0) % Monocytes % (Manual) (0.0-7.3) % Nucleated RBC % (0.0-0.9) % Lymphocytes # (Manual) (1.2-5.4) K/mm3 Monocytes # (Manual) (0.0-0.8) K/mm3 ABG pO2 (80.0-90.0) mm Hg ABG O2 Saturation (95.0-99.0) % ABG Methemoglobin (0.0-1.5) % Oxyhemoglobin (95.0-99.0) % Sodium (137-145) mmol/L Chloride (98-107) mmol/L Creatinine (0.8-1.3) mg/dL Glucose 204 H (75-100) mg/dL POC Glucose 193 H (70-105) mg/dL Total Bilirubin (0.1-1.2) mg/dL AST (5-40) units/L Total Creatine Kinase 420 H (55-170) units/L Albumin (3.9-5) g/dL 12/09/20 12/09/20 12/10/20 Range/Units 22:06 22:33 07:42 RBC (3.65-5.03) M/mm3 Hgb (11.8-15.2) gm/dl Hct (35.5-45.6) % MCV (84-94) fl Seg Neuts % (Manual) (40.0-70.0) % Lymphocytes % (Manual) (13.4-35.0) % Monocytes % (Manual) (0.0-7.3) % Nucleated RBC % (0.0-0.9) % Lymphocytes # (Manual) (1.2-5.4) K/mm3 Monocytes # (Manual) (0.0-0.8) K/mm3 ABG pO2 182.0 H (80.0-90.0) mm Hg ABG O2 Saturation 99.1 H (95.0-99.0) % ABG Methemoglobin 1.9 H (0.0-1.5) % Oxyhemoglobin 93.3 L (95.0-99.0) % Sodium 132 L D (137-145) mmol/L Chloride 93.8 L (98-107) mmol/L Creatinine 0.6 L (0.8-1.3) mg/dL Glucose 385 H (75-100) mg/dL POC Glucose 232 H (70-105) mg/dL Total Bilirubin 3.00 H (0.1-1.2) mg/dL AST 70 H (5-40) units/L Total Creatine Kinase (55-170) units/L Albumin 2.6 L (3.9-5) g/dL 12/10/20 12/10/20 12/10/20 Range/Units 07:42 08:09 11:37 RBC 3.18 L (3.65-5.03) M/mm3 Hgb 10.2 L (11.8-15.2) gm/dl Hct 30.8 L (35.5-45.6) % MCV 97 H (84-94) fl Seg Neuts % (Manual) 78.0 H (40.0-70.0) % Lymphocytes % (Manual) 11.0 L (13.4-35.0) % Monocytes % (Manual) 11.0 H (0.0-7.3) % Nucleated RBC % 1.0 H (0.0-0.9) % Lymphocytes # (Manual) 1.1 L (1.2-5.4) K/mm3 Monocytes # (Manual) 1.1 H (0.0-0.8) K/mm3 ABG pO2 (80.0-90.0) mm Hg ABG O2 Saturation (95.0-99.0) % ABG Methemoglobin (0.0-1.5) % Oxyhemoglobin (95.0-99.0) % Sodium (137-145) mmol/L Chloride (98-107) mmol/L Creatinine (0.8-1.3) mg/dL Glucose (75-100) mg/dL POC Glucose 406 H 420 H (70-105) mg/dL Total Bilirubin (0.1-1.2) mg/dL AST (5-40) units/L Total Creatine Kinase (55-170) units/L Albumin (3.9-5) g/dL
--- NOTE | 2020-12-10 17:00 | Cat Scan Report ---
CT ABDOMEN PELVIS WITHOUT CONTRAST INDICATION / CLINICAL INFORMATION: hematuria. TECHNIQUE: Axial CT images were obtained through the abdomen and pelvis without IV contrast. All CT scans at [facility] location are performed using CT dose reduction for ALARA by means of automated exposure control. COMPARISON: None available. FINDINGS: Lack of intra-abdominal fat limits diagnostic capabilities of the imaging study LOWER CHEST: Bilateral airspace changes are present throughout both lungs, most consistent with pneum onia LIVER: No significant abnormality. GALLBLADDER: No significant abnormality. BILE DUCTS: No significant abnormality. PANCREAS: No significant abnormality. SPLEEN: No significant abnormality. ADRENALS: No significant abnormality. RIGHT KIDNEY and URETER: No significant abnormality. LEFT KIDNEY and URETER: No significant abnormality. STOMACH and SMALL BOWEL: No significant abnormality. COLON: No significant abnormality. APPENDIX: No significant abnormality. PERITONEUM: No free fluid. No free air. No fluid collection. LYMPH NODES: No significant adenopathy. AORTA and ARTERIES: No significant abnormality. IVC and VEINS: No significant abnormality. URINARY BLADDER: No significant abnormality. REPRODUCTIVE ORGANS: No significant abnormality ADDITIONAL FINDINGS: None. SKELETAL SYSTEM: No significant abnormality. IMPRESSION: 1. Diffuse bilateral pneumonia Signer Name: Fady Price MD Signed: 12/10/2020 4:55 PM Workstation Name: [id number]
[2020-12-10 18:04] LABS: C-Reactive Protein 10.7 mg/dL (0.00-1.30)
[2020-12-10] MEDS: REMDESIVIR 100 MG in SODIUM CHLORIDE 0.9% 250ML 250 ML IV SCH (21:14)
[2020-12-10] MEDS: SODIUM CHLORIDE 0.9% 50 ML IVPB IV SCH (21:15)
[2020-12-11 01:27] LABS: C-Reactive Protein 9.1 mg/dL (0.00-1.30)
[2020-12-11 04:18] LABS: Hemoglobin 10.3 gm/dl (11.8-15.2); Mean Corpuscular HGB Conc 33 % (32-34); Mean Corpuscular Volume 98 fl (84-94); Platelet Count 385 K/mm3 (140-440); Red Blood Count 3.16 M/mm3 (3.65-5.03); Red Cell Distribution Width 14.1 % (13.2-15.2)
[2020-12-11 04:22] LABS: Basophils % (Auto) 0.4 % (0.0-1.8); Eosinophils % (Auto) 0.2 % (0.0-4.3); Lymphocytes % (Auto) 29.4 % (13.4-35.0); Monocytes % (Auto) 8.2 % (0.0-7.3)
[2020-12-11 04:23] LABS: Lymphocytes # (Auto) 2.3 K/mm3 (1.2-5.4); Monocytes # (Auto) 0.7 K/mm3 (0.0-0.8)
[2020-12-11 04:31] LABS: Alanine Aminotransferase 25 units/L (7-56); Albumin 3.2 g/dL (3.9-5); Blood Urea Nitrogen 22 mg/dL (9-20); Calcium 8.5 mg/dL (8.4-10.2); Hemolysis Index 0
[2020-12-11 04:32] LABS: BUN/Creatinine Ratio 31
[2020-12-11 05:17] LABS: Platelet Estimate Consistent w Auto; Total Cells Counted 100
[2020-12-11] MEDS: SODIUM CHLORIDE 0.9% 1000 ML 1,000 ML IV SCH (06:56)
--- NOTE | 2020-12-11 08:01 | XRay Report ---
CHEST - 1 VIEW INDICATION: [employer] ) COMPARISON: Yesterday FINDINGS: SUPPORT DEVICES: None HEART: Stable cardiomediastinal silhouette. LUNGS/PLEURA: Persistent patchy right greater than left basilar airspace disease, largely unchanged. ADDITIONAL FINDINGS: None. IMPRESSION: Unchanged exam. Signer Name: Bryant Salazar MD Signed: 12/11/2020 7:56 AM Workstation Name: [id number]
[2020-12-11] MEDS: INSULIN REGULAR, HUMAN 100 UNITS/1 ML SUB-Q SCH ×3 (08:13→17:37)
[2020-12-11] MEDS: INSULIN NPH, HUMAN 100 UNIT/1 ML SUB-Q SCH ×3 (09:13→17:39)
[2020-12-11] MEDS: POTASSIUM CHLORIDE ER 20 MEQ TAB PO SCH (09:56)
[2020-12-11] MEDS: ASCORBIC ACID 500 MG TAB PO SCH ×2 (09:56→21:44)
[2020-12-11] MEDS: CHOLECALCIFEROL (VIT D3) 5,000 UNIT TAB PO SCH (09:56)
[2020-12-11] MEDS: ZINC SULFATE 220 MG CAP PO SCH ×2 (09:56→21:44)
[2020-12-11] MEDS: dexAMETHasone 4 MG/ML VIAL IV SCH (09:56)
[2020-12-11] MEDS: FAMOTIDINE 20 MG TAB PO SCH ×2 (10:03→21:44)
[2020-12-11] MEDS ORDERED: SODIUM CHLORIDE 0.9% 1000 ML 500 ML IV ONE (11:52)
[2020-12-11] MEDS ORDERED: SODIUM CHLORIDE 0.9% 1000 ML 1,000 ML ONE (12:05)
--- NOTE | 2020-12-11 13:11 | Progress Note ---
Assessment and Plan Severe sepsis. Diabetic ketoacidosis. COVID-19 infection. Bilateral pneumonia. Severe metabolic acidosis. Acute kidney injury. Leukocytosis at presentation. Hyperalbuminemia. Hemoconcentration. Elevated serum D-dimer. Pseudohyponatremia. Hyperkalemia at presentation. Lactic acidosis. Elevated serum inflammatory markers to include ferritin greater than 2000 and D- dimers as well as elevated lactate dehydrogenase. Acute toxic metabolic encephalopathy. - follow VQ scan - prn antitussives - continue glycemic control with SSI for target serum glucose < 180 mg/dl - prn supplemental oxygen for target O2 sat's > 90% acutely - aspiration precautions - prn bronchodilators with pulmonary hygiene per RT - avoid nephrotoxins, renally dose all medications - AB's per ID rec's - prn analgesia per pain score - Maintenance of sleep-wake cycle, avoid delirium - G.I. & VTE prophylaxis - PT/OT/ROM exercises - mobility protocols for pressure ulcer prophylaxis - Monitor hemodynamics closely - continue other care per attending / other consultants - discharge planning ongoing concurrently .... Re-evaluate in am & prn Subjective Date of service: 12/11/20 Principal diagnosis: Severe sepsis; DKA; COVID-19 infection; Bilateral pneumonia; KENDRA Interval history: Patient is seen today for: Severe sepsis; DKA; COVID-19 infection; Bilateral pneumonia; KENDRA; Acute toxic metabolic encephalopathy. Seen and examined at bedside; 24hour events reviewed; nursing and respiratory care staff consulted; no adverse overnight events reported to me; resting peacefully in bed; feels better; states some odynophagia but otherwise denies chest pain; + intermittent coughing spells Objective Vital Signs - 12hr 12/11/20 12/11/20 12/11/20 04:47 07:55 11:05 Temperature 99.4 F 99.1 F Pulse Rate 92 H 92 H Respiratory 20 22 Rate Blood Pressure 113/69 90/43 O2 Sat by Pulse 96 95 95 Oximetry Constitutional: no acute distress Eyes: non-icteric ENT: oropharynx moist Neck: supple, no lymphadenopathy, no JVD Effort: normal Ascultation: Bilateral: clear, rhonchi Percussion: Bilateral: not dull Cardiovascular: regular rate and rhythm Gastrointestinal: normoactive bowel sounds, soft, non-tender, non-distended Integumentary: normal Extremities: no cyanosis, no edema, pulses normal, no ischemia or petechiae Neurologic: normal mental status, non-focal exam, pupils equal and round, other (weak) Psychiatric: mood appropriate, affect normal CBC and BMP: 12/11/20 03:59 12/11/20 03:59 ABG, PT/INR, D-dimer: ABG ABG pH 7.394 pH Units (7.350-7.450) 12/09/20 22:33 ABG pCO2 42.4 mm Hg 12/09/20 22:33 ABG pO2 182.0 mm Hg (80.0-90.0) H 12/09/20 22:33 ABG O2 Saturation 99.1 % (95.0-99.0) H 12/09/20 22:33 PT/INR, D-dimer PT 15.6 Sec. (12.2-14.9) H 12/05/20 06:46 INR 1.24 (0.87-1.13) H 12/05/20 06:46 D-Dimer 1828.92 ng/mlDDU (0-234) H 12/11/20 00:29 Abnormal lab findings: Abnormal Labs 12/05/20 12/05/20 12/05/20 06:30 06:46 06:46 WBC 19.2 H RBC 5.53 H Hgb 17.2 H Hct 57.8 H MCV 105 H MCH MCHC 30 L Lymph % (Auto) [place] % (Auto) Lymph # (Auto) [place] # (Auto) Seg Neutrophils % Seg Neuts % (Manual) Lymphocytes % (Manual) Monocytes % (Manual) Nucleated RBC % Seg Neutrophils # Lymphocytes # (Manual) Monocytes # (Manual) PT INR D-Dimer ABG pO2 ABG O2 Saturation ABG Methemoglobin VBG pH Oxyhemoglobin Sodium 124 L Potassium 5.7 H Chloride 83.0 L Carbon Dioxide 5 L* BUN 25 H Creatinine 2.1 H Glucose 677 H* POC Glucose > 600 H Hemoglobin A1c Lactic Acid Phosphorus Magnesium Ferritin Total Bilirubin Direct Bilirubin AST 51 H Alkaline Phosphatase 250 H Ammonia Lactate Dehydrogenase Total Creatine Kinase C-Reactive Protein Total Protein 8.9 H Albumin Triglycerides Urine Creatinine Urine Microalbumin Coronavirus (PCR) 12/05/20 12/05/20 12/05/20 06:46 06:46 06:46 WBC RBC Hgb Hct MCV MCH MCHC Lymph % (Auto) [place] % (Auto) Lymph # (Auto) [place] # (Auto) Seg Neutrophils % Seg Neuts % (Manual) Lymphocytes % (Manual) Monocytes % (Manual) Nucleated RBC % Seg Neutrophils # Lymphocytes # (Manual) Monocytes # (Manual) PT 15.6 H INR 1.24 H D-Dimer ABG pO2 ABG O2 Saturation ABG Methemoglobin VBG pH 6.814 L* Oxyhemoglobin Sodium Potassium Chloride Carbon Dioxide BUN Creatinine Glucose POC Glucose Hemoglobin A1c Lactic Acid Phosphorus 7.10 H Magnesium 2.70 H Ferritin Total Bilirubin Direct Bilirubin AST Alkaline Phosphatase Ammonia Lactate Dehydrogenase Total Creatine Kinase C-Reactive Protein Total Protein Albumin Triglycerides Urine Creatinine Urine Microalbumin Coronavirus (PCR) 12/05/20 12/05/20 12/05/20 06:46 06:46 07:53 WBC RBC Hgb Hct MCV MCH MCHC Lymph % (Auto) [place] % (Auto) Lymph # (Auto) [place] # (Auto) Seg Neutrophils % Seg Neuts % (Manual) Lymphocytes % (Manual) Monocytes % (Manual) Nucleated RBC % Seg Neutrophils # Lymphocytes # (Manual) Monocytes # (Manual) PT INR D-Dimer ABG pO2 ABG O2 Saturation ABG Methemoglobin VBG pH Oxyhemoglobin Sodium Potassium Chloride Carbon Dioxide BUN Creatinine Glucose 690 H* POC Glucose Hemoglobin A1c Lactic Acid 4.80 H* Phosphorus Magnesium Ferritin Total Bilirubin Direct Bilirubin AST Alkaline Phosphatase Ammonia 94.0 H Lactate Dehydrogenase Total Creatine Kinase C-Reactive Protein Total Protein Albumin Triglycerides Urine Creatinine Urine Microalbumin Coronavirus (PCR) 12/05/20 12/05/20 12/05/20 10:24 10:24 10:24 WBC RBC Hgb Hct MCV MCH MCHC Lymph % (Auto) [place] % (Auto) Lymph # (Auto) [place] # (Auto) Seg Neutrophils % Seg Neuts % (Manual) Lymphocytes % (Manual) Monocytes % (Manual) Nucleated RBC % Seg Neutrophils # Lymphocytes # (Manual) Monocytes # (Manual) PT INR D-Dimer ABG pO2 ABG O2 Saturation ABG Methemoglobin VBG pH Oxyhemoglobin Sodium 122 L Potassium 5.6 H Chloride 90.5 L Carbon Dioxide 2 L* BUN 28 H Creatinine 1.7 H Glucose 602 H* POC Glucose Hemoglobin A1c 17.8 H Lactic Acid Phosphorus 7.60 H Magnesium 2.70 H Ferritin Total Bilirubin Direct Bilirubin AST Alkaline Phosphatase Ammonia Lactate Dehydrogenase Total Creatine Kinase C-Reactive Protein Total Protein Albumin Triglycerides 368 H Urine Creatinine Urine Microalbumin Coronavirus (PCR) 12/05/20 12/05/20 12/05/20 10:28 12:36 14:55 WBC RBC Hgb Hct MCV MCH MCHC Lymph % (Auto) [place] % (Auto) Lymph # (Auto) [place] # (Auto) Seg Neutrophils % Seg Neuts % (Manual) Lymphocytes % (Manual) Monocytes % (Manual) Nucleated RBC % Seg Neutrophils # Lymphocytes # (Manual) Monocytes # (Manual) PT INR D-Dimer ABG pO2 ABG O2 Saturation ABG Methemoglobin VBG pH Oxyhemoglobin Sodium Potassium Chloride Carbon Dioxide BUN Creatinine Glucose POC Glucose 584 H 449 H Hemoglobin A1c Lactic Acid Phosphorus Magnesium Ferritin Total Bilirubin Direct Bilirubin AST Alkaline Phosphatase Ammonia Lactate Dehydrogenase Total Creatine Kinase C-Reactive Protein Total Protein Albumin Triglycerides Urine Creatinine Urine Microalbumin Coronavirus (PCR) Positive A 12/05/20 12/05/20 12/05/20 16:03 16:03 16:03 WBC RBC Hgb Hct MCV MCH MCHC Lymph % (Auto) [place] % (Auto) Lymph # (Auto) [place] # (Auto) Seg Neutrophils % Seg Neuts % (Manual) Lymphocytes % (Manual) Monocytes % (Manual) Nucleated RBC % Seg Neutrophils # Lymphocytes # (Manual) Monocytes # (Manual) PT INR D-Dimer 4712.93 H ABG pO2 ABG O2 Saturation ABG Methemoglobin VBG pH Oxyhemoglobin Sodium 130 L D Potassium 6.6 H* Chloride 95.5 L Carbon Dioxide 5 L* BUN 28 H Creatinine 1.9 H Glucose 437 H POC Glucose Hemoglobin A1c Lactic Acid 4.80 H* Phosphorus Magnesium Ferritin Total Bilirubin Direct Bilirubin AST Alkaline Phosphatase Ammonia Lactate Dehydrogenase Total Creatine Kinase C-Reactive Protein Total Protein Albumin Triglycerides Urine Creatinine Urine Microalbumin Coronavirus (PCR) 12/05/20 12/05/20 12/05/20 16:03 16:03 16:57 WBC RBC Hgb Hct MCV MCH MCHC Lymph % (Auto) [place] % (Auto) Lymph # (Auto) [place] # (Auto) Seg Neutrophils % Seg Neuts % (Manual) Lymphocytes % (Manual) Monocytes % (Manual) Nucleated RBC % Seg Neutrophils # Lymphocytes # (Manual) Monocytes # (Manual) PT INR D-Dimer ABG pO2 ABG O2 Saturation ABG Methemoglobin VBG pH Oxyhemoglobin Sodium Potassium Chloride Carbon Dioxide BUN Creatinine Glucose 449 H POC Glucose 446 H Hemoglobin A1c Lactic Acid Phosphorus Magnesium Ferritin > 2000.0 H Total Bilirubin Direct Bilirubin AST Alkaline Phosphatase Ammonia Lactate Dehydrogenase 576 H Total Creatine Kinase C-Reactive Protein 7.10 H Total Protein Albumin Triglycerides Urine Creatinine Urine Microalbumin Coronavirus (PCR) 12/05/20 12/05/20 12/05/20 17:47 18:46 19:11 WBC RBC Hgb Hct MCV MCH MCHC Lymph % (Auto) [place] % (Auto) Lymph # (Auto) [place] # (Auto) Seg Neutrophils % Seg Neuts % (Manual) Lymphocytes % (Manual) Monocytes % (Manual) Nucleated RBC % Seg Neutrophils # Lymphocytes # (Manual) Monocytes # (Manual) PT INR D-Dimer ABG pO2 ABG O2 Saturation ABG Methemoglobin VBG pH Oxyhemoglobin Sodium 136 L Potassium 5.1 H D Chloride 97.2 L Carbon Dioxide 10 L BUN 31 H Creatinine 1.7 H Glucose 341 H POC Glucose 425 H 343 H Hemoglobin A1c Lactic Acid Phosphorus Magnesium Ferritin Total Bilirubin Direct Bilirubin AST Alkaline Phosphatase Ammonia Lactate Dehydrogenase Total Creatine Kinase C-Reactive Protein Total Protein Albumin Triglycerides Urine Creatinine Urine Microalbumin Coronavirus (PCR) 12/05/20 12/05/20 12/05/20 19:11 20:09 20:59 WBC RBC Hgb Hct MCV MCH MCHC Lymph % (Auto) [place] % (Auto) Lymph # (Auto) [place] # (Auto) Seg Neutrophils % Seg Neuts % (Manual) Lymphocytes % (Manual) Monocytes % (Manual) Nucleated RBC % Seg Neutrophils # Lymphocytes # (Manual) Monocytes # (Manual) PT INR D-Dimer ABG pO2 ABG O2 Saturation ABG Methemoglobin VBG pH Oxyhemoglobin Sodium Potassium Chloride Carbon Dioxide BUN Creatinine Glucose POC Glucose 345 H 304 H Hemoglobin A1c Lactic Acid 4.30 H* Phosphorus Magnesium Ferritin Total Bilirubin Direct Bilirubin AST Alkaline Phosphatase Ammonia Lactate Dehydrogenase Total Creatine Kinase C-Reactive Protein Total Protein Albumin Triglycerides Urine Creatinine Urine Microalbumin Coronavirus (PCR) 12/05/20 12/05/20 12/06/20 21:57 23:01 00:01 WBC RBC Hgb Hct MCV MCH MCHC Lymph % (Auto) [place] % (Auto) Lymph # (Auto) [place] # (Auto) Seg Neutrophils % Seg Neuts % (Manual) Lymphocytes % (Manual) Monocytes % (Manual) Nucleated RBC % Seg Neutrophils # Lymphocytes # (Manual) Monocytes # (Manual) PT INR D-Dimer ABG pO2 ABG O2 Saturation ABG Methemoglobin VBG pH Oxyhemoglobin Sodium Potassium Chloride Carbon Dioxide BUN Creatinine Glucose POC Glucose 259 H 325 H 297 H Hemoglobin A1c Lactic Acid Phosphorus Magnesium Ferritin Total Bilirubin Direct Bilirubin AST Alkaline Phosphatase Ammonia Lactate Dehydrogenase Total Creatine Kinase C-Reactive Protein Total Protein Albumin Triglycerides Urine Creatinine Urine Microalbumin Coronavirus (PCR) 12/06/20 12/06/20 12/06/20 00:24 01:01 01:56 WBC RBC Hgb Hct MCV MCH MCHC Lymph % (Auto) [place] % (Auto) Lymph # (Auto) [place] # (Auto) Seg Neutrophils % Seg Neuts % (Manual) Lymphocytes % (Manual) Monocytes % (Manual) Nucleated RBC % Seg Neutrophils # Lymphocytes # (Manual) Monocytes # (Manual) PT INR D-Dimer ABG pO2 ABG O2 Saturation ABG Methemoglobin VBG pH Oxyhemoglobin Sodium 134 L Potassium Chloride Carbon Dioxide 8 L* BUN 29 H Creatinine Glucose 298 H POC Glucose 270 H 225 H Hemoglobin A1c Lactic Acid Phosphorus Magnesium Ferritin Total Bilirubin Direct Bilirubin AST Alkaline Phosphatase Ammonia Lactate Dehydrogenase Total Creatine Kinase C-Reactive Protein Total Protein Albumin Triglycerides Urine Creatinine Urine Microalbumin Coronavirus (PCR) 12/06/20 12/06/20 12/06/20 03:01 03:59 04:55 WBC RBC Hgb Hct MCV MCH MCHC Lymph % (Auto) [place] % (Auto) Lymph # (Auto) [place] # (Auto) Seg Neutrophils % Seg Neuts % (Manual) Lymphocytes % (Manual) Monocytes % (Manual) Nucleated RBC % Seg Neutrophils # Lymphocytes # (Manual) Monocytes # (Manual) PT INR D-Dimer ABG pO2 ABG O2 Saturation ABG Methemoglobin VBG pH Oxyhemoglobin Sodium Potassium Chloride Carbon Dioxide BUN Creatinine Glucose POC Glucose 231 H 168 H 137 H Hemoglobin A1c Lactic Acid Phosphorus Magnesium Ferritin Total Bilirubin Direct Bilirubin AST Alkaline Phosphatase Ammonia Lactate Dehydrogenase Total Creatine Kinase C-Reactive Protein Total Protein Albumin Triglycerides Urine Creatinine Urine Microalbumin Coronavirus (PCR) 12/06/20 12/06/20 12/06/20 05:58 06:56 07:44 WBC RBC Hgb Hct MCV MCH MCHC Lymph % (Auto) [place] % (Auto) Lymph # (Auto) [place] # (Auto) Seg Neutrophils % Seg Neuts % (Manual) Lymphocytes % (Manual) Monocytes % (Manual) Nucleated RBC % Seg Neutrophils # Lymphocytes # (Manual) Monocytes # (Manual) PT INR D-Dimer ABG pO2 ABG O2 Saturation ABG Methemoglobin VBG pH Oxyhemoglobin Sodium Potassium Chloride Carbon Dioxide BUN Creatinine Glucose POC Glucose 149 H 205 H 150 H Hemoglobin A1c Lactic Acid Phosphorus Magnesium Ferritin Total Bilirubin Direct Bilirubin AST Alkaline Phosphatase Ammonia Lactate Dehydrogenase Total Creatine Kinase C-Reactive Protein Total Protein Albumin Triglycerides Urine Creatinine Urine Microalbumin Coronavirus (PCR) 12/06/20 12/06/20 12/06/20 08:16 09:03 09:53 WBC RBC Hgb Hct MCV MCH MCHC Lymph % (Auto) [place] % (Auto) Lymph # (Auto) [place] # (Auto) Seg Neutrophils % Seg Neuts % (Manual) Lymphocytes % (Manual) Monocytes % (Manual) Nucleated RBC % Seg Neutrophils # Lymphocytes # (Manual) Monocytes # (Manual) PT INR D-Dimer ABG pO2 ABG O2 Saturation ABG Methemoglobin VBG pH Oxyhemoglobin Sodium Potassium Chloride Carbon Dioxide 14 L BUN 23 H Creatinine Glucose 136 H POC Glucose 132 H Hemoglobin A1c Lactic Acid Phosphorus Magnesium Ferritin Total Bilirubin Direct Bilirubin AST Alkaline Phosphatase Ammonia Lactate Dehydrogenase Total Creatine Kinase C-Reactive Protein Total Protein Albumin Triglycerides Urine Creatinine 101.5 H Urine Microalbumin Coronavirus (PCR) 12/06/20 12/06/20 12/06/20 10:11 10:36 11:14 WBC RBC Hgb Hct MCV MCH MCHC Lymph % (Auto) [place] % (Auto) Lymph # (Auto) [place] # (Auto) Seg Neutrophils % Seg Neuts % (Manual) Lymphocytes % (Manual) Monocytes % (Manual) Nucleated RBC % Seg Neutrophils # Lymphocytes # (Manual) Monocytes # (Manual) PT INR D-Dimer ABG pO2 ABG O2 Saturation ABG Methemoglobin VBG pH Oxyhemoglobin Sodium Potassium Chloride Carbon Dioxide BUN Creatinine Glucose POC Glucose 137 H 127 H Hemoglobin A1c Lactic Acid Phosphorus Magnesium Ferritin Total Bilirubin Direct Bilirubin AST Alkaline Phosphatase Ammonia Lactate Dehydrogenase Total Creatine Kinase C-Reactive Protein Total Protein Albumin Triglycerides Urine Creatinine 101.0 H Urine Microalbumin 36.9 H Coronavirus (PCR) 12/06/20 12/06/20 12/06/20 12:01 13:12 14:02 WBC RBC Hgb Hct MCV MCH MCHC Lymph % (Auto) [place] % (Auto) Lymph # (Auto) [place] # (Auto) Seg Neutrophils % Seg Neuts % (Manual) Lymphocytes % (Manual) Monocytes % (Manual) Nucleated RBC % Seg Neutrophils # Lymphocytes # (Manual) Monocytes # (Manual) PT INR D-Dimer ABG pO2 ABG O2 Saturation ABG Methemoglobin VBG pH Oxyhemoglobin Sodium Potassium Chloride Carbon Dioxide BUN Creatinine Glucose POC Glucose 136 H 139 H 132 H Hemoglobin A1c Lactic Acid Phosphorus Magnesium Ferritin Total Bilirubin Direct Bilirubin AST Alkaline Phosphatase Ammonia Lactate Dehydrogenase Total Creatine Kinase C-Reactive Protein Total Protein Albumin Triglycerides Urine Creatinine Urine Microalbumin Coronavirus (PCR) 12/06/20 12/06/20 12/06/20 15:50 17:12 18:10 WBC RBC Hgb Hct MCV MCH MCHC Lymph % (Auto) [place] % (Auto) Lymph # (Auto) [place] # (Auto) Seg Neutrophils % Seg Neuts % (Manual) Lymphocytes % (Manual) Monocytes % (Manual) Nucleated RBC % Seg Neutrophils # Lymphocytes # (Manual) Monocytes # (Manual) PT INR D-Dimer ABG pO2 ABG O2 Saturation ABG Methemoglobin VBG pH Oxyhemoglobin Sodium Potassium Chloride Carbon Dioxide BUN Creatinine Glucose POC Glucose 133 H 130 H 114 H Hemoglobin A1c Lactic Acid Phosphorus Magnesium Ferritin Total Bilirubin Direct Bilirubin AST Alkaline Phosphatase Ammonia Lactate Dehydrogenase Total Creatine Kinase C-Reactive Protein Total Protein Albumin Triglycerides Urine Creatinine Urine Microalbumin Coronavirus (PCR) 12/06/20 12/06/20 12/06/20 21:08 22:06 23:19 WBC RBC Hgb Hct MCV MCH MCHC Lymph % (Auto) [place] % (Auto) Lymph # (Auto) [place] # (Auto) Seg Neutrophils % Seg Neuts % (Manual) Lymphocytes % (Manual) Monocytes % (Manual) Nucleated RBC % Seg Neutrophils # Lymphocytes # (Manual) Monocytes # (Manual) PT INR D-Dimer ABG pO2 ABG O2 Saturation ABG Methemoglobin VBG pH Oxyhemoglobin Sodium Potassium Chloride Carbon Dioxide BUN Creatinine Glucose POC Glucose 127 H 148 H 144 H Hemoglobin A1c Lactic Acid Phosphorus Magnesium Ferritin Total Bilirubin Direct Bilirubin AST Alkaline Phosphatase Ammonia Lactate Dehydrogenase Total Creatine Kinase C-Reactive Protein Total Protein Albumin Triglycerides Urine Creatinine Urine Microalbumin Coronavirus (PCR) 12/07/20 12/07/20 12/07/20 00:08 01:04 02:05 WBC RBC Hgb Hct MCV MCH MCHC Lymph % (Auto) [place] % (Auto) Lymph # (Auto) [place] # (Auto) Seg Neutrophils % Seg Neuts % (Manual) Lymphocytes % (Manual) Monocytes % (Manual) Nucleated RBC % Seg Neutrophils # Lymphocytes # (Manual) Monocytes # (Manual) PT INR D-Dimer ABG pO2 ABG O2 Saturation ABG Methemoglobin VBG pH Oxyhemoglobin Sodium Potassium Chloride Carbon Dioxide BUN Creatinine Glucose POC Glucose 157 H 118 H 143 H Hemoglobin A1c Lactic Acid Phosphorus Magnesium Ferritin Total Bilirubin Direct Bilirubin AST Alkaline Phosphatase Ammonia Lactate Dehydrogenase Total Creatine Kinase C-Reactive Protein Total Protein Albumin Triglycerides Urine Creatinine Urine Microalbumin Coronavirus (PCR) 12/07/20 12/07/20 12/07/20 03:03 03:25 03:25 WBC RBC Hgb Hct MCV MCH MCHC Lymph % (Auto) [place] % (Auto) Lymph # (Auto) [place] # (Auto) Seg Neutrophils % Seg Neuts % (Manual) Lymphocytes % (Manual) Monocytes % (Manual) Nucleated RBC % Seg Neutrophils # Lymphocytes # (Manual) Monocytes # (Manual) PT INR D-Dimer 1950.73 H ABG pO2 ABG O2 Saturation ABG Methemoglobin VBG pH Oxyhemoglobin Sodium Potassium Chloride Carbon Dioxide BUN Creatinine Glucose POC Glucose 119 H Hemoglobin A1c Lactic Acid Phosphorus Magnesium Ferritin 7009.0 H Total Bilirubin Direct Bilirubin AST Alkaline Phosphatase Ammonia Lactate Dehydrogenase Total Creatine Kinase C-Reactive Protein Total Protein Albumin Triglycerides Urine Creatinine Urine Microalbumin Coronavirus (PCR) 12/07/20 12/07/20 12/07/20 03:25 03:25 04:09 WBC 15.8 H RBC 5.21 H Hgb 16.2 H Hct 47.9 H D MCV MCH MCHC Lymph % (Auto) 6.1 L [place] % (Auto) Lymph # (Auto) 1.0 L [place] # (Auto) Seg Neutrophils % 88.5 H Seg Neuts % (Manual) Lymphocytes % (Manual) Monocytes % (Manual) Nucleated RBC % Seg Neutrophils # 14.0 H Lymphocytes # (Manual) Monocytes # (Manual) PT INR D-Dimer ABG pO2 ABG O2 Saturation ABG Methemoglobin VBG pH Oxyhemoglobin Sodium Potassium 3.0 L D Chloride Carbon Dioxide BUN Creatinine Glucose 108 H POC Glucose 155 H Hemoglobin A1c Lactic Acid Phosphorus 0.70 L* D Magnesium Ferritin Total Bilirubin 1.70 H Direct Bilirubin 0.5 H AST 52 H Alkaline Phosphatase 131 H Ammonia Lactate Dehydrogenase 821 H Total Creatine Kinase C-Reactive Protein 13.80 H Total Protein Albumin 3.6 L Triglycerides Urine Creatinine Urine Microalbumin Coronavirus (PCR) 12/07/20 12/07/20 12/07/20 06:09 08:34 12:19 WBC RBC Hgb Hct MCV MCH MCHC Lymph % (Auto) [place] % (Auto) Lymph # (Auto) [place] # (Auto) Seg Neutrophils % Seg Neuts % (Manual) Lymphocytes % (Manual) Monocytes % (Manual) Nucleated RBC % Seg Neutrophils # Lymphocytes # (Manual) Monocytes # (Manual) PT INR D-Dimer ABG pO2 ABG O2 Saturation ABG Methemoglobin VBG pH Oxyhemoglobin Sodium Potassium Chloride Carbon Dioxide BUN Creatinine Glucose POC Glucose 127 H 178 H 239 H Hemoglobin A1c Lactic Acid Phosphorus Magnesium Ferritin Total Bilirubin Direct Bilirubin AST Alkaline Phosphatase Ammonia Lactate Dehydrogenase Total Creatine Kinase C-Reactive Protein Total Protein Albumin Triglycerides Urine Creatinine Urine Microalbumin Coronavirus (PCR) 12/07/20 12/07/20 12/07/20 16:07 16:07 23:15 WBC RBC Hgb Hct MCV MCH MCHC Lymph % (Auto) [place] % (Auto) Lymph # (Auto) [place] # (Auto) Seg Neutrophils % Seg Neuts % (Manual) Lymphocytes % (Manual) Monocytes % (Manual) Nucleated RBC % Seg Neutrophils # Lymphocytes # (Manual) Monocytes # (Manual) PT INR D-Dimer ABG pO2 ABG O2 Saturation ABG Methemoglobin VBG pH Oxyhemoglobin Sodium 136 L Potassium 3.2 L Chloride Carbon Dioxide BUN Creatinine Glucose 158 H 160 H POC Glucose 308 H Hemoglobin A1c Lactic Acid Phosphorus Magnesium Ferritin Total Bilirubin 2.10 H Direct Bilirubin AST 73 H Alkaline Phosphatase 139 H Ammonia Lactate Dehydrogenase Total Creatine Kinase C-Reactive Protein Total Protein Albumin 3.0 L Triglycerides Urine Creatinine Urine Microalbumin Coronavirus (PCR) 12/08/20 12/08/20 12/08/20 07:42 09:06 09:06 WBC 14.3 H RBC Hgb Hct MCV 95 H MCH MCHC Lymph % (Auto) 8.1 L [place] % (Auto) Lymph # (Auto) [place] # (Auto) 1.0 H Seg Neutrophils % 84.8 H Seg Neuts % (Manual) Lymphocytes % (Manual) Monocytes % (Manual) Nucleated RBC % Seg Neutrophils # 12.1 H Lymphocytes # (Manual) Monocytes # (Manual) PT INR D-Dimer ABG pO2 ABG O2 Saturation ABG Methemoglobin VBG pH Oxyhemoglobin Sodium 133 L Potassium 3.3 L Chloride 96.6 L Carbon Dioxide BUN Creatinine Glucose 330 H POC Glucose 301 H Hemoglobin A1c Lactic Acid Phosphorus Magnesium Ferritin Total Bilirubin 1.90 H Direct Bilirubin AST 92 H Alkaline Phosphatase 142 H Ammonia Lactate Dehydrogenase Total Creatine Kinase C-Reactive Protein Total Protein Albumin 2.8 L Triglycerides Urine Creatinine Urine Microalbumin Coronavirus (PCR) 12/08/20 12/08/20 12/08/20 11:03 16:28 22:19 WBC RBC Hgb Hct MCV MCH MCHC Lymph % (Auto) [place] % (Auto) Lymph # (Auto) [place] # (Auto) Seg Neutrophils % Seg Neuts % (Manual) Lymphocytes % (Manual) Monocytes % (Manual) Nucleated RBC % Seg Neutrophils # Lymphocytes # (Manual) Monocytes # (Manual) PT INR D-Dimer ABG pO2 ABG O2 Saturation ABG Methemoglobin VBG pH Oxyhemoglobin Sodium Potassium Chloride Carbon Dioxide BUN Creatinine Glucose POC Glucose 287 H 125 H 130 H Hemoglobin A1c Lactic Acid Phosphorus Magnesium Ferritin Total Bilirubin Direct Bilirubin AST Alkaline Phosphatase Ammonia Lactate Dehydrogenase Total Creatine Kinase C-Reactive Protein Total Protein Albumin Triglycerides Urine Creatinine Urine Microalbumin Coronavirus (PCR) 12/09/20 12/09/20 12/09/20 05:00 05:00 05:00 WBC RBC Hgb Hct MCV MCH MCHC Lymph % (Auto) [place] % (Auto) Lymph # (Auto) [place] # (Auto) Seg Neutrophils % Seg Neuts % (Manual) Lymphocytes % (Manual) Monocytes % (Manual) Nucleated RBC % Seg Neutrophils # Lymphocytes # (Manual) Monocytes # (Manual) PT INR D-Dimer 2527.04 H ABG pO2 ABG O2 Saturation ABG Methemoglobin VBG pH Oxyhemoglobin Sodium Potassium Chloride Carbon Dioxide BUN Creatinine Glucose POC Glucose Hemoglobin A1c Lactic Acid Phosphorus Magnesium Ferritin 27764.0 H Total Bilirubin Direct Bilirubin AST Alkaline Phosphatase Ammonia Lactate Dehydrogenase 2285 H Total Creatine Kinase C-Reactive Protein 22.30 H Total Protein Albumin Triglycerides Urine Creatinine Urine Microalbumin Coronavirus (PCR) 12/09/20 12/09/20 12/09/20 05:00 08:03 09:39 WBC RBC Hgb 11.5 L Hct 34.3 L MCV MCH MCHC Lymph % (Auto) [place] % (Auto) Lymph # (Auto) [place] # (Auto) Seg Neutrophils % Seg Neuts % (Manual) Lymphocytes % (Manual) Monocytes % (Manual) Nucleated RBC % Seg Neutrophils # Lymphocytes # (Manual) Monocytes # (Manual) PT INR D-Dimer ABG pO2 ABG O2 Saturation ABG Methemoglobin VBG pH Oxyhemoglobin Sodium Potassium 3.2 L Chloride Carbon Dioxide BUN Creatinine 0.7 L Glucose 151 H POC Glucose 139 H Hemoglobin A1c Lactic Acid Phosphorus Magnesium Ferritin Total Bilirubin 2.30 H Direct Bilirubin AST 98 H Alkaline Phosphatase 134 H Ammonia Lactate Dehydrogenase Total Creatine Kinase C-Reactive Protein Total Protein Albumin 2.8 L Triglycerides Urine Creatinine Urine Microalbumin Coronavirus (PCR) 12/09/20 12/09/20 12/09/20 10:57 15:36 15:36 WBC RBC Hgb Hct MCV MCH MCHC Lymph % (Auto) [place] % (Auto) Lymph # (Auto) [place] # (Auto) Seg Neutrophils % Seg Neuts % (Manual) Lymphocytes % (Manual) Monocytes % (Manual) Nucleated RBC % Seg Neutrophils # Lymphocytes # (Manual) Monocytes # (Manual) PT INR D-Dimer ABG pO2 ABG O2 Saturation ABG Methemoglobin VBG pH Oxyhemoglobin Sodium Potassium Chloride Carbon Dioxide BUN Creatinine Glucose 204 H POC Glucose 221 H Hemoglobin A1c Lactic Acid Phosphorus Magnesium Ferritin Total Bilirubin Direct Bilirubin AST Alkaline Phosphatase Ammonia Lactate Dehydrogenase Total Creatine Kinase 420 H C-Reactive Protein Total Protein Albumin Triglycerides Urine Creatinine Urine Microalbumin Coronavirus (PCR) 12/09/20 12/09/20 12/09/20 16:13 22:06 22:33 WBC RBC Hgb Hct MCV MCH MCHC Lymph % (Auto) Osborne % (Auto) Lymph # (Auto) Osborne # (Auto) Seg Neutrophils % Seg Neuts % (Manual) Lymphocytes % (Manual) Monocytes % (Manual) Nucleated RBC % Seg Neutrophils # Lymphocytes # (Manual) Monocytes # (Manual) PT INR D-Dimer ABG pO2 182.0 H ABG O2 Saturation 99.1 H ABG Methemoglobin 1.9 H VBG pH Oxyhemoglobin 93.3 L Sodium Potassium Chloride Carbon Dioxide BUN Creatinine Glucose POC Glucose 193 H 232 H Hemoglobin A1c Lactic Acid Phosphorus Magnesium Ferritin Total Bilirubin Direct Bilirubin AST Alkaline Phosphatase Ammonia Lactate Dehydrogenase Total Creatine Kinase C-Reactive Protein Total Protein Albumin Triglycerides Urine Creatinine Urine Microalbumin Coronavirus (PCR) 12/10/20 12/10/20 12/10/20 07:42 07:42 08:09 WBC RBC 3.18 L Hgb 10.2 L Hct 30.8 L MCV 97 H MCH MCHC Lymph % (Auto) Osborne % (Auto) Lymph # (Auto) [place]borne # (Auto) Seg Neutrophils % Seg Neuts % (Manual) 78.0 H Lymphocytes % (Manual) 11.0 L Monocytes % (Manual) 11.0 H Nucleated RBC % 1.0 H Seg Neutrophils # Lymphocytes # (Manual) 1.1 L Monocytes # (Manual) 1.1 H PT INR D-Dimer ABG pO2 ABG O2 Saturation ABG Methemoglobin VBG pH Oxyhemoglobin Sodium 132 L D Potassium Chloride 93.8 L Carbon Dioxide BUN Creatinine 0.6 L Glucose 385 H POC Glucose 406 H Hemoglobin A1c Lactic Acid Phosphorus Magnesium Ferritin Total Bilirubin 3.00 H Direct Bilirubin AST 70 H Alkaline Phosphatase Ammonia Lactate Dehydrogenase Total Creatine Kinase C-Reactive Protein Total Protein Albumin 2.6 L Triglycerides Urine Creatinine Urine Microalbumin Coronavirus (PCR) 12/10/20 12/10/20 12/10/20 11:37 16:22 16:54 WBC RBC Hgb Hct MCV MCH MCHC Lymph % (Auto) Osborne % (Auto) Lymph # (Auto) Osborne # (Auto) Seg Neutrophils % Seg Neuts % (Manual) Lymphocytes % (Manual) Monocytes % (Manual) Nucleated RBC % Seg Neutrophils # Lymphocytes # (Manual) Monocytes # (Manual) PT INR D-Dimer 1767.06 H ABG pO2 ABG O2 Saturation ABG Methemoglobin VBG pH Oxyhemoglobin Sodium Potassium Chloride Carbon Dioxide BUN Creatinine Glucose POC Glucose 420 H > 600 H Hemoglobin A1c Lactic Acid Phosphorus Magnesium Ferritin Total Bilirubin Direct Bilirubin AST Alkaline Phosphatase Ammonia Lactate Dehydrogenase Total Creatine Kinase C-Reactive Protein Total Protein Albumin Triglycerides Urine Creatinine Urine Microalbumin Coronavirus (PCR) 12/10/20 12/10/20 12/10/20 16:54 16:54 17:56 WBC RBC Hgb Hct MCV MCH MCHC Lymph % (Auto) Osborne % (Auto) Lymph # (Auto) Osborne # (Auto) Seg Neutrophils % Seg Neuts % (Manual) Lymphocytes % (Manual) Monocytes % (Manual) Nucleated RBC % Seg Neutrophils # Lymphocytes # (Manual) Monocytes # (Manual) PT INR D-Dimer ABG pO2 ABG O2 Saturation ABG Methemoglobin VBG pH Oxyhemoglobin Sodium Potassium Chloride Carbon Dioxide BUN Creatinine Glucose POC Glucose 504 H Hemoglobin A1c Lactic Acid Phosphorus Magnesium Ferritin > 2000.0 H Total Bilirubin Direct Bilirubin AST Alkaline Phosphatase Ammonia Lactate Dehydrogenase 2658 H Total Creatine Kinase C-Reactive Protein 10.70 H Total Protein Albumin Triglycerides Urine Creatinine Urine Microalbumin Coronavirus (PCR) 12/10/20 12/11/2021 21:47 00:29 00:29 WBC RBC Hgb Hct MCV MCH MCHC Lymph % (Auto) [place] % (Auto) Lymph # (Auto) [place] # (Auto) Seg Neutrophils % Seg Neuts % (Manual) Lymphocytes % (Manual) Monocytes % (Manual) Nucleated RBC % Seg Neutrophils # Lymphocytes # (Manual) Monocytes # (Manual) PT INR D-Dimer 1828.92 H ABG pO2 ABG O2 Saturation ABG Methemoglobin VBG pH Oxyhemoglobin Sodium Potassium Chloride Carbon Dioxide BUN Creatinine Glucose POC Glucose 389 H Hemoglobin A1c Lactic Acid Phosphorus Magnesium Ferritin > 2000.0 H Total Bilirubin Direct Bilirubin AST Alkaline Phosphatase Ammonia Lactate Dehydrogenase Total Creatine Kinase C-Reactive Protein Total Protein Albumin Triglycerides Urine Creatinine Urine Microalbumin Coronavirus (PCR) 12/11/20 12/11/20 12/11/20 00:29 03:59 03:59 WBC 12.0 H RBC 3.16 L Hgb 10.3 L Hct 31.0 L MCV 98 H MCH 33 H MCHC Lymph % (Auto) [place] % (Auto) 8.2 H Lymph # (Auto) [place] # (Auto) Seg Neutrophils % Seg Neuts % (Manual) Lymphocytes % (Manual) Monocytes % (Manual) 10.0 H Nucleated RBC % Seg Neutrophils # Lymphocytes # (Manual) Monocytes # (Manual) 1.2 H PT INR D-Dimer ABG pO2 ABG O2 Saturation ABG Methemoglobin VBG pH Oxyhemoglobin Sodium 132 L Potassium 3.4 L Chloride 89.4 L Carbon Dioxide BUN 22 H Creatinine 0.7 L Glucose 337 H POC Glucose Hemoglobin A1c Lactic Acid Phosphorus Magnesium Ferritin Total Bilirubin 2.80 H Direct Bilirubin AST 45 H Alkaline Phosphatase 135 H Ammonia Lactate Dehydrogenase 2594 H Total Creatine Kinase C-Reactive Protein 9.10 H Total Protein Albumin 3.2 L Triglycerides Urine Creatinine Urine Microalbumin Coronavirus (PCR) 12/11/20 12/11/20 07:50 09:10 WBC RBC Hgb Hct MCV MCH MCHC Lymph % (Auto) [place] % (Auto) Lymph # (Auto) [place] # (Auto) Seg Neutrophils % Seg Neuts % (Manual) Lymphocytes % (Manual) Monocytes % (Manual) Nucleated RBC % Seg Neutrophils # Lymphocytes # (Manual) Monocytes # (Manual) PT INR D-Dimer ABG pO2 ABG O2 Saturation ABG Methemoglobin VBG pH Oxyhemoglobin Sodium Potassium Chloride Carbon Dioxide BUN Creatinine Glucose POC Glucose 152 H 256 H Hemoglobin A1c Lactic Acid Phosphorus Magnesium Ferritin Total Bilirubin Direct Bilirubin AST Alkaline Phosphatase Ammonia Lactate Dehydrogenase Total Creatine Kinase C-Reactive Protein Total Protein Albumin Triglycerides Urine Creatinine Urine Microalbumin Coronavirus (PCR) Allied health notes reviewed: nursing
--- NOTE | 2020-12-11 13:15 | Progress Note ---
Assessment and Plan Cultures: Blood culture 12/05/2020: No growth so far A/P: 30-year-old man past medical history insulin-dependent diabetes admitted with DKA, Covid #Severe sepsis: Present on admission, likely secondary to pneumonia. #Severe COVID-19 pneumonia: Markers elevated. Worsening ferritin 37K, Ddimer; CR P better. Possible component of bacterial pneumonia elevated procalcitonin 7.1-->1.6, however patient was an KENDRA. US no DVT. #Acute hypoxemic respiratory failure: on room air #DKA: hyperglycemia due to steroids now #KENDRA: Resolved #Transaminitis: worsening #Hematuria: unclear etiology, CT abd unremarkable Recs: -6min walking test if he passes ok to d/c per ID standpoint -VQ scan pending -Completed ceftriaxone for 5 days and azithromycin for 3 days. -Continue remdesivir total 5 days D3 of 5 -Continue dexamenthasone total 10 days -No indication for tociluzimab -Anticoagulation per hospital protocol -DKA management per primary Discussed with attending Tika Hallman MD [facility] ([facility]) Office [phone] Subjective Date of service: 12/11/20 Principal diagnosis: Severe sepsis; DKA; COVID-19 infection; Bilateral pneumonia; KENDRA Interval history: Feels better hungry remains on room air no hypoxia Objective - Exam Narrative Exam: Physical exam deferred to minimize COVID-19 transmission during pandemic. - Constitutional Vitals: Vital Signs Temp Pulse Resp BP Pulse Ox 99.1 F 92 H 22 90/43 95 12/11/20 11:05 12/11/20 11:05 12/11/20 11:05 12/11/20 11:05 12/11/20 11:05 Temperature -Last 24 Hours Temperature 99.1 F Temperature 99.4 F Temperature 98.0 F - Labs CBC & Chem 7: 12/11/20 03:59 12/11/20 03:59 Labs: Abnormal lab results 12/10/20 12/10/20 12/10/20 Range/Units 16:22 16:54 16:54 WBC (4.5-11.0) K/mm3 RBC (3.65-5.03) M/mm3 Hgb (11.8-15.2) gm/dl Hct (35.5-45.6) % MCV (84-94) fl MCH (28-32) pg [place] % (Auto) (0.0-7.3) % Monocytes % (Manual) (0.0-7.3) % Monocytes # (Manual) (0.0-0.8) K/mm3 D-Dimer 1767.06 H (0-234) ng/mlDDU Sodium (137-145) mmol/L Potassium (3.6-5.0) mmol/L Chloride (98-107) mmol/L BUN (9-20) mg/dL Creatinine (0.8-1.3) mg/dL Glucose (75-100) mg/dL POC Glucose > 600 H (70-105) mg/dL Ferritin > 2000.0 H (30.0-300.0) ng/mL Total Bilirubin (0.1-1.2) mg/dL AST (5-40) units/L Alkaline Phosphatase (35-129) units/L Lactate Dehydrogenase (91-180) units/L C-Reactive Protein (0.00-1.30) mg/dL Albumin (3.9-5) g/dL 12/10/20 12/10/20 12/10/20 Range/Units 16:54 17:56 21:47 WBC (4.5-11.0) K/mm3 RBC (3.65-5.03) M/mm3 Hgb (11.8-15.2) gm/dl Hct (35.5-45.6) % MCV (84-94) fl MCH (28-32) pg [place] % (Auto) (0.0-7.3) % Monocytes % (Manual) (0.0-7.3) % Monocytes # (Manual) (0.0-0.8) K/mm3 D-Dimer (0-234) ng/mlDDU Sodium (137-145) mmol/L Potassium (3.6-5.0) mmol/L Chloride (98-107) mmol/L BUN (9-20) mg/dL Creatinine (0.8-1.3) mg/dL Glucose (75-100) mg/dL POC Glucose 504 H 389 H (70-105) mg/dL Ferritin (30.0-300.0) ng/mL Total Bilirubin (0.1-1.2) mg/dL AST (5-40) units/L Alkaline Phosphatase (35-129) units/L Lactate Dehydrogenase 2658 H (91-180) units/L C-Reactive Protein 10.70 H (0.00-1.30) mg/dL Albumin (3.9-5) g/dL 12/11/20 12/11/20 12/11/20 Range/Units 00:29 00:29 00:29 WBC (4.5-11.0) K/mm3 RBC (3.65-5.03) M/mm3 Hgb (11.8-15.2) gm/dl Hct (35.5-45.6) % MCV (84-94) fl MCH (28-32) pg [place] % (Auto) (0.0-7.3) % Monocytes % (Manual) (0.0-7.3) % Monocytes # (Manual) (0.0-0.8) K/mm3 D-Dimer 1828.92 H (0-234) ng/mlDDU Sodium (137-145) mmol/L Potassium (3.6-5.0) mmol/L Chloride (98-107) mmol/L BUN (9-20) mg/dL Creatinine (0.8-1.3) mg/dL Glucose (75-100) mg/dL POC Glucose (70-105) mg/dL Ferritin > 2000.0 H (30.0-300.0) ng/mL Total Bilirubin (0.1-1.2) mg/dL AST (5-40) units/L Alkaline Phosphatase (35-129) units/L Lactate Dehydrogenase 2594 H (91-180) units/L C-Reactive Protein 9.10 H (0.00-1.30) mg/dL Albumin (3.9-5) g/dL 12/11/20 12/11/20 12/11/20 Range/Units 03:59 03:59 07:50 WBC 12.0 H (4.5-11.0) K/mm3 RBC 3.16 L (3.65-5.03) M/mm3 Hgb 10.3 L (11.8-15.2) gm/dl Hct 31.0 L (35.5-45.6) % MCV 98 H (84-94) fl MCH 33 H (28-32) pg [place] % (Auto) 8.2 H (0.0-7.3) % Monocytes % (Manual) 10.0 H (0.0-7.3) % Monocytes # (Manual) 1.2 H (0.0-0.8) K/mm3 D-Dimer (0-234) ng/mlDDU Sodium 132 L (137-145) mmol/L Potassium 3.4 L (3.6-5.0) mmol/L Chloride 89.4 L (98-107) mmol/L BUN 22 H (9-20) mg/dL Creatinine 0.7 L (0.8-1.3) mg/dL Glucose 337 H (75-100) mg/dL POC Glucose 152 H (70-105) mg/dL Ferritin (30.0-300.0) ng/mL Total Bilirubin 2.80 H (0.1-1.2) mg/dL AST 45 H (5-40) units/L Alkaline Phosphatase 135 H (35-129) units/L Lactate Dehydrogenase (91-180) units/L C-Reactive Protein (0.00-1.30) mg/dL Albumin 3.2 L (3.9-5) g/dL 12/11/20 Range/Units 09:10 WBC (4.5-11.0) K/mm3 RBC (3.65-5.03) M/mm3 Hgb (11.8-15.2) gm/dl Hct (35.5-45.6) % MCV (84-94) fl MCH (28-32) pg [place] % (Auto) (0.0-7.3) % Monocytes % (Manual) (0.0-7.3) % Monocytes # (Manual) (0.0-0.8) K/mm3 D-Dimer (0-234) ng/mlDDU Sodium (137-145) mmol/L Potassium (3.6-5.0) mmol/L Chloride (98-107) mmol/L BUN (9-20) mg/dL Creatinine (0.8-1.3) mg/dL Glucose (75-100) mg/dL POC Glucose 256 H (70-105) mg/dL Ferritin (30.0-300.0) ng/mL Total Bilirubin (0.1-1.2) mg/dL AST (5-40) units/L Alkaline Phosphatase (35-129) units/L Lactate Dehydrogenase (91-180) units/L C-Reactive Protein (0.00-1.30) mg/dL Albumin (3.9-5) g/dL
--- NOTE | 2020-12-11 14:13 | Nuclear Medicine Report ---
NUCLEAR MEDICINE PERFUSION LUNG SCAN INDICATION / CLINICAL INFORMATION: possible PE. TECHNIQUE: 5.2 mCi of Tc-99m MAA were given by IV. COMPARISON: Chest radiograph dated 12/11/2020. FINDINGS: PERFUSION: There are matching defects in both lower lungs. ADDITIONAL FINDINGS: None. IMPRESSION: 1. Intermediate probability for pulmonary embolism. Signer Name: Sajan Ceron MD Signed: 12/11/2020 2:08 PM Workstation Name: [email or web address]
--- NOTE | 2020-12-11 14:27 | Progress Note ---
Assessment and Plan This is a 30-year-old male who was recently diagnosed with diabetes mellitus type 2 on oral hypoglycemics presented to the hospital with DKA/severe metabolic acidosis, bilateral pneumonia, positive COVID-19, KENDRA and electrolyte imbalance. Severe sepsis, POA -Likely due to underlying pneumonia and COVID-19 -s/p IV antibiotics, and COVID-19 protocol Positive COVID-19, patient is becoming hypoxic now -We will follow inflammatory markers -Anticoagulation with Eliquis twice daily for now -Placed on remdesivir dexamethasone -Continue to follow, consulted ID Bilateral pneumonia -Likely due to COVID-19 infection with possible bacterial pneumonia -Patient has elevated procalcitonin, treated with Rocephin and Zithromax -Wait for culture and ID consulted Acute hypoxic respiratory failure -likely due to underlying pneumonia -Continue scheduled breathing treatment and supplemental O2 as needed DKA Severe Metabolic Acidosis -Patient admitted with DKA protocol: s/p insulin drip, aggressive IV fluid with sodium bicarbonate drip for severe acidosis -Placed on consistent carb diet, NPH 7030 and sliding scale -Monitor blood glucose QACHS, adjust insulin dose for better glycemic control Acute kidney injury, likely vasomotor nephropathy -resolved -Continue aggressive IV fluid, follow BMP -Nephrology consult if creatinine continues to worsen -Currently creatinine responding to the fluid Hypokalemia and hypophosphatemia: Will replete and monitor Hyponatremia, likely due to hyperglycemia, continue IV fluid for now follow BMP Hyperkalemia, resolved -Likely due to severe DKA and KENDRA -Status post bicarbonate drip Transaminitis, likely due to acute hepatic failure from severe sepsis, monitor LFTs Hyperammonemia, likely due to severe dehydration and severe sepsis causing transient hepatic failure, continue to monitor Elevated D-dimer, pending VQscan, likely due to COVID-19 infection, off anticoagulation now as developed hematuria Diabetes mellitus type 2, uncontrolled with hyperglycemia and DKA -A1c 17.8, start on long-acting and sliding scale insulin, consistent carb diet, Accu-Chek QA CHS, hypoglycemia protocol Hematuria, likely developed due to anticoagulation. Will hold on heparin product and Eliquis -Continue to monitor H&H, obtain UA - CT abdomen/pelvis w/o any acute findings - DVT Px with SCD -Full CODE STATUS -If clinically stable will transfer to IMCU/tele unit Daily clinical course: 4/3: Continue bicarbonate drip for now patient still with metabolic acidosis with high anion gap. Patient is not symptomatic with Covid. We will continue to monitor. Will follow ID recommendation. Critical care has been consulted/will follow recommendation 12/07: Anion gap has resolved, CO2 level 26 today. Blood glucose has been stabilized. Vitals stable. Will start on consistent carb diet NPH 7030 and sliding scale insulin. Accu-Chek QA CHS. If clinically stable transfer out from ICU-today. Continue Covid protocol, continue empiric antibiotics for pneumonia. Patient became hypoxic overnight, now on 3 L nasal cannula. Will repeat chest x-ray, start on remdesivir. Will hold onto dexamethasone as because patient has uncontrolled hyperglycemia. 12/08: Blood glucose improving slowly, will increase insulin to 35 units twice daily along with sliding scale. Noted ID recommendation appreciated. Patient getting hypoxic on ambulation, treated with remdesivir for now due to patient's high risk factor associated with deterioration of COVID-19 infection. Developed hematuria this morning which likely due to anticoagulation. Will hold anticoagulation. monitor H&H 12/09: Patient remains on 3 to 5 L nasal cannula, inflammatory markers trending up. Day 2 of remdesivir today. Continue to follow clinically, replete electrolytes. Blood glucose much stable, follow ID recommendation. DC IV fluid today, get repeat chest x-ray. Monitor for fluid overload and pulmonary edema. Lasix IV as needed. Patients inflammatory markers today: Serum ferritin 68171, D Dimer 2527.04, LDH 22 85, CRP 22.3 12/10: Blood glucose level above 400 today, started on dexamethasone by ID as patient having pending lab and inflammatory markers. Will increase NPH dose, continue sliding scale of insulin, day 3 of remdesivir today. Follow inflammatory markers, follow H&H. Continue to have hematochezia. Ordered CT abdomen pelvis for persistent hematuria and pulmonary VQ scan for possible pulmonary embolism. 12/11: CT abdomen pelvis findings, VQ scan obtained results pending. Patient is resting on room air today, will assess for home O2 requirement. Continue day 4 of remdesivir, and dexamethasone. Adjust insulin doses for better adjustment for blood glucose as patient is on dexamethasone, PT eval. inflammatory markers slightly trended down. Continue to follow. Hematuria slightly improved, continue to trend H&H Subjective Date of service: 12/11/20 Principal diagnosis: Severe sepsis; DKA; COVID-19 infection; Bilateral pneumonia; KENDRA Interval history: Patient seen and examined Patient resting on RA today No nausea or vomiting Vitals stable, continue to have hematuria but improvedH&H slightly trending down On COVID-19 protocol Objective - Exam Narrative Exam: Limited physical exam due to COVID-19 pandemic to minimize transmission of the disease and to preserve PPE. Vital reviewed and stable. GENERAL: well-developed well-nourished -[place] male lying on bed appeared to be in no discomfort. HEENT: Normocephalic. Atraumatic. NECK: Supple. CHEST/LUNGS: Patient on 3L N/c HEART/CARDIOVASCULAR: Heart rate stable on telemetry ABDOMEN: Visibly not distended, SKIN: There is no rash NEURO: No focal motor deficit. Follows command. MUSCULOSKELETAL: No joint effusion EXTRIMITY: No swelling, no cyanosis or clubbing. PSYCH: Cooperative. - Constitutional Vitals: Vital Signs - 12hr 12/11/20 12/11/20 12/11/20 04:47 07:55 11:05 Temperature 99.4 F 99.1 F Pulse Rate 92 H 92 H Respiratory 20 22 Rate Blood Pressure 113/69 90/43 O2 Sat by Pulse 96 95 95 Oximetry - Labs CBC & Chem 7: 12/11/20 03:59 12/11/20 03:59 Labs: Abnormal lab results 12/10/20 12/10/20 12/10/20 Range/Units 16:22 16:54 16:54 WBC (4.5-11.0) K/mm3 RBC (3.65-5.03) M/mm3 Hgb (11.8-15.2) gm/dl Hct (35.5-45.6) % MCV (84-94) fl MCH (28-32) pg [place] % (Auto) (0.0-7.3) % Monocytes % (Manual) (0.0-7.3) % Monocytes # (Manual) (0.0-0.8) K/mm3 D-Dimer 1767.06 H (0-234) ng/mlDDU Sodium (137-145) mmol/L Potassium (3.6-5.0) mmol/L Chloride (98-107) mmol/L BUN (9-20) mg/dL Creatinine (0.8-1.3) mg/dL Glucose (75-100) mg/dL POC Glucose > 600 H (70-105) mg/dL Ferritin > 2000.0 H (30.0-300.0) ng/mL Total Bilirubin (0.1-1.2) mg/dL AST (5-40) units/L Alkaline Phosphatase (35-129) units/L Lactate Dehydrogenase (91-180) units/L C-Reactive Protein (0.00-1.30) mg/dL Albumin (3.9-5) g/dL 12/10/20 12/10/20 12/10/20 Range/Units 16:54 17:56 21:47 WBC (4.5-11.0) K/mm3 RBC (3.65-5.03) M/mm3 Hgb (11.8-15.2) gm/dl Hct (35.5-45.6) % MCV (84-94) fl MCH (28-32) pg [place] % (Auto) (0.0-7.3) % Monocytes % (Manual) (0.0-7.3) % Monocytes # (Manual) (0.0-0.8) K/mm3 D-Dimer (0-234) ng/mlDDU Sodium (137-145) mmol/L Potassium (3.6-5.0) mmol/L Chloride (98-107) mmol/L BUN (9-20) mg/dL Creatinine (0.8-1.3) mg/dL Glucose (75-100) mg/dL POC Glucose 504 H 389 H (70-105) mg/dL Ferritin (30.0-300.0) ng/mL Total Bilirubin (0.1-1.2) mg/dL AST (5-40) units/L Alkaline Phosphatase (35-129) units/L Lactate Dehydrogenase 2658 H (91-180) units/L C-Reactive Protein 10.70 H (0.00-1.30) mg/dL Albumin (3.9-5) g/dL 12/11/20 12/11/20 12/11/20 Range/Units 00:29 00:29 00:29 WBC (4.5-11.0) K/mm3 RBC (3.65-5.03) M/mm3 Hgb (11.8-15.2) gm/dl Hct (35.5-45.6) % MCV (84-94) fl MCH (28-32) pg [place] % (Auto) (0.0-7.3) % Monocytes % (Manual) (0.0-7.3) % Monocytes # (Manual) (0.0-0.8) K/mm3 D-Dimer 1828.92 H (0-234) ng/mlDDU Sodium (137-145) mmol/L Potassium (3.6-5.0) mmol/L Chloride (98-107) mmol/L BUN (9-20) mg/dL Creatinine (0.8-1.3) mg/dL Glucose (75-100) mg/dL POC Glucose (70-105) mg/dL Ferritin > 2000.0 H (30.0-300.0) ng/mL Total Bilirubin (0.1-1.2) mg/dL AST (5-40) units/L Alkaline Phosphatase (35-129) units/L Lactate Dehydrogenase 2594 H (91-180) units/L C-Reactive Protein 9.10 H (0.00-1.30) mg/dL Albumin (3.9-5) g/dL 12/11/20 12/11/20 12/11/20 Range/Units 03:59 03:59 07:50 WBC 12.0 H (4.5-11.0) K/mm3 RBC 3.16 L (3.65-5.03) M/mm3 Hgb 10.3 L (11.8-15.2) gm/dl Hct 31.0 L (35.5-45.6) % MCV 98 H (84-94) fl MCH 33 H (28-32) pg [place] % (Auto) 8.2 H (0.0-7.3) % Monocytes % (Manual) 10.0 H (0.0-7.3) % Monocytes # (Manual) 1.2 H (0.0-0.8) K/mm3 D-Dimer (0-234) ng/mlDDU Sodium 132 L (137-145) mmol/L Potassium 3.4 L (3.6-5.0) mmol/L Chloride 89.4 L (98-107) mmol/L BUN 22 H (9-20) mg/dL Creatinine 0.7 L (0.8-1.3) mg/dL Glucose 337 H (75-100) mg/dL POC Glucose 152 H (70-105) mg/dL Ferritin (30.0-300.0) ng/mL Total Bilirubin 2.80 H (0.1-1.2) mg/dL AST 45 H (5-40) units/L Alkaline Phosphatase 135 H (35-129) units/L Lactate Dehydrogenase (91-180) units/L C-Reactive Protein (0.00-1.30) mg/dL Albumin 3.2 L (3.9-5) g/dL 12/11/20 12/11/20 Range/Units 09:10 11:02 WBC (4.5-11.0) K/mm3 RBC (3.65-5.03) M/mm3 Hgb (11.8-15.2) gm/dl Hct (35.5-45.6) % MCV (84-94) fl MCH (28-32) pg [place] % (Auto) (0.0-7.3) % Monocytes % (Manual) (0.0-7.3) % Monocytes # (Manual) (0.0-0.8) K/mm3 D-Dimer (0-234) ng/mlDDU Sodium (137-145) mmol/L Potassium (3.6-5.0) mmol/L Chloride (98-107) mmol/L BUN (9-20) mg/dL Creatinine (0.8-1.3) mg/dL Glucose (75-100) mg/dL POC Glucose 256 H 261 H (70-105) mg/dL Ferritin (30.0-300.0) ng/mL Total Bilirubin (0.1-1.2) mg/dL AST (5-40) units/L Alkaline Phosphatase (35-129) units/L Lactate Dehydrogenase (91-180) units/L C-Reactive Protein (0.00-1.30) mg/dL Albumin (3.9-5) g/dL
[2020-12-11] MEDS: REMDESIVIR 100 MG in SODIUM CHLORIDE 0.9% 250ML 250 ML IV SCH (21:44)
[2020-12-11] MEDS: SODIUM CHLORIDE 0.9% 50 ML IVPB IV SCH (22:46)
[2020-12-12] MEDS: INSULIN REGULAR, HUMAN 100 UNITS/1 ML SUB-Q SCH ×5 (02:59→22:17)
[2020-12-12] MEDS: SODIUM CHLORIDE 0.9% 1000 ML 1,000 ML IV SCH ×2 (05:44→22:17)
[2020-12-12 06:32] LABS: Hematocrit 21.5 % (35.5-45.6); Hemoglobin 7.2 gm/dl (11.8-15.2); Mean Corpuscular HGB Conc 34 % (32-34); Mean Corpuscular Volume 97 fl (84-94); Platelet Count 297 K/mm3 (140-440); Red Blood Count 2.21 M/mm3 (3.65-5.03); Red Cell Distribution Width 13.8 % (13.2-15.2)
[2020-12-12 06:49] LABS: BUN/Creatinine Ratio 11; Blood Urea Nitrogen 9 mg/dL (9-20); Calcium 7.2 mg/dL (8.4-10.2); Hemolysis Index 1
[2020-12-12] MEDS: CHOLECALCIFEROL (VIT D3) 5,000 UNIT TAB PO SCH (11:14)
[2020-12-12] MEDS: FAMOTIDINE 20 MG TAB PO SCH ×2 (11:14→22:16)
[2020-12-12] MEDS: DEXAMETHASONE 4 MG TAB PO SCH (11:14)
[2020-12-12] MEDS: POTASSIUM CHLORIDE ER 20 MEQ TAB PO SCH ×3 (11:14→14:06)
[2020-12-12] MEDS: ZINC SULFATE 220 MG CAP PO SCH ×2 (11:14→22:16)
[2020-12-12] MEDS: ASCORBIC ACID 500 MG TAB PO SCH ×2 (11:14→22:16)
[2020-12-12] MEDS: INSULIN NPH, HUMAN 100 UNIT/1 ML SUB-Q SCH ×2 (11:25→16:50)
--- NOTE | 2020-12-12 12:03 | Progress Note ---
Assessment and Plan COVID-19 infection. Anemia Intermediate prbability v/q scan Severe sepsis. Diabetic ketoacidosis. Bilateral pneumonia. Severe metabolic acidosis. Acute kidney injury, resolved Leukocytosis at presentation. Hyperalbuminemia. Hemoconcentration. Elevated serum D-dimer. Pseudohyponatremia. Hyperkalemia at presentation. Lactic acidosis. Elevated serum inflammatory markers to include ferritin greater than 2000 and D- dimers as well as elevated lactate dehydrogenase. Acute toxic metabolic encephalopathy. -Discussed with hospitalist , get CTA to r/o PE. He had an acute drop in hemoglobin, get CBC in am. Get FOBT. He will need GI consult and possible scope if his CTA is positive for a pulmonary embolism. Get lower extremity dopplers r/o VTE. If unable to tolerate anticoagulation, he will need retrievable IVC filter - Titrate supplemental oxygen oxygen for target O2 sats 90-92% - continue glycemic control with SSI for target serum glucose < 180 mg/dl - aspiration precautions - prn bronchodilators with pulmonary hygiene per RT - avoid nephrotoxins, renally dose all medications - Empiric antibiotics for CAP- on Azithromycin and Ceftriaxone - prn analgesia per pain score - Maintenance of sleep-wake cycle, avoid delirium -CXR, ABG as clinically indicated -Supportive transfusions as clinically indicated to keep HgB >7g/dL - continue other care per attending / other consultants COVID SPECIFIC INTERVENTIONS - Remdesivir to complete course - continue systemic steroids for severe COVID-19 infection - zinc and vitamin C supplementation per facility protocol - Monitor inflammatory markers per facility protocol - ferritin, D-dimer, CRP - therapeutic anticoagulation per system Protocol based on d-dimer and clinical considerations V/Q scan intermediate probability scan, get CTA - Continue contact and airborne isolation .... Re-evaluate in am & prn Subjective Date of service: 12/12/20 Principal diagnosis: Severe sepsis; DKA; COVID-19 infection; Bilateral pneumonia; KENDRA Interval history: Patient is seen today for: Severe sepsis; DKA; COVID-19 infection; Bilateral pneumonia; KENDRA; Acute toxic metabolic encephalopathy. Seen and examined at bedside; 24hour events reviewed; nursing and respiratory care staff consulted; no adverse overnight events reported to me; resting peacefully in bed; feels better, denies chest pain or shortness of breath; intermittent coughing spells. Back on supplemental oxygen at 5L Is hoping he can go home today Objective Vital Signs - 12hr 04/09/21 04:55 Temperature 99.3 F Pulse Rate 109 H Respiratory 18 Rate Blood Pressure 108/47 O2 Sat by Pulse 96 Oximetry Constitutional: no acute distress, alert Eyes: non-icteric ENT: oropharynx moist Neck: supple, no lymphadenopathy, no JVD Effort: normal Ascultation: Bilateral: clear, rhonchi Percussion: Bilateral: not dull Cardiovascular: regular rate and rhythm, other (S1,S2) Gastrointestinal: normoactive bowel sounds, soft, non-tender, non-distended Integumentary: normal Extremities: no cyanosis, no edema, pulses normal, no ischemia or petechiae Neurologic: normal mental status, non-focal exam, pupils equal and round, other (weak) Psychiatric: mood appropriate, affect normal CBC and BMP: 12/13/20 06:01 12/13/20 06:01 ABG, PT/INR, D-dimer: ABG ABG pH 7.394 pH Units (7.350-7.450) 12/09/20 22:33 ABG pCO2 42.4 mm Hg 12/09/20 22:33 ABG pO2 182.0 mm Hg (80.0-90.0) H 12/09/20 22:33 ABG O2 Saturation 99.1 % (95.0-99.0) H 12/09/20 22:33 PT/INR, D-dimer PT 15.6 Sec. (12.2-14.9) H 12/05/20 06:46 INR 1.24 (0.87-1.13) H 12/05/20 06:46 D-Dimer 1828.92 ng/mlDDU (0-234) H 12/11/20 00:29 Abnormal lab findings: Abnormal Labs 12/05/20 12/05/20 12/05/20 06:30 06:46 06:46 WBC 19.2 H RBC 5.53 H Hgb 17.2 H Hct 57.8 H MCV 105 H MCH MCHC 30 L Lymph % (Auto) [place] % (Auto) Lymph # (Auto) [place] # (Auto) Seg Neutrophils % Seg Neuts % (Manual) Lymphocytes % (Manual) Monocytes % (Manual) Nucleated RBC % Seg Neutrophils # Lymphocytes # (Manual) Monocytes # (Manual) PT INR D-Dimer ABG pO2 ABG O2 Saturation ABG Methemoglobin VBG pH Oxyhemoglobin Sodium 124 L Potassium 5.7 H Chloride 83.0 L Carbon Dioxide 5 L* BUN 25 H Creatinine 2.1 H Glucose 677 H* POC Glucose > 600 H Hemoglobin A1c Lactic Acid Calcium Phosphorus Magnesium Ferritin Total Bilirubin Direct Bilirubin AST 51 H Alkaline Phosphatase 250 H Ammonia Lactate Dehydrogenase Total Creatine Kinase C-Reactive Protein Total Protein 8.9 H Albumin Triglycerides Urine Creatinine Urine Microalbumin Coronavirus (PCR) 12/05/20 12/05/20 12/05/20 06:46 06:46 06:46 WBC RBC Hgb Hct MCV MCH MCHC Lymph % (Auto) [place] % (Auto) Lymph # (Auto) [place] # (Auto) Seg Neutrophils % Seg Neuts % (Manual) Lymphocytes % (Manual) Monocytes % (Manual) Nucleated RBC % Seg Neutrophils # Lymphocytes # (Manual) Monocytes # (Manual) PT 15.6 H INR 1.24 H D-Dimer ABG pO2 ABG O2 Saturation ABG Methemoglobin VBG pH 6.814 L* Oxyhemoglobin Sodium Potassium Chloride Carbon Dioxide BUN Creatinine Glucose POC Glucose Hemoglobin A1c Lactic Acid Calcium Phosphorus 7.10 H Magnesium 2.70 H Ferritin Total Bilirubin Direct Bilirubin AST Alkaline Phosphatase Ammonia Lactate Dehydrogenase Total Creatine Kinase C-Reactive Protein Total Protein Albumin Triglycerides Urine Creatinine Urine Microalbumin Coronavirus (PCR) 12/05/20 12/05/20 12/05/20 06:46 06:46 07:53 WBC RBC Hgb Hct MCV MCH MCHC Lymph % (Auto) [place] % (Auto) Lymph # (Auto) [place] # (Auto) Seg Neutrophils % Seg Neuts % (Manual) Lymphocytes % (Manual) Monocytes % (Manual) Nucleated RBC % Seg Neutrophils # Lymphocytes # (Manual) Monocytes # (Manual) PT INR D-Dimer ABG pO2 ABG O2 Saturation ABG Methemoglobin VBG pH Oxyhemoglobin Sodium Potassium Chloride Carbon Dioxide BUN Creatinine Glucose 690 H* POC Glucose Hemoglobin A1c Lactic Acid 4.80 H* Calcium Phosphorus Magnesium Ferritin Total Bilirubin Direct Bilirubin AST Alkaline Phosphatase Ammonia 94.0 H Lactate Dehydrogenase Total Creatine Kinase C-Reactive Protein Total Protein Albumin Triglycerides Urine Creatinine Urine Microalbumin Coronavirus (PCR) 12/05/20 12/05/20 12/05/20 10:24 10:24 10:24 WBC RBC Hgb Hct MCV MCH MCHC Lymph % (Auto) [place] % (Auto) Lymph # (Auto) [place] # (Auto) Seg Neutrophils % Seg Neuts % (Manual) Lymphocytes % (Manual) Monocytes % (Manual) Nucleated RBC % Seg Neutrophils # Lymphocytes # (Manual) Monocytes # (Manual) PT INR D-Dimer ABG pO2 ABG O2 Saturation ABG Methemoglobin VBG pH Oxyhemoglobin Sodium 122 L Potassium 5.6 H Chloride 90.5 L Carbon Dioxide 2 L* BUN 28 H Creatinine 1.7 H Glucose 602 H* POC Glucose Hemoglobin A1c 17.8 H Lactic Acid Calcium Phosphorus 7.60 H Magnesium 2.70 H Ferritin Total Bilirubin Direct Bilirubin AST Alkaline Phosphatase Ammonia Lactate Dehydrogenase Total Creatine Kinase C-Reactive Protein Total Protein Albumin Triglycerides 368 H Urine Creatinine Urine Microalbumin Coronavirus (PCR) 12/05/20 12/05/20 12/05/20 10:28 12:36 14:55 WBC RBC Hgb Hct MCV MCH MCHC Lymph % (Auto) [place] % (Auto) Lymph # (Auto) [place] # (Auto) Seg Neutrophils % Seg Neuts % (Manual) Lymphocytes % (Manual) Monocytes % (Manual) Nucleated RBC % Seg Neutrophils # Lymphocytes # (Manual) Monocytes # (Manual) PT INR D-Dimer ABG pO2 ABG O2 Saturation ABG Methemoglobin VBG pH Oxyhemoglobin Sodium Potassium Chloride Carbon Dioxide BUN Creatinine Glucose POC Glucose 584 H 449 H Hemoglobin A1c Lactic Acid Calcium Phosphorus Magnesium Ferritin Total Bilirubin Direct Bilirubin AST Alkaline Phosphatase Ammonia Lactate Dehydrogenase Total Creatine Kinase C-Reactive Protein Total Protein Albumin Triglycerides Urine Creatinine Urine Microalbumin Coronavirus (PCR) Positive A 12/05/20 12/05/20 12/05/20 16:03 16:03 16:03 WBC RBC Hgb Hct MCV MCH MCHC Lymph % (Auto) [place] % (Auto) Lymph # (Auto) [place] # (Auto) Seg Neutrophils % Seg Neuts % (Manual) Lymphocytes % (Manual) Monocytes % (Manual) Nucleated RBC % Seg Neutrophils # Lymphocytes # (Manual) Monocytes # (Manual) PT INR D-Dimer 4712.93 H ABG pO2 ABG O2 Saturation ABG Methemoglobin VBG pH Oxyhemoglobin Sodium 130 L D Potassium 6.6 H* Chloride 95.5 L Carbon Dioxide 5 L* BUN 28 H Creatinine 1.9 H Glucose 437 H POC Glucose Hemoglobin A1c Lactic Acid 4.80 H* Calcium Phosphorus Magnesium Ferritin Total Bilirubin Direct Bilirubin AST Alkaline Phosphatase Ammonia Lactate Dehydrogenase Total Creatine Kinase C-Reactive Protein Total Protein Albumin Triglycerides Urine Creatinine Urine Microalbumin Coronavirus (PCR) 12/05/20 12/05/20 12/05/20 16:03 16:03 16:57 WBC RBC Hgb Hct MCV MCH MCHC Lymph % (Auto) [place] % (Auto) Lymph # (Auto) [place] # (Auto) Seg Neutrophils % Seg Neuts % (Manual) Lymphocytes % (Manual) Monocytes % (Manual) Nucleated RBC % Seg Neutrophils # Lymphocytes # (Manual) Monocytes # (Manual) PT INR D-Dimer ABG pO2 ABG O2 Saturation ABG Methemoglobin VBG pH Oxyhemoglobin Sodium Potassium Chloride Carbon Dioxide BUN Creatinine Glucose 449 H POC Glucose 446 H Hemoglobin A1c Lactic Acid Calcium Phosphorus Magnesium Ferritin > 2000.0 H Total Bilirubin Direct Bilirubin AST Alkaline Phosphatase Ammonia Lactate Dehydrogenase 576 H Total Creatine Kinase C-Reactive Protein 7.10 H Total Protein Albumin Triglycerides Urine Creatinine Urine Microalbumin Coronavirus (PCR) 12/05/20 12/05/20 12/05/20 17:47 18:46 19:11 WBC RBC Hgb Hct MCV MCH MCHC Lymph % (Auto) [place] % (Auto) Lymph # (Auto) [place] # (Auto) Seg Neutrophils % Seg Neuts % (Manual) Lymphocytes % (Manual) Monocytes % (Manual) Nucleated RBC % Seg Neutrophils # Lymphocytes # (Manual) Monocytes # (Manual) PT INR D-Dimer ABG pO2 ABG O2 Saturation ABG Methemoglobin VBG pH Oxyhemoglobin Sodium 136 L Potassium 5.1 H D Chloride 97.2 L Carbon Dioxide 10 L BUN 31 H Creatinine 1.7 H Glucose 341 H POC Glucose 425 H 343 H Hemoglobin A1c Lactic Acid Calcium Phosphorus Magnesium Ferritin Total Bilirubin Direct Bilirubin AST Alkaline Phosphatase Ammonia Lactate Dehydrogenase Total Creatine Kinase C-Reactive Protein Total Protein Albumin Triglycerides Urine Creatinine Urine Microalbumin Coronavirus (PCR) 12/05/20 12/05/20 12/05/20 19:11 20:09 20:59 WBC RBC Hgb Hct MCV MCH MCHC Lymph % (Auto) [place] % (Auto) Lymph # (Auto) [place] # (Auto) Seg Neutrophils % Seg Neuts % (Manual) Lymphocytes % (Manual) Monocytes % (Manual) Nucleated RBC % Seg Neutrophils # Lymphocytes # (Manual) Monocytes # (Manual) PT INR D-Dimer ABG pO2 ABG O2 Saturation ABG Methemoglobin VBG pH Oxyhemoglobin Sodium Potassium Chloride Carbon Dioxide BUN Creatinine Glucose POC Glucose 345 H 304 H Hemoglobin A1c Lactic Acid 4.30 H* Calcium Phosphorus Magnesium Ferritin Total Bilirubin Direct Bilirubin AST Alkaline Phosphatase Ammonia Lactate Dehydrogenase Total Creatine Kinase C-Reactive Protein Total Protein Albumin Triglycerides Urine Creatinine Urine Microalbumin Coronavirus (PCR) 12/05/20 12/05/20 12/06/20 21:57 23:01 00:01 WBC RBC Hgb Hct MCV MCH MCHC Lymph % (Auto) [place] % (Auto) Lymph # (Auto) [place] # (Auto) Seg Neutrophils % Seg Neuts % (Manual) Lymphocytes % (Manual) Monocytes % (Manual) Nucleated RBC % Seg Neutrophils # Lymphocytes # (Manual) Monocytes # (Manual) PT INR D-Dimer ABG pO2 ABG O2 Saturation ABG Methemoglobin VBG pH Oxyhemoglobin Sodium Potassium Chloride Carbon Dioxide BUN Creatinine Glucose POC Glucose 259 H 325 H 297 H Hemoglobin A1c Lactic Acid Calcium Phosphorus Magnesium Ferritin Total Bilirubin Direct Bilirubin AST Alkaline Phosphatase Ammonia Lactate Dehydrogenase Total Creatine Kinase C-Reactive Protein Total Protein Albumin Triglycerides Urine Creatinine Urine Microalbumin Coronavirus (PCR) 12/06/20 12/06/20 12/06/20 00:24 01:01 01:56 WBC RBC Hgb Hct MCV MCH MCHC Lymph % (Auto) [place] % (Auto) Lymph # (Auto) [place] # (Auto) Seg Neutrophils % Seg Neuts % (Manual) Lymphocytes % (Manual) Monocytes % (Manual) Nucleated RBC % Seg Neutrophils # Lymphocytes # (Manual) Monocytes # (Manual) PT INR D-Dimer ABG pO2 ABG O2 Saturation ABG Methemoglobin VBG pH Oxyhemoglobin Sodium 134 L Potassium Chloride Carbon Dioxide 8 L* BUN 29 H Creatinine Glucose 298 H POC Glucose 270 H 225 H Hemoglobin A1c Lactic Acid Calcium Phosphorus Magnesium Ferritin Total Bilirubin Direct Bilirubin AST Alkaline Phosphatase Ammonia Lactate Dehydrogenase Total Creatine Kinase C-Reactive Protein Total Protein Albumin Triglycerides Urine Creatinine Urine Microalbumin Coronavirus (PCR) 12/06/20 12/06/20 12/06/20 03:01 03:59 04:55 WBC RBC Hgb Hct MCV MCH MCHC Lymph % (Auto) [place] % (Auto) Lymph # (Auto) [place] # (Auto) Seg Neutrophils % Seg Neuts % (Manual) Lymphocytes % (Manual) Monocytes % (Manual) Nucleated RBC % Seg Neutrophils # Lymphocytes # (Manual) Monocytes # (Manual) PT INR D-Dimer ABG pO2 ABG O2 Saturation ABG Methemoglobin VBG pH Oxyhemoglobin Sodium Potassium Chloride Carbon Dioxide BUN Creatinine Glucose POC Glucose 231 H 168 H 137 H Hemoglobin A1c Lactic Acid Calcium Phosphorus Magnesium Ferritin Total Bilirubin Direct Bilirubin AST Alkaline Phosphatase Ammonia Lactate Dehydrogenase Total Creatine Kinase C-Reactive Protein Total Protein Albumin Triglycerides Urine Creatinine Urine Microalbumin Coronavirus (PCR) 12/06/20 12/06/20 12/06/20 05:58 06:56 07:44 WBC RBC Hgb Hct MCV MCH MCHC Lymph % (Auto) [place] % (Auto) Lymph # (Auto) [place] # (Auto) Seg Neutrophils % Seg Neuts % (Manual) Lymphocytes % (Manual) Monocytes % (Manual) Nucleated RBC % Seg Neutrophils # Lymphocytes # (Manual) Monocytes # (Manual) PT INR D-Dimer ABG pO2 ABG O2 Saturation ABG Methemoglobin VBG pH Oxyhemoglobin Sodium Potassium Chloride Carbon Dioxide BUN Creatinine Glucose POC Glucose 149 H 205 H 150 H Hemoglobin A1c Lactic Acid Calcium Phosphorus Magnesium Ferritin Total Bilirubin Direct Bilirubin AST Alkaline Phosphatase Ammonia Lactate Dehydrogenase Total Creatine Kinase C-Reactive Protein Total Protein Albumin Triglycerides Urine Creatinine Urine Microalbumin Coronavirus (PCR) 12/06/20 12/06/20 12/06/20 08:16 09:03 09:53 WBC RBC Hgb Hct MCV MCH MCHC Lymph % (Auto) [place] % (Auto) Lymph # (Auto) [place] # (Auto) Seg Neutrophils % Seg Neuts % (Manual) Lymphocytes % (Manual) Monocytes % (Manual) Nucleated RBC % Seg Neutrophils # Lymphocytes # (Manual) Monocytes # (Manual) PT INR D-Dimer ABG pO2 ABG O2 Saturation ABG Methemoglobin VBG pH Oxyhemoglobin Sodium Potassium Chloride Carbon Dioxide 14 L BUN 23 H Creatinine Glucose 136 H POC Glucose 132 H Hemoglobin A1c Lactic Acid Calcium Phosphorus Magnesium Ferritin Total Bilirubin Direct Bilirubin AST Alkaline Phosphatase Ammonia Lactate Dehydrogenase Total Creatine Kinase C-Reactive Protein Total Protein Albumin Triglycerides Urine Creatinine 101.5 H Urine Microalbumin Coronavirus (PCR) 12/06/20 12/06/20 12/06/20 10:11 10:36 11:14 WBC RBC Hgb Hct MCV MCH MCHC Lymph % (Auto) [place] % (Auto) Lymph # (Auto) [place] # (Auto) Seg Neutrophils % Seg Neuts % (Manual) Lymphocytes % (Manual) Monocytes % (Manual) Nucleated RBC % Seg Neutrophils # Lymphocytes # (Manual) Monocytes # (Manual) PT INR D-Dimer ABG pO2 ABG O2 Saturation ABG Methemoglobin VBG pH Oxyhemoglobin Sodium Potassium Chloride Carbon Dioxide BUN Creatinine Glucose POC Glucose 137 H 127 H Hemoglobin A1c Lactic Acid Calcium Phosphorus Magnesium Ferritin Total Bilirubin Direct Bilirubin AST Alkaline Phosphatase Ammonia Lactate Dehydrogenase Total Creatine Kinase C-Reactive Protein Total Protein Albumin Triglycerides Urine Creatinine 101.0 H Urine Microalbumin 36.9 H Coronavirus (PCR) 12/06/20 12/06/20 12/06/20 12:01 13:12 14:02 WBC RBC Hgb Hct MCV MCH MCHC Lymph % (Auto) [place] % (Auto) Lymph # (Auto) [place] # (Auto) Seg Neutrophils % Seg Neuts % (Manual) Lymphocytes % (Manual) Monocytes % (Manual) Nucleated RBC % Seg Neutrophils # Lymphocytes # (Manual) Monocytes # (Manual) PT INR D-Dimer ABG pO2 ABG O2 Saturation ABG Methemoglobin VBG pH Oxyhemoglobin Sodium Potassium Chloride Carbon Dioxide BUN Creatinine Glucose POC Glucose 136 H 139 H 132 H Hemoglobin A1c Lactic Acid Calcium Phosphorus Magnesium Ferritin Total Bilirubin Direct Bilirubin AST Alkaline Phosphatase Ammonia Lactate Dehydrogenase Total Creatine Kinase C-Reactive Protein Total Protein Albumin Triglycerides Urine Creatinine Urine Microalbumin Coronavirus (PCR) 12/06/20 12/06/20 12/06/20 15:50 17:12 18:10 WBC RBC Hgb Hct MCV MCH MCHC Lymph % (Auto) [place] % (Auto) Lymph # (Auto) [place] # (Auto) Seg Neutrophils % Seg Neuts % (Manual) Lymphocytes % (Manual) Monocytes % (Manual) Nucleated RBC % Seg Neutrophils # Lymphocytes # (Manual) Monocytes # (Manual) PT INR D-Dimer ABG pO2 ABG O2 Saturation ABG Methemoglobin VBG pH Oxyhemoglobin Sodium Potassium Chloride Carbon Dioxide BUN Creatinine Glucose POC Glucose 133 H 130 H 114 H Hemoglobin A1c Lactic Acid Calcium Phosphorus Magnesium Ferritin Total Bilirubin Direct Bilirubin AST Alkaline Phosphatase Ammonia Lactate Dehydrogenase Total Creatine Kinase C-Reactive Protein Total Protein Albumin Triglycerides Urine Creatinine Urine Microalbumin Coronavirus (PCR) 12/06/20 12/06/20 12/06/20 21:08 22:06 23:19 WBC RBC Hgb Hct MCV MCH MCHC Lymph % (Auto) [place] % (Auto) Lymph # (Auto) [place] # (Auto) Seg Neutrophils % Seg Neuts % (Manual) Lymphocytes % (Manual) Monocytes % (Manual) Nucleated RBC % Seg Neutrophils # Lymphocytes # (Manual) Monocytes # (Manual) PT INR D-Dimer ABG pO2 ABG O2 Saturation ABG Methemoglobin VBG pH Oxyhemoglobin Sodium Potassium Chloride Carbon Dioxide BUN Creatinine Glucose POC Glucose 127 H 148 H 144 H Hemoglobin A1c Lactic Acid Calcium Phosphorus Magnesium Ferritin Total Bilirubin Direct Bilirubin AST Alkaline Phosphatase Ammonia Lactate Dehydrogenase Total Creatine Kinase C-Reactive Protein Total Protein Albumin Triglycerides Urine Creatinine Urine Microalbumin Coronavirus (PCR) 12/07/20 12/07/20 12/07/20 00:08 01:04 02:05 WBC RBC Hgb Hct MCV MCH MCHC Lymph % (Auto) [place] % (Auto) Lymph # (Auto) [place] # (Auto) Seg Neutrophils % Seg Neuts % (Manual) Lymphocytes % (Manual) Monocytes % (Manual) Nucleated RBC % Seg Neutrophils # Lymphocytes # (Manual) Monocytes # (Manual) PT INR D-Dimer ABG pO2 ABG O2 Saturation ABG Methemoglobin VBG pH Oxyhemoglobin Sodium Potassium Chloride Carbon Dioxide BUN Creatinine Glucose POC Glucose 157 H 118 H 143 H Hemoglobin A1c Lactic Acid Calcium Phosphorus Magnesium Ferritin Total Bilirubin Direct Bilirubin AST Alkaline Phosphatase Ammonia Lactate Dehydrogenase Total Creatine Kinase C-Reactive Protein Total Protein Albumin Triglycerides Urine Creatinine Urine Microalbumin Coronavirus (PCR) 12/07/20 12/07/20 12/07/20 03:03 03:25 03:25 WBC RBC Hgb Hct MCV MCH MCHC Lymph % (Auto) [place] % (Auto) Lymph # (Auto) [place] # (Auto) Seg Neutrophils % Seg Neuts % (Manual) Lymphocytes % (Manual) Monocytes % (Manual) Nucleated RBC % Seg Neutrophils # Lymphocytes # (Manual) Monocytes # (Manual) PT INR D-Dimer 1950.73 H ABG pO2 ABG O2 Saturation ABG Methemoglobin VBG pH Oxyhemoglobin Sodium Potassium Chloride Carbon Dioxide BUN Creatinine Glucose POC Glucose 119 H Hemoglobin A1c Lactic Acid Calcium Phosphorus Magnesium Ferritin 7009.0 H Total Bilirubin Direct Bilirubin AST Alkaline Phosphatase Ammonia Lactate Dehydrogenase Total Creatine Kinase C-Reactive Protein Total Protein Albumin Triglycerides Urine Creatinine Urine Microalbumin Coronavirus (PCR) 12/07/20 12/07/20 12/07/20 03:25 03:25 04:09 WBC 15.8 H RBC 5.21 H Hgb 16.2 H Hct 47.9 H D MCV MCH MCHC Lymph % (Auto) 6.1 L [place] % (Auto) Lymph # (Auto) 1.0 L [place] # (Auto) Seg Neutrophils % 88.5 H Seg Neuts % (Manual) Lymphocytes % (Manual) Monocytes % (Manual) Nucleated RBC % Seg Neutrophils # 14.0 H Lymphocytes # (Manual) Monocytes # (Manual) PT INR D-Dimer ABG pO2 ABG O2 Saturation ABG Methemoglobin VBG pH Oxyhemoglobin Sodium Potassium 3.0 L D Chloride Carbon Dioxide BUN Creatinine Glucose 108 H POC Glucose 155 H Hemoglobin A1c Lactic Acid Calcium Phosphorus 0.70 L* D Magnesium Ferritin Total Bilirubin 1.70 H Direct Bilirubin 0.5 H AST 52 H Alkaline Phosphatase 131 H Ammonia Lactate Dehydrogenase 821 H Total Creatine Kinase C-Reactive Protein 13.80 H Total Protein Albumin 3.6 L Triglycerides Urine Creatinine Urine Microalbumin Coronavirus (PCR) 12/07/20 12/07/20 12/07/20 06:09 08:34 12:19 WBC RBC Hgb Hct MCV MCH MCHC Lymph % (Auto) [place] % (Auto) Lymph # (Auto) [place] # (Auto) Seg Neutrophils % Seg Neuts % (Manual) Lymphocytes % (Manual) Monocytes % (Manual) Nucleated RBC % Seg Neutrophils # Lymphocytes # (Manual) Monocytes # (Manual) PT INR D-Dimer ABG pO2 ABG O2 Saturation ABG Methemoglobin VBG pH Oxyhemoglobin Sodium Potassium Chloride Carbon Dioxide BUN Creatinine Glucose POC Glucose 127 H 178 H 239 H Hemoglobin A1c Lactic Acid Calcium Phosphorus Magnesium Ferritin Total Bilirubin Direct Bilirubin AST Alkaline Phosphatase Ammonia Lactate Dehydrogenase Total Creatine Kinase C-Reactive Protein Total Protein Albumin Triglycerides Urine Creatinine Urine Microalbumin Coronavirus (PCR) 12/07/20 12/07/20 12/07/20 16:07 16:07 23:15 WBC RBC Hgb Hct MCV MCH MCHC Lymph % (Auto) [place] % (Auto) Lymph # (Auto) [place] # (Auto) Seg Neutrophils % Seg Neuts % (Manual) Lymphocytes % (Manual) Monocytes % (Manual) Nucleated RBC % Seg Neutrophils # Lymphocytes # (Manual) Monocytes # (Manual) PT INR D-Dimer ABG pO2 ABG O2 Saturation ABG Methemoglobin VBG pH Oxyhemoglobin Sodium 136 L Potassium 3.2 L Chloride Carbon Dioxide BUN Creatinine Glucose 158 H 160 H POC Glucose 308 H Hemoglobin A1c Lactic Acid Calcium Phosphorus Magnesium Ferritin Total Bilirubin 2.10 H Direct Bilirubin AST 73 H Alkaline Phosphatase 139 H Ammonia Lactate Dehydrogenase Total Creatine Kinase C-Reactive Protein Total Protein Albumin 3.0 L Triglycerides Urine Creatinine Urine Microalbumin Coronavirus (PCR) 12/08/20 12/08/2021 07:42 09:06 09:06 WBC 14.3 H RBC Hgb Hct MCV 95 H MCH MCHC Lymph % (Auto) 8.1 L [place] % (Auto) Lymph # (Auto) [place] # (Auto) 1.0 H Seg Neutrophils % 84.8 H Seg Neuts % (Manual) Lymphocytes % (Manual) Monocytes % (Manual) Nucleated RBC % Seg Neutrophils # 12.1 H Lymphocytes # (Manual) Monocytes # (Manual) PT INR D-Dimer ABG pO2 ABG O2 Saturation ABG Methemoglobin VBG pH Oxyhemoglobin Sodium 133 L Potassium 3.3 L Chloride 96.6 L Carbon Dioxide BUN Creatinine Glucose 330 H POC Glucose 301 H Hemoglobin A1c Lactic Acid Calcium Phosphorus Magnesium Ferritin Total Bilirubin 1.90 H Direct Bilirubin AST 92 H Alkaline Phosphatase 142 H Ammonia Lactate Dehydrogenase Total Creatine Kinase C-Reactive Protein Total Protein Albumin 2.8 L Triglycerides Urine Creatinine Urine Microalbumin Coronavirus (PCR) 12/08/20 12/08/20 12/08/20 11:03 16:28 22:19 WBC RBC Hgb Hct MCV MCH MCHC Lymph % (Auto) [place] % (Auto) Lymph # (Auto) [place] # (Auto) Seg Neutrophils % Seg Neuts % (Manual) Lymphocytes % (Manual) Monocytes % (Manual) Nucleated RBC % Seg Neutrophils # Lymphocytes # (Manual) Monocytes # (Manual) PT INR D-Dimer ABG pO2 ABG O2 Saturation ABG Methemoglobin VBG pH Oxyhemoglobin Sodium Potassium Chloride Carbon Dioxide BUN Creatinine Glucose POC Glucose 287 H 125 H 130 H Hemoglobin A1c Lactic Acid Calcium Phosphorus Magnesium Ferritin Total Bilirubin Direct Bilirubin AST Alkaline Phosphatase Ammonia Lactate Dehydrogenase Total Creatine Kinase C-Reactive Protein Total Protein Albumin Triglycerides Urine Creatinine Urine Microalbumin Coronavirus (PCR) 12/09/20 12/09/20 12/09/20 05:00 05:00 05:00 WBC RBC Hgb Hct MCV MCH MCHC Lymph % (Auto) [place] % (Auto) Lymph # (Auto) [place] # (Auto) Seg Neutrophils % Seg Neuts % (Manual) Lymphocytes % (Manual) Monocytes % (Manual) Nucleated RBC % Seg Neutrophils # Lymphocytes # (Manual) Monocytes # (Manual) PT INR D-Dimer 2527.04 H ABG pO2 ABG O2 Saturation ABG Methemoglobin VBG pH Oxyhemoglobin Sodium Potassium Chloride Carbon Dioxide BUN Creatinine Glucose POC Glucose Hemoglobin A1c Lactic Acid Calcium Phosphorus Magnesium Ferritin 36850.0 H Total Bilirubin Direct Bilirubin AST Alkaline Phosphatase Ammonia Lactate Dehydrogenase 2285 H Total Creatine Kinase C-Reactive Protein 22.30 H Total Protein Albumin Triglycerides Urine Creatinine Urine Microalbumin Coronavirus (PCR) 12/09/20 12/09/20 12/09/20 05:00 08:03 09:39 WBC RBC Hgb 11.5 L Hct 34.3 L MCV MCH MCHC Lymph % (Auto) [place] % (Auto) Lymph # (Auto) [place] # (Auto) Seg Neutrophils % Seg Neuts % (Manual) Lymphocytes % (Manual) Monocytes % (Manual) Nucleated RBC % Seg Neutrophils # Lymphocytes # (Manual) Monocytes # (Manual) PT INR D-Dimer ABG pO2 ABG O2 Saturation ABG Methemoglobin VBG pH Oxyhemoglobin Sodium Potassium 3.2 L Chloride Carbon Dioxide BUN Creatinine 0.7 L Glucose 151 H POC Glucose 139 H Hemoglobin A1c Lactic Acid Calcium Phosphorus Magnesium Ferritin Total Bilirubin 2.30 H Direct Bilirubin AST 98 H Alkaline Phosphatase 134 H Ammonia Lactate Dehydrogenase Total Creatine Kinase C-Reactive Protein Total Protein Albumin 2.8 L Triglycerides Urine Creatinine Urine Microalbumin Coronavirus (PCR) 12/09/20 12/09/20 12/09/20 10:57 15:36 15:36 WBC RBC Hgb Hct MCV MCH MCHC Lymph % (Auto) [place] % (Auto) Lymph # (Auto) [place] # (Auto) Seg Neutrophils % Seg Neuts % (Manual) Lymphocytes % (Manual) Monocytes % (Manual) Nucleated RBC % Seg Neutrophils # Lymphocytes # (Manual) Monocytes # (Manual) PT INR D-Dimer ABG pO2 ABG O2 Saturation ABG Methemoglobin VBG pH Oxyhemoglobin Sodium Potassium Chloride Carbon Dioxide BUN Creatinine Glucose 204 H POC Glucose 221 H Hemoglobin A1c Lactic Acid Calcium Phosphorus Magnesium Ferritin Total Bilirubin Direct Bilirubin AST Alkaline Phosphatase Ammonia Lactate Dehydrogenase Total Creatine Kinase 420 H C-Reactive Protein Total Protein Albumin Triglycerides Urine Creatinine Urine Microalbumin Coronavirus (PCR) 12/09/20 12/09/20 12/09/20 16:13 22:06 22:33 WBC RBC Hgb Hct MCV MCH MCHC Lymph % (Auto) [place] % (Auto) Lymph # (Auto) [place] # (Auto) Seg Neutrophils % Seg Neuts % (Manual) Lymphocytes % (Manual) Monocytes % (Manual) Nucleated RBC % Seg Neutrophils # Lymphocytes # (Manual) Monocytes # (Manual) PT INR D-Dimer ABG pO2 182.0 H ABG O2 Saturation 99.1 H ABG Methemoglobin 1.9 H VBG pH Oxyhemoglobin 93.3 L Sodium Potassium Chloride Carbon Dioxide BUN Creatinine Glucose POC Glucose 193 H 232 H Hemoglobin A1c Lactic Acid Calcium Phosphorus Magnesium Ferritin Total Bilirubin Direct Bilirubin AST Alkaline Phosphatase Ammonia Lactate Dehydrogenase Total Creatine Kinase C-Reactive Protein Total Protein Albumin Triglycerides Urine Creatinine Urine Microalbumin Coronavirus (PCR) 12/10/20 12/10/20 12/10/20 07:42 07:42 08:09 WBC RBC 3.18 L Hgb 10.2 L Hct 30.8 L MCV 97 H MCH MCHC Lymph % (Auto) [place] % (Auto) Lymph # (Auto) [place] # (Auto) Seg Neutrophils % Seg Neuts % (Manual) 78.0 H Lymphocytes % (Manual) 11.0 L Monocytes % (Manual) 11.0 H Nucleated RBC % 1.0 H Seg Neutrophils # Lymphocytes # (Manual) 1.1 L Monocytes # (Manual) 1.1 H PT INR D-Dimer ABG pO2 ABG O2 Saturation ABG Methemoglobin VBG pH Oxyhemoglobin Sodium 132 L D Potassium Chloride 93.8 L Carbon Dioxide BUN Creatinine 0.6 L Glucose 385 H POC Glucose 406 H Hemoglobin A1c Lactic Acid Calcium Phosphorus Magnesium Ferritin Total Bilirubin 3.00 H Direct Bilirubin AST 70 H Alkaline Phosphatase Ammonia Lactate Dehydrogenase Total Creatine Kinase C-Reactive Protein Total Protein Albumin 2.6 L Triglycerides Urine Creatinine Urine Microalbumin Coronavirus (PCR) 12/10/20 12/10/20 12/10/20 11:37 16:22 16:54 WBC RBC Hgb Hct MCV MCH MCHC Lymph % (Auto) [place] % (Auto) Lymph # (Auto) [place] # (Auto) Seg Neutrophils % Seg Neuts % (Manual) Lymphocytes % (Manual) Monocytes % (Manual) Nucleated RBC % Seg Neutrophils # Lymphocytes # (Manual) Monocytes # (Manual) PT INR D-Dimer 1767.06 H ABG pO2 ABG O2 Saturation ABG Methemoglobin VBG pH Oxyhemoglobin Sodium Potassium Chloride Carbon Dioxide BUN Creatinine Glucose POC Glucose 420 H > 600 H Hemoglobin A1c Lactic Acid Calcium Phosphorus Magnesium Ferritin Total Bilirubin Direct Bilirubin AST Alkaline Phosphatase Ammonia Lactate Dehydrogenase Total Creatine Kinase C-Reactive Protein Total Protein Albumin Triglycerides Urine Creatinine Urine Microalbumin Coronavirus (PCR) 04/07/21 04/07/21 04/07/21 16:54 16:54 17:56 WBC RBC Hgb Hct MCV MCH MCHC Lymph % (Auto) [place] % (Auto) Lymph # (Auto) [place] # (Auto) Seg Neutrophils % Seg Neuts % (Manual) Lymphocytes % (Manual) Monocytes % (Manual) Nucleated RBC % Seg Neutrophils # Lymphocytes # (Manual) Monocytes # (Manual) PT INR D-Dimer ABG pO2 ABG O2 Saturation ABG Methemoglobin VBG pH Oxyhemoglobin Sodium Potassium Chloride Carbon Dioxide BUN Creatinine Glucose POC Glucose 504 H Hemoglobin A1c Lactic Acid Calcium Phosphorus Magnesium Ferritin > 2000.0 H Total Bilirubin Direct Bilirubin AST Alkaline Phosphatase Ammonia Lactate Dehydrogenase 2658 H Total Creatine Kinase C-Reactive Protein 10.70 H Total Protein Albumin Triglycerides Urine Creatinine Urine Microalbumin Coronavirus (PCR) 12/10/20 12/11/20 12/11/20 21:47 00:29 00:29 WBC RBC Hgb Hct MCV MCH MCHC Lymph % (Auto) [place] % (Auto) Lymph # (Auto) [place] # (Auto) Seg Neutrophils % Seg Neuts % (Manual) Lymphocytes % (Manual) Monocytes % (Manual) Nucleated RBC % Seg Neutrophils # Lymphocytes # (Manual) Monocytes # (Manual) PT INR D-Dimer 1828.92 H ABG pO2 ABG O2 Saturation ABG Methemoglobin VBG pH Oxyhemoglobin Sodium Potassium Chloride Carbon Dioxide BUN Creatinine Glucose POC Glucose 389 H Hemoglobin A1c Lactic Acid Calcium Phosphorus Magnesium Ferritin > 2000.0 H Total Bilirubin Direct Bilirubin AST Alkaline Phosphatase Ammonia Lactate Dehydrogenase Total Creatine Kinase C-Reactive Protein Total Protein Albumin Triglycerides Urine Creatinine Urine Microalbumin Coronavirus (PCR) 12/11/20 12/11/20 12/11/20 00:29 03:59 03:59 WBC 12.0 H RBC 3.16 L Hgb 10.3 L Hct 31.0 L MCV 98 H MCH 33 H MCHC Lymph % (Auto) [place] % (Auto) 8.2 H Lymph # (Auto) [place] # (Auto) Seg Neutrophils % Seg Neuts % (Manual) Lymphocytes % (Manual) Monocytes % (Manual) 10.0 H Nucleated RBC % Seg Neutrophils # Lymphocytes # (Manual) Monocytes # (Manual) 1.2 H PT INR D-Dimer ABG pO2 ABG O2 Saturation ABG Methemoglobin VBG pH Oxyhemoglobin Sodium 132 L Potassium 3.4 L Chloride 89.4 L Carbon Dioxide BUN 22 H Creatinine 0.7 L Glucose 337 H POC Glucose Hemoglobin A1c Lactic Acid Calcium Phosphorus Magnesium Ferritin Total Bilirubin 2.80 H Direct Bilirubin AST 45 H Alkaline Phosphatase 135 H Ammonia Lactate Dehydrogenase 2594 H Total Creatine Kinase C-Reactive Protein 9.10 H Total Protein Albumin 3.2 L Triglycerides Urine Creatinine Urine Microalbumin Coronavirus (PCR) 12/11/20 12/11/20 12/11/20 07:50 09:10 11:02 WBC RBC Hgb Hct MCV MCH MCHC Lymph % (Auto) [place] % (Auto) Lymph # (Auto) [place] # (Auto) Seg Neutrophils % Seg Neuts % (Manual) Lymphocytes % (Manual) Monocytes % (Manual) Nucleated RBC % Seg Neutrophils # Lymphocytes # (Manual) Monocytes # (Manual) PT INR D-Dimer ABG pO2 ABG O2 Saturation ABG Methemoglobin VBG pH Oxyhemoglobin Sodium Potassium Chloride Carbon Dioxide BUN Creatinine Glucose POC Glucose 152 H 256 H 261 H Hemoglobin A1c Lactic Acid Calcium Phosphorus Magnesium Ferritin Total Bilirubin Direct Bilirubin AST Alkaline Phosphatase Ammonia Lactate Dehydrogenase Total Creatine Kinase C-Reactive Protein Total Protein Albumin Triglycerides Urine Creatinine Urine Microalbumin Coronavirus (PCR) 12/11/20 12/12/20 12/12/20 16:39 06:14 06:14 WBC RBC 2.21 L Hgb 7.2 L D Hct 21.5 L D MCV 97 H MCH 33 H MCHC Lymph % (Auto) [place] % (Auto) Lymph # (Auto) [place] # (Auto) Seg Neutrophils % Seg Neuts % (Manual) Lymphocytes % (Manual) Monocytes % (Manual) Nucleated RBC % Seg Neutrophils # Lymphocytes # (Manual) Monocytes # (Manual) PT INR D-Dimer ABG pO2 ABG O2 Saturation ABG Methemoglobin VBG pH Oxyhemoglobin Sodium 136 L Potassium 2.6 L* D Chloride 97.5 L Carbon Dioxide 31 H BUN Creatinine Glucose 110 H POC Glucose 239 H Hemoglobin A1c Lactic Acid Calcium 7.2 L D Phosphorus Magnesium Ferritin Total Bilirubin Direct Bilirubin AST Alkaline Phosphatase Ammonia Lactate Dehydrogenase Total Creatine Kinase C-Reactive Protein Total Protein Albumin Triglycerides Urine Creatinine Urine Microalbumin Coronavirus (PCR) 12/12/20 11:25 WBC RBC Hgb Hct MCV MCH MCHC Lymph % (Auto) [place] % (Auto) Lymph # (Auto) [place] # (Auto) Seg Neutrophils % Seg Neuts % (Manual) Lymphocytes % (Manual) Monocytes % (Manual) Nucleated RBC % Seg Neutrophils # Lymphocytes # (Manual) Monocytes # (Manual) PT INR D-Dimer ABG pO2 ABG O2 Saturation ABG Methemoglobin VBG pH Oxyhemoglobin Sodium Potassium Chloride Carbon Dioxide BUN Creatinine Glucose POC Glucose 151 H Hemoglobin A1c Lactic Acid Calcium Phosphorus Magnesium Ferritin Total Bilirubin Direct Bilirubin AST Alkaline Phosphatase Ammonia Lactate Dehydrogenase Total Creatine Kinase C-Reactive Protein Total Protein Albumin Triglycerides Urine Creatinine Urine Microalbumin Coronavirus (PCR) Chest x-ray: image reviewed Allied health notes reviewed: RT
--- NOTE | 2020-12-12 12:51 | Progress Note ---
Assessment and Plan Cultures: Blood culture 12/05/2020: No growth so far A/P: 30-year-old man past medical history insulin-dependent diabetes admitted with DKA, Covid #Severe sepsis: Present on admission, likely secondary to pneumonia. #Severe COVID-19 pneumonia: Markers elevated. Worsening ferritin 37K, Ddimer; CR P better. Possible component of bacterial pneumonia elevated procalcitonin 7.1-->1.6, however patient was an KENDRA. US no DVT. #Acute hypoxemic respiratory failure: now on 5L, sats dropped to 90% overnight. VQ scan with intermediate probability for PE. #DKA: hyperglycemia worsening on steroids #KENDRA: Resolved #Transaminitis: worsening #Hematuria: unclear etiology, CT abd unremarkable Recs: -Completed ceftriaxone for 5 days and azithromycin for 3 days. -Continue remdesivir total 5 days D4 of 5 -Continue dexamenthasone total 10 days -No indication for tociluzimab -Anticoagulation per hospital protocol -DKA management per primary -Monitor oxygenation MD [facility] ([facility]) Office [phone] Subjective Date of service: 12/12/20 Principal diagnosis: Severe sepsis; DKA; COVID-19 infection; Bilateral pneumonia; KENDRA Interval history: Feels better however sats dropped to 90%, no fever. Objective - Exam Narrative Exam: General appearance: Alert in NAD pleasant Eyes: anicteric sclerae, moist conjunctivae; no lid-lag; PERRLA HENT: Normocephalic, Atraumatic; normal external ears, nares open, oropharynx clear Neck: supple, tracheal midline, no JVD Lungs: Bilateral crackles CV: RRR no murmur Abdomen: Soft, non-tender; no masses or hepatosplenomegaly Extremities: no edema, no cyanosis Skin: No rash. Psych: no agitated Neuro: alert and oriented x 3. Moving all extermities - Constitutional Vitals: Vital Signs Temp Pulse Resp BP Pulse Ox 99.3 F 109 H 18 108/47 96 12/12/20 04:55 12/12/20 04:55 12/12/20 04:55 12/12/20 04:55 12/12/20 04:55 Temperature -Last 24 Hours Temperature 99.3 F Temperature 98.8 F Temperature 98.4 F - Labs CBC & Chem 7: 12/12/20 06:14 12/12/20 06:14 Labs: Abnormal lab results 12/11/20 12/11/20 12/12/20 Range/Units 11:02 16:39 06:14 RBC 2.21 L (3.65-5.03) M/mm3 Hgb 7.2 L D (11.8-15.2) gm/dl Hct 21.5 L D (35.5-45.6) % MCV 97 H (84-94) fl MCH 33 H (28-32) pg Sodium (137-145) mmol/L Potassium (3.6-5.0) mmol/L Chloride (98-107) mmol/L Carbon Dioxide (22-30) mmol/L Glucose (75-100) mg/dL POC Glucose 261 H 239 H (70-105) mg/dL Calcium (8.4-10.2) mg/dL 12/12/20 12/12/20 Range/Units 06:14 11:25 RBC (3.65-5.03) M/mm3 Hgb (11.8-15.2) gm/dl Hct (35.5-45.6) % MCV (84-94) fl MCH (28-32) pg Sodium 136 L (137-145) mmol/L Potassium 2.6 L* D (3.6-5.0) mmol/L Chloride 97.5 L (98-107) mmol/L Carbon Dioxide 31 H (22-30) mmol/L Glucose 110 H (75-100) mg/dL POC Glucose 151 H (70-105) mg/dL Calcium 7.2 L D (8.4-10.2) mg/dL
--- NOTE | 2020-12-12 16:19 | Progress Note ---
Assessment and Plan Assessment and plan: This is a 30-year-old male who was recently diagnosed with diabetes mellitus type 2 on oral hypoglycemics presented to the hospital with DKA/severe metabolic acidosis, bilateral pneumonia, positive COVID-19, KENDRA and electrolyte imbalance. Severe sepsis, POA -Likely due to underlying pneumonia and COVID-19 -s/p IV antibiotics, and COVID-19 protocol Positive COVID-19, intermittent hypoxia -hold eliquis 2/2 hematuria -s/p remdesivir - currently on dexamethasone -Continue to follow, consulted ID Bilateral pneumonia -Likely due to COVID-19 infection with possible bacterial pneumonia -Patient has elevated procalcitonin, treated with Rocephin and Zithromax Acute hypoxic respiratory failure - intermittently resolving - VQ scan with possible PE - pending CTA DKA resolved Severe Metabolic Acidosis -Patient admitted with DKA protocol: s/p insulin drip, aggressive IV fluid with sodium bicarbonate drip for severe acidosis -Placed on consistent carb diet, NPH 70/30 and sliding scale Acute kidney injury, likely vasomotor nephropathy - 2/2 dehydration/DKA-resolved Hypokalemia/hypophosphatemia: Will replete and monitor Hyponatremia, likely due to hyperglycemia, continue IV fluid for now follow BMP Hyperkalemia, resolved -Likely due to severe DKA and KENDRA -Status post bicarbonate drip Transaminitis: likely due to acute hepatic failure from severe sepsis, monitor LFTs Hyperammonemia: likely due to severe dehydration and severe sepsis causing transient hepatic failure, continue to monitor Elevated D-dimer - CTA pending Diabetes mellitus type 2, uncontrolled with hyperglycemia and DKA -A1c 17.8 - insulin w/sliding scale Hematuria, likely developed due to anticoagulation. - Will hold on heparin product and Eliquis -Continue to monitor H&H, obtain UA - CT abdomen/pelvis w/o any acute findings - DVT Px with SCD -Full CODE STATUS DISPOSITION: monitor hgb, pending CTA to r/o PE, pending occult stool to r/o GI bleed History Interval history: Daily clinical course: 12/06: Continue bicarbonate drip for now patient still with metabolic acidosis with high anion gap. Patient is not symptomatic with Covid. We will continue to monitor. Will follow ID recommendation. Critical care has been consulted/will follow recommendation 12/07: Anion gap has resolved, CO2 level 26 today. Blood glucose has been stab ilized. Vitals stable. Will start on consistent carb diet NPH 7030 and sliding scale insulin. Accu-Chek QA CHS. If clinically stable transfer out from ICU- today. Continue Covid protocol, continue empiric antibiotics for pneumonia. Patient became hypoxic overnight, now on 3 L nasal cannula. Will repeat chest x-ray, start on remdesivir. Will hold onto dexamethasone as because patient has uncontrolled hyperglycemia. 12/08: Blood glucose improving slowly, will increase insulin to 35 units twice daily along with sliding scale. Noted ID recommendation appreciated. Patient getting hypoxic on ambulation, treated with remdesivir for now due to patient's high risk factor associated with deterioration of COVID-19 infection. Developed hematuria this morning which likely due to anticoagulation. Will hold anticoagulation. monitor H&H 12/09: Patient remains on 3 to 5 L nasal cannula, inflammatory markers trending up. Day 2 of remdesivir today. Continue to follow clinically, replete electr olytes. Blood glucose much stable, follow ID recommendation. DC IV fluid today, get repeat chest x-ray. Monitor for fluid overload and pulmonary edema. Lasix IV as needed. Patients inflammatory markers today: Serum ferritin 26873, D Dimer 2527.04, LDH 22 85, CRP 22.3 12/10: Blood glucose level above 400 today, started on dexamethasone by ID as patient having pending lab and inflammatory markers. Will increase NPH dose, continue sliding scale of insulin, day 3 of remdesivir today. Follow in flammatory markers, follow H&H. Continue to have hematochezia. Ordered CT abdomen pelvis for persistent hematuria and pulmonary VQ scan for possible pulmonary embolism. 12/11: CT abdomen pelvis findings, VQ scan obtained results pending. Patient is resting on room air today, will assess for home O2 requirement. Continue day 4 of remdesivir, and dexamethasone. Adjust insulin doses for better adjustment for blood glucose as patient is on dexamethasone, PT eval. inflammatory markers slightly trended down. Continue to follow. Hematuria slightly improved, continue to trend H&H 12/12: pt off O2 yesterday but placed back on O2 today. VQ scan showing possible PE, spoke with pulm, will order CTA, Hgb low, hematuria resolved, will obtain occult stool. Hospitalist Physical - Physical exam Narrative exam: General appearance: Present: no acute distress, well-nourished EENT: PERRL, EOM intact, hearing intact, clear oral mucosa, dentition normal Neck: Present: supple, normal ROM Respiratory: bilateral: CTA, negative: rales, rhonchi, wheezing Cardiovascular: Rhythm: regular Heart Sounds: Present: S1 & S2. Absent: gallop, rub Extremities: no ischemia, No edema, normal temperature, normal color, Full ROM Abdominal: soft, non-tender, non-distended, normal bowel sounds Integumentary: Present: clear, warm, dry Psychiatric: appropriate mood/affect, intact judgment & insight Neurologic: CNII-XII intact, moves all extremities - Constitutional Vitals: Temp Pulse Resp BP Pulse Ox 99.3 F 109 H 18 108/47 96 12/12/20 04:55 12/12/20 04:55 12/12/20 04:55 12/12/20 04:55 12/12/20 04:55 General appearance: Present: no acute distress Results - Labs CBC & Chem 7: 12/12/20 06:14 12/12/20 06:14 Labs: Laboratory Last Values WBC 10.4 K/mm3 (4.5-11.0) 12/12/20 06:14 RBC 2.21 M/mm3 (3.65-5.03) L 12/12/20 06:14 Hgb 7.2 gm/dl (11.8-15.2) L D 12/12/20 06:14 Hct 21.5 % (35.5-45.6) L D 12/12/20 06:14 MCV 97 fl (84-94) H 12/12/20 06:14 MCH 33 pg (28-32) H 12/12/20 06:14 MCHC 34 % (32-34) 12/12/20 06:14 RDW 13.8 % (13.2-15.2) 12/12/20 06:14 Plt Count 297 K/mm3 (140-440) 12/12/20 06:14 Lymph % (Auto) 29.4 % (13.4-35.0) 12/11/20 03:59 [place] % (Auto) 8.2 % (0.0-7.3) H 12/11/20 03:59 Eos % (Auto) 0.2 % (0.0-4.3) 12/11/20 03:59 Baso % (Auto) 0.4 % (0.0-1.8) 12/11/20 03:59 Lymph # (Auto) 2.3 K/mm3 (1.2-5.4) 12/11/20 03:59 [place] # (Auto) 0.7 K/mm3 (0.0-0.8) 12/11/20 03:59 Eos # (Auto) 0.0 K/mm3 (0.0-0.4) 12/11/20 03:59 Baso # (Auto) 0.0 K/mm3 (0.0-0.1) 12/11/20 03:59 Add Manual Diff Complete 12/11/20 03:59 Total Counted 100 12/11/20 03:59 Seg Neutrophils % 61.8 % (40.0-70.0) 12/11/20 03:59 Seg Neuts % (Manual) 57.0 % (40.0-70.0) 12/11/20 03:59 Lymphocytes % (Manual) 33.0 % (13.4-35.0) 12/11/20 03:59 Monocytes % (Manual) 10.0 % (0.0-7.3) H 12/11/20 03:59 Nucleated RBC % Not Reportable 12/11/20 03:59 Seg Neutrophils # 7.4 K/mm3 (1.8-7.7) 12/11/20 03:59 Seg Neutrophils # Man 6.8 K/mm3 (1.8-7.7) 12/11/20 03:59 Band Neutrophils # 0.0 K/mm3 12/11/20 03:59 Lymphocytes # (Manual) 4.0 K/mm3 (1.2-5.4) 12/11/20 03:59 Abs React Lymphs (Man) 0.0 K/mm3 12/11/20 03:59 Monocytes # (Manual) 1.2 K/mm3 (0.0-0.8) H 12/11/20 03:59 Eosinophils # (Manual) 0.0 K/mm3 (0.0-0.4) 12/11/20 03:59 Basophils # (Manual) 0.0 K/mm3 (0.0-0.1) 12/11/20 03:59 Metamyelocytes # 0.0 K/mm3 12/11/20 03:59 Myelocytes # 0.0 K/mm3 12/11/20 03:59 Promyelocytes # 0.0 K/mm3 12/11/20 03:59 Blast Cells # 0.0 K/mm3 12/11/20 03:59 WBC Morphology Not Reportable 12/11/20 03:59 Hypersegmented Neuts Not Reportable 12/11/20 03:59 Hyposegmented Neuts Not Reportable 12/11/20 03:59 Hypogranular Neuts Not Reportable 12/11/20 03:59 Smudge Cells Not Reportable 12/11/20 03:59 Toxic Granulation Not Reportable 12/11/20 03:59 Toxic Vacuolation Not Reportable 12/11/20 03:59 Dohle Bodies Not Reportable 12/11/20 03:59 Pelger-Huet Anomaly Not Reportable 12/11/20 03:59 Janessa Rods Not Reportable 12/11/20 03:59 Platelet Estimate Consistent w auto 12/11/20 03:59 Clumped Platelets Not Reportable 12/11/20 03:59 Plt Clumps, EDTA Not Reportable 12/11/20 03:59 Large Platelets Not Reportable 12/11/20 03:59 Giant Platelets Not Reportable 12/11/20 03:59 Platelet Satelliting Not Reportable 12/11/20 03:59 Plt Morphology Comment Not Reportable 12/11/20 03:59 RBC Morphology Not Reportable 12/11/20 03:59 Dimorphic RBCs Not Reportable 12/11/20 03:59 Polychromasia Not Reportable 12/11/20 03:59 Hypochromasia Not Reportable 12/11/20 03:59 Poikilocytosis Not Reportable 12/11/20 03:59 Anisocytosis Not Reportable 12/11/20 03:59 Microcytosis Not Reportable 12/11/20 03:59 Macrocytosis Not Reportable 12/11/20 03:59 Spherocytes Not Reportable 12/11/20 03:59 Pappenheimer Bodies Not Reportable 12/11/20 03:59 Sickle Cells Not Reportable 12/11/20 03:59 Target Cells Not Reportable 12/11/20 03:59 Tear Drop Cells Not Reportable 12/11/20 03:59 Ovalocytes Not Reportable 12/11/20 03:59 Helmet Cells Not Reportable 12/11/20 03:59 Costello-Robeson Extension Bodies Not Reportable 12/11/20 03:59 Dyer Rings Not Reportable 12/11/20 03:59 [place] Cells Not Reportable 12/11/20 03:59 Bite Cells Not Reportable 12/11/20 03:59 Crenated Cell Not Reportable 12/11/20 03:59 Elliptocytes Not Reportable 12/11/20 03:59 Acanthocytes (Spur) Not Reportable 12/11/20 03:59 Rouleaux Not Reportable 12/11/20 03:59 Hemoglobin C Crystals Not Reportable 12/11/20 03:59 Schistocytes Not Reportable 12/11/20 03:59 Malaria parasites Not Reportable 12/11/20 03:59 Sunil Bodies Not Reportable 12/11/20 03:59 Hem Pathologist Commnt No 12/11/20 03:59 PT 15.6 Sec. (12.2-14.9) H 12/05/20 06:46 INR 1.24 (0.87-1.13) H 12/05/20 06:46 APTT 30.7 Sec. (24.2-36.6) 12/05/20 06:46 D-Dimer 1828.92 ng/mlDDU (0-234) H 12/11/20 00:29 ABG pH 7.394 pH Units (7.350-7.450) 12/09/20 22:33 ABG pCO2 42.4 mm Hg 12/09/20 22:33 ABG pO2 182.0 mm Hg (80.0-90.0) H 12/09/20 22:33 ABG HCO3 25.3 mmol/L (20.0-26.0) 12/09/20 22:33 ABG O2 Saturation 99.1 % (95.0-99.0) H 12/09/20 22:33 ABG O2 Content 23.7 (0.0-44) 12/09/20 22:33 ABG Base Excess 0.2 mmol/L (-2.0-3.0) 12/09/20 22:33 ABG Hemoglobin 17.9 gm/dl (14.0-18.0) 12/09/20 22:33 ABG Carboxyhemoglobin 3.9 % (0.0-5.0) 12/09/20 22:33 ABG Methemoglobin 1.9 % (0.0-1.5) H 12/09/20 22:33 VBG pH 6.814 (7.320-7.420) L* 12/05/20 06:46 Oxyhemoglobin 93.3 % (95.0-99.0) L 12/09/20 22:33 FiO2 32 % 12/09/20 22:33 Sodium 136 mmol/L (137-145) L 12/12/20 06:14 Potassium 2.6 mmol/L (3.6-5.0) L* D 12/12/20 06:14 Chloride 97.5 mmol/L (98-107) L 12/12/20 06:14 Carbon Dioxide 31 mmol/L (22-30) H 12/12/20 06:14 Anion Gap 10 mmol/L 12/12/20 06:14 BUN 9 mg/dL (9-20) 12/12/20 06:14 Creatinine 0.8 mg/dL (0.8-1.3) 12/12/20 06:14 Estimated GFR > 60 ml/min 12/12/20 06:14 BUN/Creatinine Ratio 11 % 12/12/20 06:14 Glucose 110 mg/dL (75-100) H 12/12/20 06:14 POC Glucose 151 mg/dL (70-105) H 12/12/20 11:25 Hemoglobin A1c 17.8 % (4-6) H 12/05/20 10:24 Lactic Acid 0.90 mmol/L (0.7-2.0) 12/06/20 04:32 Calcium 7.2 mg/dL (8.4-10.2) L D 12/12/20 06:14 Phosphorus 2.60 mg/dL (2.5-4.5) D 12/08/20 09:06 Magnesium 1.90 mg/dL (1.7-2.3) 12/07/20 03:25 Ferritin > 2000.0 ng/mL (30.0-300.0) H 12/11/20 00:29 Total Bilirubin 2.80 mg/dL (0.1-1.2) H 12/11/20 03:59 Direct Bilirubin 0.5 mg/dL (0-0.2) H 12/07/20 03:25 Indirect Bilirubin 1.2 mg/dL 12/07/20 03:25 AST 45 units/L (5-40) H 12/11/20 03:59 ALT 25 units/L (7-56) 12/11/20 03:59 Alkaline Phosphatase 135 units/L (35-129) H 12/11/20 03:59 Ammonia 60.0 umol/L (25-60) 12/06/20 04:32 Lactate Dehydrogenase 2594 units/L (91-180) H 12/11/20 00:29 Total Creatine Kinase 420 units/L (55-170) H 12/09/20 15:36 C-Reactive Protein 9.10 mg/dL (0.00-1.30) H 12/11/20 00:29 Total Protein 6.5 g/dL (6.3-8.2) 12/11/20 03:59 Albumin 3.2 g/dL (3.9-5) L 12/11/20 03:59 Albumin/Globulin Ratio 1.0 % 12/11/20 03:59 Triglycerides 368 mg/dL (2-149) H 12/05/20 10:24 Cholesterol 178 mg/dL (50-199) 12/05/20 10:24 LDL Cholesterol Direct 72 mg/dL (50-130) 12/05/20 10:24 HDL Cholesterol 57 mg/dL (40-59) 12/05/20 10:24 Cholesterol/HDL Ratio 3.12 % 12/05/20 10:24 Procalcitonin 0.93 ng/mL (<0.15) 12/11/20 00:29 Urine Color Straw (Yellow) 12/05/20 Unknown Urine Turbidity Clear (Clear) 12/05/20 Unknown Urine pH 5.0 (5.0-7.0) 12/05/20 Unknown Ur Specific [place] 1.020 (1.003-1.030) 12/05/20 Unknown Urine Protein 100 mg/dl mg/dL (Negative) 12/05/20 Unknown Urine Glucose (UA) >=500 mg/dL (Negative) 12/05/20 Unknown Urine Ketones 80 mg/dL (Negative) 12/05/20 Unknown Urine Blood Sm (Negative) 12/05/20 Unknown Urine Nitrite Neg (Negative) 12/05/20 Unknown Urine Bilirubin Neg (Negative) 12/05/20 Unknown Urine Urobilinogen < 2.0 mg/dL (<2.0) 12/05/20 Unknown Ur Leukocyte Esterase Neg (Negative) 12/05/20 Unknown Urine WBC (Auto) < 1.0 /HPF (0.0-6.0) 12/05/20 Unknown Urine RBC (Auto) 1.0 /HPF (0.0-6.0) 12/05/20 Unknown Urine Bacteria (Auto) 1+ /HPF (Negative) 12/05/20 Unknown Urine Mucus Few /HPF 12/05/20 Unknown Urine Yeast (Budding) Few /HPF 12/05/20 Unknown Urine Creatinine 101.0 mg/dL (0.1-20.0) H 12/06/20 10:36 Urine Microalbumin 36.9 mg/dL (0.1-34.0) H 12/06/20 10:36 Microalb/Creat Ratio 365.3 ug/mg 12/06/20 10:36 Urine Sodium 18 mmol/L 12/06/20 09:53 Urine Opiates Screen Negative 12/05/20 Unknown Urine Methadone Screen Presumptive negative 12/05/20 Unknown Ur Barbiturates Screen Negative 12/05/20 Unknown Ur Phencyclidine Scrn Negative 12/05/20 Unknown Ur Amphetamines Screen Negative 12/05/20 Unknown U Benzodiazepines Scrn Negative 12/05/20 Unknown Urine Cocaine Screen Negative 12/05/20 Unknown U Marijuana (THC) Screen Presumptive negative 12/05/20 Unknown Drugs of Abuse Note Disclamer 12/05/20 Unknown Plasma/Serum Alcohol < 0.01 % (0-0.07) 12/05/20 06:46 Coronavirus (PCR) Positive (Negative) A 12/05/20 10:28 Hepatitis A IgM Ab Non-reactive (NonReactive) 12/07/20 16:07 Hep Bs Antigen Non-reactive (Negative) 12/07/20 16:07 Hep B Core IgM Ab Non-reactive (NonReactive) 12/07/20 16:07 Hepatitis C Antibody Non-reactive (NonReactive) 12/07/20 16:07 Baer/IV: Voiding Method Incontinent Active Medications - Current Medications Current Medications: Generic Name Dose Route Start Last Admin Trade Name Freq PRN Reason Stop Dose Admin Acetaminophen 650 mg 12/05/20 10:00 12/09/20 04:55 Acetaminophen 325 Mg Tab PO 650 mg Q6H PRN Administration Pain MILD(1-3)/Fever >100.5/BECKWITH Ascorbic Acid 500 mg 12/06/20 22:00 12/12/20 11:14 Ascorbic Acid 500 Mg Tab PO 500 mg BID CESIA Administration Cholecalciferol 5,000 unit 12/07/20 10:00 12/12/20 11:14 Cholecalciferol (Vit D3) 5,000 Unit Tab PO 5,000 unit DAILY CESIA Administration Dexamethasone 6 mg 12/12/20 10:00 12/12/20 11:14 Dexamethasone 4 Mg Tab PO 12/19/20 12:00 6 mg DAILY CESIA Administration Dextrose 0 ml 12/05/20 08:03 Dextrose 50% In Water (25gm) 50 Ml Syringe IV Q30MIN PRN Hypoglycemia Protocol Famotidine 20 mg 12/08/20 10:00 12/12/20 11:14 Famotidine 20 Mg Tab PO 20 mg BID CESIA Administration Guaifenesin 10 ml 12/08/20 01:23 12/09/20 23:37 Guaifenesin Dm 200/20 Mg Oral Liqd 10 Ml PO 10 ml Q6H PRN Administration Cough REMDESIVIR 100 mg/ Sodium 250 mls @ 500 mls/hr 12/09/20 21:00 12/12/20 03:03 Chloride IV 12/12/20 21:29 Infused Q24HR@2100 CESIA Infusion Sodium Chloride 1,000 mls @ 75 mls/hr 12/10/20 20:15 12/12/20 05:44 Nacl 0.9% 1000 Ml IV 75 mls/hr DIRECT CESIA Administration Insulin Human NPH 45 unit 12/11/20 17:00 12/11/20 17:39 Insulin Nph, Human 100 Unit/1 Ml SUB-Q 45 unit QPMDIAB CESIA Administration Insulin Human NPH 25 unit 12/11/20 12:00 12/12/20 11:25 Insulin Nph, Human 100 Unit/1 Ml SUB-Q Not Given QDDIAB CESIA Insulin Human Regular 0 units 12/07/20 11:30 12/12/20 12:01 Insulin Regular, Human 100 Units/1 Ml SUB-Q 2 units ACHS CESIA Administration Protocol Morphine Sulfate 2 mg 12/05/20 10:00 12/08/20 23:05 Morphine 2 Mg/1 Ml Inj IV 2 mg Q4H PRN Administration Pain, Moderate (4-6) Naloxone HCl 0.1 mg 12/05/20 10:00 Naloxone 0.4 Mg/1 Ml Inj IV Q2MIN PRN Res Rate </= 8 or 02 SAT < 92% Ondansetron HCl 4 mg 12/05/20 10:00 Ondansetron 4 Mg/2 Ml Inj IV Q8H PRN Nausea And Vomiting Potassium Chloride 20 meq 12/07/20 10:00 12/12/20 11:14 Potassium Chloride Er 20 Meq Tab PO 20 meq QDAY CESIA Administration Sodium Chloride 10 ml 12/05/20 10:00 12/12/20 11:16 Sodium Chloride 0.9% 10 Ml Flush Syringe IV 10 ml BID CESIA Administration Sodium Chloride 10 ml 12/05/20 10:00 Sodium Chloride 0.9% 10 Ml Flush Syringe IV PRN PRN LINE FLUSH Sodium Chloride 50 ml 12/08/20 16:30 12/11/20 22:46 Sodium Chloride 0.9% 50 Ml Ivpb IV 12/12/20 21:01 50 ml Q24HR@2100 CESIA Administration Zinc Acetate/Diphenhydramine 1 applic 12/09/20 18:19 12/10/20 03:25 Diphenhydramine/Zinc Acet 2% Cream 28.4 Gm TP 1 applic Q6H PRN Administration Itching Zinc Sulfate 220 mg 12/06/20 22:00 12/12/20 11:14 Zinc Sulfate 220 Mg Cap PO 220 mg BID CESIA Administration Nutrition/Malnutrition Assess - Dietary Evaluation Nutrition/Malnutrition Findings: Nutrition Notes Start: 12/05/20 13:24 Freq: Status: Active Protocol: Document 12/12/20 08:41 (Rec: 12/12/20 08:44 [id number]) Nutrition Notes Initial or Follow up Reassessment Current Diagnosis Acute Kidney Injury,Diabetes, Sepsis Other Pertinent Diagnosis DKA, COVID-19 (+), bilat pneu Current Diet Consistent CHO Labs/Tests Na 136 K 2.6 Pertinent Medications NS at 75 ml/hr Height 5 ft 7 in Weight 52 kg [place] Body Weight (kg) 67.27 BMI 17.9 Subjective/Other Information FU for intakes. Pt reports eating better and drinking ONS . Pt eating 75% of meals. Percent of energy/protein needs met: 100%/100% Burn Absent Trauma Absent GI Symptoms None Current % PO Good (75-100%) Minimum of two criteria No #2 Nutrition Diagnosis Inadequate oral intake As Evidenced by Signs and Symptoms pt eating 75% of meals Diagnosis Progress(for reassessment Improved documentation) #1 Nutrition Diagnosis Altered nutrition-related laboratory values Diagnosis Progress(for reassessment Continues documentation) Is patient on ventilator? No Is Patient Ambulatory and/or Out of Bed Yes REE-([place]-St. Jeor-ambulatory/OOB) [ 1876.719 [id number]] Kcal/Kg value to use for calculation 43 Approximate Energy Requirements Using 2236 kcal/Kg Calculation Used for Recommendations Kcal/kg Additional Notes Pro needs 0.8-1g/k-82g/ day (81.6kg) Fluid needs 1ml/kcal Nutrition Intervention Change Diet Order: Continue current diet order Add Supplement/Snack (indicate name/kcal Glucerna TID /protein ) Provides kCal: 660 Provides Protein (gm) 30 Goal #1 Improved BG control Goal #2 Adherance to CHO controlled diet Goal #3 PO intakes to meet at least 75 % energy and pro needs Anticipated Discharge Needs: CHO-controlled diet Follow-Up By: 12/16/20 Additional Comments FU for stable intakes
--- NOTE | 2020-12-12 18:23 | Vascular Lab Report ---
DUPLEX DOPPLER LOWER EXTREMITY VEINS, BILATERAL INDICATION / CLINICAL INFORMATION: Sepsis, COVID pneumonia, shortness of breath. TECHNIQUE: Duplex doppler imaging was performed through the veins of both lower extremities using igor ous compression and other maneuvers. COMPARISON: Lower extremity venous ultrasound, 12/07/2020 FINDINGS: Right Common Femoral vein: Negative. Right Femoral vein: Negative. Right Popliteal vein: Negative. Right Calf veins: Negative. Left Common Femoral vein: Negative. Left Femoral vein: Negative. Left Popliteal vein: Negative. Left Calf veins: Negative. Additional findings: None. IMPRESSION: 1. No sonographic evidence for DVT in either lower extremity. Signer Name: Ksenia Peñaloza MD Signed: 12/12/2020 6:19 PM Workstation Name: [id number]
[2020-12-12] MEDS ORDERED: INSULIN LISPRO 100 UNIT/ML SUB-Q ONE (21:47)
[2020-12-12] MEDS: REMDESIVIR 100 MG in SODIUM CHLORIDE 0.9% 250ML 250 ML IV SCH (22:16)
[2020-12-12] MEDS: SODIUM CHLORIDE 0.9% 50 ML IVPB IV SCH (23:00)
[2020-12-13 06:55] LABS: Hematocrit 20.2 % (35.5-45.6); Hemoglobin 6.9 gm/dl (11.8-15.2); Mean Corpuscular HGB Conc 34 % (32-34); Mean Corpuscular Volume 101 fl (84-94); Platelet Count 308 K/mm3 (140-440); Red Blood Count 2.01 M/mm3 (3.65-5.03); Red Cell Distribution Width 13.5 % (13.2-15.2)
[2020-12-13 07:10] LABS: Alanine Aminotransferase 13 units/L (7-56); Albumin 2.6 g/dL (3.9-5); Blood Urea Nitrogen 7 mg/dL (9-20); Calcium 7.8 mg/dL (8.4-10.2); Hemolysis Index 40
[2020-12-13 07:11] LABS: BUN/Creatinine Ratio 10
[2020-12-13] MEDS ORDERED: SODIUM CHLORIDE 0.9% 500 ML 500 ML IV ONE (07:42)
[2020-12-13] MEDS: INSULIN NPH, HUMAN 100 UNIT/1 ML SUB-Q SCH ×2 (08:31→18:01)
[2020-12-13] MEDS: INSULIN REGULAR, HUMAN 100 UNITS/1 ML SUB-Q SCH ×4 (08:32→22:22)
--- NOTE | 2020-12-13 09:37 | Cat Scan Report ---
CTA CHEST WITH IV CONTRAST INDICATION: Cough, possible PE. TECHNIQUE: Axial CT images were obtained through the chest after injection of 100 cc Omnipaque 350 IV contrast. 3 plane MIP reconstructions were produced. All CT scans at this location are performed using CT dose reduction for ALARA by means of automated exposure control. COMPARISON: One view of the chest from 12/21/2020. FINDINGS: PULMONARY ARTERIES: There is poor opacification of the pulmonary arteries . No distinct central pulmo nary emboli are seen. AORTA AND ARTERIES: No atherosclerosis or other significant abnormality. HEART: No significant abnormality. MEDIASTINUM: [place] mediastinal lymph nodes are seen without other significant abnormalities. LUNGS: Mostly peripheral bilateral airspace opacities are noted along the lungs with bibasilar predom inance. No suspicious nodule or mass. No pneumothorax or pleural effusion. ADDITIONAL FINDINGS: None. UPPER ABDOMEN: No acute findings. BONES: No significant osseous abnormality. IMPRESSION: 1. Poor opacification of the pulmonary arteries, limiting evaluation for pulmonary embolism. 2. Suspected bilateral pneumonia. Signer Name: Hu Elizabeth MD Signed: 12/13/2020 9:32 AM Workstation Name: [id number]
[2020-12-13] MEDS ORDERED: POTASSIUM CHLORIDE ER 20 MEQ TAB PO SCH (10:00)
[2020-12-13] MEDS ORDERED: SODIUM CHLORIDE 0.9% 500 ML 500 ML ONE (10:33)
--- NOTE | 2020-12-13 10:45 | Progress Note ---
Assessment and Plan COVID-19 infection. Anemia Intermediate prbability v/q scan Severe sepsis. Diabetic ketoacidosis. Bilateral pneumonia. Severe metabolic acidosis. Acute kidney injury, resolved Leukocytosis at presentation. Hyperalbuminemia. Hemoconcentration. Elevated serum D-dimer. Pseudohyponatremia. Hyperkalemia at presentation. Lactic acidosis. Elevated serum inflammatory markers to include ferritin greater than 2000 and D- dimers as well as elevated lactate dehydrogenase. Acute toxic metabolic encephalopathy. -Transfuse for HgB <7g/dl, get FOBT -Get lower extremity doppler. Sub-optimal CTA study. Will recommend lower extremity doppler. If Doppler studies are negative and he remains hemodynamically normal, will anticoagulate based on facility guidelines for COVID - Titrate supplemental oxygen oxygen for target O2 sats 90-92% - continue glycemic control with SSI for target serum glucose < 180 mg/dl - prn bronchodilators with pulmonary hygiene per RT - Empiric antibiotics for CAP- on Azithromycin and Ceftriaxone to complete course - prn analgesia per pain score - Maintenance of sleep-wake cycle, avoid delirium -CXR, ABG as clinically indicated - continue other care per attending / other consultants COVID SPECIFIC INTERVENTIONS - Remdesivir to complete course - continue systemic steroids for severe COVID-19 infection - zinc and vitamin C supplementation per facility protocol - Monitor inflammatory markers per facility protocol - ferritin, D-dimer, CRP - therapeutic anticoagulation per system Protocol based on d-dimer and clinical considerations V/Q scan intermediate probability scan, CTA suboptimal study but no central PE - Continue contact and airborne isolation .... Re-evaluate in am & prn Subjective Date of service: 12/13/20 Principal diagnosis: Severe sepsis; DKA; COVID-19 infection; Bilateral pneumonia; KENDRA Interval history: Patient is seen today for: Severe sepsis; DKA; COVID-19 infection; Bilateral pneumonia; KENDRA; Acute toxic metabolic encephalopathy. Seen and examined at bedside; 24hour events reviewed; nursing and respiratory c are staff consulted; no adverse overnight events reported to me; resting peacefully in bed; feels better, denies chest pain or shortness of breath; intermittent coughing spells. Off supplemental oxygen Objective Vital Signs - 12hr 12/13/20 12/13/20 12/13/20 05:40 05:42 07:37 Temperature 98.9 F Pulse Rate 91 H 94 H Respiratory 18 Rate Blood Pressure 103/48 101/51 O2 Sat by Pulse 93 94 Oximetry 12/13/20 08:55 Temperature Pulse Rate Respiratory Rate Blood Pressure O2 Sat by Pulse 96 Oximetry Constitutional: no acute distress, alert Eyes: non-icteric ENT: oropharynx moist Neck: supple, no lymphadenopathy, no JVD Effort: normal Ascultation: Bilateral: clear, rhonchi Percussion: Bilateral: not dull Cardiovascular: regular rate and rhythm, other (S1,S2) Gastrointestinal: normoactive bowel sounds, soft, non-tender, non-distended Integumentary: normal Extremities: no cyanosis, no edema, pulses normal, no ischemia or petechiae Neurologic: normal mental status, non-focal exam, pupils equal and round, other (weak) Psychiatric: mood appropriate, affect normal CBC and BMP: 12/13/20 06:01 12/13/20 06:01 ABG, PT/INR, D-dimer: ABG ABG pH 7.394 pH Units (7.350-7.450) 12/09/20 22:33 ABG pCO2 42.4 mm Hg 12/09/20 22:33 ABG pO2 182.0 mm Hg (80.0-90.0) H 12/09/20 22:33 ABG O2 Saturation 99.1 % (95.0-99.0) H 12/09/20 22:33 PT/INR, D-dimer PT 15.6 Sec. (12.2-14.9) H 12/05/20 06:46 INR 1.24 (0.87-1.13) H 12/05/20 06:46 D-Dimer 1828.92 ng/mlDDU (0-234) H 12/11/20 00:29 Abnormal lab findings: Abnormal Labs 12/05/20 12/05/20 12/05/20 06:30 06:46 06:46 WBC 19.2 H RBC 5.53 H Hgb 17.2 H Hct 57.8 H MCV 105 H MCH MCHC 30 L Lymph % (Auto) [place] % (Auto) Lymph # (Auto) [place] # (Auto) Seg Neutrophils % Seg Neuts % (Manual) Lymphocytes % (Manual) Monocytes % (Manual) Nucleated RBC % Seg Neutrophils # Lymphocytes # (Manual) Monocytes # (Manual) PT INR D-Dimer ABG pO2 ABG O2 Saturation ABG Methemoglobin VBG pH Oxyhemoglobin Sodium 124 L Potassium 5.7 H Chloride 83.0 L Carbon Dioxide 5 L* BUN 25 H Creatinine 2.1 H Glucose 677 H* POC Glucose > 600 H Hemoglobin A1c Lactic Acid Calcium Phosphorus Magnesium Ferritin Total Bilirubin Direct Bilirubin AST 51 H Alkaline Phosphatase 250 H Ammonia Lactate Dehydrogenase Total Creatine Kinase C-Reactive Protein Total Protein 8.9 H Albumin Triglycerides Urine Creatinine Urine Microalbumin Coronavirus (PCR) Crossmatch 12/05/20 12/05/20 12/05/20 06:46 06:46 06:46 WBC RBC Hgb Hct MCV MCH MCHC Lymph % (Auto) [place] % (Auto) Lymph # (Auto) [place] # (Auto) Seg Neutrophils % Seg Neuts % (Manual) Lymphocytes % (Manual) Monocytes % (Manual) Nucleated RBC % Seg Neutrophils # Lymphocytes # (Manual) Monocytes # (Manual) PT 15.6 H INR 1.24 H D-Dimer ABG pO2 ABG O2 Saturation ABG Methemoglobin VBG pH 6.814 L* Oxyhemoglobin Sodium Potassium Chloride Carbon Dioxide BUN Creatinine Glucose POC Glucose Hemoglobin A1c Lactic Acid Calcium Phosphorus 7.10 H Magnesium 2.70 H Ferritin Total Bilirubin Direct Bilirubin AST Alkaline Phosphatase Ammonia Lactate Dehydrogenase Total Creatine Kinase C-Reactive Protein Total Protein Albumin Triglycerides Urine Creatinine Urine Microalbumin Coronavirus (PCR) Crossmatch 12/05/20 12/05/20 12/05/20 06:46 06:46 07:53 WBC RBC Hgb Hct MCV MCH MCHC Lymph % (Auto) [place] % (Auto) Lymph # (Auto) [place] # (Auto) Seg Neutrophils % Seg Neuts % (Manual) Lymphocytes % (Manual) Monocytes % (Manual) Nucleated RBC % Seg Neutrophils # Lymphocytes # (Manual) Monocytes # (Manual) PT INR D-Dimer ABG pO2 ABG O2 Saturation ABG Methemoglobin VBG pH Oxyhemoglobin Sodium Potassium Chloride Carbon Dioxide BUN Creatinine Glucose 690 H* POC Glucose Hemoglobin A1c Lactic Acid 4.80 H* Calcium Phosphorus Magnesium Ferritin Total Bilirubin Direct Bilirubin AST Alkaline Phosphatase Ammonia 94.0 H Lactate Dehydrogenase Total Creatine Kinase C-Reactive Protein Total Protein Albumin Triglycerides Urine Creatinine Urine Microalbumin Coronavirus (PCR) Crossmatch 12/05/20 12/05/20 12/05/20 10:24 10:24 10:24 WBC RBC Hgb Hct MCV MCH MCHC Lymph % (Auto) [place] % (Auto) Lymph # (Auto) [place] # (Auto) Seg Neutrophils % Seg Neuts % (Manual) Lymphocytes % (Manual) Monocytes % (Manual) Nucleated RBC % Seg Neutrophils # Lymphocytes # (Manual) Monocytes # (Manual) PT INR D-Dimer ABG pO2 ABG O2 Saturation ABG Methemoglobin VBG pH Oxyhemoglobin Sodium 122 L Potassium 5.6 H Chloride 90.5 L Carbon Dioxide 2 L* BUN 28 H Creatinine 1.7 H Glucose 602 H* POC Glucose Hemoglobin A1c 17.8 H Lactic Acid Calcium Phosphorus 7.60 H Magnesium 2.70 H Ferritin Total Bilirubin Direct Bilirubin AST Alkaline Phosphatase Ammonia Lactate Dehydrogenase Total Creatine Kinase C-Reactive Protein Total Protein Albumin Triglycerides 368 H Urine Creatinine Urine Microalbumin Coronavirus (PCR) Crossmatch 12/05/20 12/05/20 12/05/20 10:28 12:36 14:55 WBC RBC Hgb Hct MCV MCH MCHC Lymph % (Auto) [place] % (Auto) Lymph # (Auto) [place] # (Auto) Seg Neutrophils % Seg Neuts % (Manual) Lymphocytes % (Manual) Monocytes % (Manual) Nucleated RBC % Seg Neutrophils # Lymphocytes # (Manual) Monocytes # (Manual) PT INR D-Dimer ABG pO2 ABG O2 Saturation ABG Methemoglobin VBG pH Oxyhemoglobin Sodium Potassium Chloride Carbon Dioxide BUN Creatinine Glucose POC Glucose 584 H 449 H Hemoglobin A1c Lactic Acid Calcium Phosphorus Magnesium Ferritin Total Bilirubin Direct Bilirubin AST Alkaline Phosphatase Ammonia Lactate Dehydrogenase Total Creatine Kinase C-Reactive Protein Total Protein Albumin Triglycerides Urine Creatinine Urine Microalbumin Coronavirus (PCR) Positive A Crossmatch 12/05/20 12/05/20 12/05/20 16:03 16:03 16:03 WBC RBC Hgb Hct MCV MCH MCHC Lymph % (Auto) [place] % (Auto) Lymph # (Auto) [place] # (Auto) Seg Neutrophils % Seg Neuts % (Manual) Lymphocytes % (Manual) Monocytes % (Manual) Nucleated RBC % Seg Neutrophils # Lymphocytes # (Manual) Monocytes # (Manual) PT INR D-Dimer 4712.93 H ABG pO2 ABG O2 Saturation ABG Methemoglobin VBG pH Oxyhemoglobin Sodium 130 L D Potassium 6.6 H* Chloride 95.5 L Carbon Dioxide 5 L* BUN 28 H Creatinine 1.9 H Glucose 437 H POC Glucose Hemoglobin A1c Lactic Acid 4.80 H* Calcium Phosphorus Magnesium Ferritin Total Bilirubin Direct Bilirubin AST Alkaline Phosphatase Ammonia Lactate Dehydrogenase Total Creatine Kinase C-Reactive Protein Total Protein Albumin Triglycerides Urine Creatinine Urine Microalbumin Coronavirus (PCR) Crossmatch 12/05/20 12/05/20 12/05/20 16:03 16:03 16:57 WBC RBC Hgb Hct MCV MCH MCHC Lymph % (Auto) [place] % (Auto) Lymph # (Auto) [place] # (Auto) Seg Neutrophils % Seg Neuts % (Manual) Lymphocytes % (Manual) Monocytes % (Manual) Nucleated RBC % Seg Neutrophils # Lymphocytes # (Manual) Monocytes # (Manual) PT INR D-Dimer ABG pO2 ABG O2 Saturation ABG Methemoglobin VBG pH Oxyhemoglobin Sodium Potassium Chloride Carbon Dioxide BUN Creatinine Glucose 449 H POC Glucose 446 H Hemoglobin A1c Lactic Acid Calcium Phosphorus Magnesium Ferritin > 2000.0 H Total Bilirubin Direct Bilirubin AST Alkaline Phosphatase Ammonia Lactate Dehydrogenase 576 H Total Creatine Kinase C-Reactive Protein 7.10 H Total Protein Albumin Triglycerides Urine Creatinine Urine Microalbumin Coronavirus (PCR) Crossmatch 12/05/20 12/05/20 12/05/20 17:47 18:46 19:11 WBC RBC Hgb Hct MCV MCH MCHC Lymph % (Auto) [place] % (Auto) Lymph # (Auto) [place] # (Auto) Seg Neutrophils % Seg Neuts % (Manual) Lymphocytes % (Manual) Monocytes % (Manual) Nucleated RBC % Seg Neutrophils # Lymphocytes # (Manual) Monocytes # (Manual) PT INR D-Dimer ABG pO2 ABG O2 Saturation ABG Methemoglobin VBG pH Oxyhemoglobin Sodium 136 L Potassium 5.1 H D Chloride 97.2 L Carbon Dioxide 10 L BUN 31 H Creatinine 1.7 H Glucose 341 H POC Glucose 425 H 343 H Hemoglobin A1c Lactic Acid Calcium Phosphorus Magnesium Ferritin Total Bilirubin Direct Bilirubin AST Alkaline Phosphatase Ammonia Lactate Dehydrogenase Total Creatine Kinase C-Reactive Protein Total Protein Albumin Triglycerides Urine Creatinine Urine Microalbumin Coronavirus (PCR) Crossmatch 12/05/20 12/05/20 12/05/20 19:11 20:09 20:59 WBC RBC Hgb Hct MCV MCH MCHC Lymph % (Auto) [place] % (Auto) Lymph # (Auto) [place] # (Auto) Seg Neutrophils % Seg Neuts % (Manual) Lymphocytes % (Manual) Monocytes % (Manual) Nucleated RBC % Seg Neutrophils # Lymphocytes # (Manual) Monocytes # (Manual) PT INR D-Dimer ABG pO2 ABG O2 Saturation ABG Methemoglobin VBG pH Oxyhemoglobin Sodium Potassium Chloride Carbon Dioxide BUN Creatinine Glucose POC Glucose 345 H 304 H Hemoglobin A1c Lactic Acid 4.30 H* Calcium Phosphorus Magnesium Ferritin Total Bilirubin Direct Bilirubin AST Alkaline Phosphatase Ammonia Lactate Dehydrogenase Total Creatine Kinase C-Reactive Protein Total Protein Albumin Triglycerides Urine Creatinine Urine Microalbumin Coronavirus (PCR) Crossmatch 12/05/20 12/05/20 12/06/20 21:57 23:01 00:01 WBC RBC Hgb Hct MCV MCH MCHC Lymph % (Auto) [place] % (Auto) Lymph # (Auto) [place] # (Auto) Seg Neutrophils % Seg Neuts % (Manual) Lymphocytes % (Manual) Monocytes % (Manual) Nucleated RBC % Seg Neutrophils # Lymphocytes # (Manual) Monocytes # (Manual) PT INR D-Dimer ABG pO2 ABG O2 Saturation ABG Methemoglobin VBG pH Oxyhemoglobin Sodium Potassium Chloride Carbon Dioxide BUN Creatinine Glucose POC Glucose 259 H 325 H 297 H Hemoglobin A1c Lactic Acid Calcium Phosphorus Magnesium Ferritin Total Bilirubin Direct Bilirubin AST Alkaline Phosphatase Ammonia Lactate Dehydrogenase Total Creatine Kinase C-Reactive Protein Total Protein Albumin Triglycerides Urine Creatinine Urine Microalbumin Coronavirus (PCR) Crossmatch 12/06/20 12/06/20 12/06/20 00:24 01:01 01:56 WBC RBC Hgb Hct MCV MCH MCHC Lymph % (Auto) [place] % (Auto) Lymph # (Auto) [place] # (Auto) Seg Neutrophils % Seg Neuts % (Manual) Lymphocytes % (Manual) Monocytes % (Manual) Nucleated RBC % Seg Neutrophils # Lymphocytes # (Manual) Monocytes # (Manual) PT INR D-Dimer ABG pO2 ABG O2 Saturation ABG Methemoglobin VBG pH Oxyhemoglobin Sodium 134 L Potassium Chloride Carbon Dioxide 8 L* BUN 29 H Creatinine Glucose 298 H POC Glucose 270 H 225 H Hemoglobin A1c Lactic Acid Calcium Phosphorus Magnesium Ferritin Total Bilirubin Direct Bilirubin AST Alkaline Phosphatase Ammonia Lactate Dehydrogenase Total Creatine Kinase C-Reactive Protein Total Protein Albumin Triglycerides Urine Creatinine Urine Microalbumin Coronavirus (PCR) Crossmatch 12/06/20 12/06/20 12/06/20 03:01 03:59 04:55 WBC RBC Hgb Hct MCV MCH MCHC Lymph % (Auto) [place] % (Auto) Lymph # (Auto) [place] # (Auto) Seg Neutrophils % Seg Neuts % (Manual) Lymphocytes % (Manual) Monocytes % (Manual) Nucleated RBC % Seg Neutrophils # Lymphocytes # (Manual) Monocytes # (Manual) PT INR D-Dimer ABG pO2 ABG O2 Saturation ABG Methemoglobin VBG pH Oxyhemoglobin Sodium Potassium Chloride Carbon Dioxide BUN Creatinine Glucose POC Glucose 231 H 168 H 137 H Hemoglobin A1c Lactic Acid Calcium Phosphorus Magnesium Ferritin Total Bilirubin Direct Bilirubin AST Alkaline Phosphatase Ammonia Lactate Dehydrogenase Total Creatine Kinase C-Reactive Protein Total Protein Albumin Triglycerides Urine Creatinine Urine Microalbumin Coronavirus (PCR) Crossmatch 12/06/20 12/06/20 12/06/20 05:58 06:56 07:44 WBC RBC Hgb Hct MCV MCH MCHC Lymph % (Auto) [place] % (Auto) Lymph # (Auto) [place] # (Auto) Seg Neutrophils % Seg Neuts % (Manual) Lymphocytes % (Manual) Monocytes % (Manual) Nucleated RBC % Seg Neutrophils # Lymphocytes # (Manual) Monocytes # (Manual) PT INR D-Dimer ABG pO2 ABG O2 Saturation ABG Methemoglobin VBG pH Oxyhemoglobin Sodium Potassium Chloride Carbon Dioxide BUN Creatinine Glucose POC Glucose 149 H 205 H 150 H Hemoglobin A1c Lactic Acid Calcium Phosphorus Magnesium Ferritin Total Bilirubin Direct Bilirubin AST Alkaline Phosphatase Ammonia Lactate Dehydrogenase Total Creatine Kinase C-Reactive Protein Total Protein Albumin Triglycerides Urine Creatinine Urine Microalbumin Coronavirus (PCR) Crossmatch 12/06/20 12/06/20 12/06/20 08:16 09:03 09:53 WBC RBC Hgb Hct MCV MCH MCHC Lymph % (Auto) [place] % (Auto) Lymph # (Auto) [place] # (Auto) Seg Neutrophils % Seg Neuts % (Manual) Lymphocytes % (Manual) Monocytes % (Manual) Nucleated RBC % Seg Neutrophils # Lymphocytes # (Manual) Monocytes # (Manual) PT INR D-Dimer ABG pO2 ABG O2 Saturation ABG Methemoglobin VBG pH Oxyhemoglobin Sodium Potassium Chloride Carbon Dioxide 14 L BUN 23 H Creatinine Glucose 136 H POC Glucose 132 H Hemoglobin A1c Lactic Acid Calcium Phosphorus Magnesium Ferritin Total Bilirubin Direct Bilirubin AST Alkaline Phosphatase Ammonia Lactate Dehydrogenase Total Creatine Kinase C-Reactive Protein Total Protein Albumin Triglycerides Urine Creatinine 101.5 H Urine Microalbumin Coronavirus (PCR) Crossmatch 12/06/20 12/06/20 12/06/20 10:11 10:36 11:14 WBC RBC Hgb Hct MCV MCH MCHC Lymph % (Auto) [place] % (Auto) Lymph # (Auto) [place] # (Auto) Seg Neutrophils % Seg Neuts % (Manual) Lymphocytes % (Manual) Monocytes % (Manual) Nucleated RBC % Seg Neutrophils # Lymphocytes # (Manual) Monocytes # (Manual) PT INR D-Dimer ABG pO2 ABG O2 Saturation ABG Methemoglobin VBG pH Oxyhemoglobin Sodium Potassium Chloride Carbon Dioxide BUN Creatinine Glucose POC Glucose 137 H 127 H Hemoglobin A1c Lactic Acid Calcium Phosphorus Magnesium Ferritin Total Bilirubin Direct Bilirubin AST Alkaline Phosphatase Ammonia Lactate Dehydrogenase Total Creatine Kinase C-Reactive Protein Total Protein Albumin Triglycerides Urine Creatinine 101.0 H Urine Microalbumin 36.9 H Coronavirus (PCR) Crossmatch 12/06/20 12/06/20 12/06/20 12:01 13:12 14:02 WBC RBC Hgb Hct MCV MCH MCHC Lymph % (Auto) [place] % (Auto) Lymph # (Auto) [place] # (Auto) Seg Neutrophils % Seg Neuts % (Manual) Lymphocytes % (Manual) Monocytes % (Manual) Nucleated RBC % Seg Neutrophils # Lymphocytes # (Manual) Monocytes # (Manual) PT INR D-Dimer ABG pO2 ABG O2 Saturation ABG Methemoglobin VBG pH Oxyhemoglobin Sodium Potassium Chloride Carbon Dioxide BUN Creatinine Glucose POC Glucose 136 H 139 H 132 H Hemoglobin A1c Lactic Acid Calcium Phosphorus Magnesium Ferritin Total Bilirubin Direct Bilirubin AST Alkaline Phosphatase Ammonia Lactate Dehydrogenase Total Creatine Kinase C-Reactive Protein Total Protein Albumin Triglycerides Urine Creatinine Urine Microalbumin Coronavirus (PCR) Crossmatch 12/06/20 12/06/20 12/06/20 15:50 17:12 18:10 WBC RBC Hgb Hct MCV MCH MCHC Lymph % (Auto) [place] % (Auto) Lymph # (Auto) [place] # (Auto) Seg Neutrophils % Seg Neuts % (Manual) Lymphocytes % (Manual) Monocytes % (Manual) Nucleated RBC % Seg Neutrophils # Lymphocytes # (Manual) Monocytes # (Manual) PT INR D-Dimer ABG pO2 ABG O2 Saturation ABG Methemoglobin VBG pH Oxyhemoglobin Sodium Potassium Chloride Carbon Dioxide BUN Creatinine Glucose POC Glucose 133 H 130 H 114 H Hemoglobin A1c Lactic Acid Calcium Phosphorus Magnesium Ferritin Total Bilirubin Direct Bilirubin AST Alkaline Phosphatase Ammonia Lactate Dehydrogenase Total Creatine Kinase C-Reactive Protein Total Protein Albumin Triglycerides Urine Creatinine Urine Microalbumin Coronavirus (PCR) Crossmatch 12/06/20 12/06/20 12/06/20 21:08 22:06 23:19 WBC RBC Hgb Hct MCV MCH MCHC Lymph % (Auto) [place] % (Auto) Lymph # (Auto) [place] # (Auto) Seg Neutrophils % Seg Neuts % (Manual) Lymphocytes % (Manual) Monocytes % (Manual) Nucleated RBC % Seg Neutrophils # Lymphocytes # (Manual) Monocytes # (Manual) PT INR D-Dimer ABG pO2 ABG O2 Saturation ABG Methemoglobin VBG pH Oxyhemoglobin Sodium Potassium Chloride Carbon Dioxide BUN Creatinine Glucose POC Glucose 127 H 148 H 144 H Hemoglobin A1c Lactic Acid Calcium Phosphorus Magnesium Ferritin Total Bilirubin Direct Bilirubin AST Alkaline Phosphatase Ammonia Lactate Dehydrogenase Total Creatine Kinase C-Reactive Protein Total Protein Albumin Triglycerides Urine Creatinine Urine Microalbumin Coronavirus (PCR) Crossmatch 12/07/20 12/07/20 12/07/20 00:08 01:04 02:05 WBC RBC Hgb Hct MCV MCH MCHC Lymph % (Auto) [place] % (Auto) Lymph # (Auto) [place] # (Auto) Seg Neutrophils % Seg Neuts % (Manual) Lymphocytes % (Manual) Monocytes % (Manual) Nucleated RBC % Seg Neutrophils # Lymphocytes # (Manual) Monocytes # (Manual) PT INR D-Dimer ABG pO2 ABG O2 Saturation ABG Methemoglobin VBG pH Oxyhemoglobin Sodium Potassium Chloride Carbon Dioxide BUN Creatinine Glucose POC Glucose 157 H 118 H 143 H Hemoglobin A1c Lactic Acid Calcium Phosphorus Magnesium Ferritin Total Bilirubin Direct Bilirubin AST Alkaline Phosphatase Ammonia Lactate Dehydrogenase Total Creatine Kinase C-Reactive Protein Total Protein Albumin Triglycerides Urine Creatinine Urine Microalbumin Coronavirus (PCR) Crossmatch 12/07/20 12/07/20 12/07/20 03:03 03:25 03:25 WBC RBC Hgb Hct MCV MCH MCHC Lymph % (Auto) [place] % (Auto) Lymph # (Auto) [place] # (Auto) Seg Neutrophils % Seg Neuts % (Manual) Lymphocytes % (Manual) Monocytes % (Manual) Nucleated RBC % Seg Neutrophils # Lymphocytes # (Manual) Monocytes # (Manual) PT INR D-Dimer 1950.73 H ABG pO2 ABG O2 Saturation ABG Methemoglobin VBG pH Oxyhemoglobin Sodium Potassium Chloride Carbon Dioxide BUN Creatinine Glucose POC Glucose 119 H Hemoglobin A1c Lactic Acid Calcium Phosphorus Magnesium Ferritin 7009.0 H Total Bilirubin Direct Bilirubin AST Alkaline Phosphatase Ammonia Lactate Dehydrogenase Total Creatine Kinase C-Reactive Protein Total Protein Albumin Triglycerides Urine Creatinine Urine Microalbumin Coronavirus (PCR) Crossmatch 12/07/20 12/07/20 12/07/20 03:25 03:25 04:09 WBC 15.8 H RBC 5.21 H Hgb 16.2 H Hct 47.9 H D MCV MCH MCHC Lymph % (Auto) 6.1 L [place] % (Auto) Lymph # (Auto) 1.0 L [place] # (Auto) Seg Neutrophils % 88.5 H Seg Neuts % (Manual) Lymphocytes % (Manual) Monocytes % (Manual) Nucleated RBC % Seg Neutrophils # 14.0 H Lymphocytes # (Manual) Monocytes # (Manual) PT INR D-Dimer ABG pO2 ABG O2 Saturation ABG Methemoglobin VBG pH Oxyhemoglobin Sodium Potassium 3.0 L D Chloride Carbon Dioxide BUN Creatinine Glucose 108 H POC Glucose 155 H Hemoglobin A1c Lactic Acid Calcium Phosphorus 0.70 L* D Magnesium Ferritin Total Bilirubin 1.70 H Direct Bilirubin 0.5 H AST 52 H Alkaline Phosphatase 131 H Ammonia Lactate Dehydrogenase 821 H Total Creatine Kinase C-Reactive Protein 13.80 H Total Protein Albumin 3.6 L Triglycerides Urine Creatinine Urine Microalbumin Coronavirus (PCR) Crossmatch 12/07/20 12/07/20 12/07/20 06:09 08:34 12:19 WBC RBC Hgb Hct MCV MCH MCHC Lymph % (Auto) [place] % (Auto) Lymph # (Auto) [place] # (Auto) Seg Neutrophils % Seg Neuts % (Manual) Lymphocytes % (Manual) Monocytes % (Manual) Nucleated RBC % Seg Neutrophils # Lymphocytes # (Manual) Monocytes # (Manual) PT INR D-Dimer ABG pO2 ABG O2 Saturation ABG Methemoglobin VBG pH Oxyhemoglobin Sodium Potassium Chloride Carbon Dioxide BUN Creatinine Glucose POC Glucose 127 H 178 H 239 H Hemoglobin A1c Lactic Acid Calcium Phosphorus Magnesium Ferritin Total Bilirubin Direct Bilirubin AST Alkaline Phosphatase Ammonia Lactate Dehydrogenase Total Creatine Kinase C-Reactive Protein Total Protein Albumin Triglycerides Urine Creatinine Urine Microalbumin Coronavirus (PCR) Crossmatch 12/07/20 12/07/20 12/07/20 16:07 16:07 23:15 WBC RBC Hgb Hct MCV MCH MCHC Lymph % (Auto) [place] % (Auto) Lymph # (Auto) [place] # (Auto) Seg Neutrophils % Seg Neuts % (Manual) Lymphocytes % (Manual) Monocytes % (Manual) Nucleated RBC % Seg Neutrophils # Lymphocytes # (Manual) Monocytes # (Manual) PT INR D-Dimer ABG pO2 ABG O2 Saturation ABG Methemoglobin VBG pH Oxyhemoglobin Sodium 136 L Potassium 3.2 L Chloride Carbon Dioxide BUN Creatinine Glucose 158 H 160 H POC Glucose 308 H Hemoglobin A1c Lactic Acid Calcium Phosphorus Magnesium Ferritin Total Bilirubin 2.10 H Direct Bilirubin AST 73 H Alkaline Phosphatase 139 H Ammonia Lactate Dehydrogenase Total Creatine Kinase C-Reactive Protein Total Protein Albumin 3.0 L Triglycerides Urine Creatinine Urine Microalbumin Coronavirus (PCR) Crossmatch 12/08/20 12/08/20 12/08/20 07:42 09:06 09:06 WBC 14.3 H RBC Hgb Hct MCV 95 H MCH MCHC Lymph % (Auto) 8.1 L [place] % (Auto) Lymph # (Auto) [place] # (Auto) 1.0 H Seg Neutrophils % 84.8 H Seg Neuts % (Manual) Lymphocytes % (Manual) Monocytes % (Manual) Nucleated RBC % Seg Neutrophils # 12.1 H Lymphocytes # (Manual) Monocytes # (Manual) PT INR D-Dimer ABG pO2 ABG O2 Saturation ABG Methemoglobin VBG pH Oxyhemoglobin Sodium 133 L Potassium 3.3 L Chloride 96.6 L Carbon Dioxide BUN Creatinine Glucose 330 H POC Glucose 301 H Hemoglobin A1c Lactic Acid Calcium Phosphorus Magnesium Ferritin Total Bilirubin 1.90 H Direct Bilirubin AST 92 H Alkaline Phosphatase 142 H Ammonia Lactate Dehydrogenase Total Creatine Kinase C-Reactive Protein Total Protein Albumin 2.8 L Triglycerides Urine Creatinine Urine Microalbumin Coronavirus (PCR) Crossmatch 12/08/20 12/08/20 12/08/20 11:03 16:28 22:19 WBC RBC Hgb Hct MCV MCH MCHC Lymph % (Auto) [place] % (Auto) Lymph # (Auto) [place] # (Auto) Seg Neutrophils % Seg Neuts % (Manual) Lymphocytes % (Manual) Monocytes % (Manual) Nucleated RBC % Seg Neutrophils # Lymphocytes # (Manual) Monocytes # (Manual) PT INR D-Dimer ABG pO2 ABG O2 Saturation ABG Methemoglobin VBG pH Oxyhemoglobin Sodium Potassium Chloride Carbon Dioxide BUN Creatinine Glucose POC Glucose 287 H 125 H 130 H Hemoglobin A1c Lactic Acid Calcium Phosphorus Magnesium Ferritin Total Bilirubin Direct Bilirubin AST Alkaline Phosphatase Ammonia Lactate Dehydrogenase Total Creatine Kinase C-Reactive Protein Total Protein Albumin Triglycerides Urine Creatinine Urine Microalbumin Coronavirus (PCR) Crossmatch 12/09/20 12/09/20 12/09/20 05:00 05:00 05:00 WBC RBC Hgb Hct MCV MCH MCHC Lymph % (Auto) [place] % (Auto) Lymph # (Auto) [place] # (Auto) Seg Neutrophils % Seg Neuts % (Manual) Lymphocytes % (Manual) Monocytes % (Manual) Nucleated RBC % Seg Neutrophils # Lymphocytes # (Manual) Monocytes # (Manual) PT INR D-Dimer 2527.04 H ABG pO2 ABG O2 Saturation ABG Methemoglobin VBG pH Oxyhemoglobin Sodium Potassium Chloride Carbon Dioxide BUN Creatinine Glucose POC Glucose Hemoglobin A1c Lactic Acid Calcium Phosphorus Magnesium Ferritin 38485.0 H Total Bilirubin Direct Bilirubin AST Alkaline Phosphatase Ammonia Lactate Dehydrogenase 2285 H Total Creatine Kinase C-Reactive Protein 22.30 H Total Protein Albumin Triglycerides Urine Creatinine Urine Microalbumin Coronavirus (PCR) Crossmatch 12/09/20 12/09/20 12/09/20 05:00 08:03 09:39 WBC RBC Hgb 11.5 L Hct 34.3 L MCV MCH MCHC Lymph % (Auto) [place] % (Auto) Lymph # (Auto) [place] # (Auto) Seg Neutrophils % Seg Neuts % (Manual) Lymphocytes % (Manual) Monocytes % (Manual) Nucleated RBC % Seg Neutrophils # Lymphocytes # (Manual) Monocytes # (Manual) PT INR D-Dimer ABG pO2 ABG O2 Saturation ABG Methemoglobin VBG pH Oxyhemoglobin Sodium Potassium 3.2 L Chloride Carbon Dioxide BUN Creatinine 0.7 L Glucose 151 H POC Glucose 139 H Hemoglobin A1c Lactic Acid Calcium Phosphorus Magnesium Ferritin Total Bilirubin 2.30 H Direct Bilirubin AST 98 H Alkaline Phosphatase 134 H Ammonia Lactate Dehydrogenase Total Creatine Kinase C-Reactive Protein Total Protein Albumin 2.8 L Triglycerides Urine Creatinine Urine Microalbumin Coronavirus (PCR) Crossmatch 12/09/20 12/09/20 12/09/20 10:57 15:36 15:36 WBC RBC Hgb Hct MCV MCH MCHC Lymph % (Auto) [place] % (Auto) Lymph # (Auto) [place] # (Auto) Seg Neutrophils % Seg Neuts % (Manual) Lymphocytes % (Manual) Monocytes % (Manual) Nucleated RBC % Seg Neutrophils # Lymphocytes # (Manual) Monocytes # (Manual) PT INR D-Dimer ABG pO2 ABG O2 Saturation ABG Methemoglobin VBG pH Oxyhemoglobin Sodium Potassium Chloride Carbon Dioxide BUN Creatinine Glucose 204 H POC Glucose 221 H Hemoglobin A1c Lactic Acid Calcium Phosphorus Magnesium Ferritin Total Bilirubin Direct Bilirubin AST Alkaline Phosphatase Ammonia Lactate Dehydrogenase Total Creatine Kinase 420 H C-Reactive Protein Total Protein Albumin Triglycerides Urine Creatinine Urine Microalbumin Coronavirus (PCR) Crossmatch 12/09/20 12/09/20 12/09/20 16:13 22:06 22:33 WBC RBC Hgb Hct MCV MCH MCHC Lymph % (Auto) [place] % (Auto) Lymph # (Auto) [place] # (Auto) Seg Neutrophils % Seg Neuts % (Manual) Lymphocytes % (Manual) Monocytes % (Manual) Nucleated RBC % Seg Neutrophils # Lymphocytes # (Manual) Monocytes # (Manual) PT INR D-Dimer ABG pO2 182.0 H ABG O2 Saturation 99.1 H ABG Methemoglobin 1.9 H VBG pH Oxyhemoglobin 93.3 L Sodium Potassium Chloride Carbon Dioxide BUN Creatinine Glucose POC Glucose 193 H 232 H Hemoglobin A1c Lactic Acid Calcium Phosphorus Magnesium Ferritin Total Bilirubin Direct Bilirubin AST Alkaline Phosphatase Ammonia Lactate Dehydrogenase Total Creatine Kinase C-Reactive Protein Total Protein Albumin Triglycerides Urine Creatinine Urine Microalbumin Coronavirus (PCR) Crossmatch 12/10/20 12/10/20 12/10/20 07:42 07:42 08:09 WBC RBC 3.18 L Hgb 10.2 L Hct 30.8 L MCV 97 H MCH MCHC Lymph % (Auto) [place] % (Auto) Lymph # (Auto) [place] # (Auto) Seg Neutrophils % Seg Neuts % (Manual) 78.0 H Lymphocytes % (Manual) 11.0 L Monocytes % (Manual) 11.0 H Nucleated RBC % 1.0 H Seg Neutrophils # Lymphocytes # (Manual) 1.1 L Monocytes # (Manual) 1.1 H PT INR D-Dimer ABG pO2 ABG O2 Saturation ABG Methemoglobin VBG pH Oxyhemoglobin Sodium 132 L D Potassium Chloride 93.8 L Carbon Dioxide BUN Creatinine 0.6 L Glucose 385 H POC Glucose 406 H Hemoglobin A1c Lactic Acid Calcium Phosphorus Magnesium Ferritin Total Bilirubin 3.00 H Direct Bilirubin AST 70 H Alkaline Phosphatase Ammonia Lactate Dehydrogenase Total Creatine Kinase C-Reactive Protein Total Protein Albumin 2.6 L Triglycerides Urine Creatinine Urine Microalbumin Coronavirus (PCR) Crossmatch 12/10/20 12/10/20 12/10/20 11:37 16:22 16:54 WBC RBC Hgb Hct MCV MCH MCHC Lymph % (Auto) [place] % (Auto) Lymph # (Auto) [place] # (Auto) Seg Neutrophils % Seg Neuts % (Manual) Lymphocytes % (Manual) Monocytes % (Manual) Nucleated RBC % Seg Neutrophils # Lymphocytes # (Manual) Monocytes # (Manual) PT INR D-Dimer 1767.06 H ABG pO2 ABG O2 Saturation ABG Methemoglobin VBG pH Oxyhemoglobin Sodium Potassium Chloride Carbon Dioxide BUN Creatinine Glucose POC Glucose 420 H > 600 H Hemoglobin A1c Lactic Acid Calcium Phosphorus Magnesium Ferritin Total Bilirubin Direct Bilirubin AST Alkaline Phosphatase Ammonia Lactate Dehydrogenase Total Creatine Kinase C-Reactive Protein Total Protein Albumin Triglycerides Urine Creatinine Urine Microalbumin Coronavirus (PCR) Crossmatch 12/10/20 12/10/20 12/10/20 16:54 16:54 17:56 WBC RBC Hgb Hct MCV MCH MCHC Lymph % (Auto) [place] % (Auto) Lymph # (Auto) [place] # (Auto) Seg Neutrophils % Seg Neuts % (Manual) Lymphocytes % (Manual) Monocytes % (Manual) Nucleated RBC % Seg Neutrophils # Lymphocytes # (Manual) Monocytes # (Manual) PT INR D-Dimer ABG pO2 ABG O2 Saturation ABG Methemoglobin VBG pH Oxyhemoglobin Sodium Potassium Chloride Carbon Dioxide BUN Creatinine Glucose POC Glucose 504 H Hemoglobin A1c Lactic Acid Calcium Phosphorus Magnesium Ferritin > 2000.0 H Total Bilirubin Direct Bilirubin AST Alkaline Phosphatase Ammonia Lactate Dehydrogenase 2658 H Total Creatine Kinase C-Reactive Protein 10.70 H Total Protein Albumin Triglycerides Urine Creatinine Urine Microalbumin Coronavirus (PCR) Crossmatch 12/10/20 12/11/20 12/11/20 21:47 00:29 00:29 WBC RBC Hgb Hct MCV MCH MCHC Lymph % (Auto) [place] % (Auto) Lymph # (Auto) [place] # (Auto) Seg Neutrophils % Seg Neuts % (Manual) Lymphocytes % (Manual) Monocytes % (Manual) Nucleated RBC % Seg Neutrophils # Lymphocytes # (Manual) Monocytes # (Manual) PT INR D-Dimer 1828.92 H ABG pO2 ABG O2 Saturation ABG Methemoglobin VBG pH Oxyhemoglobin Sodium Potassium Chloride Carbon Dioxide BUN Creatinine Glucose POC Glucose 389 H Hemoglobin A1c Lactic Acid Calcium Phosphorus Magnesium Ferritin > 2000.0 H Total Bilirubin Direct Bilirubin AST Alkaline Phosphatase Ammonia Lactate Dehydrogenase Total Creatine Kinase C-Reactive Protein Total Protein Albumin Triglycerides Urine Creatinine Urine Microalbumin Coronavirus (PCR) Crossmatch 12/11/20 12/11/20 12/11/20 00:29 03:59 03:59 WBC 12.0 H RBC 3.16 L Hgb 10.3 L Hct 31.0 L MCV 98 H MCH 33 H MCHC Lymph % (Auto) [place] % (Auto) 8.2 H Lymph # (Auto) [place] # (Auto) Seg Neutrophils % Seg Neuts % (Manual) Lymphocytes % (Manual) Monocytes % (Manual) 10.0 H Nucleated RBC % Seg Neutrophils # Lymphocytes # (Manual) Monocytes # (Manual) 1.2 H PT INR D-Dimer ABG pO2 ABG O2 Saturation ABG Methemoglobin VBG pH Oxyhemoglobin Sodium 132 L Potassium 3.4 L Chloride 89.4 L Carbon Dioxide BUN 22 H Creatinine 0.7 L Glucose 337 H POC Glucose Hemoglobin A1c Lactic Acid Calcium Phosphorus Magnesium Ferritin Total Bilirubin 2.80 H Direct Bilirubin AST 45 H Alkaline Phosphatase 135 H Ammonia Lactate Dehydrogenase 2594 H Total Creatine Kinase C-Reactive Protein 9.10 H Total Protein Albumin 3.2 L Triglycerides Urine Creatinine Urine Microalbumin Coronavirus (PCR) Crossmatch 12/11/20 12/11/20 12/11/20 07:50 09:10 11:02 WBC RBC Hgb Hct MCV MCH MCHC Lymph % (Auto) [place] % (Auto) Lymph # (Auto) [place] # (Auto) Seg Neutrophils % Seg Neuts % (Manual) Lymphocytes % (Manual) Monocytes % (Manual) Nucleated RBC % Seg Neutrophils # Lymphocytes # (Manual) Monocytes # (Manual) PT INR D-Dimer ABG pO2 ABG O2 Saturation ABG Methemoglobin VBG pH Oxyhemoglobin Sodium Potassium Chloride Carbon Dioxide BUN Creatinine Glucose POC Glucose 152 H 256 H 261 H Hemoglobin A1c Lactic Acid Calcium Phosphorus Magnesium Ferritin Total Bilirubin Direct Bilirubin AST Alkaline Phosphatase Ammonia Lactate Dehydrogenase Total Creatine Kinase C-Reactive Protein Total Protein Albumin Triglycerides Urine Creatinine Urine Microalbumin Coronavirus (PCR) Crossmatch 12/11/20 12/12/20 12/12/20 16:39 06:14 06:14 WBC RBC 2.21 L Hgb 7.2 L D Hct 21.5 L D MCV 97 H MCH 33 H MCHC Lymph % (Auto) [place] % (Auto) Lymph # (Auto) [place] # (Auto) Seg Neutrophils % Seg Neuts % (Manual) Lymphocytes % (Manual) Monocytes % (Manual) Nucleated RBC % Seg Neutrophils # Lymphocytes # (Manual) Monocytes # (Manual) PT INR D-Dimer ABG pO2 ABG O2 Saturation ABG Methemoglobin VBG pH Oxyhemoglobin Sodium 136 L Potassium 2.6 L* D Chloride 97.5 L Carbon Dioxide 31 H BUN Creatinine Glucose 110 H POC Glucose 239 H Hemoglobin A1c Lactic Acid Calcium 7.2 L D Phosphorus Magnesium Ferritin Total Bilirubin Direct Bilirubin AST Alkaline Phosphatase Ammonia Lactate Dehydrogenase Total Creatine Kinase C-Reactive Protein Total Protein Albumin Triglycerides Urine Creatinine Urine Microalbumin Coronavirus (PCR) Crossmatch 12/12/20 12/12/20 12/12/20 11:25 16:31 21:39 WBC RBC Hgb Hct MCV MCH MCHC Lymph % (Auto) [place] % (Auto) Lymph # (Auto) [place] # (Auto) Seg Neutrophils % Seg Neuts % (Manual) Lymphocytes % (Manual) Monocytes % (Manual) Nucleated RBC % Seg Neutrophils # Lymphocytes # (Manual) Monocytes # (Manual) PT INR D-Dimer ABG pO2 ABG O2 Saturation ABG Methemoglobin VBG pH Oxyhemoglobin Sodium Potassium Chloride Carbon Dioxide BUN Creatinine Glucose POC Glucose 151 H 335 H 424 H Hemoglobin A1c Lactic Acid Calcium Phosphorus Magnesium Ferritin Total Bilirubin Direct Bilirubin AST Alkaline Phosphatase Ammonia Lactate Dehydrogenase Total Creatine Kinase C-Reactive Protein Total Protein Albumin Triglycerides Urine Creatinine Urine Microalbumin Coronavirus (PCR) Crossmatch 12/12/20 12/13/20 12/13/20 21:41 06:01 06:01 WBC RBC 2.01 L Hgb 6.9 L Hct 20.2 L MCV 101 H MCH 34 H MCHC Lymph % (Auto) [place] % (Auto) Lymph # (Auto) [place] # (Auto) Seg Neutrophils % Seg Neuts % (Manual) Lymphocytes % (Manual) Monocytes % (Manual) Nucleated RBC % Seg Neutrophils # Lymphocytes # (Manual) Monocytes # (Manual) PT INR D-Dimer ABG pO2 ABG O2 Saturation ABG Methemoglobin VBG pH Oxyhemoglobin Sodium Potassium 3.1 L Chloride 97.5 L Carbon Dioxide 35 H BUN 7 L Creatinine 0.7 L Glucose 249 H POC Glucose 416 H Hemoglobin A1c Lactic Acid Calcium 7.8 L Phosphorus Magnesium Ferritin Total Bilirubin Direct Bilirubin AST Alkaline Phosphatase Ammonia Lactate Dehydrogenase Total Creatine Kinase C-Reactive Protein Total Protein 6.1 L Albumin 2.6 L Triglycerides Urine Creatinine Urine Microalbumin Coronavirus (PCR) Crossmatch 12/13/20 12/13/20 07:48 08:42 WBC RBC Hgb Hct MCV MCH MCHC Lymph % (Auto) [place] % (Auto) Lymph # (Auto) [place] # (Auto) Seg Neutrophils % Seg Neuts % (Manual) Lymphocytes % (Manual) Monocytes % (Manual) Nucleated RBC % Seg Neutrophils # Lymphocytes # (Manual) Monocytes # (Manual) PT INR D-Dimer ABG pO2 ABG O2 Saturation ABG Methemoglobin VBG pH Oxyhemoglobin Sodium Potassium Chloride Carbon Dioxide BUN Creatinine Glucose POC Glucose 206 H Hemoglobin A1c Lactic Acid Calcium Phosphorus Magnesium Ferritin Total Bilirubin Direct Bilirubin AST Alkaline Phosphatase Ammonia Lactate Dehydrogenase Total Creatine Kinase C-Reactive Protein Total Protein Albumin Triglycerides Urine Creatinine Urine Microalbumin Coronavirus (PCR) Crossmatch See Detail Allied health notes reviewed: RT
[2020-12-13] MEDS: ZINC SULFATE 220 MG CAP PO SCH ×2 (10:53→22:21)
[2020-12-13] MEDS: FAMOTIDINE 20 MG TAB PO SCH ×2 (10:53→22:21)
[2020-12-13] MEDS: ASCORBIC ACID 500 MG TAB PO SCH ×2 (10:53→22:21)
[2020-12-13] MEDS: DEXAMETHASONE 4 MG TAB PO SCH (10:53)
[2020-12-13] MEDS: CHOLECALCIFEROL (VIT D3) 5,000 UNIT TAB PO SCH (10:53)
--- NOTE | 2020-12-13 12:27 | Progress Note ---
Assessment and Plan Assessment and plan: This is a 30-year-old male who was recently diagnosed with diabetes mellitus type 2 on oral hypoglycemics presented to the hospital with DKA/severe metabolic acidosis, bilateral pneumonia, positive COVID-19, KENDRA and electrolyte imbalance. Severe sepsis, POA -Likely due to underlying pneumonia and COVID-19 -s/p IV antibiotics, and COVID-19 protocol Positive COVID-19, intermittent hypoxia -hold eliquis 2/2 hematuria -s/p remdesivir - currently on dexamethasone -Continue to follow, consulted ID Bilateral pneumonia -Likely due to COVID-19 infection with possible bacterial pneumonia -Patient has elevated procalcitonin, treated with Rocephin and Zithromax Acute hypoxic respiratory failure - VQ scan with possible PE - CTA shows no underlying PE - patient off O2 DKA resolved Severe Metabolic Acidosis -Patient admitted with DKA protocol: - s/p insulin drip, bicarb, fluids -Placed on consistent carb diet, NPH 70/30 and sliding scale Acute kidney injury, likely vasomotor nephropathy - 2/2 dehydration/DKA-resolved Hypokalemia/hypophosphatemia: Will replete and monitor Hyponatremia resolved Hyperkalemia, resolved -Likely due to severe DKA and KENDRA -s/p bicarbonate drip - resolved Transaminitis: 2/2 dehydration Hyperammonemia: 2/2 dehydration/sepsis Elevated D-dimer - CTA without evidence for acute PE Diabetes mellitus type 2, uncontrolled with hyperglycemia and DKA -A1c 17.8 - insulin w/sliding scale Hematuria, likely developed due to anticoagulation. - Will hold on heparin product and Eliquis -Continue to monitor H&H, obtain UA - CT abdomen/pelvis w/o any acute findings Normocytic anemia 12/13/20 1x transfusion monitor for hematuria and GIB - DVT Px with SCD -Full CODE STATUS DISPOSITION: monitor hgb, pending occult stool to r/o GI bleed, transfuse pt 1x PRBC History Interval history: Daily clinical course: 12/06: Continue bicarbonate drip for now patient still with metabolic acidosis with high anion gap. Patient is not symptomatic with Covid. We will continue to monitor. Will follow ID recommendation. Critical care has been consulted/will follow recommendation 12/07: Anion gap has resolved, CO2 level 26 today. Blood glucose has been stabilized. Vitals stable. Will start on consistent carb diet NPH 7030 and sliding scale insulin. Accu-Chek QA CHS. If clinically stable transfer out from ICU-today. Continue Covid protocol, continue empiric antibiotics for pneumonia. Patient became hypoxic overnight, now on 3 L nasal cannula. Will repeat chest x-ray, start on remdesivir. Will hold onto dexamethasone as because patient has uncontrolled hyperglycemia. 12/08: Blood glucose improving slowly, will increase insulin to 35 units twice daily along with sliding scale. Noted ID recommendation appreciated. Patient getting hypoxic on ambulation, treated with remdesivir for now due to patient's high risk factor associated with deterioration of COVID-19 infection. Developed hematuria this morning which likely due to anticoagulation. Will hold anticoagulation. monitor H&H 12/09: Patient remains on 3 to 5 L nasal cannula, inflammatory markers trending up. Day 2 of remdesivir today. Continue to follow clinically, replete electrolytes. Blood glucose much stable, follow ID recommendation. DC IV fluid today, get repeat chest x-ray. Monitor for fluid overload and pulmonary edema. Lasix IV as needed. Patients inflammatory markers today: Serum ferritin 85639, D Dimer 2527.04, LDH 22 85, CRP 22.3 12/10: Blood glucose level above 400 today, started on dexamethasone by ID as patient having pending lab and inflammatory markers. Will increase NPH dose, continue sliding scale of insulin, day 3 of remdesivir today. Follow inflammatory markers, follow H&H. Continue to have hematochezia. Ordered CT abdomen pelvis for persistent hematuria and pulmonary VQ scan for possible pulmonary embolism. 12/11: CT abdomen pelvis findings, VQ scan obtained results pending. Patient is resting on room air today, will assess for home O2 requirement. Continue day 4 of remdesivir, and dexamethasone. Adjust insulin doses for better adjustment for blood glucose as patient is on dexamethasone, PT eval. inflammatory markers slightly trended down. Continue to follow. Hematuria slightly improved, continue to trend H&H 12/12: pt off O2 yesterday but placed back on O2 today. VQ scan showing possible PE, spoke with pulm, will order CTA, Hgb low, hematuria resolved, will obtain occult stool. 12/13 pt off O2, states he has a slight cough but no respiratory distress. denies any blood in stool, hgb <7.0 today, eating, drinking, denies hematuria. Hospitalist Physical - Physical exam Narrative exam: General appearance: Present: no acute distress, well-nourished EENT: PERRL, EOM intact, hearing intact, clear oral mucosa, dentition normal Neck: Present: supple, normal ROM Respiratory: bilateral: CTA, negative: rales, rhonchi, wheezing Cardiovascular: Rhythm: regular Heart Sounds: Present: S1 & S2. Absent: gallop, rub Extremities: no ischemia, No edema, normal temperature, normal color, Full ROM Abdominal: soft, non-tender, non-distended, normal bowel sounds Integumentary: Present: clear, warm, dry Psychiatric: appropriate mood/affect, intact judgment & insight Neurologic: CNII-XII intact, moves all extremities - Constitutional Vitals: Temp Pulse Resp BP Pulse Ox 98.9 F 94 H 18 101/51 96 12/13/20 05:42 12/13/20 07:37 12/13/20 05:40 12/13/20 07:37 12/13/20 08:55 General appearance: Present: no acute distress Results - Labs CBC & Chem 7: 12/13/20 06:01 12/13/20 06:01 Labs: Laboratory Last Values WBC 10.8 K/mm3 (4.5-11.0) 12/13/20 06:01 RBC 2.01 M/mm3 (3.65-5.03) L 12/13/20 06:01 Hgb 6.9 gm/dl (11.8-15.2) L 12/13/20 06:01 Hct 20.2 % (35.5-45.6) L 12/13/20 06:01 MCV 101 fl (84-94) H 12/13/20 06:01 MCH 34 pg (28-32) H 12/13/20 06:01 MCHC 34 % (32-34) 12/13/20 06:01 RDW 13.5 % (13.2-15.2) 12/13/20 06:01 Plt Count 308 K/mm3 (140-440) 12/13/20 06:01 Lymph % (Auto) 29.4 % (13.4-35.0) 12/11/20 03:59 [place] % (Auto) 8.2 % (0.0-7.3) H 12/11/20 03:59 Eos % (Auto) 0.2 % (0.0-4.3) 12/11/20 03:59 Baso % (Auto) 0.4 % (0.0-1.8) 12/11/20 03:59 Lymph # (Auto) 2.3 K/mm3 (1.2-5.4) 12/11/20 03:59 [place] # (Auto) 0.7 K/mm3 (0.0-0.8) 12/11/20 03:59 Eos # (Auto) 0.0 K/mm3 (0.0-0.4) 12/11/20 03:59 Baso # (Auto) 0.0 K/mm3 (0.0-0.1) 12/11/20 03:59 Add Manual Diff Complete 12/11/20 03:59 Total Counted 100 12/11/20 03:59 Seg Neutrophils % 61.8 % (40.0-70.0) 12/11/20 03:59 Seg Neuts % (Manual) 57.0 % (40.0-70.0) 12/11/20 03:59 Lymphocytes % (Manual) 33.0 % (13.4-35.0) 12/11/20 03:59 Monocytes % (Manual) 10.0 % (0.0-7.3) H 12/11/20 03:59 Nucleated RBC % Not Reportable 12/11/20 03:59 Seg Neutrophils # 7.4 K/mm3 (1.8-7.7) 12/11/20 03:59 Seg Neutrophils # Man 6.8 K/mm3 (1.8-7.7) 12/11/20 03:59 Band Neutrophils # 0.0 K/mm3 12/11/20 03:59 Lymphocytes # (Manual) 4.0 K/mm3 (1.2-5.4) 12/11/20 03:59 Abs React Lymphs (Man) 0.0 K/mm3 12/11/20 03:59 Monocytes # (Manual) 1.2 K/mm3 (0.0-0.8) H 12/11/20 03:59 Eosinophils # (Manual) 0.0 K/mm3 (0.0-0.4) 12/11/20 03:59 Basophils # (Manual) 0.0 K/mm3 (0.0-0.1) 12/11/20 03:59 Metamyelocytes # 0.0 K/mm3 12/11/20 03:59 Myelocytes # 0.0 K/mm3 12/11/20 03:59 Promyelocytes # 0.0 K/mm3 12/11/20 03:59 Blast Cells # 0.0 K/mm3 12/11/20 03:59 WBC Morphology Not Reportable 12/11/20 03:59 Hypersegmented Neuts Not Reportable 12/11/20 03:59 Hyposegmented Neuts Not Reportable 12/11/20 03:59 Hypogranular Neuts Not Reportable 12/11/20 03:59 Smudge Cells Not Reportable 12/11/20 03:59 Toxic Granulation Not Reportable 12/11/20 03:59 Toxic Vacuolation Not Reportable 12/11/20 03:59 Dohle Bodies Not Reportable 12/11/20 03:59 Pelger-Huet Anomaly Not Reportable 12/11/20 03:59 Janessa Rods Not Reportable 12/11/20 03:59 Platelet Estimate Consistent w auto 12/11/20 03:59 Clumped Platelets Not Reportable 12/11/20 03:59 Plt Clumps, EDTA Not Reportable 12/11/20 03:59 Large Platelets Not Reportable 12/11/20 03:59 Giant Platelets Not Reportable 12/11/20 03:59 Platelet Satelliting Not Reportable 12/11/20 03:59 Plt Morphology Comment Not Reportable 12/11/20 03:59 RBC Morphology Not Reportable 12/11/20 03:59 Dimorphic RBCs Not Reportable 12/11/20 03:59 Polychromasia Not Reportable 12/11/20 03:59 Hypochromasia Not Reportable 12/11/20 03:59 Poikilocytosis Not Reportable 12/11/20 03:59 Anisocytosis Not Reportable 12/11/20 03:59 Microcytosis Not Reportable 12/11/20 03:59 Macrocytosis Not Reportable 12/11/20 03:59 Spherocytes Not Reportable 12/11/20 03:59 Pappenheimer Bodies Not Reportable 12/11/20 03:59 Sickle Cells Not Reportable 12/11/20 03:59 Target Cells Not Reportable 12/11/20 03:59 Tear Drop Cells Not Reportable 12/11/20 03:59 Ovalocytes Not Reportable 12/11/20 03:59 Helmet Cells Not Reportable 12/11/20 03:59 [place] Bodies Not Reportable 12/11/20 03:59 [place] Rings Not Reportable 12/11/20 03:59 [place] Cells Not Reportable 12/11/20 03:59 Bite Cells Not Reportable 12/11/20 03:59 Crenated Cell Not Reportable 12/11/20 03:59 Elliptocytes Not Reportable 12/11/20 03:59 Acanthocytes (Spur) Not Reportable 12/11/20 03:59 Rouleaux Not Reportable 12/11/20 03:59 Hemoglobin C Crystals Not Reportable 12/11/20 03:59 Schistocytes Not Reportable 12/11/20 03:59 Malaria parasites Not Reportable 12/11/20 03:59 Sunil Bodies Not Reportable 12/11/20 03:59 Hem Pathologist Commnt No 12/11/20 03:59 PT 15.6 Sec. (12.2-14.9) H 12/05/20 06:46 INR 1.24 (0.87-1.13) H 12/05/20 06:46 APTT 30.7 Sec. (24.2-36.6) 12/05/20 06:46 D-Dimer 1828.92 ng/mlDDU (0-234) H 12/11/20 00:29 ABG pH 7.394 pH Units (7.350-7.450) 12/09/20 22:33 ABG pCO2 42.4 mm Hg 12/09/20 22:33 ABG pO2 182.0 mm Hg (80.0-90.0) H 12/09/20 22:33 ABG HCO3 25.3 mmol/L (20.0-26.0) 12/09/20 22:33 ABG O2 Saturation 99.1 % (95.0-99.0) H 12/09/20 22:33 ABG O2 Content 23.7 (0.0-44) 12/09/20 22:33 ABG Base Excess 0.2 mmol/L (-2.0-3.0) 12/09/20 22:33 ABG Hemoglobin 17.9 gm/dl (14.0-18.0) 12/09/20 22:33 ABG Carboxyhemoglobin 3.9 % (0.0-5.0) 12/09/20 22:33 ABG Methemoglobin 1.9 % (0.0-1.5) H 12/09/20 22:33 VBG pH 6.814 (7.320-7.420) L* 12/05/20 06:46 Oxyhemoglobin 93.3 % (95.0-99.0) L 12/09/20 22:33 FiO2 32 % 12/09/20 22:33 Sodium 140 mmol/L (137-145) 12/13/20 06:01 Potassium 3.1 mmol/L (3.6-5.0) L 12/13/20 06:01 Chloride 97.5 mmol/L (98-107) L 12/13/20 06:01 Carbon Dioxide 35 mmol/L (22-30) H 12/13/20 06:01 Anion Gap 11 mmol/L 12/13/20 06:01 BUN 7 mg/dL (9-20) L 12/13/20 06:01 Creatinine 0.7 mg/dL (0.8-1.3) L 12/13/20 06:01 Estimated GFR > 60 ml/min 12/13/20 06:01 BUN/Creatinine Ratio 10 % 12/13/20 06:01 Glucose 249 mg/dL (75-100) H 12/13/20 06:01 POC Glucose 289 mg/dL (70-105) H 12/13/20 11:15 Hemoglobin A1c 17.8 % (4-6) H 12/05/20 10:24 Lactic Acid 0.90 mmol/L (0.7-2.0) 12/06/20 04:32 Calcium 7.8 mg/dL (8.4-10.2) L 12/13/20 06:01 Phosphorus 2.60 mg/dL (2.5-4.5) D 12/08/20 09:06 Magnesium 1.90 mg/dL (1.7-2.3) 12/07/20 03:25 Ferritin > 2000.0 ng/mL (30.0-300.0) H 12/11/20 00:29 Total Bilirubin 0.50 mg/dL (0.1-1.2) 12/13/20 06:01 Direct Bilirubin 0.5 mg/dL (0-0.2) H 12/07/20 03:25 Indirect Bilirubin 1.2 mg/dL 12/07/20 03:25 AST 16 units/L (5-40) 12/13/20 06:01 ALT 13 units/L (7-56) 12/13/20 06:01 Alkaline Phosphatase 90 units/L (35-129) 12/13/20 06:01 Ammonia 60.0 umol/L (25-60) 12/06/20 04:32 Lactate Dehydrogenase 2594 units/L (91-180) H 12/11/20 00:29 Total Creatine Kinase 420 units/L (55-170) H 12/09/20 15:36 C-Reactive Protein 9.10 mg/dL (0.00-1.30) H 12/11/20 00:29 Total Protein 6.1 g/dL (6.3-8.2) L 12/13/20 06:01 Albumin 2.6 g/dL (3.9-5) L 12/13/20 06:01 Albumin/Globulin Ratio 0.7 % 12/13/20 06:01 Triglycerides 368 mg/dL (2-149) H 12/05/20 10:24 Cholesterol 178 mg/dL (50-199) 12/05/20 10:24 LDL Cholesterol Direct 72 mg/dL (50-130) 12/05/20 10:24 HDL Cholesterol 57 mg/dL (40-59) 12/05/20 10:24 Cholesterol/HDL Ratio 3.12 % 12/05/20 10:24 Procalcitonin 0.93 ng/mL (<0.15) 12/11/20 00:29 Urine Color Straw (Yellow) 12/05/20 Unknown Urine Turbidity Clear (Clear) 12/05/20 Unknown Urine pH 5.0 (5.0-7.0) 12/05/20 Unknown Ur Specific [place] 1.020 (1.003-1.030) 12/05/20 Unknown Urine Protein 100 mg/dl mg/dL (Negative) 12/05/20 Unknown Urine Glucose (UA) >=500 mg/dL (Negative) 12/05/20 Unknown Urine Ketones 80 mg/dL (Negative) 12/05/20 Unknown Urine Blood Sm (Negative) 12/05/20 Unknown Urine Nitrite Neg (Negative) 12/05/20 Unknown Urine Bilirubin Neg (Negative) 12/05/20 Unknown Urine Urobilinogen < 2.0 mg/dL (<2.0) 12/05/20 Unknown Ur Leukocyte Esterase Neg (Negative) 12/05/20 Unknown Urine WBC (Auto) < 1.0 /HPF (0.0-6.0) 12/05/20 Unknown Urine RBC (Auto) 1.0 /HPF (0.0-6.0) 12/05/20 Unknown Urine Bacteria (Auto) 1+ /HPF (Negative) 12/05/20 Unknown Urine Mucus Few /HPF 12/05/20 Unknown Urine Yeast (Budding) Few /HPF 12/05/20 Unknown Urine Creatinine 101.0 mg/dL (0.1-20.0) H 12/06/20 10:36 Urine Microalbumin 36.9 mg/dL (0.1-34.0) H 12/06/20 10:36 Microalb/Creat Ratio 365.3 ug/mg 12/06/20 10:36 Urine Sodium 18 mmol/L 12/06/20 09:53 Urine Opiates Screen Negative 12/05/20 Unknown Urine Methadone Screen Presumptive negative 12/05/20 Unknown Ur Barbiturates Screen Negative 12/05/20 Unknown Ur Phencyclidine Scrn Negative 12/05/20 Unknown Ur Amphetamines Screen Negative 12/05/20 Unknown U Benzodiazepines Scrn Negative 12/05/20 Unknown Urine Cocaine Screen Negative 12/05/20 Unknown U Marijuana (THC) Screen Presumptive negative 12/05/20 Unknown Drugs of Abuse Note Disclamer 12/05/20 Unknown Plasma/Serum Alcohol < 0.01 % (0-0.07) 12/05/20 06:46 Coronavirus (PCR) Positive (Negative) A 12/05/20 10:28 Hepatitis A IgM Ab Non-reactive (NonReactive) 12/07/20 16:07 Hep Bs Antigen Non-reactive (Negative) 12/07/20 16:07 Hep B Core IgM Ab Non-reactive (NonReactive) 12/07/20 16:07 Hepatitis C Antibody Non-reactive (NonReactive) 12/07/20 16:07 Blood Type B POSITIVE 12/13/20 08:42 Antibody Screen Negative 12/13/20 08:42 Crossmatch See Detail 12/13/20 08:42 Baer/IV: Voiding Method Urinal Active Medications - Current Medications Current Medications: Generic Name Dose Route Start Last Admin Trade Name Freq PRN Reason Stop Dose Admin Acetaminophen 650 mg 12/05/20 10:00 12/09/20 04:55 Acetaminophen 325 Mg Tab PO 650 mg Q6H PRN Administration Pain MILD(1-3)/Fever >100.5/BECKWITH Ascorbic Acid 500 mg 12/06/20 22:00 12/13/20 10:53 Ascorbic Acid 500 Mg Tab PO 500 mg BID CEISA Administration Cholecalciferol 5,000 unit 12/07/20 10:00 12/13/20 10:53 Cholecalciferol (Vit D3) 5,000 Unit Tab PO 5,000 unit DAILY CESIA Administration Dexamethasone 6 mg 12/12/20 10:00 12/13/20 10:53 Dexamethasone 4 Mg Tab PO 12/19/20 12:00 6 mg DAILY CESIA Administration Dextrose 0 ml 12/05/20 08:03 Dextrose 50% In Water (25gm) 50 Ml Syringe IV Q30MIN PRN Hypoglycemia Protocol Famotidine 20 mg 12/08/20 10:00 12/13/20 10:53 Famotidine 20 Mg Tab PO 20 mg BID CESIA Administration Guaifenesin 10 ml 12/08/20 01:23 12/09/20 23:37 Guaifenesin Dm 200/20 Mg Oral Liqd 10 Ml PO 10 ml Q6H PRN Administration Cough Sodium Chloride 1,000 mls @ 75 mls/hr 12/10/20 20:15 12/12/20 22:17 Nacl 0.9% 1000 Ml IV 75 mls/hr DIRECT CESIA Administration Insulin Human NPH 45 unit 12/11/20 17:00 12/12/20 16:50 Insulin Nph, Human 100 Unit/1 Ml SUB-Q 45 unit QPMDIAB CESIA Administration Insulin Human NPH 25 unit 12/11/20 12:00 12/13/20 08:31 Insulin Nph, Human 100 Unit/1 Ml SUB-Q 25 unit QDDIAB CESIA Administration Insulin Human Regular 0 units 12/07/20 11:30 12/13/20 08:32 Insulin Regular, Human 100 Units/1 Ml SUB-Q 3 units ACHS CESIA Administration Protocol Morphine Sulfate 2 mg 12/05/20 10:00 12/08/20 23:05 Morphine 2 Mg/1 Ml Inj IV 2 mg Q4H PRN Administration Pain, Moderate (4-6) Naloxone HCl 0.1 mg 12/05/20 10:00 Naloxone 0.4 Mg/1 Ml Inj IV Q2MIN PRN Res Rate </= 8 or 02 SAT < 92% Ondansetron HCl 4 mg 12/05/20 10:00 Ondansetron 4 Mg/2 Ml Inj IV Q8H PRN Nausea And Vomiting Potassium Chloride 40 meq 12/13/20 10:00 12/13/20 10:53 Potassium Chloride Er 20 Meq Tab PO 40 meq QDAY CESIA Administration Sodium Chloride 10 ml 12/05/20 10:00 12/13/20 10:54 Sodium Chloride 0.9% 10 Ml Flush Syringe IV 10 ml BID CESIA Administration Sodium Chloride 10 ml 12/05/20 10:00 Sodium Chloride 0.9% 10 Ml Flush Syringe IV PRN PRN LINE FLUSH Zinc Acetate/Diphenhydramine 1 applic 12/09/20 18:19 12/10/20 03:25 Diphenhydramine/Zinc Acet 2% Cream 28.4 Gm TP 1 applic Q6H PRN Administration Itching Zinc Sulfate 220 mg 12/06/20 22:00 12/13/20 10:53 Zinc Sulfate 220 Mg Cap PO 220 mg BID CESIA Administration Nutrition/Malnutrition Assess - Dietary Evaluation Nutrition/Malnutrition Findings: Nutrition Notes Start: 12/05/20 13:24 Freq: Status: Active Protocol: Document 12/12/20 08:41 (Rec: 12/12/20 08:44 [id number]) Nutrition Notes Initial or Follow up Reassessment Current Diagnosis Acute Kidney Injury,Diabetes, Sepsis Other Pertinent Diagnosis DKA, COVID-19 (+), bilat pneu Current Diet Consistent CHO Labs/Tests Na 136 K 2.6 Pertinent Medications NS at 75 ml/hr Height 5 ft 7 in Weight 52 kg [place] Body Weight (kg) 67.27 BMI 17.9 Subjective/Other Information FU for intakes. Pt reports eating better and drinking ONS . Pt eating 75% of meals. Percent of energy/protein needs met: 100%/100% Burn Absent Trauma Absent GI Symptoms None Current % PO Good (75-100%) Minimum of two criteria No #2 Nutrition Diagnosis Inadequate oral intake As Evidenced by Signs and Symptoms pt eating 75% of meals Diagnosis Progress(for reassessment Improved documentation) #1 Nutrition Diagnosis Altered nutrition-related laboratory values Diagnosis Progress(for reassessment Continues documentation) Is patient on ventilator? No Is Patient Ambulatory and/or Out of Bed Yes REE-(Corson-St. Jeor-ambulatory/OOB) [ 1876.719 [id number]] Kcal/Kg value to use for calculation 43 Approximate Energy Requirements Using 2236 kcal/Kg Calculation Used for Recommendations Kcal/kg Additional Notes Pro needs 0.8-1g/k-82g/ day (81.6kg) Fluid needs 1ml/kcal Nutrition Intervention Change Diet Order: Continue current diet order Add Supplement/Snack (indicate name/kcal Glucerna TID /protein ) Provides kCal: 660 Provides Protein (gm) 30 Goal #1 Improved BG control Goal #2 Adherance to CHO controlled diet Goal #3 PO intakes to meet at least 75 % energy and pro needs Anticipated Discharge Needs: CHO-controlled diet Follow-Up By: 12/16/20 Additional Comments FU for stable intakes
[2020-12-13 16:20] LABS: Bilirubin,Urine NEG (Negative); Blood,Urine NEG (Negative); Color,Urine Yellow (Yellow); Protein,Urine <15 mg/dL mg/dL (Negative); WBC,Urine < 1.0 /HPF (0.0-6.0)
[2020-12-13 18:12] LABS: Hemoglobin 9.4 gm/dl (11.8-15.2); Mean Corpuscular HGB Conc 34 % (32-34); Mean Corpuscular Volume 95 fl (84-94); Platelet Count 372 K/mm3 (140-440); Red Blood Count 2.95 M/mm3 (3.65-5.03); Red Cell Distribution Width 15.1 % (13.2-15.2)
[2020-12-13] MEDS: SODIUM CHLORIDE 0.9% 1000 ML 1,000 ML IV SCH (22:21)
[2020-12-14 06:36] LABS: Hematocrit 24.3 % (35.5-45.6); Hemoglobin 8.2 gm/dl (11.8-15.2); Mean Corpuscular HGB Conc 34 % (32-34); Mean Corpuscular Volume 94 fl (84-94); Platelet Count 328 K/mm3 (140-440); Red Blood Count 2.58 M/mm3 (3.65-5.03); Red Cell Distribution Width 15.1 % (13.2-15.2)
[2020-12-14 06:52] LABS: BUN/Creatinine Ratio 6; Blood Urea Nitrogen 5 mg/dL (9-20); Calcium 7.8 mg/dL (8.4-10.2); Hemolysis Index 3
[2020-12-14] MEDS ORDERED: POTASSIUM CHLORIDE ER 20 MEQ TAB PO SCH (08:00)
[2020-12-14] MEDS: INSULIN REGULAR, HUMAN 100 UNITS/1 ML SUB-Q SCH ×2 (08:20→13:29)
[2020-12-14] MEDS: ZINC SULFATE 220 MG CAP PO SCH (09:21)
[2020-12-14] MEDS: INSULIN NPH, HUMAN 100 UNIT/1 ML SUB-Q SCH (09:21)
[2020-12-14] MEDS: ASCORBIC ACID 500 MG TAB PO SCH (09:22)
[2020-12-14] MEDS: DEXAMETHASONE 4 MG TAB PO SCH (09:22)
[2020-12-14] MEDS: CHOLECALCIFEROL (VIT D3) 5,000 UNIT TAB PO SCH (09:22)
[2020-12-14] MEDS: FAMOTIDINE 20 MG TAB PO SCH (09:22)
[2020-12-14 11:31] VITALS: BP 108/56
--- NOTE | 2020-12-14 11:36 | Progress Note ---
Assessment and Plan COVID-19 infection. Anemia Intermediate prbability v/q scan Severe sepsis. Diabetic ketoacidosis. Bilateral pneumonia. Severe metabolic acidosis. Acute kidney injury, resolved Leukocytosis at presentation. Hyperalbuminemia. Hemoconcentration. Elevated serum D-dimer. Pseudohyponatremia. Hyperkalemia at presentation. Lactic acidosis. Elevated serum inflammatory markers to include ferritin greater than 2000 and D- dimers as well as elevated lactate dehydrogenase. Acute toxic metabolic encephalopathy. -Home oxygen evalaution, get room air O2 sats - Replace potassium - continue glycemic control with SSI for target serum glucose < 180 mg/dl - prn bronchodilators with pulmonary hygiene per RT - Empiric antibiotics for CAP- on Azithromycin and Ceftriaxone to complete course - prn analgesia per pain score - Maintenance of sleep-wake cycle, avoid delirium -CXR, ABG as clinically indicated - continue other care per attending / other consultants COVID SPECIFIC INTERVENTIONS - s/p Remdesivir - on systemic steroids for severe COVID-19 infection - zinc and vitamin C supplementation per facility protocol - Monitor inflammatory markers per facility protocol - ferritin, D-dimer, CRP - therapeutic anticoagulation per system Protocol based on d-dimer and clinical considerations V/Q scan intermediate probability scan, CTA suboptimal study but no central PE Lower extremity dopplers are negative - Continue contact and airborne isolation Discharge planning. Discussed with primary service From a pulmonary standpoint can discharge and follow up in my office in 6 weeks for PFTs Subjective Date of service: 12/14/20 Principal diagnosis: Severe sepsis; DKA; COVID-19 infection; Bilateral pneumonia; KENDRA Interval history: Patient is seen today for: Severe sepsis; DKA; COVID-19 infection; Bilateral pneumonia; KENDRA; Acute toxic metabolic encephalopathy. Seen and examined at bedside; 24hour events reviewed; nursing and respiratory care staff consulted; no adverse overnight events reported to me; resting peacefully in bed; feels better, denies chest pain or shortness of breath; intermittent coughing . Off supplemental oxygen Objective Vital Signs - 12hr 12/14/20 12/14/20 12/14/20 04:27 09:53 11:29 Temperature 98.5 F 98.7 F Pulse Rate 89 100 H Respiratory 16 20 Rate Blood Pressure 105/64 Blood Pressure 108/56 [Left] O2 Sat by Pulse 90 91 93 Oximetry Constitutional: no acute distress, alert Eyes: non-icteric ENT: oropharynx moist Neck: supple, no lymphadenopathy, no JVD Effort: normal Ascultation: Bilateral: clear, rhonchi Percussion: Bilateral: not dull Cardiovascular: regular rate and rhythm, other (S1,S2) Gastrointestinal: normoactive bowel sounds, soft, non-tender, non-distended Integumentary: normal Extremities: no cyanosis, no edema, pulses normal, no ischemia or petechiae Neurologic: normal mental status, non-focal exam, pupils equal and round, other (weak) Psychiatric: mood appropriate, affect normal CBC and BMP: 12/14/20 05:59 12/14/20 05:59 ABG, PT/INR, D-dimer: ABG ABG pH 7.394 pH Units (7.350-7.450) 12/09/20 22:33 ABG pCO2 42.4 mm Hg 12/09/20 22:33 ABG pO2 182.0 mm Hg (80.0-90.0) H 12/09/20 22:33 ABG O2 Saturation 99.1 % (95.0-99.0) H 12/09/20 22:33 PT/INR, D-dimer PT 15.6 Sec. (12.2-14.9) H 12/05/20 06:46 INR 1.24 (0.87-1.13) H 12/05/20 06:46 D-Dimer 1828.92 ng/mlDDU (0-234) H 12/11/20 00:29 Abnormal lab findings: Abnormal Labs 12/05/20 12/05/20 12/05/20 06:30 06:46 06:46 WBC 19.2 H RBC 5.53 H Hgb 17.2 H Hct 57.8 H MCV 105 H MCH MCHC 30 L Lymph % (Auto) [place] % (Auto) Lymph # (Auto) [place] # (Auto) Seg Neutrophils % Seg Neuts % (Manual) Lymphocytes % (Manual) Monocytes % (Manual) Nucleated RBC % Seg Neutrophils # Lymphocytes # (Manual) Monocytes # (Manual) PT INR D-Dimer ABG pO2 ABG O2 Saturation ABG Methemoglobin VBG pH Oxyhemoglobin Sodium 124 L Potassium 5.7 H Chloride 83.0 L Carbon Dioxide 5 L* BUN 25 H Creatinine 2.1 H Glucose 677 H* POC Glucose > 600 H Hemoglobin A1c Lactic Acid Calcium Phosphorus Magnesium Ferritin Total Bilirubin Direct Bilirubin AST 51 H Alkaline Phosphatase 250 H Ammonia Lactate Dehydrogenase Total Creatine Kinase C-Reactive Protein Total Protein 8.9 H Albumin Triglycerides Urine Creatinine Urine Microalbumin Coronavirus (PCR) Crossmatch 12/05/20 12/05/20 12/05/20 06:46 06:46 06:46 WBC RBC Hgb Hct MCV MCH MCHC Lymph % (Auto) [place] % (Auto) Lymph # (Auto) [place] # (Auto) Seg Neutrophils % Seg Neuts % (Manual) Lymphocytes % (Manual) Monocytes % (Manual) Nucleated RBC % Seg Neutrophils # Lymphocytes # (Manual) Monocytes # (Manual) PT 15.6 H INR 1.24 H D-Dimer ABG pO2 ABG O2 Saturation ABG Methemoglobin VBG pH 6.814 L* Oxyhemoglobin Sodium Potassium Chloride Carbon Dioxide BUN Creatinine Glucose POC Glucose Hemoglobin A1c Lactic Acid Calcium Phosphorus 7.10 H Magnesium 2.70 H Ferritin Total Bilirubin Direct Bilirubin AST Alkaline Phosphatase Ammonia Lactate Dehydrogenase Total Creatine Kinase C-Reactive Protein Total Protein Albumin Triglycerides Urine Creatinine Urine Microalbumin Coronavirus (PCR) Crossmatch 12/05/20 12/05/20 12/05/20 06:46 06:46 07:53 WBC RBC Hgb Hct MCV MCH MCHC Lymph % (Auto) [place] % (Auto) Lymph # (Auto) [place] # (Auto) Seg Neutrophils % Seg Neuts % (Manual) Lymphocytes % (Manual) Monocytes % (Manual) Nucleated RBC % Seg Neutrophils # Lymphocytes # (Manual) Monocytes # (Manual) PT INR D-Dimer ABG pO2 ABG O2 Saturation ABG Methemoglobin VBG pH Oxyhemoglobin Sodium Potassium Chloride Carbon Dioxide BUN Creatinine Glucose 690 H* POC Glucose Hemoglobin A1c Lactic Acid 4.80 H* Calcium Phosphorus Magnesium Ferritin Total Bilirubin Direct Bilirubin AST Alkaline Phosphatase Ammonia 94.0 H Lactate Dehydrogenase Total Creatine Kinase C-Reactive Protein Total Protein Albumin Triglycerides Urine Creatinine Urine Microalbumin Coronavirus (PCR) Crossmatch 12/05/20 12/05/20 12/05/20 10:24 10:24 10:24 WBC RBC Hgb Hct MCV MCH MCHC Lymph % (Auto) [place] % (Auto) Lymph # (Auto) [place] # (Auto) Seg Neutrophils % Seg Neuts % (Manual) Lymphocytes % (Manual) Monocytes % (Manual) Nucleated RBC % Seg Neutrophils # Lymphocytes # (Manual) Monocytes # (Manual) PT INR D-Dimer ABG pO2 ABG O2 Saturation ABG Methemoglobin VBG pH Oxyhemoglobin Sodium 122 L Potassium 5.6 H Chloride 90.5 L Carbon Dioxide 2 L* BUN 28 H Creatinine 1.7 H Glucose 602 H* POC Glucose Hemoglobin A1c 17.8 H Lactic Acid Calcium Phosphorus 7.60 H Magnesium 2.70 H Ferritin Total Bilirubin Direct Bilirubin AST Alkaline Phosphatase Ammonia Lactate Dehydrogenase Total Creatine Kinase C-Reactive Protein Total Protein Albumin Triglycerides 368 H Urine Creatinine Urine Microalbumin Coronavirus (PCR) Crossmatch 12/05/20 12/05/20 12/05/20 10:28 12:36 14:55 WBC RBC Hgb Hct MCV MCH MCHC Lymph % (Auto) [place] % (Auto) Lymph # (Auto) [place] # (Auto) Seg Neutrophils % Seg Neuts % (Manual) Lymphocytes % (Manual) Monocytes % (Manual) Nucleated RBC % Seg Neutrophils # Lymphocytes # (Manual) Monocytes # (Manual) PT INR D-Dimer ABG pO2 ABG O2 Saturation ABG Methemoglobin VBG pH Oxyhemoglobin Sodium Potassium Chloride Carbon Dioxide BUN Creatinine Glucose POC Glucose 584 H 449 H Hemoglobin A1c Lactic Acid Calcium Phosphorus Magnesium Ferritin Total Bilirubin Direct Bilirubin AST Alkaline Phosphatase Ammonia Lactate Dehydrogenase Total Creatine Kinase C-Reactive Protein Total Protein Albumin Triglycerides Urine Creatinine Urine Microalbumin Coronavirus (PCR) Positive A Crossmatch 12/05/20 12/05/20 12/05/20 16:03 16:03 16:03 WBC RBC Hgb Hct MCV MCH MCHC Lymph % (Auto) [place] % (Auto) Lymph # (Auto) [place] # (Auto) Seg Neutrophils % Seg Neuts % (Manual) Lymphocytes % (Manual) Monocytes % (Manual) Nucleated RBC % Seg Neutrophils # Lymphocytes # (Manual) Monocytes # (Manual) PT INR D-Dimer 4712.93 H ABG pO2 ABG O2 Saturation ABG Methemoglobin VBG pH Oxyhemoglobin Sodium 130 L D Potassium 6.6 H* Chloride 95.5 L Carbon Dioxide 5 L* BUN 28 H Creatinine 1.9 H Glucose 437 H POC Glucose Hemoglobin A1c Lactic Acid 4.80 H* Calcium Phosphorus Magnesium Ferritin Total Bilirubin Direct Bilirubin AST Alkaline Phosphatase Ammonia Lactate Dehydrogenase Total Creatine Kinase C-Reactive Protein Total Protein Albumin Triglycerides Urine Creatinine Urine Microalbumin Coronavirus (PCR) Crossmatch 12/05/20 12/05/20 12/05/20 16:03 16:03 16:57 WBC RBC Hgb Hct MCV MCH MCHC Lymph % (Auto) [place] % (Auto) Lymph # (Auto) [place] # (Auto) Seg Neutrophils % Seg Neuts % (Manual) Lymphocytes % (Manual) Monocytes % (Manual) Nucleated RBC % Seg Neutrophils # Lymphocytes # (Manual) Monocytes # (Manual) PT INR D-Dimer ABG pO2 ABG O2 Saturation ABG Methemoglobin VBG pH Oxyhemoglobin Sodium Potassium Chloride Carbon Dioxide BUN Creatinine Glucose 449 H POC Glucose 446 H Hemoglobin A1c Lactic Acid Calcium Phosphorus Magnesium Ferritin > 2000.0 H Total Bilirubin Direct Bilirubin AST Alkaline Phosphatase Ammonia Lactate Dehydrogenase 576 H Total Creatine Kinase C-Reactive Protein 7.10 H Total Protein Albumin Triglycerides Urine Creatinine Urine Microalbumin Coronavirus (PCR) Crossmatch 12/05/20 12/05/20 12/05/20 17:47 18:46 19:11 WBC RBC Hgb Hct MCV MCH MCHC Lymph % (Auto) [place] % (Auto) Lymph # (Auto) [place] # (Auto) Seg Neutrophils % Seg Neuts % (Manual) Lymphocytes % (Manual) Monocytes % (Manual) Nucleated RBC % Seg Neutrophils # Lymphocytes # (Manual) Monocytes # (Manual) PT INR D-Dimer ABG pO2 ABG O2 Saturation ABG Methemoglobin VBG pH Oxyhemoglobin Sodium 136 L Potassium 5.1 H D Chloride 97.2 L Carbon Dioxide 10 L BUN 31 H Creatinine 1.7 H Glucose 341 H POC Glucose 425 H 343 H Hemoglobin A1c Lactic Acid Calcium Phosphorus Magnesium Ferritin Total Bilirubin Direct Bilirubin AST Alkaline Phosphatase Ammonia Lactate Dehydrogenase Total Creatine Kinase C-Reactive Protein Total Protein Albumin Triglycerides Urine Creatinine Urine Microalbumin Coronavirus (PCR) Crossmatch 12/05/20 12/05/20 12/05/20 19:11 20:09 20:59 WBC RBC Hgb Hct MCV MCH MCHC Lymph % (Auto) [place] % (Auto) Lymph # (Auto) [place] # (Auto) Seg Neutrophils % Seg Neuts % (Manual) Lymphocytes % (Manual) Monocytes % (Manual) Nucleated RBC % Seg Neutrophils # Lymphocytes # (Manual) Monocytes # (Manual) PT INR D-Dimer ABG pO2 ABG O2 Saturation ABG Methemoglobin VBG pH Oxyhemoglobin Sodium Potassium Chloride Carbon Dioxide BUN Creatinine Glucose POC Glucose 345 H 304 H Hemoglobin A1c Lactic Acid 4.30 H* Calcium Phosphorus Magnesium Ferritin Total Bilirubin Direct Bilirubin AST Alkaline Phosphatase Ammonia Lactate Dehydrogenase Total Creatine Kinase C-Reactive Protein Total Protein Albumin Triglycerides Urine Creatinine Urine Microalbumin Coronavirus (PCR) Crossmatch 12/05/20 12/05/20 12/06/20 21:57 23:01 00:01 WBC RBC Hgb Hct MCV MCH MCHC Lymph % (Auto) [place] % (Auto) Lymph # (Auto) [place] # (Auto) Seg Neutrophils % Seg Neuts % (Manual) Lymphocytes % (Manual) Monocytes % (Manual) Nucleated RBC % Seg Neutrophils # Lymphocytes # (Manual) Monocytes # (Manual) PT INR D-Dimer ABG pO2 ABG O2 Saturation ABG Methemoglobin VBG pH Oxyhemoglobin Sodium Potassium Chloride Carbon Dioxide BUN Creatinine Glucose POC Glucose 259 H 325 H 297 H Hemoglobin A1c Lactic Acid Calcium Phosphorus Magnesium Ferritin Total Bilirubin Direct Bilirubin AST Alkaline Phosphatase Ammonia Lactate Dehydrogenase Total Creatine Kinase C-Reactive Protein Total Protein Albumin Triglycerides Urine Creatinine Urine Microalbumin Coronavirus (PCR) Crossmatch 12/06/20 12/06/20 12/06/20 00:24 01:01 01:56 WBC RBC Hgb Hct MCV MCH MCHC Lymph % (Auto) [place] % (Auto) Lymph # (Auto) [place] # (Auto) Seg Neutrophils % Seg Neuts % (Manual) Lymphocytes % (Manual) Monocytes % (Manual) Nucleated RBC % Seg Neutrophils # Lymphocytes # (Manual) Monocytes # (Manual) PT INR D-Dimer ABG pO2 ABG O2 Saturation ABG Methemoglobin VBG pH Oxyhemoglobin Sodium 134 L Potassium Chloride Carbon Dioxide 8 L* BUN 29 H Creatinine Glucose 298 H POC Glucose 270 H 225 H Hemoglobin A1c Lactic Acid Calcium Phosphorus Magnesium Ferritin Total Bilirubin Direct Bilirubin AST Alkaline Phosphatase Ammonia Lactate Dehydrogenase Total Creatine Kinase C-Reactive Protein Total Protein Albumin Triglycerides Urine Creatinine Urine Microalbumin Coronavirus (PCR) Crossmatch 12/06/20 12/06/20 12/06/20 03:01 03:59 04:55 WBC RBC Hgb Hct MCV MCH MCHC Lymph % (Auto) [place] % (Auto) Lymph # (Auto) [place] # (Auto) Seg Neutrophils % Seg Neuts % (Manual) Lymphocytes % (Manual) Monocytes % (Manual) Nucleated RBC % Seg Neutrophils # Lymphocytes # (Manual) Monocytes # (Manual) PT INR D-Dimer ABG pO2 ABG O2 Saturation ABG Methemoglobin VBG pH Oxyhemoglobin Sodium Potassium Chloride Carbon Dioxide BUN Creatinine Glucose POC Glucose 231 H 168 H 137 H Hemoglobin A1c Lactic Acid Calcium Phosphorus Magnesium Ferritin Total Bilirubin Direct Bilirubin AST Alkaline Phosphatase Ammonia Lactate Dehydrogenase Total Creatine Kinase C-Reactive Protein Total Protein Albumin Triglycerides Urine Creatinine Urine Microalbumin Coronavirus (PCR) Crossmatch 12/06/20 12/06/20 12/06/20 05:58 06:56 07:44 WBC RBC Hgb Hct MCV MCH MCHC Lymph % (Auto) [place] % (Auto) Lymph # (Auto) [place] # (Auto) Seg Neutrophils % Seg Neuts % (Manual) Lymphocytes % (Manual) Monocytes % (Manual) Nucleated RBC % Seg Neutrophils # Lymphocytes # (Manual) Monocytes # (Manual) PT INR D-Dimer ABG pO2 ABG O2 Saturation ABG Methemoglobin VBG pH Oxyhemoglobin Sodium Potassium Chloride Carbon Dioxide BUN Creatinine Glucose POC Glucose 149 H 205 H 150 H Hemoglobin A1c Lactic Acid Calcium Phosphorus Magnesium Ferritin Total Bilirubin Direct Bilirubin AST Alkaline Phosphatase Ammonia Lactate Dehydrogenase Total Creatine Kinase C-Reactive Protein Total Protein Albumin Triglycerides Urine Creatinine Urine Microalbumin Coronavirus (PCR) Crossmatch 12/06/20 12/06/20 12/06/20 08:16 09:03 09:53 WBC RBC Hgb Hct MCV MCH MCHC Lymph % (Auto) [place] % (Auto) Lymph # (Auto) [place] # (Auto) Seg Neutrophils % Seg Neuts % (Manual) Lymphocytes % (Manual) Monocytes % (Manual) Nucleated RBC % Seg Neutrophils # Lymphocytes # (Manual) Monocytes # (Manual) PT INR D-Dimer ABG pO2 ABG O2 Saturation ABG Methemoglobin VBG pH Oxyhemoglobin Sodium Potassium Chloride Carbon Dioxide 14 L BUN 23 H Creatinine Glucose 136 H POC Glucose 132 H Hemoglobin A1c Lactic Acid Calcium Phosphorus Magnesium Ferritin Total Bilirubin Direct Bilirubin AST Alkaline Phosphatase Ammonia Lactate Dehydrogenase Total Creatine Kinase C-Reactive Protein Total Protein Albumin Triglycerides Urine Creatinine 101.5 H Urine Microalbumin Coronavirus (PCR) Crossmatch 12/06/20 12/06/20 12/06/20 10:11 10:36 11:14 WBC RBC Hgb Hct MCV MCH MCHC Lymph % (Auto) [place] % (Auto) Lymph # (Auto) [place] # (Auto) Seg Neutrophils % Seg Neuts % (Manual) Lymphocytes % (Manual) Monocytes % (Manual) Nucleated RBC % Seg Neutrophils # Lymphocytes # (Manual) Monocytes # (Manual) PT INR D-Dimer ABG pO2 ABG O2 Saturation ABG Methemoglobin VBG pH Oxyhemoglobin Sodium Potassium Chloride Carbon Dioxide BUN Creatinine Glucose POC Glucose 137 H 127 H Hemoglobin A1c Lactic Acid Calcium Phosphorus Magnesium Ferritin Total Bilirubin Direct Bilirubin AST Alkaline Phosphatase Ammonia Lactate Dehydrogenase Total Creatine Kinase C-Reactive Protein Total Protein Albumin Triglycerides Urine Creatinine 101.0 H Urine Microalbumin 36.9 H Coronavirus (PCR) Crossmatch 12/06/20 12/06/20 12/06/20 12:01 13:12 14:02 WBC RBC Hgb Hct MCV MCH MCHC Lymph % (Auto) [place] % (Auto) Lymph # (Auto) [place] # (Auto) Seg Neutrophils % Seg Neuts % (Manual) Lymphocytes % (Manual) Monocytes % (Manual) Nucleated RBC % Seg Neutrophils # Lymphocytes # (Manual) Monocytes # (Manual) PT INR D-Dimer ABG pO2 ABG O2 Saturation ABG Methemoglobin VBG pH Oxyhemoglobin Sodium Potassium Chloride Carbon Dioxide BUN Creatinine Glucose POC Glucose 136 H 139 H 132 H Hemoglobin A1c Lactic Acid Calcium Phosphorus Magnesium Ferritin Total Bilirubin Direct Bilirubin AST Alkaline Phosphatase Ammonia Lactate Dehydrogenase Total Creatine Kinase C-Reactive Protein Total Protein Albumin Triglycerides Urine Creatinine Urine Microalbumin Coronavirus (PCR) Crossmatch 12/06/20 12/06/20 12/06/20 15:50 17:12 18:10 WBC RBC Hgb Hct MCV MCH MCHC Lymph % (Auto) [place] % (Auto) Lymph # (Auto) [place] # (Auto) Seg Neutrophils % Seg Neuts % (Manual) Lymphocytes % (Manual) Monocytes % (Manual) Nucleated RBC % Seg Neutrophils # Lymphocytes # (Manual) Monocytes # (Manual) PT INR D-Dimer ABG pO2 ABG O2 Saturation ABG Methemoglobin VBG pH Oxyhemoglobin Sodium Potassium Chloride Carbon Dioxide BUN Creatinine Glucose POC Glucose 133 H 130 H 114 H Hemoglobin A1c Lactic Acid Calcium Phosphorus Magnesium Ferritin Total Bilirubin Direct Bilirubin AST Alkaline Phosphatase Ammonia Lactate Dehydrogenase Total Creatine Kinase C-Reactive Protein Total Protein Albumin Triglycerides Urine Creatinine Urine Microalbumin Coronavirus (PCR) Crossmatch 12/06/20 12/06/20 12/06/20 21:08 22:06 23:19 WBC RBC Hgb Hct MCV MCH MCHC Lymph % (Auto) [place] % (Auto) Lymph # (Auto) [place] # (Auto) Seg Neutrophils % Seg Neuts % (Manual) Lymphocytes % (Manual) Monocytes % (Manual) Nucleated RBC % Seg Neutrophils # Lymphocytes # (Manual) Monocytes # (Manual) PT INR D-Dimer ABG pO2 ABG O2 Saturation ABG Methemoglobin VBG pH Oxyhemoglobin Sodium Potassium Chloride Carbon Dioxide BUN Creatinine Glucose POC Glucose 127 H 148 H 144 H Hemoglobin A1c Lactic Acid Calcium Phosphorus Magnesium Ferritin Total Bilirubin Direct Bilirubin AST Alkaline Phosphatase Ammonia Lactate Dehydrogenase Total Creatine Kinase C-Reactive Protein Total Protein Albumin Triglycerides Urine Creatinine Urine Microalbumin Coronavirus (PCR) Crossmatch 12/07/20 12/07/20 12/07/20 00:08 01:04 02:05 WBC RBC Hgb Hct MCV MCH MCHC Lymph % (Auto) [place] % (Auto) Lymph # (Auto) [place] # (Auto) Seg Neutrophils % Seg Neuts % (Manual) Lymphocytes % (Manual) Monocytes % (Manual) Nucleated RBC % Seg Neutrophils # Lymphocytes # (Manual) Monocytes # (Manual) PT INR D-Dimer ABG pO2 ABG O2 Saturation ABG Methemoglobin VBG pH Oxyhemoglobin Sodium Potassium Chloride Carbon Dioxide BUN Creatinine Glucose POC Glucose 157 H 118 H 143 H Hemoglobin A1c Lactic Acid Calcium Phosphorus Magnesium Ferritin Total Bilirubin Direct Bilirubin AST Alkaline Phosphatase Ammonia Lactate Dehydrogenase Total Creatine Kinase C-Reactive Protein Total Protein Albumin Triglycerides Urine Creatinine Urine Microalbumin Coronavirus (PCR) Crossmatch 12/07/20 12/07/20 12/07/20 03:03 03:25 03:25 WBC RBC Hgb Hct MCV MCH MCHC Lymph % (Auto) [place] % (Auto) Lymph # (Auto) [place] # (Auto) Seg Neutrophils % Seg Neuts % (Manual) Lymphocytes % (Manual) Monocytes % (Manual) Nucleated RBC % Seg Neutrophils # Lymphocytes # (Manual) Monocytes # (Manual) PT INR D-Dimer 1950.73 H ABG pO2 ABG O2 Saturation ABG Methemoglobin VBG pH Oxyhemoglobin Sodium Potassium Chloride Carbon Dioxide BUN Creatinine Glucose POC Glucose 119 H Hemoglobin A1c Lactic Acid Calcium Phosphorus Magnesium Ferritin 7009.0 H Total Bilirubin Direct Bilirubin AST Alkaline Phosphatase Ammonia Lactate Dehydrogenase Total Creatine Kinase C-Reactive Protein Total Protein Albumin Triglycerides Urine Creatinine Urine Microalbumin Coronavirus (PCR) Crossmatch 12/07/20 12/07/20 12/07/20 03:25 03:25 04:09 WBC 15.8 H RBC 5.21 H Hgb 16.2 H Hct 47.9 H D MCV MCH MCHC Lymph % (Auto) 6.1 L [place] % (Auto) Lymph # (Auto) 1.0 L [place] # (Auto) Seg Neutrophils % 88.5 H Seg Neuts % (Manual) Lymphocytes % (Manual) Monocytes % (Manual) Nucleated RBC % Seg Neutrophils # 14.0 H Lymphocytes # (Manual) Monocytes # (Manual) PT INR D-Dimer ABG pO2 ABG O2 Saturation ABG Methemoglobin VBG pH Oxyhemoglobin Sodium Potassium 3.0 L D Chloride Carbon Dioxide BUN Creatinine Glucose 108 H POC Glucose 155 H Hemoglobin A1c Lactic Acid Calcium Phosphorus 0.70 L* D Magnesium Ferritin Total Bilirubin 1.70 H Direct Bilirubin 0.5 H AST 52 H Alkaline Phosphatase 131 H Ammonia Lactate Dehydrogenase 821 H Total Creatine Kinase C-Reactive Protein 13.80 H Total Protein Albumin 3.6 L Triglycerides Urine Creatinine Urine Microalbumin Coronavirus (PCR) Crossmatch 12/07/20 12/07/20 12/07/20 06:09 08:34 12:19 WBC RBC Hgb Hct MCV MCH MCHC Lymph % (Auto) [place] % (Auto) Lymph # (Auto) [place] # (Auto) Seg Neutrophils % Seg Neuts % (Manual) Lymphocytes % (Manual) Monocytes % (Manual) Nucleated RBC % Seg Neutrophils # Lymphocytes # (Manual) Monocytes # (Manual) PT INR D-Dimer ABG pO2 ABG O2 Saturation ABG Methemoglobin VBG pH Oxyhemoglobin Sodium Potassium Chloride Carbon Dioxide BUN Creatinine Glucose POC Glucose 127 H 178 H 239 H Hemoglobin A1c Lactic Acid Calcium Phosphorus Magnesium Ferritin Total Bilirubin Direct Bilirubin AST Alkaline Phosphatase Ammonia Lactate Dehydrogenase Total Creatine Kinase C-Reactive Protein Total Protein Albumin Triglycerides Urine Creatinine Urine Microalbumin Coronavirus (PCR) Crossmatch 12/07/20 12/07/20 12/07/20 16:07 16:07 23:15 WBC RBC Hgb Hct MCV MCH MCHC Lymph % (Auto) [place] % (Auto) Lymph # (Auto) [place] # (Auto) Seg Neutrophils % Seg Neuts % (Manual) Lymphocytes % (Manual) Monocytes % (Manual) Nucleated RBC % Seg Neutrophils # Lymphocytes # (Manual) Monocytes # (Manual) PT INR D-Dimer ABG pO2 ABG O2 Saturation ABG Methemoglobin VBG pH Oxyhemoglobin Sodium 136 L Potassium 3.2 L Chloride Carbon Dioxide BUN Creatinine Glucose 158 H 160 H POC Glucose 308 H Hemoglobin A1c Lactic Acid Calcium Phosphorus Magnesium Ferritin Total Bilirubin 2.10 H Direct Bilirubin AST 73 H Alkaline Phosphatase 139 H Ammonia Lactate Dehydrogenase Total Creatine Kinase C-Reactive Protein Total Protein Albumin 3.0 L Triglycerides Urine Creatinine Urine Microalbumin Coronavirus (PCR) Crossmatch 12/08/20 12/08/20 12/08/20 07:42 09:06 09:06 WBC 14.3 H RBC Hgb Hct MCV 95 H MCH MCHC Lymph % (Auto) 8.1 L [place] % (Auto) Lymph # (Auto) [place] # (Auto) 1.0 H Seg Neutrophils % 84.8 H Seg Neuts % (Manual) Lymphocytes % (Manual) Monocytes % (Manual) Nucleated RBC % Seg Neutrophils # 12.1 H Lymphocytes # (Manual) Monocytes # (Manual) PT INR D-Dimer ABG pO2 ABG O2 Saturation ABG Methemoglobin VBG pH Oxyhemoglobin Sodium 133 L Potassium 3.3 L Chloride 96.6 L Carbon Dioxide BUN Creatinine Glucose 330 H POC Glucose 301 H Hemoglobin A1c Lactic Acid Calcium Phosphorus Magnesium Ferritin Total Bilirubin 1.90 H Direct Bilirubin AST 92 H Alkaline Phosphatase 142 H Ammonia Lactate Dehydrogenase Total Creatine Kinase C-Reactive Protein Total Protein Albumin 2.8 L Triglycerides Urine Creatinine Urine Microalbumin Coronavirus (PCR) Crossmatch 12/08/20 12/08/20 12/08/20 11:03 16:28 22:19 WBC RBC Hgb Hct MCV MCH MCHC Lymph % (Auto) [place] % (Auto) Lymph # (Auto) [place] # (Auto) Seg Neutrophils % Seg Neuts % (Manual) Lymphocytes % (Manual) Monocytes % (Manual) Nucleated RBC % Seg Neutrophils # Lymphocytes # (Manual) Monocytes # (Manual) PT INR D-Dimer ABG pO2 ABG O2 Saturation ABG Methemoglobin VBG pH Oxyhemoglobin Sodium Potassium Chloride Carbon Dioxide BUN Creatinine Glucose POC Glucose 287 H 125 H 130 H Hemoglobin A1c Lactic Acid Calcium Phosphorus Magnesium Ferritin Total Bilirubin Direct Bilirubin AST Alkaline Phosphatase Ammonia Lactate Dehydrogenase Total Creatine Kinase C-Reactive Protein Total Protein Albumin Triglycerides Urine Creatinine Urine Microalbumin Coronavirus (PCR) Crossmatch 12/09/20 12/09/20 12/09/20 05:00 05:00 05:00 WBC RBC Hgb Hct MCV MCH MCHC Lymph % (Auto) [place] % (Auto) Lymph # (Auto) [place] # (Auto) Seg Neutrophils % Seg Neuts % (Manual) Lymphocytes % (Manual) Monocytes % (Manual) Nucleated RBC % Seg Neutrophils # Lymphocytes # (Manual) Monocytes # (Manual) PT INR D-Dimer 2527.04 H ABG pO2 ABG O2 Saturation ABG Methemoglobin VBG pH Oxyhemoglobin Sodium Potassium Chloride Carbon Dioxide BUN Creatinine Glucose POC Glucose Hemoglobin A1c Lactic Acid Calcium Phosphorus Magnesium Ferritin 83063.0 H Total Bilirubin Direct Bilirubin AST Alkaline Phosphatase Ammonia Lactate Dehydrogenase 2285 H Total Creatine Kinase C-Reactive Protein 22.30 H Total Protein Albumin Triglycerides Urine Creatinine Urine Microalbumin Coronavirus (PCR) Crossmatch 12/09/20 12/09/20 12/09/20 05:00 08:03 09:39 WBC RBC Hgb 11.5 L Hct 34.3 L MCV MCH MCHC Lymph % (Auto) [place] % (Auto) Lymph # (Auto) [place] # (Auto) Seg Neutrophils % Seg Neuts % (Manual) Lymphocytes % (Manual) Monocytes % (Manual) Nucleated RBC % Seg Neutrophils # Lymphocytes # (Manual) Monocytes # (Manual) PT INR D-Dimer ABG pO2 ABG O2 Saturation ABG Methemoglobin VBG pH Oxyhemoglobin Sodium Potassium 3.2 L Chloride Carbon Dioxide BUN Creatinine 0.7 L Glucose 151 H POC Glucose 139 H Hemoglobin A1c Lactic Acid Calcium Phosphorus Magnesium Ferritin Total Bilirubin 2.30 H Direct Bilirubin AST 98 H Alkaline Phosphatase 134 H Ammonia Lactate Dehydrogenase Total Creatine Kinase C-Reactive Protein Total Protein Albumin 2.8 L Triglycerides Urine Creatinine Urine Microalbumin Coronavirus (PCR) Crossmatch 12/09/20 12/09/20 12/09/20 10:57 15:36 15:36 WBC RBC Hgb Hct MCV MCH MCHC Lymph % (Auto) [place] % (Auto) Lymph # (Auto) [place] # (Auto) Seg Neutrophils % Seg Neuts % (Manual) Lymphocytes % (Manual) Monocytes % (Manual) Nucleated RBC % Seg Neutrophils # Lymphocytes # (Manual) Monocytes # (Manual) PT INR D-Dimer ABG pO2 ABG O2 Saturation ABG Methemoglobin VBG pH Oxyhemoglobin Sodium Potassium Chloride Carbon Dioxide BUN Creatinine Glucose 204 H POC Glucose 221 H Hemoglobin A1c Lactic Acid Calcium Phosphorus Magnesium Ferritin Total Bilirubin Direct Bilirubin AST Alkaline Phosphatase Ammonia Lactate Dehydrogenase Total Creatine Kinase 420 H C-Reactive Protein Total Protein Albumin Triglycerides Urine Creatinine Urine Microalbumin Coronavirus (PCR) Crossmatch 12/09/20 12/09/20 12/09/20 16:13 22:06 22:33 WBC RBC Hgb Hct MCV MCH MCHC Lymph % (Auto) [place] % (Auto) Lymph # (Auto) [place] # (Auto) Seg Neutrophils % Seg Neuts % (Manual) Lymphocytes % (Manual) Monocytes % (Manual) Nucleated RBC % Seg Neutrophils # Lymphocytes # (Manual) Monocytes # (Manual) PT INR D-Dimer ABG pO2 182.0 H ABG O2 Saturation 99.1 H ABG Methemoglobin 1.9 H VBG pH Oxyhemoglobin 93.3 L Sodium Potassium Chloride Carbon Dioxide BUN Creatinine Glucose POC Glucose 193 H 232 H Hemoglobin A1c Lactic Acid Calcium Phosphorus Magnesium Ferritin Total Bilirubin Direct Bilirubin AST Alkaline Phosphatase Ammonia Lactate Dehydrogenase Total Creatine Kinase C-Reactive Protein Total Protein Albumin Triglycerides Urine Creatinine Urine Microalbumin Coronavirus (PCR) Crossmatch 12/10/20 12/10/20 12/10/20 07:42 07:42 08:09 WBC RBC 3.18 L Hgb 10.2 L Hct 30.8 L MCV 97 H MCH MCHC Lymph % (Auto) [place] % (Auto) Lymph # (Auto) [place] # (Auto) Seg Neutrophils % Seg Neuts % (Manual) 78.0 H Lymphocytes % (Manual) 11.0 L Monocytes % (Manual) 11.0 H Nucleated RBC % 1.0 H Seg Neutrophils # Lymphocytes # (Manual) 1.1 L Monocytes # (Manual) 1.1 H PT INR D-Dimer ABG pO2 ABG O2 Saturation ABG Methemoglobin VBG pH Oxyhemoglobin Sodium 132 L D Potassium Chloride 93.8 L Carbon Dioxide BUN Creatinine 0.6 L Glucose 385 H POC Glucose 406 H Hemoglobin A1c Lactic Acid Calcium Phosphorus Magnesium Ferritin Total Bilirubin 3.00 H Direct Bilirubin AST 70 H Alkaline Phosphatase Ammonia Lactate Dehydrogenase Total Creatine Kinase C-Reactive Protein Total Protein Albumin 2.6 L Triglycerides Urine Creatinine Urine Microalbumin Coronavirus (PCR) Crossmatch 12/10/20 12/10/20 12/10/20 11:37 16:22 16:54 WBC RBC Hgb Hct MCV MCH MCHC Lymph % (Auto) [place] % (Auto) Lymph # (Auto) [place] # (Auto) Seg Neutrophils % Seg Neuts % (Manual) Lymphocytes % (Manual) Monocytes % (Manual) Nucleated RBC % Seg Neutrophils # Lymphocytes # (Manual) Monocytes # (Manual) PT INR D-Dimer 1767.06 H ABG pO2 ABG O2 Saturation ABG Methemoglobin VBG pH Oxyhemoglobin Sodium Potassium Chloride Carbon Dioxide BUN Creatinine Glucose POC Glucose 420 H > 600 H Hemoglobin A1c Lactic Acid Calcium Phosphorus Magnesium Ferritin Total Bilirubin Direct Bilirubin AST Alkaline Phosphatase Ammonia Lactate Dehydrogenase Total Creatine Kinase C-Reactive Protein Total Protein Albumin Triglycerides Urine Creatinine Urine Microalbumin Coronavirus (PCR) Crossmatch 12/10/20 12/10/20 12/10/20 16:54 16:54 17:56 WBC RBC Hgb Hct MCV MCH MCHC Lymph % (Auto) [place] % (Auto) Lymph # (Auto) [place] # (Auto) Seg Neutrophils % Seg Neuts % (Manual) Lymphocytes % (Manual) Monocytes % (Manual) Nucleated RBC % Seg Neutrophils # Lymphocytes # (Manual) Monocytes # (Manual) PT INR D-Dimer ABG pO2 ABG O2 Saturation ABG Methemoglobin VBG pH Oxyhemoglobin Sodium Potassium Chloride Carbon Dioxide BUN Creatinine Glucose POC Glucose 504 H Hemoglobin A1c Lactic Acid Calcium Phosphorus Magnesium Ferritin > 2000.0 H Total Bilirubin Direct Bilirubin AST Alkaline Phosphatase Ammonia Lactate Dehydrogenase 2658 H Total Creatine Kinase C-Reactive Protein 10.70 H Total Protein Albumin Triglycerides Urine Creatinine Urine Microalbumin Coronavirus (PCR) Crossmatch 12/10/20 12/11/20 12/11/20 21:47 00:29 00:29 WBC RBC Hgb Hct MCV MCH MCHC Lymph % (Auto) [place] % (Auto) Lymph # (Auto) [place] # (Auto) Seg Neutrophils % Seg Neuts % (Manual) Lymphocytes % (Manual) Monocytes % (Manual) Nucleated RBC % Seg Neutrophils # Lymphocytes # (Manual) Monocytes # (Manual) PT INR D-Dimer 1828.92 H ABG pO2 ABG O2 Saturation ABG Methemoglobin VBG pH Oxyhemoglobin Sodium Potassium Chloride Carbon Dioxide BUN Creatinine Glucose POC Glucose 389 H Hemoglobin A1c Lactic Acid Calcium Phosphorus Magnesium Ferritin > 2000.0 H Total Bilirubin Direct Bilirubin AST Alkaline Phosphatase Ammonia Lactate Dehydrogenase Total Creatine Kinase C-Reactive Protein Total Protein Albumin Triglycerides Urine Creatinine Urine Microalbumin Coronavirus (PCR) Crossmatch 12/11/20 12/11/20 12/11/20 00:29 03:59 03:59 WBC 12.0 H RBC 3.16 L Hgb 10.3 L Hct 31.0 L MCV 98 H MCH 33 H MCHC Lymph % (Auto) [place] % (Auto) 8.2 H Lymph # (Auto) [place] # (Auto) Seg Neutrophils % Seg Neuts % (Manual) Lymphocytes % (Manual) Monocytes % (Manual) 10.0 H Nucleated RBC % Seg Neutrophils # Lymphocytes # (Manual) Monocytes # (Manual) 1.2 H PT INR D-Dimer ABG pO2 ABG O2 Saturation ABG Methemoglobin VBG pH Oxyhemoglobin Sodium 132 L Potassium 3.4 L Chloride 89.4 L Carbon Dioxide BUN 22 H Creatinine 0.7 L Glucose 337 H POC Glucose Hemoglobin A1c Lactic Acid Calcium Phosphorus Magnesium Ferritin Total Bilirubin 2.80 H Direct Bilirubin AST 45 H Alkaline Phosphatase 135 H Ammonia Lactate Dehydrogenase 2594 H Total Creatine Kinase C-Reactive Protein 9.10 H Total Protein Albumin 3.2 L Triglycerides Urine Creatinine Urine Microalbumin Coronavirus (PCR) Crossmatch 12/11/20 12/11/20 12/11/20 07:50 09:10 11:02 WBC RBC Hgb Hct MCV MCH MCHC Lymph % (Auto) [place] % (Auto) Lymph # (Auto) [place] # (Auto) Seg Neutrophils % Seg Neuts % (Manual) Lymphocytes % (Manual) Monocytes % (Manual) Nucleated RBC % Seg Neutrophils # Lymphocytes # (Manual) Monocytes # (Manual) PT INR D-Dimer ABG pO2 ABG O2 Saturation ABG Methemoglobin VBG pH Oxyhemoglobin Sodium Potassium Chloride Carbon Dioxide BUN Creatinine Glucose POC Glucose 152 H 256 H 261 H Hemoglobin A1c Lactic Acid Calcium Phosphorus Magnesium Ferritin Total Bilirubin Direct Bilirubin AST Alkaline Phosphatase Ammonia Lactate Dehydrogenase Total Creatine Kinase C-Reactive Protein Total Protein Albumin Triglycerides Urine Creatinine Urine Microalbumin Coronavirus (PCR) Crossmatch 12/11/20 12/12/20 12/12/20 16:39 06:14 06:14 WBC RBC 2.21 L Hgb 7.2 L D Hct 21.5 L D MCV 97 H MCH 33 H MCHC Lymph % (Auto) [place] % (Auto) Lymph # (Auto) [place] # (Auto) Seg Neutrophils % Seg Neuts % (Manual) Lymphocytes % (Manual) Monocytes % (Manual) Nucleated RBC % Seg Neutrophils # Lymphocytes # (Manual) Monocytes # (Manual) PT INR D-Dimer ABG pO2 ABG O2 Saturation ABG Methemoglobin VBG pH Oxyhemoglobin Sodium 136 L Potassium 2.6 L* D Chloride 97.5 L Carbon Dioxide 31 H BUN Creatinine Glucose 110 H POC Glucose 239 H Hemoglobin A1c Lactic Acid Calcium 7.2 L D Phosphorus Magnesium Ferritin Total Bilirubin Direct Bilirubin AST Alkaline Phosphatase Ammonia Lactate Dehydrogenase Total Creatine Kinase C-Reactive Protein Total Protein Albumin Triglycerides Urine Creatinine Urine Microalbumin Coronavirus (PCR) Crossmatch 12/12/20 12/12/20 12/12/20 11:25 16:31 21:39 WBC RBC Hgb Hct MCV MCH MCHC Lymph % (Auto) [place] % (Auto) Lymph # (Auto) [place] # (Auto) Seg Neutrophils % Seg Neuts % (Manual) Lymphocytes % (Manual) Monocytes % (Manual) Nucleated RBC % Seg Neutrophils # Lymphocytes # (Manual) Monocytes # (Manual) PT INR D-Dimer ABG pO2 ABG O2 Saturation ABG Methemoglobin VBG pH Oxyhemoglobin Sodium Potassium Chloride Carbon Dioxide BUN Creatinine Glucose POC Glucose 151 H 335 H 424 H Hemoglobin A1c Lactic Acid Calcium Phosphorus Magnesium Ferritin Total Bilirubin Direct Bilirubin AST Alkaline Phosphatase Ammonia Lactate Dehydrogenase Total Creatine Kinase C-Reactive Protein Total Protein Albumin Triglycerides Urine Creatinine Urine Microalbumin Coronavirus (PCR) Crossmatch 12/12/20 12/13/20 12/13/20 21:41 06:01 06:01 WBC RBC 2.01 L Hgb 6.9 L Hct 20.2 L MCV 101 H MCH 34 H MCHC Lymph % (Auto) [place] % (Auto) Lymph # (Auto) [place] # (Auto) Seg Neutrophils % Seg Neuts % (Manual) Lymphocytes % (Manual) Monocytes % (Manual) Nucleated RBC % Seg Neutrophils # Lymphocytes # (Manual) Monocytes # (Manual) PT INR D-Dimer ABG pO2 ABG O2 Saturation ABG Methemoglobin VBG pH Oxyhemoglobin Sodium Potassium 3.1 L Chloride 97.5 L Carbon Dioxide 35 H BUN 7 L Creatinine 0.7 L Glucose 249 H POC Glucose 416 H Hemoglobin A1c Lactic Acid Calcium 7.8 L Phosphorus Magnesium Ferritin Total Bilirubin Direct Bilirubin AST Alkaline Phosphatase Ammonia Lactate Dehydrogenase Total Creatine Kinase C-Reactive Protein Total Protein 6.1 L Albumin 2.6 L Triglycerides Urine Creatinine Urine Microalbumin Coronavirus (PCR) Crossmatch 12/13/20 12/13/20 12/13/20 07:48 08:42 11:15 WBC RBC Hgb Hct MCV MCH MCHC Lymph % (Auto) [place] % (Auto) Lymph # (Auto) [place] # (Auto) Seg Neutrophils % Seg Neuts % (Manual) Lymphocytes % (Manual) Monocytes % (Manual) Nucleated RBC % Seg Neutrophils # Lymphocytes # (Manual) Monocytes # (Manual) PT INR D-Dimer ABG pO2 ABG O2 Saturation ABG Methemoglobin VBG pH Oxyhemoglobin Sodium Potassium Chloride Carbon Dioxide BUN Creatinine Glucose POC Glucose 206 H 289 H Hemoglobin A1c Lactic Acid Calcium Phosphorus Magnesium Ferritin Total Bilirubin Direct Bilirubin AST Alkaline Phosphatase Ammonia Lactate Dehydrogenase Total Creatine Kinase C-Reactive Protein Total Protein Albumin Triglycerides Urine Creatinine Urine Microalbumin Coronavirus (PCR) Crossmatch See Detail 12/13/20 12/13/20 12/13/20 16:40 17:28 21:45 WBC 15.2 H RBC 2.95 L Hgb 9.4 L Hct 28.0 L D MCV 95 H MCH MCHC Lymph % (Auto) [place] % (Auto) Lymph # (Auto) [place] # (Auto) Seg Neutrophils % Seg Neuts % (Manual) Lymphocytes % (Manual) Monocytes % (Manual) Nucleated RBC % Seg Neutrophils # Lymphocytes # (Manual) Monocytes # (Manual) PT INR D-Dimer ABG pO2 ABG O2 Saturation ABG Methemoglobin VBG pH Oxyhemoglobin Sodium Potassium Chloride Carbon Dioxide BUN Creatinine Glucose POC Glucose 221 H 232 H Hemoglobin A1c Lactic Acid Calcium Phosphorus Magnesium Ferritin Total Bilirubin Direct Bilirubin AST Alkaline Phosphatase Ammonia Lactate Dehydrogenase Total Creatine Kinase C-Reactive Protein Total Protein Albumin Triglycerides Urine Creatinine Urine Microalbumin Coronavirus (PCR) Crossmatch 12/14/20 12/14/20 12/14/20 05:59 05:59 07:49 WBC RBC 2.58 L Hgb 8.2 L Hct 24.3 L MCV MCH MCHC Lymph % (Auto) [place] % (Auto) Lymph # (Auto) [place] # (Auto) Seg Neutrophils % Seg Neuts % (Manual) Lymphocytes % (Manual) Monocytes % (Manual) Nucleated RBC % Seg Neutrophils # Lymphocytes # (Manual) Monocytes # (Manual) PT INR D-Dimer ABG pO2 ABG O2 Saturation ABG Methemoglobin VBG pH Oxyhemoglobin Sodium Potassium 2.9 L* Chloride 97.5 L Carbon Dioxide 36 H BUN 5 L Creatinine Glucose POC Glucose 137 H Hemoglobin A1c Lactic Acid Calcium 7.8 L Phosphorus Magnesium Ferritin Total Bilirubin Direct Bilirubin AST Alkaline Phosphatase Ammonia Lactate Dehydrogenase Total Creatine Kinase C-Reactive Protein Total Protein Albumin Triglycerides Urine Creatinine Urine Microalbumin Coronavirus (PCR) Crossmatch 12/14/20 11:09 WBC RBC Hgb Hct MCV MCH MCHC Lymph % (Auto) [place] % (Auto) Lymph # (Auto) [place] # (Auto) Seg Neutrophils % Seg Neuts % (Manual) Lymphocytes % (Manual) Monocytes % (Manual) Nucleated RBC % Seg Neutrophils # Lymphocytes # (Manual) Monocytes # (Manual) PT INR D-Dimer ABG pO2 ABG O2 Saturation ABG Methemoglobin VBG pH Oxyhemoglobin Sodium Potassium Chloride Carbon Dioxide BUN Creatinine Glucose POC Glucose 229 H Hemoglobin A1c Lactic Acid Calcium Phosphorus Magnesium Ferritin Total Bilirubin Direct Bilirubin AST Alkaline Phosphatase Ammonia Lactate Dehydrogenase Total Creatine Kinase C-Reactive Protein Total Protein Albumin Triglycerides Urine Creatinine Urine Microalbumin Coronavirus (PCR) Crossmatch Allied health notes reviewed: RT
--- NOTE | 2020-12-14 12:32 | Discharge Summary ---
Providers - Providers Date of Admission: 12/05/20 08:52 Date of discharge: 12/14/20 Attending physician: JAROD CHERRY MD 12/05/20 08:04 Consult to Dietitian/Nutrition [CONS] Routine Physician Instructions: Reason For Exam: DKA Reason for Consult: Nutrition Recommendations Reason for Consult: Diet education 12/05/20 09:30 Consult to Dietitian/Nutrition [CONS] Routine Physician Instructions: diet education Reason For Exam: DKA Reason for Consult: Nutrition Recommendations Reason for Consult: Diet education Consult to Physician [CONS] Routine Comment: Consulting Provider: PABLITO QUEVEDO Physician Instructions: Reason For Exam: DKA 12/05/20 15:17 Consult to Physician [CONS] Routine Comment: Consulting Provider: ROGELIO KAISER Physician Instructions: Reason For Exam: COVID (+) 12/05/20 15:21 Consult to Physician [CONS] Stat Comment: Consulting Provider: PABLITO QUEVEDO Physician Instructions: Reason For Exam: CCU admit 12/05/20 15:26 Consult to Physician [CONS] Routine Comment: Consulting Provider: PABLITO QUEVEDO Physician Instructions: Reason For Exam: dka Primary care physician: [employer] Hospitalization Reason for admission: Diabetic Ketoacidosis and COVID infection Condition: Fair Hospital course: Assessment and plan: This is a 30-year-old male who was recently diagnosed with diabetes mellitus type 2 on oral hypoglycemics presented to the hospital with DKA/severe metabolic acidosis, bilateral pneumonia, positive COVID-19, KENDRA and electrolyte imbalance. Severe sepsis, POA -Likely due to underlying pneumonia and COVID-19 -s/p IV antibiotics, and COVID-19 protocol Positive COVID-19, intermittent hypoxia -no indication for anticoagulation -s/p remdesivir - finish steroids with taper Bilateral pneumonia -Likely due to COVID-19 infection with possible bacterial pneumonia -s/p Rocephin and Zithromax Acute hypoxic respiratory failure- resolved - VQ scan with possible PE - CTA shows no underlying PE - patient off O2, no indication for anticoagulation DKA resolved Severe Metabolic Acidosis -Patient admitted with DKA protocol: - s/p insulin drip, bicarb, fluids -NPH 70/30 and sliding scale. pt has insulin at home, no need for scripts Acute kidney injury, likely vasomotor nephropathy - 2/2 dehydration/DKA-resolved Hypokalemia/hypophosphatemia: replete Hyponatremia resolved Hyperkalemia, resolved -Likely due to severe DKA and KENDRA -s/p bicarbonate drip - resolved Transaminitis: 2/2 dehydration Hyperammonemia: 2/2 dehydration/sepsis Elevated D-dimer - CTA without evidence for acute PE Diabetes mellitus type 2, uncontrolled with hyperglycemia and DKA -A1c 17.8 - insulin w/sliding scale - home insulin 30 BID 70/30 Hematuria, likely developed due to anticoagulation. -Continue to monitor H&H, obtain UA - CT abdomen/pelvis w/o any acute findings - resolved Normocytic anemia 12/13/20 1x transfusion monitor for hematuria and GIB - hemoglobin stable no signs of hematuria or GIB Daily clinical course: 12/06: Continue bicarbonate drip for now patient still with metabolic acidosis with high anion gap. Patient is not symptomatic with Covid. We will continue to monitor. Will follow ID recommendation. Critical care has been consulte d/will follow recommendation 12/07: Anion gap has resolved, CO2 level 26 today. Blood glucose has been stabilized. Vitals stable. Will start on consistent carb diet NPH 7030 and sliding scale insulin. Accu-Chek QA CHS. If clinically stable transfer out from ICU-today. Continue Covid protocol, continue empiric antibiotics for pneumonia. Patient became hypoxic overnight, now on 3 L nasal cannula. Will repeat chest x-ray, start on remdesivir. Will hold onto dexamethasone as because patient has uncontrolled hyperglycemia. 12/08: Blood glucose improving slowly, will increase insulin to 35 units twice daily along with sliding scale. Noted ID recommendation appreciated. Patient getting hypoxic on ambulation, treated with remdesivir for now due to patient's high risk factor associated with deterioration of COVID-19 infection. Developed hematuria this morning which likely due to anticoagulation. Will hold anticoagulation. monitor H&H 12/09: Patient remains on 3 to 5 L nasal cannula, inflammatory markers trending up. Day 2 of remdesivir today. Continue to follow clinically, replete electrolytes. Blood glucose much stable, follow ID recommendation. DC IV fluid today, get repeat chest x-ray. Monitor for fluid overload and pulmonary edema. Lasix IV as needed. Patients inflammatory markers today: Serum ferritin 07480, D Dimer 2527.04, LDH 22 85, CRP 22.3 12/10: Blood glucose level above 400 today, started on dexamethasone by ID as patient having pending lab and inflammatory markers. Will increase NPH dose, continue sliding scale of insulin, day 3 of remdesivir today. Follow inflammatory markers, follow H&H. Continue to have hematochezia. Ordered CT abdomen pelvis for persistent hematuria and pulmonary VQ scan for possible pulmonary embolism. 12/11: CT abdomen pelvis findings, VQ scan obtained results pending. Patient is resting on room air today, will assess for home O2 requirement. Continue day 4 of remdesivir, and dexamethasone. Adjust insulin doses for better adjustment for blood glucose as patient is on dexamethasone, PT eval. inflammatory markers slightly trended down. Continue to follow. Hematuria slightly improved, continue to trend H&H 12/12: pt off O2 yesterday but placed back on O2 today. VQ scan showing possible PE, spoke with pulm, will order CTA, Hgb low, hematuria resolved, will obtain occult stool. 12/13 pt off O2, states he has a slight cough but no respiratory distress. denies any blood in stool, hgb <7.0 today, eating, drinking, denies hematuria. 12/14 pt off O2, no distress, hgb stable, can DC home with f/u with pulm Disposition: DC-01 TO HOME OR SELFCARE Final Discharge Diagnosis (Prints w/discharge instructions): Severe sepsis, POA. Positive COVID-19. Bilateral pneumonia. Acute hypoxic respiratory failure. DKA resolved. Acute kidney injury, likely vasomotor nephropathy. Hypokalemia. hypophosphatemia. Hyponatremia. Hyperkalemia. Transaminitis. Hyperammone teetee: Elevated D-dimer. Diabetes mellitus type 2. Hematuria. Normocytic anemia Core Measure Documentation - Palliative Care Palliative Care/ Comfort Measures: Not Applicable - Core Measures Any of the following diagnoses?: none Exam - Constitutional Vitals: Temp Pulse Resp BP Pulse Ox 98.7 F 100 H 20 108/56 93 12/14/20 11:29 12/14/20 11:29 12/14/20 11:29 12/14/20 11:29 12/14/20 12:06 General appearance: Present: no acute distress, well-nourished - EENT Eyes: Present: PERRL ENT: hearing intact, clear oral mucosa - Neck Neck: Present: supple, normal ROM - Respiratory Respiratory effort: normal Respiratory: bilateral: CTA - Cardiovascular Heart Sounds: Present: S1 & S2. Absent: rub, click - Extremities Extremities: pulses symmetrical, No edema Peripheral Pulses: within normal limits - Abdominal General gastrointestinal: Present: soft, non-tender, non-distended, normal bowel sounds Male genitourinary: Present: normal - Integumentary Integumentary: Present: clear, warm, dry - Musculoskeletal Musculoskeletal: gait normal, strength equal bilaterally - Psychiatric Psychiatric: appropriate mood/affect, intact judgment & insight - Neurologic Neurologic: CNII-XII intact, moves all extremities Plan Activity: no restrictions Weight Bearing Status: Full Weight Bearing Follow up with: PRIMARY CARE, [Primary Care Provider] - 3-5 Days NANCY ISAAC MD [Staff Physician] - 14 Days ( ) Prescriptions: methylPREDNISolone [Medrol 4MG DOSEPAK (21 tabs)] 4 mg PO DAILY #1 tab.ds.pk
--- NOTE | 2020-12-14 13:09 | Progress Note ---
Assessment and Plan Cultures: Blood culture 12/05/2020: No growth so far A/P: 30-year-old man past medical history insulin-dependent diabetes admitted with DKA, Covid #Severe sepsis: better, noted some hypotension #Severe COVID-19 pneumonia: Markers elevated. Worsening ferritin 37K, Ddimer; CRP better. Possible component of bacterial pneumonia elevated procalcitonin 7.1-->1.6, however patient was an KENDRA. US no DVT. Markers remains elevated #Acute hypoxemic respiratory failure: now on room air. VQ scan with intermediate probability for PE. CTA limited #DKA: hyperglycemia worsening on steroids #KENDRA: Resolved #Transaminitis: Resolved #Hematuria: unclear etiology, CT abd unremarkable Recs: -Completed ceftriaxone for 5 days and azithromycin for 3 days. -Completed remdesivir -Continue dexamenthasone total 10 days -No indication for tociluzimab -Anticoagulation per hospital protocol -DKA management per primary -6 min walking test if passes ok to d/c, education of home O2 sat monitoring BID and returing to ED if sat<94% -strict diabetic control Tika Hallman MD [facility] ([facility]) Office [phone] Subjective Date of service: 12/14/20 Principal diagnosis: Severe sepsis; DKA; COVID-19 infection; Bilateral pneumonia; KENDRA Interval history: Feels better on room air sat >91%, no fever Objective - Exam Narrative Exam: General appearance: Alert in NAD pleasant Eyes: anicteric sclerae, moist conjunctivae; no lid-lag; PERRLA HENT: Normocephalic, Atraumatic; normal external ears, nares open, oropharynx clear Neck: supple, tracheal midline, no JVD Lungs: Bilateral crackles CV: RRR no murmur Abdomen: Soft, non-tender; no masses or hepatosplenomegaly Extremities: no edema, no cyanosis Skin: No rash. Psych: no agitated Neuro: alert and oriented x 3. Moving all extermities - Constitutional Vitals: Vital Signs Temp Pulse Resp BP Pulse Ox 98.7 F 100 H 20 108/56 93 12/14/20 11:29 12/14/20 11:29 12/14/20 11:29 12/14/20 11:29 12/14/20 12:06 Temperature -Last 24 Hours Temperature 98.7 F Temperature 98.5 F Temperature 98.2 F Temperature 98.4 F Temperature 98.4 F Temperature 98.4 F Temperature 98.4 F Temperature 98.4 F Temperature 98.3 F Temperature 99.6 F Temperature 98.4 F Temperature 99.6 F - Labs CBC & Chem 7: 12/14/20 05:59 12/14/20 05:59 Labs: Abnormal lab results 12/13/20 12/13/20 12/13/20 Range/Units 08:42 16:40 17:28 WBC 15.2 H (4.5-11.0) K/mm3 RBC 2.95 L (3.65-5.03) M/mm3 Hgb 9.4 L (11.8-15.2) gm/dl Hct 28.0 L D (35.5-45.6) % MCV 95 H (84-94) fl Potassium (3.6-5.0) mmol/L Chloride (98-107) mmol/L Carbon Dioxide (22-30) mmol/L BUN (9-20) mg/dL POC Glucose 221 H (70-105) mg/dL Calcium (8.4-10.2) mg/dL Crossmatch See Detail 12/13/20 12/14/20 12/14/20 Range/Units 21:45 05:59 05:59 WBC (4.5-11.0) K/mm3 RBC 2.58 L (3.65-5.03) M/mm3 Hgb 8.2 L (11.8-15.2) gm/dl Hct 24.3 L (35.5-45.6) % MCV (84-94) fl Potassium 2.9 L* (3.6-5.0) mmol/L Chloride 97.5 L (98-107) mmol/L Carbon Dioxide 36 H (22-30) mmol/L BUN 5 L (9-20) mg/dL POC Glucose 232 H (70-105) mg/dL Calcium 7.8 L (8.4-10.2) mg/dL Crossmatch 12/14/20 12/14/20 Range/Units 07:49 11:09 WBC (4.5-11.0) K/mm3 RBC (3.65-5.03) M/mm3 Hgb (11.8-15.2) gm/dl Hct (35.5-45.6) % MCV (84-94) fl Potassium (3.6-5.0) mmol/L Chloride (98-107) mmol/L Carbon Dioxide (22-30) mmol/L BUN (9-20) mg/dL POC Glucose 137 H 229 H (70-105) mg/dL Calcium (8.4-10.2) mg/dL Crossmatch
== END 2020-12-14 14:25 | disposition home or self-care (01) | DRG 871 ==
LOC: ED 05:58 → CC1 08:52 → 3A 12-07 11:23 → CC1 12-07 12:26 → 3A 12-07 17:08
PROVIDERS: ADMIT Internal Medicine; ATTEND Family Medicine
PROC: XW033E5 Introduction of Remdesivir Anti-infective into Peripheral Vein, Percutaneous Approach, New Technology Group 5 (ICD-10-PCS; principal; 2020-12-08)
PROC: 4A033R1 Measurement of Arterial Saturation, Peripheral, Percutaneous Approach (ICD-10-PCS; 2020-12-09)
PROC: 30233N1 Transfusion of Nonautologous Red Blood Cells into Peripheral Vein, Percutaneous Approach (ICD-10-PCS; 2020-12-13)
DX: A41.89 Other specified sepsis (principal); E11.10 Type 2 diabetes mellitus with ketoacidosis without coma; J12.82 Pneumonia due to coronavirus disease 2019; U07.1 COVID-19; J96.01 Acute respiratory failure with hypoxia; G92 Toxic encephalopathy; N17.0 Acute kidney failure with tubular necrosis; E87.1 Hypo-osmolality and hyponatremia; E72.20 Disorder of urea cycle metabolism, unspecified; E87.5 Hyperkalemia; E87.8 Other disorders of electrolyte and fluid balance, not elsewhere classified; R74.01 Elevation of levels of liver transaminase levels; E83.39 Other disorders of phosphorus metabolism; E83.41 Hypermagnesemia; R65.20 Severe sepsis without septic shock; E87.6 Hypokalemia; F17.200 Nicotine dependence, unspecified, uncomplicated; Z71.6 Tobacco abuse counseling; E86.0 Dehydration; D64.9 Anemia, unspecified; R31.9 Hematuria, unspecified; T45.515A Adverse effect of anticoagulants, initial encounter
CPT/HCPCS: 36415; 36600; 71045; 71275; 74176; 78580; 80048; 80053; 80061; 80074; 80076; 80307; 80320; 81001; 82043; 82140; 82270; 82550; 82570; 82728; 82803; 82805; 82947; 82962; 83036; 83615; 83735; 84100; 84145; 84300; 85007; 85014; 85018; 85025; 85027; 85379; 85610; 85730; 86140; 86850; 86900; 86901; 86920; 87040; 93005; 93970; 96365; 96367; 96375; G0378; A9540; G0480; J0456; J0692; J0696; J1100; J1644; J1815; J2270; J2405; J7030; J7040; J7070; J7120; J8540; P9016; Q9967; U0003

== ENCOUNTER 2021-04-10 11:26 | Emergency (ER) | payer OTHER ==
[2021-04-10 12:36] VITALS: BP 134/75
--- NOTE | 2021-04-10 13:59 | XRay Report ---
LEFT FOOT 3 VIEWS INDICATION / CLINICAL INFORMATION: Fall with left lateral foot pain. COMPARISON: None available. FINDINGS: BONES / JOINT(S): No acute fracture or subluxation. No significant arthritis. SOFT TISSUES: No significant abnormality. ADDITIONAL FINDINGS: None. Signer Name: Yaw Shields MD Signed: 04/10/2021 1:55 PM Workstation Name: [id number]
--- NOTE | 2021-04-10 14:13 | Emergency Department Report ---
ED Lower Extremity HPI - General Chief Complaint: Extremity Injury, Lower Stated Complaint: FOOT INJURY Time Seen by Provider: 04/10/21 13:24 Source: patient Mode of arrival: Ambulatory Limitations: No Limitations - History of Present Illness Initial Comments: Patient is a 30-year-old male presents emergency room complaints of a left foot injury that occurred yesterday. Patient states that he was outside running after his dog's when he tripped in a hole and had a inversion injury of his left foot. He is ambulatory without difficulty. He denies any pain in his ankle or any other injury. He denies ever injuring this leg in the past. He denies any numbness or weakness. PMHx DM. No allergies to medicines. - Related Data Previous Rx's Medication Instructions Recorded Last Taken Type Ondansetron [Zofran Odt] 4 mg PO QID #12 tab.rapdis 03/10/17 Unknown Rx glipiZIDE [Glucotrol] 5 mg PO BID #60 tablet 07/20/20 12/04/20 17:00 Rx metFORMIN [Glucophage] 500 mg PO BID #60 tablet 07/20/20 12/04/20 17:00 Rx methylPREDNISolone [Medrol 4MG 4 mg PO DAILY #1 tab.ds.pk 12/14/20 Unknown Rx DOSEPAK (21 tabs)] Allergies Allergy/AdvReac Type Severity Reaction Status Date / Time No Known Allergies Allergy Verified 12/09/20 00:53 ED Review of Systems ROS: Stated complaint: FOOT INJURY Other details as noted in HPI Comment: All other systems reviewed and negative ED Past Medical Hx - Past Medical History Previous Medical History?: Yes Hx Diabetes: Yes (Type II) - Surgical History Past Surgical History?: No - Social History Smoking Status: Never Smoker - Medications Home Medications: Home Medications Medication Instructions Recorded Confirmed Last Taken Type Ondansetron [Zofran Odt] 4 mg PO QID #12 tab.rapdis 03/10/17 12/06/20 Unknown Rx glipiZIDE [Glucotrol] 5 mg PO BID #60 tablet 07/20/20 12/06/20 12/04/20 17:00 Rx metFORMIN [Glucophage] 500 mg PO BID #60 tablet 07/20/20 12/06/20 12/04/20 17:00 Rx methylPREDNISolone [Medrol 4MG 4 mg PO DAILY #1 tab.ds.pk 12/14/20 Unknown Rx DOSEPAK (21 tabs)] ED Physical Exam - General Limitations: No Limitations General appearance: alert, in no apparent distress - Head Head exam: Present: atraumatic, normocephalic - Eye Eye exam: Present: normal appearance - ENT ENT exam: Present: mucous membranes moist - Extremities Exam Extremities exam: Present: other (mild left lateral foot ttp, no deformity, no ecchymosis, no edema, FROM of the LLE, neurovascularly intact) - Neurological Exam Neurological exam: Present: alert, oriented X3 - Psychiatric Psychiatric exam: Present: normal affect, normal mood - Skin Skin exam: Present: warm, dry, intact ED Course Vital Signs 04/10/21 12:32 Temperature 98.2 F Pulse Rate 91 H Respiratory 18 Rate Blood Pressure 134/75 [Right] O2 Sat by Pulse 99 Oximetry ED Lower Extremity MDM - Radiology Data Radiology results: report reviewed Ordering Physician: NURY KOCH Date of Service: 04/10/21 Procedure(s): XR foot 3+V LT Accession Number(s): [id number] cc: NURY KOCH Fluoro Time In Minutes: LEFT FOOT 3 VIEWS INDICATION / CLINICAL INFORMATION: Fall with left lateral foot pain. COMPARISON: None available. FINDINGS: BONES / JOINT(S): No acute fracture or subluxation. No significant arthritis. SOFT TISSUES: No significant abnormality. ADDITIONAL FINDINGS: None. Signer Name: Yaw Shields MD Signed: 04/10/2021 1:55 PM Workstation Name: [id number] Transcribed By: RT Dictated By: Yaw Shields MD Electronically Authenticated By: Yaw Shields MD Signed Date/Time: 04/10/21 1355 DD/ 1354 TD/TT: - Medical Decision Making Patient is a 30-year-old male presents emergency room complaints of a left foot injury that occurred yesterday. Patient states that he was outside running after his dog's when he tripped in a hole and had a inversion injury of his left foot. He is ambulatory without difficulty. He denies any pain in his ankle or any other injury. He denies ever injuring this leg in the past. He denies any numbness or weakness. PMHx DM. No allergies to medicines. VSS. on exam: mild left lateral foot ttp, no deformity, no ecchymosis, no edema, FROM of the LLE, neurovascularly intact. XR left foot: BONES / JOINT(S): No acute fracture or subluxation. No significant arthritis. SOFT TISSUES: No significant abnormality. ADDITIONAL FINDINGS: None. Discussed all results with patient and answer questions. Advised patient May take Tylenol as needed for any pain. May use ice for 15 minutes at that time, rest, elevation of the leg, Roderick wrap. Do not wear Roderick bandage too tightly and do not wear at night while sleeping. Follow-up with the orthopedic doctor if symptoms or not improving. Return to emergency room for any new or worsening symptoms. Critical care attestation.: If time is entered above; I have spent that time in minutes in the direct care of this critically ill patient, excluding procedure time. ED Disposition Clinical Impression: Sprain of left foot Qualifiers: Encounter type: initial encounter Qualified Code(s): S93.602A - Unspecified sprain of left foot, initial encounter Disposition: TO HOME OR SELFCARE Is pt being admited?: No Does the pt Need Aspirin: No Condition: Stable Instructions: Foot Sprain, Elastic Bandage and RICE Therapy Additional Instructions: May take Tylenol as needed for any pain. May use ice for 15 minutes at that time, rest, elevation of the leg, Roderick wrap. Do not wear Roderick bandage too tightly and do not wear at night while sleeping. Follow-up with the orthopedic doctor if symptoms or not improving. Return to emergency room for any new or worsening symptoms. Referrals: YAW MENDOZA MD [Staff Physician] - as needed [facility] [Provider Group] - as needed Forms: Work/School Release Form(ED) Time of Disposition: 14:11 Print Language: GUYANESE
== END 2021-04-10 15:01 | disposition home or self-care (01) ==
LOC: ED 11:26
DX: S93.602A Unspecified sprain of left foot, initial encounter (principal); E11.9 Type 2 diabetes mellitus without complications; Z79.899 Other long term (current) drug therapy; W18.49XA Other slipping, tripping and stumbling without falling, initial encounter; Y93.89 Activity, other specified; Y92.89 Other specified places as the place of occurrence of the external cause; Y99.8 Other external cause status